=== PATIENT | male | born 1940 | race Caucasian/White ===

== ENCOUNTER → 2017-09-28 17:46 | Outpatient (CLI) | payer MEDICARE, OTHER, SELFPAY | PROVIDERS: Visit Provider Podiatrist | DX: L03.115 Cellulitis of right lower limb (principal) | CPT/HCPCS: 87070; 87075; 87205 ==

== ENCOUNTER 2018-04-19 10:00 | Outpatient (RCR) | payer MEDICARE, OTHER, SELFPAY ==
[2018-03-29 09:36] VITALS: BP 135/80; PULSE 60; RESP 16; TEMP 35.5; BMI 27.2
--- NOTE | 2018-03-29 12:57 | PCM.WC.HP ---
(1) Ulcer of right lower extremity with fat layer exposed Status: Acute Current Visit: Yes Code(s): L97.912 - Non-pressure chronic ulcer of unspecified part of right lower leg with fat layer exposed (2) Type 2 diabetes mellitus with diabetic polyneuropathy Status: Acute Current Visit: Yes Code(s): E11.42 - Type 2 diabetes mellitus with diabetic polyneuropathy (3) Lower extremity edema Status: Acute Current Visit: Yes Code(s): R60.0 - Localized edema (4) Venous insufficiency Status: Acute Current Visit: Yes Code(s): I87.2 - Venous insufficiency (chronic) (peripheral) History of Present Illness Date of Service: 03/29/18 Chief Complaint: right lower leg ulcers History of Wound: This 78-year-old diabetic male was referred to the wound healing center by Dr. Torres for right lower leg ulcers. The patient relates that approximately 3 years ago he had an undiagnosed ankle fracture that he was treated for in [place]. He relates that the ankle finally healed, but he has had increased chonic swelling to his right lower extremity when compared to his left lower extremity. As a result, the patient relates that he will develop ulcers from time to time. These had previously been treated by Dr. Torres. He had last seen Dr. Torres in office a few weeks ago and the patient has been using haley dressing changes. These two areas were healed once the old haley was removed in clinic today. However, the patient had two new superficial ulcers to the right lateral lower leg. He says he just noticed these a few days ago. He denies any purulence to the areas or any significant warmth or redness to the areas. He has not done much to treat these on his own other than keeping them dressed. Past Medical History Past Medical History: Chronic Problems Overweight (BMI 25.0-29.9) (Chronic) Hypertension (Chronic) Hyperlipidemia (Chronic) History of tobacco use (Chronic) Diabetes mellitus, type II (Chronic) Surgical History: - - Cholecystectomy, left 1st metatarsal surgery, cataract surgery, tonsillectomy. Allergies/Adverse Reactions: Allergies cefdinir [From Omnicef] Adverse Reaction (Verified 12/09/16 05:37) Other constipation Home Medications: Ambulatory Orders Medication Instructions Recorded Glimepiride [Amaryl] 2 mg PO BIDCM 07/24/14 Hydrochlorothiazide 25 mg PO DAILY 07/24/14 Metformin [Metformin HCl] 1,000 mg PO BID 07/24/14 Tamsulosin HCl 0.4 mg PO DAILY 07/24/14 Allopurinol 100 mg PO DAILY 12/09/16 Atorvastatin Calcium 20 mg PO DAILY 12/09/16 Gabapentin [Neurontin] 300 mg PO DAILY 12/09/16 Meclizine HCl [Antivert] 25 mg PO TID PRN PRN #15 tablet 12/09/16 - Family History Maternal No pertinent history Paternal No pertinent history Smoking Status: Never smoker Review of Systems Constitutional: Denies: Chills, Fever, Weight Change Respiratory: Denies: Cough, Shortness of Breath Gastrointestinal: Denies: Diarrhea, Nausea, Vomiting Skin: Reports: - - right LE ulcers Neurological: Reports: - - DM neuropathy - Physical Exam Vital Signs Temp Pulse Resp BP 95.9 F L 60 16 135/80 H 03/29/18 09:36 03/29/18 09:36 03/29/18 09:36 03/29/18 09:36 General: Alert, Oriented x3, Cooperative, No apparent distress Extremities: No cyanosis, Capillary Refill Less than 3 Seconds - To distal digits, No Calf Tenderness - Negative Yenny and Voss sign, Edema - Bilateral lower extremity edema with right being worse than left, Peripheral Pulses Normal - DP and PT pulses palpable Skin: Ulcer/ Wound - Right lateral lower extremity ulcers with fat layer exposed one superior one inferior. The bases of each are noted to be a mixture of adherent slough, fibrin, granular tissue. There is no surrounding or extending cellulitis, no increase in warmth, no purulence, no malodor, no probing, no tracking, no undermining. Wound Measurements and Assessment WC - Nurse 1 - General Ulcer Measurement Start: 03/29/18 09:27 Freq: Status: Active Protocol: Activity Type Activity Date Activity User E-Sign Co-Sign Detail Recorded Client Recorded Date Recorded By Document 03/29/18 09:36 [id number] 03/29/18 10:03 03/29/18 09:36 Wound Center Nurse 1 [Ulcer Assessment] #2 Lateral RLE- Inferior -Combined with other wound No -Current Size (cm) - Length 1.7 -Current Size (cm) - Width 1.5 -Current Size (cm) - Depth 0 -Total Square Cm 2.55 -Date of Last Picture (Recall this 03/29/18 field) -Photo Taken Yes -Epithelialization None Present -Tunneling No -Undermining/Tunneling No -Circular Undermining No -Necrosis Amt Large (67-100%) -Necrotic Tissue Type Eschar -Temperature (Christiane-wound Skin No Abnormality Appearance) (Pt Warm) -Tenderness on Palpation (Christiane-wound No Skin Appearance) -Ulcer Cleansing Rinsed/ Irrigated with Saline -Foul Odor after Cleansing No -Anesthetic Used 4% Lidocaine Solution #1 Lateral RLE- Superior -Combined with other wound No -Current Size (cm) - Length 7.5 -Current Size (cm) - Width 3.4 -Current Size (cm) - Depth 0 -Total Square Cm 25.50 -Date of Last Picture (Recall this 03/29/18 field) -Photo Taken Yes -Epithelialization None Present -Tunneling No -Undermining/Tunneling No -Circular Undermining No -Granulation Amt Large (67-100%) -Granulation Quality Pale [place] -Slough/Fibrin No -Temperature (Christiane-wound Skin No Abnormality Appearance) (Pt Warm) -Tenderness on Palpation (Christiane-wound No Skin Appearance) -Ulcer Cleansing Rinsed/ Irrigated with Saline -Foul Odor after Cleansing No -Anesthetic Used 4% Lidocaine Solution [Edema Assessment] -Lower Limb Edema Present No -Right Calf (cm) 38 -Right Ankle (cm) 25.8 -Left Calf (cm) 37.5 -Left Ankle (cm) 24.8 WC - Nurse 2 - General Ulcer CM Notes Start: 03/29/18 09:27 Freq: Status: Active Protocol: Activity Type Activity Date Activity User E-Sign Co-Sign Detail Recorded Client Recorded Date Recorded By Document 03/29/18 10:34 DV [id number] 03/29/18 10:38 DV 03/29/18 10:34 Wound Center Nurse 2 [Procedure/Treatment] #2 Lateral RLE- Inferior -Time 10:37 -Correct Patient Yes -Correct Side, Site, Position Yes -Procedure Performed No -Post Debridement Size (cm) - Length 2.2 -Post Debridement Size (cm) - Width 3.0 -Post Debridement Size (cm) - Depth 0.1 -Total Square Cm 6.60 -Wound/Ulcer Outcome Not Healed #1 Lateral RLE- Superior -Time 10:37 -Correct Patient Yes -Correct Side, Site, Position Yes -Procedure Performed No -Post Debridement Size (cm) - Length 1.5 -Post Debridement Size (cm) - Width 3.7 -Post Debridement Size (cm) - Depth 0.1 -Total Square Cm 5.55 -Wound/Ulcer Outcome Not Healed [See Physician Procedure note for Specifics] Musculoskeletal: No Tenderness to Palpation of Joints or Extremities, - - No tenderness with manipulation of ulcer sites Neurological: - - Epicritic sensation grossly absent lower extremity Psych/Mental Status: Normal Affect, Appropriate Debridement Note Post-Debridement Measurements/Treatment WC - Nurse 2 - General Ulcer CM Notes Start: 03/29/18 09:27 Freq: Status: Active Protocol: Activity Type Activity Date Activity User E-Sign Co-Sign Detail Recorded Client Recorded Date Recorded By Document 03/29/18 10:34 DV [id number] 03/29/18 10:38 DV 03/29/18 10:34 Wound Center Nurse 2 #2 Lateral RLE- Inferior -Time 10:37 -Correct Patient Yes -Correct Side, Site, Position Yes -Procedure Performed No -Post Debridement Size (cm) - Length 2.2 -Post Debridement Size (cm) - Width 3.0 -Post Debridement Size (cm) - Depth 0.1 -Total Square Cm 6.60 -Wound/Ulcer Outcome Not Healed #1 Lateral RLE- Superior -Time 10:37 -Correct Patient Yes -Correct Side, Site, Position Yes -Procedure Performed No -Post Debridement Size (cm) - Length 1.5 -Post Debridement Size (cm) - Width 3.7 -Post Debridement Size (cm) - Depth 0.1 -Total Square Cm 5.55 -Wound/Ulcer Outcome Not Healed No debridement was completed today Assessment/Plan Active Problems Ulcer of right lower extremity with fat layer exposed (Acute) Type 2 diabetes mellitus with diabetic polyneuropathy (Acute) Lower extremity edema (Acute) Venous insufficiency (Acute) Assessment: Ulcer right lateral lower extremity, DM with neuropathy, venous insufficiency, lower extremity edema Plan: Initial patient examination evaluation was formed. No debridement was performed today. The 2 ulcer sites were carefully cleansed and then an Unna boot was applied followed by rolled gauze and Coban. Patient is to keep this dressing clean dry and intact until Monday, at which time he will follow-up at the wound healing center for nurse visit to evaluate the Unna boot. If everything looks okay, and another Unna boot will be applied at this time. Keeping pressure off of the ulcer sites was discussed in detail with the patient and his today. He is to continue to do this at all times while seated or lying down. Patient is to keep his legs elevated all times. No antibiotics were prescribed at this time due to there being no signs of local infection appreciated. Venous Doppler exam was ordered for this patient. We will continue to monitor for these results. I recommend nutritional supplementation with a high protein diet in order to optimize ulcer healing potential. The patient and his were educated on all signs and symptoms of local and systemic infection and they were instructed to go to the emergency room immediately should they notice any of these. All other questions were answered to the patient and his 's satisfaction. He will follow-up with me in clinic in 1 week, but was instructed to follow-up sooner if needed.
--- NOTE | 2018-04-03 10:38 | VDLE_ITS ---
Reason For Study: Ulcers RIGHT LEFT CFV is compressible, spontaneous, phasic, CFV is compressible, spontaneous, phasic, competent and demonstrates normal competent, and demonstrates normal augmentation. augmentation. FV is compressible, spontaneous, phasic, FV is compressible, spontaneous, phasic, competent and demonstrates normal competent and demonstrates normal augmentation. augmentation. POP V is compressible, spontaneous, phasic, POP V is compressible, spontaneous, phasic, competent and demonstrates normal competent and demonstrates normal augmentation. augmentation. T/P Trunk is compressible. T/P Trunk is compressible. PTV is compressible. PTV is compressible. RT PerV is compressible. LT PerV is compressible. SFJ is INCOMPETENTwith reflux greater than .5 SFJ is competent sec GSV is INCOMPETENT with reflux greater GSV is competent than .5 sec and diameter of .55 x .63 cm SSV is INCOMPETENT with reflux greater SSV is INCOMPETENT with reflux greater than .5 sec and diameter of .73 x .85 cm than .5 sec and diameter of.52 x .56 cm SSV is partially compressible with bright SSV is partially compressible with bright intraluminal echoes consistant with chronic intraluminal echoes consistant with chronic clot. clot. Procedure Exam performed in department. A preliminary report was called and/or faxed to [facility]. Interpretation Summary Deep veins of the lower extremities are bilaterally patent and compressible segmentally. There is no evidence of deep vein thrombosis on either side. Valvular competence appears intact within the proximal deep venous systems bilaterally. The greater saphenous veins appear bilaterally patent and compressible segmentally. The right sapheno-femoral junction is incompetent . The left sapheno- femoral junction is competent . The right greater saphenous vein appears segmentally competent. The left greater saphenous vein appears segmentally incompetent. Small saphenous veins are incompetent bilaterally, and demonstrate chronic venous changes such as partial compressibility and bright intraluminal echogenicity. Ordering Physician: Fady Dickson Referring Physician: Fady Dickson Performed By: Margot Cristina RVT
[2018-04-03 11:38] VITALS: BP 130/71; PULSE 85; RESP 16; TEMP 35.4; BMI 27.2
[2018-04-05 09:43] VITALS: BP 162/78; PULSE 56; RESP 16; TEMP 35.5; BMI 27.2
--- NOTE | 2018-04-05 10:22 | PN.PCM_ITS ---
(1) Ulcer of right lower extremity with fat layer exposed Status: Acute Current Visit: Yes Code(s): L97.912 - Non-pressure chronic ulcer of unspecified part of right lower leg with fat layer exposed (2) Type 2 diabetes mellitus with diabetic polyneuropathy Status: Acute Current Visit: Yes Code(s): E11.42 - Type 2 diabetes mellitus with diabetic polyneuropathy (3) Lower extremity edema Status: Acute Current Visit: Yes Code(s): R60.0 - Localized edema (4) Venous insufficiency Status: Acute Current Visit: Yes Code(s): I87.2 - Venous insufficiency (chronic) (peripheral) Type of Wound Chief Complaint: right lower leg ulcers History of Wound: This 78-year-old diabetic male was referred to the wound healing center by Dr. Torres for right lower leg ulcers. The patient relates that approximately 3 years ago he had an undiagnosed ankle fracture that he was treated for in [place]. He relates that the ankle finally healed, but he has had increased chonic swelling to his right lower extremity when compared to his left lower extremity. As a result, the patient relates that he will develop ulcers from time to time. These had previously been treated by Dr. Torres. He had last seen Dr. Torres in office a few weeks ago and the patient has been using haley dressing changes. These two areas were healed once the old haley was rem carroll in clinic today. However, the patient had two new superficial ulcers to the right lateral lower leg. He says he just noticed these a few days ago. He denies any purulence to the areas or any significant warmth or redness to the areas. He has not done much to treat these on his own other than keeping them dressed. Progress of Wound: Ulcer sites show improvement since last week. Patient had unna boot applied and relates no issues with this over the past week. He is with his again today. Patient denies any feelings of nausea, vomiting, fever, or chills. - Physical Exam Vital Signs Temp Pulse Resp BP 96 F L 56 L 16 162/78 H 04/05/18 09:43 04/05/18 09:43 04/05/18 09:43 04/05/18 09:43 General: Alert, Oriented x3, Cooperative, No apparent distress Extremities: Capillary Refill Less than 3 Seconds - To distal digits, No Calf Tenderness - Negative Yenny and Voss sign, Edema - Bilateral lower extremity edema with right being worse than left, Peripheral Pulses Normal - DP and PT pulses palpable Skin: Ulcer/ Wound - Right lateral lower extremity ulcers with fat layer exposed one superior one inferior. Improvement noted this week. The bases of each are noted to be a mixture of adherent slough, fibrin, granular tissue. There is no surrounding or extending cellulitis, no increase in warmth, no purulence, no malodor, no probing, no tracking, no undermining. Wound Measurements and Assessment WC - Nurse 1 - General Ulcer Measurement Start: 03/29/18 09:27 Freq: Status: Active Protocol: Activity Type Activity Date Activity User E-Sign Co-Sign Detail Recorded Client Recorded Date Recorded By Document 04/05/18 09:43 [facility] [id number] 04/05/18 09:54 [facility] 04/05/18 09:43 Wound Center Nurse 1 [Ulcer Assessment] #2 Lateral RLE- Inferior -Combined with other wound No -Current Size (cm) - Length 0.2 -Current Size (cm) - Width 0.7 -Current Size (cm) - Depth 0.1 -Total Square Cm 0.14 -Photo Taken No -Epithelialization Small 1-33% -Tunneling No -Undermining/Tunneling No -Circular Undermining No -Exudate Amt Small -Exudate Type Sanguineous -Wound Margin Flat & Intact -Granulation Amt Large (67-100%) -Granulation Quality Red -Slough/Fibrin No -Necrosis Amt None Present (0 %) -Structure Exposed None/Limited to Skin Breakdown -Texture (Christiane-wound Skin Appearance) Scarring -Moisture (Christiane-wound Skin Appearance Assessed ) -Color (Christiane-wound Skin Appearance) Hemosiderin Staining -Temperature (Christiane-wound Skin No Abnormality Appearance) (Pt Warm) -Tenderness on Palpation (Christiane-wound No Skin Appearance) -Ulcer Cleansing Wound Cleanser -Foul Odor after Cleansing No -Anesthetic Used 5% Lidocaine Gel #1 Lateral RLE- Superior -Combined with other wound No -Current Size (cm) - Length 1 -Current Size (cm) - Width 3 -Current Size (cm) - Depth 0.1 -Total Square Cm 3 -Photo Taken No -Epithelialization Small 1-33% -Tunneling No -Undermining/Tunneling No -Circular Undermining No -Exudate Amt Small -Exudate Type Sanguineous -Wound Margin Flat & Intact -Granulation Amt Large (67-100%) -Granulation Quality Red -Slough/Fibrin No -Necrosis Amt None Present (0 %) -Structure Exposed None/Limited to Skin Breakdown -Texture (Christiane-wound Skin Appearance) Scarring -Moisture (Christiane-wound Skin Appearance Assessed ) -Color (Christiane-wound Skin Appearance) Hemosiderin Staining -Temperature (Christiane-wound Skin No Abnormality Appearance) (Pt Warm) -Tenderness on Palpation (Christiane-wound No Skin Appearance) -Ulcer Cleansing Wound Cleanser -Foul Odor after Cleansing No -Anesthetic Used 5% Lidocaine Gel [Edema Assessment] -Lower Limb Edema Present Yes -Right Calf (cm) 36.8 -Right Ankle (cm) 24.5 WC - Nurse 2 - General Ulcer CM Notes Start: 03/29/18 09:27 Freq: Status: Active Protocol: Activity Type Activity Date Activity User E-Sign Co-Sign Detail Recorded Client Recorded Date Recorded By Document 04/05/18 10:10 DV [id number] 04/05/18 10:15 DV 04/05/18 10:10 Wound Center Nurse 2 [Procedure/Treatment] #2 Lateral RLE- Inferior -Time 10:10 -Correct Patient Yes -Correct Side, Site, Position Yes -Correct Procedure Yes -Procedure Performed Yes -Type of Procedure Debridement -Clinical Debridement Subcutaneous -Post Debridement Size (cm) - Length 0.5 -Post Debridement Size (cm) - Width 0.8 -Post Debridement Size (cm) - Depth 0.1 -Total Square Cm 0.40 -Wound/Ulcer Outcome Not Healed -Ulcer Cleansing Rinsed/ Irrigated with Saline -Foul Odor after Cleansing No -Bioengineered Tissue No -Bleeding Controlled with Pressure -Offloading No -Treatment Response Procedure Tolerated Well #1 Lateral RLE- Superior -Time 10:12 -Correct Patient Yes -Correct Side, Site, Position Yes -Correct Procedure Yes -Procedure Performed Yes -Type of Procedure Debridement -Clinical Debridement Subcutaneous -Post Debridement Size (cm) - Length 1.1 -Post Debridement Size (cm) - Width 2.2 -Post Debridement Size (cm) - Depth 0.1 -Total Square Cm 2.42 -Wound/Ulcer Outcome Not Healed -Ulcer Cleansing Rinsed/ Irrigated with Saline -Foul Odor after Cleansing No -Bioengineered Tissue No -Bleeding Controlled with Pressure -Offloading No -Treatment Response Procedure Tolerated Well [See Physician Procedure note for Specifics] Pain Scale: 0-10 Numeric [Pain] -Is Patient Pain Free? Yes Musculoskeletal: No Tenderness to Palpation of Joints or Extremities, - - No tenderness with manipulation of ulcer sites Neurological: - - Epicritic sensation grossly absent lower extremity Psych/Mental Status: Normal Affect, Appropriate Debridement Note Post-Debridement Measurements/Treatment WC - Nurse 2 - General Ulcer CM Notes Start: 03/29/18 09:27 Freq: Status: Active Protocol: Activity Type Activity Date Activity User E-Sign Co-Sign Detail Recorded Client Recorded Date Recorded By Document 03/29/18 10:34 DV [id number] 03/29/18 10:38 DV Document 04/05/18 10:10 DV [id number] 04/05/18 10:15 DV 03/29/18 04/05/18 10:34 10:10 Wound Center Nurse 2 #2 Lateral RLE- Inferior -Time 10:37 10:10 -Correct Patient Yes Yes -Correct Side, Site, Position Yes Yes -Correct Procedure Yes -Procedure Performed No Yes -Type of Procedure Debridement -Clinical Debridement Subcutaneous -Post Debridement Size (cm) - Length 2.2 0.5 -Post Debridement Size (cm) - Width 3.0 0.8 -Post Debridement Size (cm) - Depth 0.1 0.1 -Total Square Cm 6.60 0.40 -Wound/Ulcer Outcome Not Healed Not Healed -Ulcer Cleansing Rinsed/ Irrigated with Saline -Foul Odor after Cleansing No -Bioengineered Tissue No -Bleeding Controlled with Pressure -Offloading No -Treatment Response Procedure Tolerated Well #1 Lateral RLE- Superior -Time 10:37 10:12 -Correct Patient Yes Yes -Correct Side, Site, Position Yes Yes -Correct Procedure Yes -Procedure Performed No Yes -Type of Procedure Debridement -Clinical Debridement Subcutaneous -Post Debridement Size (cm) - Length 1.5 1.1 -Post Debridement Size (cm) - Width 3.7 2.2 -Post Debridement Size (cm) - Depth 0.1 0.1 -Total Square Cm 5.55 2.42 -Wound/Ulcer Outcome Not Healed Not Healed -Ulcer Cleansing Rinsed/ Irrigated with Saline -Foul Odor after Cleansing No -Bioengineered Tissue No -Bleeding Controlled with Pressure -Offloading No -Treatment Response Procedure Tolerated Well Pain Scale: 0-10 Numeric Is Patient Pain Free? Yes Wound debrided: Right anterior lower leg superior Laterality: Right Type of Debridement: Excisional debridement Anesthesia Used: 4% Lidocaine Solution Depth: in the subcutaneous layer Percentage of wound debrided: 100 Instrument Used: 7mm curette Tissue Removed: Adherent slough, fibrin, hyperkeratotic tissue Severity: Fat Layer Exposed Amount of bleeding with debridement: Mild Bleeding Controlled with: Pressure Patient tolerated procedure well - Additional Wound Wound debrided: Right anterior lower leg inferior Laterality: Right Type of Debridement: Excisional debridement Anesthesia Used: 4% Lidocaine Solution Depth: in the subcutaneous layer Percentage of wound debrided: 100 Instrument Used: 7mm curette Tissue Removed: Adherent slough, fibrin, hyperkeratotic tissue Severity: Fat Layer Exposed Amount of bleeding with debridement: Mild Bleeding Controlled with: Pressure Patient tolerated procedure: Patient tolerated procedure well Assessment/Plan Active Problems Ulcer of right lower extremity with fat layer exposed (Acute) Type 2 diabetes mellitus with diabetic polyneuropathy (Acute) Lower extremity edema (Acute) Venous insufficiency (Acute) Assessment: Ulcer right lateral lower extremity, DM with neuropathy, venous insufficiency, lower extremity edema Plan: Patient was carefully examined and evaluated again today with in the room. Subcutaneous debridement was performed as noted in the clinical panel. The two ulcer sites were then carefully cleansed and then an Unna boot was applied followed by rolled gauze and Coban. Patient is to keep this dressing clean dry and intact for the next week. Keeping pressure off of the ulcer sites was discussed in detail with the patient and his today. He is to continue to do this at all times while seated or lying down. Patient is to keep his legs elevated all times. No antibiotics were prescribed at this time due to there being no signs of local infection appreciated. Venous Doppler exam was ordered for this patient and shows some venous incompetence to the left lower extremity. Full detailed report is in patient's chart. We discussed possible vascular referral in the future. I recommend nutritional supplementation with a high protein diet in order to optimize ulcer healing potential. The patient and his were educated on all signs and symptoms of local and systemic infection and they were instructed to go to the emergency room immediately should they notice any of these. All other questions were answered to the patient and his 's satisfaction. He will follow-up with me in clinic in 1 week, but was instructed to follow-up sooner if needed.
[2018-04-12 09:36] VITALS: BP 130/75; PULSE 76; RESP 16; TEMP 35.3; BMI 27.2
--- NOTE | 2018-04-12 10:05 | PCM.WC.PN ---
(1) Ulcer of right lower extremity with fat layer exposed Status: Acute Current Visit: Yes Code(s): L97.912 - Non-pressure chronic ulcer of unspecified part of right lower leg with fat layer exposed (2) Type 2 diabetes mellitus with diabetic polyneuropathy Status: Acute Current Visit: Yes Code(s): E11.42 - Type 2 diabetes mellitus with diabetic polyneuropathy (3) Lower extremity edema Status: Acute Current Visit: Yes Code(s): R60.0 - Localized edema (4) Venous insufficiency Status: Acute Current Visit: Yes Code(s): I87.2 - Venous insufficiency (chronic) (peripheral) Type of Wound Chief Complaint: right lower leg ulcers History of Wound: This 78-year-old diabetic male was referred to the wound healing center by Dr. Torres for right lower leg ulcers. The patient relates that approximately 3 years ago he had an undiagnosed ankle fracture that he was treated for in [place]. He relates that the ankle finally healed, but he has had increased chonic swelling to his right lower extremity when compared to his left lower extremity. As a result, the patient relates that he will develop ulcers from time to time. These had previously been treated by Dr. Torres. He had last seen Dr. Torres in office a few weeks ago and the patient has been using haley dressing changes. These two areas were healed once the old haley was removed in clinic today. However, the patient had two new superficial ulcers to the right lateral lower leg. He says he just noticed these a few days ago. He denies any purulence to the areas or any significant warmth or redness to the areas. He has not done much to treat these on his own other than keeping them dressed. Progress of Wound: Superior ulcer shows great improvement, inferior ulcer is healed. Patient had unna boot applied for the past week. He is with his again today. Patient denies any feelings of nausea, vomiting, fever, or chills. - Physical Exam Vital Signs Temp Pulse Resp BP 95.5 F L 76 16 130/75 H 04/12/18 09:36 04/12/18 09:36 04/12/18 09:36 04/12/18 09:36 General: Alert, Oriented x3, Cooperative, No apparent distress Extremities: Capillary Refill Less than 3 Seconds, No Calf Tenderness - Negative Yenny and Voss sign, Edema - Bilateral lower extremity edema with right being worse than left, Peripheral Pulses Normal - DP and PT pulses palpable Skin: Ulcer/ Wound - Right lateral lower extremity ulcer superior with fat layer exposed. Improvement noted this week. The base is noted to be a mixture of adherent slough, fibrin, granular tissue. There is no surrounding or extending cellulitis, no increase in warmth, no purulence, no malodor, no probing, no tracking, no undermining. Previous inferior ulcer is healed today. Wound Measurements and Assessment WC - Nurse 1 - General Ulcer Measurement Start: 03/29/18 09:27 Freq: Status: Active Protocol: Activity Type Activity Date Activity User E-Sign Co-Sign Detail Recorded Client Recorded Date Recorded By Document 04/12/18 09:36 [facility] [id number] 04/12/18 09:48 [facility] 04/12/18 09:36 Wound Center Nurse 1 [Ulcer Assessment] #2 Lateral RLE- Inferior -Combined with other wound No -Current Size (cm) - Length 0.1 -Current Size (cm) - Width 0.1 -Current Size (cm) - Depth 0.1 -Total Square Cm 0.01 -Date of Last Picture (Recall this 04/12/18 field) -Photo Taken Yes -Epithelialization Large 67-100% -Tunneling No -Undermining/Tunneling No -Circular Undermining No -Exudate Amt None Present -Wound Margin Flat & Intact -Texture (Christiane-wound Skin Appearance) Scarring -Moisture (Christiane-wound Skin Appearance Dry/Scaly ) -Color (Christiane-wound Skin Appearance) Hemosiderin Staining -Temperature (Christiane-wound Skin No Abnormality Appearance) (Pt Warm) -Tenderness on Palpation (Christiane-wound No Skin Appearance) -Ulcer Cleansing Wound Cleanser -Foul Odor after Cleansing No -Anesthetic Used 4% Lidocaine Solution #1 Lateral RLE- Superior -Combined with other wound No -Current Size (cm) - Length 0.1 -Current Size (cm) - Width 0.1 -Current Size (cm) - Depth 0.1 -Total Square Cm 0.01 -Date of Last Picture (Recall this 04/12/18 field) -Photo Taken Yes -Epithelialization Large 67-100% -Tunneling No -Undermining/Tunneling No -Circular Undermining No -Exudate Amt None Present -Texture (Christiane-wound Skin Appearance) Scarring -Moisture (Christiane-wound Skin Appearance Dry/Scaly ) -Color (Christiane-wound Skin Appearance) Hemosiderin Staining -Temperature (Christiane-wound Skin No Abnormality Appearance) (Pt Warm) -Tenderness on Palpation (Christiane-wound No Skin Appearance) -Ulcer Cleansing Wound Cleanser -Foul Odor after Cleansing No -Anesthetic Used 4% Lidocaine Solution [Edema Assessment] -Lower Limb Edema Present Yes -Right Calf (cm) 37 -Right Ankle (cm) 23.6 [facility] - Nurse 2 - General Ulcer CM Notes Start: 03/29/18 09:27 Freq: Status: Active Protocol: Activity Type Activity Date Activity User E-Sign Co-Sign Detail Recorded Client Recorded Date Recorded By Document 04/12/18 09:58 DV [id number] 04/12/18 10:03 DV 04/12/18 09:58 Wound Center Nurse 2 [Procedure/Treatment] #2 Lateral RLE- Inferior -Time 09:59 -Correct Patient Yes -Correct Side, Site, Position Yes -Procedure Performed No -Post Debridement Size (cm) - Length 0 -Post Debridement Size (cm) - Width 0 -Post Debridement Size (cm) - Depth 0 -Total Square Cm 0 -Wound/Ulcer Outcome Healed- Epithelialized #1 Lateral RLE- Superior -Time 10:00 -Correct Patient Yes -Correct Side, Site, Position Yes -Correct Procedure Yes -Procedure Performed Yes -Type of Procedure Debridement -Clinical Debridement Subcutaneous -Post Debridement Size (cm) - Length 0.1 -Post Debridement Size (cm) - Width 0.5 -Post Debridement Size (cm) - Depth 0.1 -Total Square Cm 0.05 -Wound/Ulcer Outcome Not Healed -Ulcer Cleansing Rinsed/ Irrigated with Saline -Foul Odor after Cleansing No -Bioengineered Tissue No -Bleeding Controlled with Pressure -Offloading No -Treatment Response Procedure Tolerated Well [See Physician Procedure note for Specifics] Pain Scale: 0-10 Numeric [Pain] -Is Patient Pain Free? Yes Musculoskeletal: No Tenderness to Palpation of Joints or Extremities, - - No tenderness with manipulation of ulcer sites Neurological: - - Epicritic sensation grossly absent to lower extremity Psych/Mental Status: Normal Affect, Appropriate Debridement Note Post-Debridement Measurements/Treatment [facility] - Nurse 2 - General Ulcer CM Notes Start: 03/29/18 09:27 Freq: Status: Active Protocol: Activity Type Activity Date Activity User E-Sign Co-Sign Detail Recorded Client Recorded Date Recorded By Document 03/29/18 10:34 DV [id number] 03/29/18 10:38 DV Document 04/05/18 10:10 DV [id number] 04/05/18 10:15 DV Document 04/12/18 09:58 DV [id number] 04/12/18 10:03 DV 03/29/18 04/05/18 04/12/18 10:34 10:10 09:58 Wound Center Nurse 2 #2 Lateral RLE- Inferior -Time 10:37 10:10 09:59 -Correct Patient Yes Yes Yes -Correct Side, Site, Position Yes Yes Yes -Correct Procedure Yes -Procedure Performed No Yes No -Type of Procedure Debridement -Clinical Debridement Subcutaneous -Post Debridement Size (cm) - Length 2.2 0.5 0 -Post Debridement Size (cm) - Width 3.0 0.8 0 -Post Debridement Size (cm) - Depth 0.1 0.1 0 -Total Square Cm 6.60 0.40 0 -Wound/Ulcer Outcome Not Healed Not Healed Healed- Epithelialized -Ulcer Cleansing Rinsed/ Irrigated with Saline -Foul Odor after Cleansing No -Bioengineered Tissue No -Bleeding Controlled with Pressure -Offloading No -Treatment Response Procedure Tolerated Well #1 Lateral RLE- Superior -Time 10:37 10:12 10:00 -Correct Patient Yes Yes Yes -Correct Side, Site, Position Yes Yes Yes -Correct Procedure Yes Yes -Procedure Performed No Yes Yes -Type of Procedure Debridement Debridement -Clinical Debridement Subcutaneous Subcutaneous -Post Debridement Size (cm) - Length 1.5 1.1 0.1 -Post Debridement Size (cm) - Width 3.7 2.2 0.5 -Post Debridement Size (cm) - Depth 0.1 0.1 0.1 -Total Square Cm 5.55 2.42 0.05 -Wound/Ulcer Outcome Not Healed Not Healed Not Healed -Ulcer Cleansing Rinsed/ Rinsed/ Irrigated with Irrigated with Saline Saline -Foul Odor after Cleansing No No -Bioengineered Tissue No No -Bleeding Controlled with Pressure Pressure -Offloading No No -Treatment Response Procedure Procedure Tolerated Well Tolerated Well Pain Scale: 0-10 Numeric Is Patient Pain Free? Yes Yes Wound debrided: Right anterior lower leg superior Laterality: Right Type of Debridement: Selective debridement Anesthesia Used: 4% Lidocaine Solution Depth: in the subcutaneous layer Percentage of wound debrided: 100 Instrument Used: 5mm curette Tissue Removed: Adherent slough, fibrin, hyperkeratotic tissue Severity: Fat Layer Exposed Amount of bleeding with debridement: Mild Bleeding Controlled with: Pressure Patient tolerated procedure well Assessment/Plan Active Problems Ulcer of right lower extremity with fat layer exposed (Acute) Type 2 diabetes mellitus with diabetic polyneuropathy (Acute) Lower extremity edema (Acute) Venous insufficiency (Acute) Assessment: Ulcer right lateral lower extremity, DM with neuropathy, venous insufficiency, lower extremity edema Plan: Patient was carefully examined and evaluated again today with in the room. Selective debridement was performed as noted in the clinical panel. Inferior ulcer is healed this week. Improvement noted to superior ulcer. The ulcer site was then carefully cleansed and then an Unna boot was applied followed by rolled gauze and Coban. Patient is to keep this dressing clean dry and intact for the next week. Keeping pressure off of the ulcer sites was discussed in detail with the patient and his today. He is to continue to do this at all times while seated or lying down. Patient is to keep his legs elevated all times. No antibiotics were prescribed at this time due to there being no signs of local infection appreciated. Venous Doppler exam was ordered for this patient and shows some venous incompetence to the left lower extremity. Full detailed report is in patient's chart. We discussed possible vascular referral in the future. Prescribed 20-30 mmHg compression stockings for patient to start wearing once completely healed to reduce chance of recurrence. I recommend nutritional supplementation with a high protein diet in order to optimize ulcer healing potential. The patient and his were educated on all signs and symptoms of local and systemic infection and they were instructed to go to the emergency room immediately should they notice any of these. All other questions were answered to the patient and his 's satisfaction. He will follow-up with me in clinic in 1 week, but was instructed to follow-up sooner if needed.
--- NOTE | 2018-04-12 10:09 | PN.PCM_ITS ---
(1) Ulcer of right lower extremity with fat layer exposed Status: Acute Current Visit: Yes Code(s): L97.912 - Non-pressure chronic ulcer of unspecified part of right lower leg with fat layer exposed (2) Type 2 diabetes mellitus with diabetic polyneuropathy Status: Acute Current Visit: Yes Code(s): E11.42 - Type 2 diabetes mellitus with diabetic polyneuropathy (3) Lower extremity edema Status: Acute Current Visit: Yes Code(s): R60.0 - Localized edema (4) Venous insufficiency Status: Acute Current Visit: Yes Code(s): I87.2 - Venous insufficiency (chronic) (peripheral) Type of Wound Chief Complaint: right lower leg ulcers History of Wound: This 78-year-old diabetic male was referred to the wound healing center by Dr. Torres for right lower leg ulcers. The patient relates that approximately 3 years ago he had an undiagnosed ankle fracture that he was treated for in [place]. He relates that the ankle finally healed, but he has had increased chonic swelling to his right lower extremity when compared to his left lower extremity. As a result, the patient relates that he will develop ulcers from time to time. These had previously been treated by Dr. Torres. He had last seen Dr. Torres in office a few weeks ago and the patient has been using haley dressing changes. These two areas were healed once the old haley was rem carroll in clinic today. However, the patient had two new superficial ulcers to the right lateral lower leg. He says he just noticed these a few days ago. He denies any purulence to the areas or any significant warmth or redness to the areas. He has not done much to treat these on his own other than keeping them dressed. Progress of Wound: Superior ulcer shows great improvement, inferior ulcer is healed. Patient had unna boot applied for the past week. He is with his again today. Patient denies any feelings of nausea, vomiting, fever, or chills. - Physical Exam Vital Signs Temp Pulse Resp BP 95.5 F L 76 16 130/75 H 04/12/18 09:36 04/12/18 09:36 04/12/18 09:36 04/12/18 09:36 General: Alert, Oriented x3, Cooperative, No apparent distress Extremities: Capillary Refill Less than 3 Seconds, No Calf Tenderness - Negative Yenny and Voss sign, Edema - Bilateral lower extremity edema with right being worse than left, Peripheral Pulses Normal - DP and PT pulses palpable Skin: Ulcer/ Wound - Right lateral lower extremity ulcer superior with fat layer exposed. Improvement noted this week. The base is noted to be a mixture of adherent slough, fibrin, granular tissue. There is no surrounding or extending cellulitis, no increase in warmth, no purulence, no malodor, no probing, no tracking, no undermining. Previous inferior ulcer is healed today. Wound Measurements and Assessment WC - Nurse 1 - General Ulcer Measurement Start: 03/29/18 09:27 Freq: Status: Active Protocol: Activity Type Activity Date Activity User E-Sign Co-Sign Detail Recorded Client Recorded Date Recorded By Document 04/12/18 09:36 [facility] [id number] 04/12/18 09:48 [facility] 04/12/18 09:36 Wound Center Nurse 1 [Ulcer Assessment] #2 Lateral RLE- Inferior -Combined with other wound No -Current Size (cm) - Length 0.1 -Current Size (cm) - Width 0.1 -Current Size (cm) - Depth 0.1 -Total Square Cm 0.01 -Date of Last Picture (Recall this 04/12/18 field) -Photo Taken Yes -Epithelialization Large 67-100% -Tunneling No -Undermining/Tunneling No -Circular Undermining No -Exudate Amt None Present -Wound Margin Flat & Intact -Texture (Christiane-wound Skin Appearance) Scarring -Moisture (Christiane-wound Skin Appearance Dry/Scaly ) -Color (Christiane-wound Skin Appearance) Hemosiderin Staining -Temperature (Christiane-wound Skin No Abnormality Appearance) (Pt Warm) -Tenderness on Palpation (Christiane-wound No Skin Appearance) -Ulcer Cleansing Wound Cleanser -Foul Odor after Cleansing No -Anesthetic Used 4% Lidocaine Solution #1 Lateral RLE- Superior -Combined with other wound No -Current Size (cm) - Length 0.1 -Current Size (cm) - Width 0.1 -Current Size (cm) - Depth 0.1 -Total Square Cm 0.01 -Date of Last Picture (Recall this 04/12/18 field) -Photo Taken Yes -Epithelialization Large 67-100% -Tunneling No -Undermining/Tunneling No -Circular Undermining No -Exudate Amt None Present -Texture (Christiane-wound Skin Appearance) Scarring -Moisture (Christiane-wound Skin Appearance Dry/Scaly ) -Color (Christiane-wound Skin Appearance) Hemosiderin Staining -Temperature (Christiane-wound Skin No Abnormality Appearance) (Pt Warm) -Tenderness on Palpation (Christiane-wound No Skin Appearance) -Ulcer Cleansing Wound Cleanser -Foul Odor after Cleansing No -Anesthetic Used 4% Lidocaine Solution [Edema Assessment] -Lower Limb Edema Present Yes -Right Calf (cm) 37 -Right Ankle (cm) 23.6 WC - Nurse 2 - General Ulcer CM Notes Start: 03/29/18 09:27 Freq: Status: Active Protocol: Activity Type Activity Date Activity User E-Sign Co-Sign Detail Recorded Client Recorded Date Recorded By Document 04/12/18 09:58 DV [id number] 04/12/18 10:03 DV 04/12/18 09:58 Wound Center Nurse 2 [Procedure/Treatment] #2 Lateral RLE- Inferior -Time 09:59 -Correct Patient Yes -Correct Side, Site, Position Yes -Procedure Performed No -Post Debridement Size (cm) - Length 0 -Post Debridement Size (cm) - Width 0 -Post Debridement Size (cm) - Depth 0 -Total Square Cm 0 -Wound/Ulcer Outcome Healed- Epithelialized #1 Lateral RLE- Superior -Time 10:00 -Correct Patient Yes -Correct Side, Site, Position Yes -Correct Procedure Yes -Procedure Performed Yes -Type of Procedure Debridement -Clinical Debridement Subcutaneous -Post Debridement Size (cm) - Length 0.1 -Post Debridement Size (cm) - Width 0.5 -Post Debridement Size (cm) - Depth 0.1 -Total Square Cm 0.05 -Wound/Ulcer Outcome Not Healed -Ulcer Cleansing Rinsed/ Irrigated with Saline -Foul Odor after Cleansing No -Bioengineered Tissue No -Bleeding Controlled with Pressure -Offloading No -Treatment Response Procedure Tolerated Well [See Physician Procedure note for Specifics] Pain Scale: 0-10 Numeric [Pain] -Is Patient Pain Free? Yes Musculoskeletal: No Tenderness to Palpation of Joints or Extremities, - - No tenderness with manipulation of ulcer sites Neurological: - - Epicritic sensation grossly absent to lower extremity Psych/Mental Status: Normal Affect, Appropriate Debridement Note Post-Debridement Measurements/Treatment [facility] - Nurse 2 - General Ulcer CM Notes Start: 03/29/18 09:27 Freq: Status: Active Protocol: Activity Type Activity Date Activity User E-Sign Co-Sign Detail Recorded Client Recorded Date Recorded By Document 03/29/18 10:34 DV [id number] 03/29/18 10:38 DV Document 04/05/18 10:10 DV [id number] 04/05/18 10:15 DV Document 04/12/18 09:58 DV [id number] 04/12/18 10:03 DV 03/29/18 04/05/18 04/12/18 10:34 10:10 09:58 Wound Center Nurse 2 #2 Lateral RLE- Inferior -Time 10:37 10:10 09:59 -Correct Patient Yes Yes Yes -Correct Side, Site, Position Yes Yes Yes -Correct Procedure Yes -Procedure Performed No Yes No -Type of Procedure Debridement -Clinical Debridement Subcutaneous -Post Debridement Size (cm) - Length 2.2 0.5 0 -Post Debridement Size (cm) - Width 3.0 0.8 0 -Post Debridement Size (cm) - Depth 0.1 0.1 0 -Total Square Cm 6.60 0.40 0 -Wound/Ulcer Outcome Not Healed Not Healed Healed- Epithelialized -Ulcer Cleansing Rinsed/ Irrigated with Saline -Foul Odor after Cleansing No -Bioengineered Tissue No -Bleeding Controlled with Pressure -Offloading No -Treatment Response Procedure Tolerated Well #1 Lateral RLE- Superior -Time 10:37 10:12 10:00 -Correct Patient Yes Yes Yes -Correct Side, Site, Position Yes Yes Yes -Correct Procedure Yes Yes -Procedure Performed No Yes Yes -Type of Procedure Debridement Debridement -Clinical Debridement Subcutaneous Subcutaneous -Post Debridement Size (cm) - Length 1.5 1.1 0.1 -Post Debridement Size (cm) - Width 3.7 2.2 0.5 -Post Debridement Size (cm) - Depth 0.1 0.1 0.1 -Total Square Cm 5.55 2.42 0.05 -Wound/Ulcer Outcome Not Healed Not Healed Not Healed -Ulcer Cleansing Rinsed/ Rinsed/ Irrigated with Irrigated with Saline Saline -Foul Odor after Cleansing No No -Bioengineered Tissue No No -Bleeding Controlled with Pressure Pressure -Offloading No No -Treatment Response Procedure Procedure Tolerated Well Tolerated Well Pain Scale: 0-10 Numeric Is Patient Pain Free? Yes Yes Wound debrided: Right anterior lower leg superior Laterality: Right Type of Debridement: Selective debridement Anesthesia Used: 4% Lidocaine Solution Depth: in the subcutaneous layer Percentage of wound debrided: 100 Instrument Used: 5mm curette Tissue Removed: Adherent slough, fibrin, hyperkeratotic tissue Severity: Fat Layer Exposed Amount of bleeding with debridement: Mild Bleeding Controlled with: Pressure Patient tolerated procedure well Assessment/Plan Active Problems Ulcer of right lower extremity with fat layer exposed (Acute) Type 2 diabetes mellitus with diabetic polyneuropathy (Acute) Lower extremity edema (Acute) Venous insufficiency (Acute) Assessment: Ulcer right lateral lower extremity, DM with neuropathy, venous insufficiency, lower extremity edema Plan: Patient was carefully examined and evaluated again today with in the room. Selective debridement was performed as noted in the clinical panel. Inferior ulcer is healed this week. Improvement noted to superior ulcer. The ulcer site was then carefully cleansed and then an Unna boot was applied followed by rolled gauze and Coban. Patient is to keep this dressing clean dry and intact for the next week. Keeping pressure off of the ulcer sites was discussed in detail with the patient and his today. He is to continue to do this at all times while seated or lying down. Patient is to keep his legs elevated all times. No antibiotics were prescribed at this time due to there being no signs of local infection appreciated. Venous Doppler exam was ordered for this patient and shows some venous incompetence to the left lower extremity. Full detailed report is in patient's chart. We discussed possible vascular referral in the future. Prescribed 20-30 mmHg compression stockings for patient to start wearing once completely healed to reduce chance of recurrence. I recom mend nutritional supplementation with a high protein diet in order to optimize ulcer healing potential. The patient and his were educated on all signs and symptoms of local and systemic infection and they were instructed to go to the emergency room immediately should they notice any of these. All other questions were answered to the patient and his 's satisfaction. He will follow-up with me in clinic in 1 week, but was instructed to follow-up sooner if needed.
[2018-04-19 09:56] VITALS: BP 152/72; PULSE 83; RESP 18; TEMP 36.1; BMI 27.2
--- NOTE | 2018-04-19 10:24 | PCM.WC.PN ---
(1) Ulcer of right lower extremity with fat layer exposed Status: Acute Current Visit: Yes Code(s): L97.912 - Non-pressure chronic ulcer of unspecified part of right lower leg with fat layer exposed (2) Type 2 diabetes mellitus with diabetic polyneuropathy Status: Acute Current Visit: Yes Code(s): E11.42 - Type 2 diabetes mellitus with diabetic polyneuropathy (3) Lower extremity edema Status: Acute Current Visit: Yes Code(s): R60.0 - Localized edema (4) Venous insufficiency Status: Acute Current Visit: Yes Code(s): I87.2 - Venous insufficiency (chronic) (peripheral) Type of Wound Chief Complaint: right lower leg ulcers History of Wound: This 78-year-old diabetic male was referred to the wound healing center by Dr. Torres for right lower leg ulcers. The patient relates that approximately 3 years ago he had an undiagnosed ankle fracture that he was treated for in [place]. He relates that the ankle finally healed, but he has had increased chonic swelling to his right lower extremity when compared to his left lower extremity. As a result, the patient relates that he will develop ulcers from time to time. These had previously been treated by Dr. Torres. He had last seen Dr. Torres in office a few weeks ago and the patient has been using haley dressing changes. These two areas were healed once the old haley was removed in clinic today. However, the patient had two new superficial ulcers to the right lateral lower leg. He says he just noticed these a few days ago. He denies any purulence to the areas or any significant warmth or redness to the areas. He has not done much to treat these on his own other than keeping them dressed. Progress of Wound: Patient appears healed today. Patient had unna boot applied for the past week. He is with his again today. Patient denies any feelings of nausea, vomiting, fever, or chills. - Physical Exam Vital Signs Temp Pulse Resp BP 97 F L 83 18 152/72 H 04/19/18 09:56 04/19/18 09:56 04/19/18 09:56 04/19/18 09:56 General: Alert, Oriented x3, Cooperative, No apparent distress Extremities: Capillary Refill Less than 3 Seconds, No Calf Tenderness - Negative Yenny and Voss sign, Edema - Bilateral lower extremity edema with right being slightly worse than left, Peripheral Pulses Normal - DP and PT pulses palpable Skin: Ulcer/ Wound - Previous ulcer sites are healed today without any signs or symptoms of local infection. Wound Measurements and Assessment - Nurse 1 - General Ulcer Measurement Start: 03/29/18 09:27 Freq: Status: Active Protocol: Activity Type Activity Date Activity User E-Sign Co-Sign Detail Recorded Client Recorded Date Recorded By Document 04/19/18 09:56 RB [id number] 04/19/18 10:02 RB 04/19/18 09:56 Wound Center Nurse 1 [Ulcer Assessment] #1 Lateral RLE- Superior -Combined with other wound No -Current Size (cm) - Length 0 -Current Size (cm) - Width 0 -Current Size (cm) - Depth 0 -Total Square Cm 0 -Photo Taken Yes -Epithelialization Large 67-100% -Tunneling No -Undermining/Tunneling No -Circular Undermining No -Exudate Amt None Present -Wound Margin Distinct, Outline Attached -Granulation Amt Large (67-100%) -Granulation Quality [place] -Slough/Fibrin No -Necrosis Amt None Present (0 %) -Structure Exposed N/A -Texture (Christiane-wound Skin Appearance) Assessed -Moisture (Christiane-wound Skin Appearance Assessed ) -Color (Christiane-wound Skin Appearance) Assessed -Temperature (Christiane-wound Skin No Abnormality Appearance) (Pt Warm) -Tenderness on Palpation (Christiane-wound No Skin Appearance) -Ulcer Cleansing Wound Cleanser -Foul Odor after Cleansing No [Edema Assessment] -Lower Limb Edema Present Yes -Left Calf (cm) 37 -Left Ankle (cm) 24 - Nurse 2 - General Ulcer CM Notes Start: 03/29/18 09:27 Freq: Status: Active Protocol: Activity Type Activity Date Activity User E-Sign Co-Sign Detail Recorded Client Recorded Date Recorded By Document 04/19/18 10:07 DV [id number] 04/19/18 10:08 DV 04/19/18 10:07 Wound Center Nurse 2 [Procedure/Treatment] #1 Lateral RLE- Superior -Time 10:07 -Correct Patient Yes -Correct Side, Site, Position Yes -Procedure Performed No -Post Debridement Size (cm) - Length 0 -Post Debridement Size (cm) - Width 0 -Post Debridement Size (cm) - Depth 0 -Total Square Cm 0 -Wound/Ulcer Outcome Healed- Epithelialized [See Physician Procedure note for Specifics] Pain Scale: 0-10 Numeric [Pain] -Is Patient Pain Free? Yes Musculoskeletal: No Tenderness to Palpation of Joints or Extremities, - - No tenderness with manipulation of lower legs Neurological: - - Epicritic sensation grossly absent lower extremity Psych/Mental Status: Normal Affect, Appropriate Debridement Note Post-Debridement Measurements/Treatment WC - Nurse 2 - General Ulcer CM Notes Start: 03/29/18 09:27 Freq: Status: Active Protocol: Activity Type Activity Date Activity User E-Sign Co-Sign Detail Recorded Client Recorded Date Recorded By Document 03/29/18 10:34 DV [id number] 03/29/18 10:38 DV Document 04/05/18 10:10 DV [id number] 04/05/18 10:15 DV Document 04/12/18 09:58 DV [id number] 04/12/18 10:03 DV Document 04/19/18 10:07 DV [id number] 04/19/18 10:08 DV 03/29/18 04/05/18 04/12/18 10:34 10:10 09:58 Wound Center Nurse 2 #2 Lateral RLE- Inferior -Time 10:37 10:10 09:59 -Correct Patient Yes Yes Yes -Correct Side, Site, Position Yes Yes Yes -Correct Procedure Yes -Procedure Performed No Yes No -Type of Procedure Debridement -Clinical Debridement Subcutaneous -Post Debridement Size (cm) - Length 2.2 0.5 0 -Post Debridement Size (cm) - Width 3.0 0.8 0 -Post Debridement Size (cm) - Depth 0.1 0.1 0 -Total Square Cm 6.60 0.40 0 -Wound/Ulcer Outcome Not Healed Not Healed Healed- Epithelialized -Ulcer Cleansing Rinsed/ Irrigated with Saline -Foul Odor after Cleansing No -Bioengineered Tissue No -Bleeding Controlled with Pressure -Offloading No -Treatment Response Procedure Tolerated Well #1 Lateral RLE- Superior -Time 10:37 10:12 10:00 -Correct Patient Yes Yes Yes -Correct Side, Site, Position Yes Yes Yes -Correct Procedure Yes Yes -Procedure Performed No Yes Yes -Type of Procedure Debridement Debridement -Clinical Debridement Subcutaneous Subcutaneous -Post Debridement Size (cm) - Length 1.5 1.1 0.1 -Post Debridement Size (cm) - Width 3.7 2.2 0.5 -Post Debridement Size (cm) - Depth 0.1 0.1 0.1 -Total Square Cm 5.55 2.42 0.05 -Wound/Ulcer Outcome Not Healed Not Healed Not Healed -Ulcer Cleansing Rinsed/ Rinsed/ Irrigated with Irrigated with Saline Saline -Foul Odor after Cleansing No No -Bioengineered Tissue No No -Bleeding Controlled with Pressure Pressure -Offloading No No -Treatment Response Procedure Procedure Tolerated Well Tolerated Well Pain Scale: 0-10 Numeric Is Patient Pain Free? Yes Yes 04/19/18 10:07 Wound Center Nurse 2 #2 Lateral RLE- Inferior -Time -Correct Patient -Correct Side, Site, Position -Correct Procedure -Procedure Performed -Type of Procedure -Clinical Debridement -Post Debridement Size (cm) - Length -Post Debridement Size (cm) - Width -Post Debridement Size (cm) - Depth -Total Square Cm -Wound/Ulcer Outcome -Ulcer Cleansing -Foul Odor after Cleansing -Bioengineered Tissue -Bleeding Controlled with -Offloading -Treatment Response #1 Lateral RLE- Superior -Time 10:07 -Correct Patient Yes -Correct Side, Site, Position Yes -Correct Procedure -Procedure Performed No -Type of Procedure -Clinical Debridement -Post Debridement Size (cm) - Length 0 -Post Debridement Size (cm) - Width 0 -Post Debridement Size (cm) - Depth 0 -Total Square Cm 0 -Wound/Ulcer Outcome Healed- Epithelialized -Ulcer Cleansing -Foul Odor after Cleansing -Bioengineered Tissue -Bleeding Controlled with -Offloading -Treatment Response Pain Scale: 0-10 Numeric Is Patient Pain Free? Yes No debridement was completed today Assessment/Plan Active Problems Ulcer of right lower extremity with fat layer exposed (Acute) Type 2 diabetes mellitus with diabetic polyneuropathy (Acute) Lower extremity edema (Acute) Venous insufficiency (Acute) Assessment: Ulcer right lateral lower extremity, DM with neuropathy, venous insufficiency, lower extremity edema Plan: Patient was carefully examined and evaluated again today with in the room. Patient's ulcers are healed today without any signs or symptoms of local infection. He was instructed on importance of keeping pressure off of the legs where he has continued to get ulcers in the past. Patient is to keep his legs elevated all times. Venous Doppler exam was ordered for this patient and shows some venous incompetence to the left lower extremity. Full detailed report is in patient's chart. We discussed possible vascular referral in the future should he continue to break back down. Prescribed 20-30 mmHg compression stockings for patient to start wearing in order to keep the ulcers healed and the swelling out of his legs. The patient and his were educated on all signs and symptoms of local and systemic infection and they were instructed to go to the emergency room immediately should they notice any of these. All other questions were answered to the patient and his 's satisfaction. He will follow-up with me in clinic on an as needed basis at this time, but was instructed to follow up sooner with any issues, questions, or concerns.
--- NOTE | 2018-04-19 10:30 | PN.PCM_ITS ---
(1) Ulcer of right lower extremity with fat layer exposed Status: Acute Current Visit: Yes Code(s): L97.912 - Non-pressure chronic ulcer of unspecified part of right lower leg with fat layer exposed (2) Type 2 diabetes mellitus with diabetic polyneuropathy Status: Acute Current Visit: Yes Code(s): E11.42 - Type 2 diabetes mellitus with diabetic polyneuropathy (3) Lower extremity edema Status: Acute Current Visit: Yes Code(s): R60.0 - Localized edema (4) Venous insufficiency Status: Acute Current Visit: Yes Code(s): I87.2 - Venous insufficiency (chronic) (peripheral) Type of Wound Chief Complaint: right lower leg ulcers History of Wound: This 78-year-old diabetic male was referred to the wound healing center by Dr. Torres for right lower leg ulcers. The patient relates that approximately 3 years ago he had an undiagnosed ankle fracture that he was treated for in [place]. He relates that the ankle finally healed, but he has had increased chonic swelling to his right lower extremity when compared to his left lower extremity. As a result, the patient relates that he will develop ulcers from time to time. These had previously been treated by Dr. Torres. He had last seen Dr. Torres in office a few weeks ago and the patient has been using haley dressing changes. These two areas were healed once the old haley was rem carroll in clinic today. However, the patient had two new superficial ulcers to the right lateral lower leg. He says he just noticed these a few days ago. He denies any purulence to the areas or any significant warmth or redness to the areas. He has not done much to treat these on his own other than keeping them dressed. Progress of Wound: Patient appears healed today. Patient had unna boot applied for the past week. He is with his again today. Patient denies any feelings of nausea, vomiting, fever, or chills. - Physical Exam Vital Signs Temp Pulse Resp BP 97 F L 83 18 152/72 H 04/19/18 09:56 04/19/18 09:56 04/19/18 09:56 04/19/18 09:56 General: Alert, Oriented x3, Cooperative, No apparent distress Extremities: Capillary Refill Less than 3 Seconds, No Calf Tenderness - Negative Yenny and Voss sign, Edema - Bilateral lower extremity edema with right being slightly worse than left, Peripheral Pulses Normal - DP and PT pulses palpable Skin: Ulcer/ Wound - Previous ulcer sites are healed today without any signs or symptoms of local infection. Wound Measurements and Assessment - Nurse 1 - General Ulcer Measurement Start: 03/29/18 09:27 Freq: Status: Active Protocol: Activity Type Activity Date Activity User E-Sign Co-Sign Detail Recorded Client Recorded Date Recorded By Document 04/19/18 09:56 RB [id number] 04/19/18 10:02 RB 04/19/18 09:56 Wound Center Nurse 1 [Ulcer Assessment] #1 Lateral RLE- Superior -Combined with other wound No -Current Size (cm) - Length 0 -Current Size (cm) - Width 0 -Current Size (cm) - Depth 0 -Total Square Cm 0 -Photo Taken Yes -Epithelialization Large 67-100% -Tunneling No -Undermining/Tunneling No -Circular Undermining No -Exudate Amt None Present -Wound Margin Distinct, Outline Attached -Granulation Amt Large (67-100%) -Granulation Quality [place] -Slough/Fibrin No -Necrosis Amt None Present (0 %) -Structure Exposed N/A -Texture (Christiane-wound Skin Appearance) Assessed -Moisture (Christiane-wound Skin Appearance Assessed ) -Color (Christiane-wound Skin Appearance) Assessed -Temperature (Christiane-wound Skin No Abnormality Appearance) (Pt Warm) -Tenderness on Palpation (Christiane-wound No Skin Appearance) -Ulcer Cleansing Wound Cleanser -Foul Odor after Cleansing No [Edema Assessment] -Lower Limb Edema Present Yes -Left Calf (cm) 37 -Left Ankle (cm) 24 - Nurse 2 - General Ulcer CM Notes Start: 03/29/18 09:27 Freq: Status: Active Protocol: Activity Type Activity Date Activity User E-Sign Co-Sign Detail Recorded Client Recorded Date Recorded By Document 04/19/18 10:07 DV [id number] 04/19/18 10:08 DV 04/19/18 10:07 Wound Center Nurse 2 [Procedure/Treatment] #1 Lateral RLE- Superior -Time 10:07 -Correct Patient Yes -Correct Side, Site, Position Yes -Procedure Performed No -Post Debridement Size (cm) - Length 0 -Post Debridement Size (cm) - Width 0 -Post Debridement Size (cm) - Depth 0 -Total Square Cm 0 -Wound/Ulcer Outcome Healed- Epithelialized [See Physician Procedure note for Specifics] Pain Scale: 0-10 Numeric [Pain] -Is Patient Pain Free? Yes Musculoskeletal: No Tenderness to Palpation of Joints or Extremities, - - No tenderness with manipulation of lower legs Neurological: - - Epicritic sensation grossly absent lower extremity Psych/Mental Status: Normal Affect, Appropriate Debridement Note Post-Debridement Measurements/Treatment WC - Nurse 2 - General Ulcer CM Notes Start: 03/29/18 09:27 Freq: Status: Active Protocol: Activity Type Activity Date Activity User E-Sign Co-Sign Detail Recorded Client Recorded Date Recorded By Document 03/29/18 10:34 DV [id number] 03/29/18 10:38 DV Document 04/05/18 10:10 DV [id number] 04/05/18 10:15 DV Document 04/12/18 09:58 DV [id number] 04/12/18 10:03 DV Document 04/19/18 10:07 DV [id number] 04/19/18 10:08 DV 03/29/18 04/05/18 04/12/18 10:34 10:10 09:58 Wound Center Nurse 2 #2 Lateral RLE- Inferior -Time 10:37 10:10 09:59 -Correct Patient Yes Yes Yes -Correct Side, Site, Position Yes Yes Yes -Correct Procedure Yes -Procedure Performed No Yes No -Type of Procedure Debridement -Clinical Debridement Subcutaneous -Post Debridement Size (cm) - Length 2.2 0.5 0 -Post Debridement Size (cm) - Width 3.0 0.8 0 -Post Debridement Size (cm) - Depth 0.1 0.1 0 -Total Square Cm 6.60 0.40 0 -Wound/Ulcer Outcome Not Healed Not Healed Healed- Epithelialized -Ulcer Cleansing Rinsed/ Irrigated with Saline -Foul Odor after Cleansing No -Bioengineered Tissue No -Bleeding Controlled with Pressure -Offloading No -Treatment Response Procedure Tolerated Well #1 Lateral RLE- Superior -Time 10:37 10:12 10:00 -Correct Patient Yes Yes Yes -Correct Side, Site, Position Yes Yes Yes -Correct Procedure Yes Yes -Procedure Performed No Yes Yes -Type of Procedure Debridement Debridement -Clinical Debridement Subcutaneous Subcutaneous -Post Debridement Size (cm) - Length 1.5 1.1 0.1 -Post Debridement Size (cm) - Width 3.7 2.2 0.5 -Post Debridement Size (cm) - Depth 0.1 0.1 0.1 -Total Square Cm 5.55 2.42 0.05 -Wound/Ulcer Outcome Not Healed Not Healed Not Healed -Ulcer Cleansing Rinsed/ Rinsed/ Irrigated with Irrigated with Saline Saline -Foul Odor after Cleansing No No -Bioengineered Tissue No No -Bleeding Controlled with Pressure Pressure -Offloading No No -Treatment Response Procedure Procedure Tolerated Well Tolerated Well Pain Scale: 0-10 Numeric Is Patient Pain Free? Yes Yes 04/19/18 10:07 Wound Center Nurse 2 #2 Lateral RLE- Inferior -Time -Correct Patient -Correct Side, Site, Position -Correct Procedure -Procedure Performed -Type of Procedure -Clinical Debridement -Post Debridement Size (cm) - Length -Post Debridement Size (cm) - Width -Post Debridement Size (cm) - Depth -Total Square Cm -Wound/Ulcer Outcome -Ulcer Cleansing -Foul Odor after Cleansing -Bioengineered Tissue -Bleeding Controlled with -Offloading -Treatment Response #1 Lateral RLE- Superior -Time 10:07 -Correct Patient Yes -Correct Side, Site, Position Yes -Correct Procedure -Procedure Performed No -Type of Procedure -Clinical Debridement -Post Debridement Size (cm) - Length 0 -Post Debridement Size (cm) - Width 0 -Post Debridement Size (cm) - Depth 0 -Total Square Cm 0 -Wound/Ulcer Outcome Healed- Epithelialized -Ulcer Cleansing -Foul Odor after Cleansing -Bioengineered Tissue -Bleeding Controlled with -Offloading -Treatment Response Pain Scale: 0-10 Numeric Is Patient Pain Free? Yes No debridement was completed today Assessment/Plan Active Problems Ulcer of right lower extremity with fat layer exposed (Acute) Type 2 diabetes mellitus with diabetic polyneuropathy (Acute) Lower extremity edema (Acute) Venous insufficiency (Acute) Assessment: Ulcer right lateral lower extremity, DM with neuropathy, venous insufficiency, lower extremity edema Plan: Patient was carefully examined and evaluated again today with in the room. Patient's ulcers are healed today without any signs or symptoms of local infection. He was instructed on importance of keeping pressure off of the legs where he has continued to get ulcers in the past. Patient is to keep his legs elevated all times. Venous Doppler exam was ordered for this patient and shows some venous incompetence to the left lower extremity. Full detailed report is in patient's chart. We discussed possible vascular referral in the future should he continue to break back down. Prescribed 20-30 mmHg compression stockings for patient to start wearing in order to keep the ulcers healed and the swelling out of his legs. The patient and his were educated on all signs and symptoms of local and systemic infection and they were instructed to go to the emergency room immediately should they notice any of these. All other questions were answered to the patient and his 's satisfaction. He will follow-up with me in clinic on an as needed basis at this time, but was instructed to follow up sooner with any issues, questions, or concerns.
== END 2018-04-26 23:59 ==
LOC: WC 10:00
PROVIDERS: Family Provider Internal Medicine; PCP Internal Medicine; Referring Provider Podiatrist; Visit Provider Podiatrist
DX: E11.622 Type 2 diabetes mellitus with other skin ulcer (principal); E11.42 Type 2 diabetes mellitus with diabetic polyneuropathy; L97.812 Non-pressure chronic ulcer of other part of right lower leg with fat layer exposed; R60.0 Localized edema; I87.2 Venous insufficiency (chronic) (peripheral); I10 Essential (primary) hypertension; E78.5 Hyperlipidemia, unspecified; Z87.891 Personal history of nicotine dependence; Z79.84 Long term (current) use of oral hypoglycemic drugs; Z79.899 Other long term (current) drug therapy
CPT/HCPCS: 11042; 29580; 29581; 93970; 97597; 99212; 99213; G0463

== ENCOUNTER → 2018-07-06 11:44 | Outpatient (CLI) | payer MEDICARE, OTHER, SELFPAY ==
[2018-07-06 12:52] LABS: Potassium 4.1 mmol/L (3.5-5.1)
== END ==
PROVIDERS: Family Provider Internal Medicine; PCP Internal Medicine; Referring Provider Otolaryngology Otolaryngology/Facial Plastic Surgery; Visit Provider Otolaryngology Otolaryngology/Facial Plastic Surgery
DX: Z79.899 Other long term (current) drug therapy (principal)
CPT/HCPCS: 36415; 84132

== ENCOUNTER 2018-12-20 11:00 | Outpatient (RCR) | payer MEDICARE, OTHER, SELFPAY ==
[2018-12-13 09:54] VITALS: BP 155/76; PULSE 61; RESP 18; TEMP 37; BMI 27.1
--- NOTE | 2018-12-13 10:27 | HP.PCM_ITS ---
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 (2) Lower extremity edema Status: Acute Current Visit: No Code(s): R60.0 - Localized edema (3) Type 2 diabetes mellitus with diabetic polyneuropathy Status: Acute Current Visit: No Code(s): E11.42 - Type 2 diabetes mellitus with diabetic polyneuropathy (4) Venous insufficiency Status: Acute Current Visit: No Code(s): I87.2 - Venous insufficiency (chronic) (peripheral) History of Present Illness Date of Service: 12/13/18 Chief Complaint: right lower leg ulcer History of Wound: This 78-year-old diabetic male returns to the wound healing center today after ulcer to right lower leg reopened about 2 weeks ago. Patient states she thinks it happened when he bumped the area on a ladder. The patient relates that approximately 3 years ago he had an undiagnosed ankle fracture that he was treated for in [place]. He relates that the ankle finally healed, but he has had increased chonic swelling to his right lower extremity when compared to his left lower extremity. As a result, the patient relates that he will develop ulcers from time to time. Patient states that he was trying to use Car[place] to the area but finally decided to come be seen at the wound healing center. He denies any purulence to the areas or any significant warmth or redness to the areas. Patient currently denies any feelings of nausea, vomiting, fever, chills. Past Medical History Past Medical History: Chronic Problems Overweight (BMI 25.0-29.9) (Chronic) Hypertension (Chronic) Hyperlipidemia (Chronic) History of tobacco use (Chronic) Diabetes mellitus, type II (Chronic) Surgical History: - - Cholecystectomy, left 1st metatarsal surgery, cataract surgery, tonsillectomy. Allergies/Adverse Reactions: Allergies cefdinir [From Omnicef] Adverse Reaction (Verified 12/09/16 05:37) Other constipation Home Medications: Ambulatory Orders Medication Instructions Recorded Glimepiride [Amaryl] 2 mg PO BIDCM 07/24/14 Hydrochlorothiazide 25 mg PO DAILY 07/24/14 Metformin [Metformin HCl] 1,000 mg PO BID 07/24/14 Tamsulosin HCl 0.4 mg PO DAILY 07/24/14 Allopurinol 100 mg PO DAILY 12/09/16 Atorvastatin Calcium 20 mg PO DAILY 12/09/16 Gabapentin [Neurontin] 300 mg PO DAILY 12/09/16 Meclizine HCl [Antivert] 25 mg PO TID PRN PRN #15 tablet 12/09/16 - Family History Maternal No pertinent history Paternal No pertinent history Smoking Status: Never smoker Review of Systems Constitutional: Denies: Chills, Fever, Weight Change Cardiovascular: Denies: Chest Pain, Palpitations Respiratory: Denies: Cough, Shortness of Breath Gastrointestinal: Denies: Diarrhea, Nausea, Vomiting Skin: Reports: - - Ulcer right atkisnon Neurological: Reports: - - Diabetic neuropathy - Physical Exam Vital Signs Temp Pulse Resp BP 98.6 F 61 18 155/76 H 12/13/18 09:54 12/13/18 09:54 12/13/18 09:54 12/13/18 09:54 General: Alert, Oriented x3, Cooperative, No apparent distress Extremities: Capillary Refill Less than 3 Seconds, No Calf Tenderness - Negative Yenny and Voss signs bilateral, Edema - Bilateral lower extremity edema with right being slightly worse than left., Peripheral Pulses Normal - DP and PT pulses palpable Skin: Ulcer/ Wound - Right atkinson ulcer cluster with fat layer exposed. The base is noted to be a mixture of adherent slough, fibrin, granular tissue. There is no surrounding or extending cellulitis, no increase in warmth, no purulence, no malodor, no probing, no tracking, no undermining. Wound Measurements and Assessment WC - Nurse 1 - General Ulcer Measurement Start: 12/13/18 09:54 Freq: Status: Active Protocol: Activity Type Activity Date Activity User E-Sign Co-Sign Detail Recorded Client Recorded Date Recorded By Document 12/13/18 09:54 BS [id number] 12/13/18 10:06 BS 12/13/18 09:54 Wound Center Nurse 1 [Ulcer Assessment] #3 R Atkinson Cluster -Combined with other wound No -Current Size (cm) - Length 1.0 -Current Size (cm) - Width 2.5 -Current Size (cm) - Depth 0.1 -Total Square Cm 2.50 -Date of Last Picture (Recall this 12/13/18 field) -Photo Taken Yes -Epithelialization Small 1-33% -Tunneling No -Exudate Amt None Present -Texture (Christiane-wound Skin Appearance) Assessed, Scarring -Moisture (Christiane-wound Skin Appearance Assessed,Dry/ ) Scaly -Color (Christiane-wound Skin Appearance) Assessed, Hemosiderin Staining -Temperature (Christiane-wound Skin Hot Appearance) -Tenderness on Palpation (Christiane-wound No Skin Appearance) -Ulcer Cleansing Rinsed/ Irrigated with Saline -Foul Odor after Cleansing No [Edema Assessment] -Lower Limb Edema Present Yes -Point of measurement (cm from the 35.0 medial instep) -Point of Measurement (cm from the 26.0 medial instep) -Point of measurement (cm from the 35.0 medial instep) -Point of Measurement (cm from the 25.0 medial instep) WC - Nurse 2 - General Ulcer CM Notes Start: 12/13/18 09:54 Freq: Status: Active Protocol: Activity Type Activity Date Activity User E-Sign Co-Sign Detail Recorded Client Recorded Date Recorded By Document 12/13/18 10:20 EDWINA [id number] 12/13/18 10:25 AN 12/13/18 10:20 Wound Center Nurse 2 [Procedure/Treatment] #3 R Atkinson Cluster -Time 10:22 -Correct Patient Yes -Correct Side, Site, Position Yes -Correct Procedure Yes -Procedure Performed Yes -Type of Procedure Debridement -Clinical Debridement Subcutaneous -Post Debridement Size (cm) - Length 6 -Post Debridement Size (cm) - Width 5.5 -Post Debridement Size (cm) - Depth 0.1 -Total Square Cm 33.0 -Wound/Ulcer Outcome Not Healed -Ulcer Cleansing Rinsed/ Irrigated with Saline -Foul Odor after Cleansing No -Bioengineered Tissue No -Bleeding Controlled with Pressure -Offloading Yes -Treatment Response Procedure Tolerated Well [See Physician Procedure note for Specifics] Pain Scale: 0-10 Numeric [Pain] -Is Patient Pain Free? Yes Musculoskeletal: No Tenderness to Palpation of Joints or Extremities, - - No tenderness with manipulation of ulcer site Neurological: - - Epicritic sensation grossly absent to lower extremity Psych/Mental Status: Normal Affect, Appropriate Debridement Note Post-Debridement Measurements/Treatment WC - Nurse 2 - General Ulcer CM Notes Start: 12/13/18 09:54 Freq: Status: Active Protocol: Activity Type Activity Date Activity User E-Sign Co-Sign Detail Recorded Client Recorded Date Recorded By Document 12/13/18 10:20 AN [id number] 12/13/18 10:25 AN 12/13/18 10:20 Wound Center Nurse 2 #3 R Atkinson Cluster -Time 10:22 -Correct Patient Yes -Correct Side, Site, Position Yes -Correct Procedure Yes -Procedure Performed Yes -Type of Procedure Debridement -Clinical Debridement Subcutaneous -Post Debridement Size (cm) - Length 6 -Post Debridement Size (cm) - Width 5.5 -Post Debridement Size (cm) - Depth 0.1 -Total Square Cm 33.0 -Wound/Ulcer Outcome Not Healed -Ulcer Cleansing Rinsed/ Irrigated with Saline -Foul Odor after Cleansing No -Bioengineered Tissue No -Bleeding Controlled with Pressure -Offloading Yes -Treatment Response Procedure Tolerated Well Pain Scale: 0-10 Numeric Is Patient Pain Free? Yes Wound debrided: Right anterior atkinson Laterality: Right Type of Debridement: Excisional debridement Anesthesia Used: 4% Lidocaine Solution Depth: in the subcutaneous layer Percentage of wound debrided: 100 Instrument Used: 3mm curette Tissue Removed: Adherent slough, fibrin, hyperkeratotic tissue Severity: Fat Layer Exposed Amount of bleeding with debridement: Mild Bleeding Controlled with: Pressure Patient tolerated procedure well Assessment/Plan Assessment: Ulcer right lateral lower extremity, DM with neuropathy, venous insufficiency, lower extremity edema Plan: Patient was carefully examined and evaluated again today with in the room after ulcer to right anterior atkinson reopened. Subcutaneous debridement was performed as noted in the clinical panel. The ulcer site was then carefully cleansed and then an Unna boot was applied followed by rolled gauze and Coban. Patient is to keep this dressing clean dry and intact for the next week. Keeping pressure off of the ulcer sites was discussed in detail with the patient and his today. He is to continue to do this at all times while seated or lying down. Patient is to keep his legs elevated all times. No antibiotics were prescribed at this time due to there being no signs of local infection appreciated. We discussed possible vascular referral in the future. I recommend nutritional supplementation with a high protein diet in order to optimize ulcer healing potential. The patient and his were educated on all signs and symptoms of local and systemic infection and they were instructed to go to the emergency room immediately should they notice any of these. All other questions were answered to the patient and his 's satisfaction. He will follow-up with me in clinic in 1 week, but was instructed to follow-up sooner if needed.
[2018-12-20 10:53] VITALS: BP 144/81; PULSE 70; RESP 16; TEMP 35.7; BMI 27.1
--- NOTE | 2018-12-20 12:04 | PN.PCM_ITS ---
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 (2) Lower extremity edema Status: Acute Current Visit: No Code(s): R60.0 - Localized edema (3) Type 2 diabetes mellitus with diabetic polyneuropathy Status: Acute Current Visit: No Code(s): E11.42 - Type 2 diabetes mellitus with diabetic polyneuropathy (4) Venous insufficiency Status: Acute Current Visit: No Code(s): I87.2 - Venous insufficiency (chronic) (peripheral) (5) Puncture wound of left foot Status: Acute Current Visit: Yes Code(s): S91.332A - Puncture wound without foreign body, left foot, initial encounter Type of Wound Date of Service: 12/20/18 Chief Complaint: right lower leg ulcer History of Wound: This 78-year-old diabetic male returns to the wound healing center today after ulcer to right lower leg reopened about 2 weeks ago. Patient states she thinks it happened when he bumped the area on a ladder. The patient relates that approximately 3 years ago he had an undiagnosed ankle fracture that he was treated for in [place]. He relates that the ankle finally healed, but he has had increased chonic swelling to his right lower extremity when compared to his left lower extremity. As a result, the patient relates that he will develop ulcers from time to time. Patient states that he was trying to use [place] to the area but finally decided to come be seen at the wound healing center. He denies any purulence to the areas or any significant warmth or redness to the areas. Patient currently denies any feelings of nausea, vomiting, fever, chills. Progress of Wound: Patient's right lower extremity ulcer site shows significant improvement this week with the area being almost completely healed with use of Unna boot. However patient also relates that 2 or 3 days ago he stepped on a nail that he did not realize was stuck in his foot until he went to take his shoe off. He says he is unsure of how long the nail was in his foot. He denies any rust to the nail, but does state that it had what appeared to be some specks of tar. He says he has been keeping this area dressed with Neosporin and a bandage. He is unsure of his last tetanus shot. He currently denies feelings of nausea, vomiting, fever, chills. - Physical Exam Vital Signs Temp Pulse Resp BP 96.2 F L 70 16 144/81 H 12/20/18 10:53 12/20/18 10:53 12/20/18 10:53 12/20/18 10:53 General: Alert, Oriented x3, Cooperative, No apparent distress Extremities: No cyanosis, Capillary Refill Less than 3 Seconds, No Calf Tenderness - Negative Yenny and Voss signs bilateral, Edema - Bilateral lower extremity edema. Edema also noted to the left distal forefoot., Peripheral Pulses Normal - DP and PT pulses palpable bilateral Skin: Ulcer/ Wound - Right atkinson ulcer cluster with fat layer exposed. The base is noted to be a mixture of adherent slough, fibrin, granular tissue. There is no surrounding or extending cellulitis, no increase in warmth, no purulence, no malodor, no probing, no tracking, no undermining. Patient also has new puncture ulcer to left distal plantar forefoot between first and second toe area. There is surrounding edema and erythema with very faint streaking proximally on the medial aspect of the plantar foot. There is also some erythema appreciated to the dorsal aspect of the distal foot. Some serous to scant seropurulent drainage able to be expressed. Ulcer probes deep into the interspace at least 1 cm, but no probing to bone felt today. Very minor increase in warmth to this area. Wound Measurements and Assessment WC - Nurse 1 - General Ulcer Measurement Start: 12/13/18 09:54 Freq: Status: Active Protocol: Activity Type Activity Date Activity User E-Sign Co-Sign Detail Recorded Client Recorded Date Recorded By Document 12/20/18 10:53 [facility] [id number] 12/20/18 11:06 [facility] 12/20/18 10:53 Wound Center Nurse 1 [Ulcer Assessment] #4 L plantar -Combined with other wound No -Current Size (cm) - Length 1.2 -Current Size (cm) - Width 0.7 -Current Size (cm) - Depth 0.1 -Total Square Cm 0.84 -Photo Taken Yes -Tunneling No -Undermining/Tunneling No -Circular Undermining No -Exudate Amt Small -Exudate Type Serosanguineous -Wound Margin Flat & Intact -Granulation Amt Medium (34-66%) -Granulation Quality [place] -Slough/Fibrin Yes -Necrosis Amt Medium (34-66%) -Necrotic Tissue Type Adherent Slough -Structure Exposed N/A -Texture (Christiane-wound Skin Appearance) Assessed,Callus -Moisture (Christiane-wound Skin Appearance Assessed ) -Color (Christiane-wound Skin Appearance) Assessed -Temperature (Christiane-wound Skin No Abnormality Appearance) (Pt Warm) -Tenderness on Palpation (Christiane-wound No Skin Appearance) -Ulcer Cleansing Wound Cleanser -Foul Odor after Cleansing No -Anesthetic Used 5% Lidocaine Gel #3 R Atkinson Cluster -Combined with other wound No -Current Size (cm) - Length 8.3 -Current Size (cm) - Width 5.5 -Current Size (cm) - Depth 0.1 -Total Square Cm 45.65 -Tunneling No -Undermining/Tunneling No -Circular Undermining No -Exudate Amt Small -Exudate Type Serosanguineous -Wound Margin Flat & Intact -Granulation Amt Medium (34-66%) -Granulation Quality [place] -Slough/Fibrin Yes -Necrosis Amt Medium (34-66%) -Necrotic Tissue Type Adherent Slough -Structure Exposed N/A -Texture (Christiane-wound Skin Appearance) Assessed -Moisture (Christiane-wound Skin Appearance Assessed ) -Color (Christiane-wound Skin Appearance) Hemosiderin Staining -Temperature (Christiane-wound Skin No Abnormality Appearance) (Pt Warm) -Tenderness on Palpation (Chritsiane-wound No Skin Appearance) -Ulcer Cleansing Wound Cleanser -Foul Odor after Cleansing No -Anesthetic Used 4% Lidocaine Solution [Edema Assessment] -Lower Limb Edema Present Yes -Right Calf (cm) 36 -Right Ankle (cm) 23.1 WC - Nurse 2 - General Ulcer CM Notes Start: 12/13/18 09:54 Freq: Status: Active Protocol: Activity Type Activity Date Activity User E-Sign Co-Sign Detail Recorded Client Recorded Date Recorded By Document 12/20/18 11:14 AN [id number] 12/20/18 11:29 AN 12/20/18 11:14 Wound Center Nurse 2 [Procedure/Treatment] #4 L plantar -Time 11:24 -Correct Patient Yes -Correct Side, Site, Position Yes -Correct Procedure Yes -Procedure Performed Yes -Type of Procedure Debridement -Clinical Debridement Subcutaneous -Post Debridement Size (cm) - Length 0.9 -Post Debridement Size (cm) - Width 0.7 -Post Debridement Size (cm) - Depth 1.0 -Total Square Cm 0.63 -Wound/Ulcer Outcome Not Healed -Ulcer Cleansing Rinsed/ Irrigated with Saline -Foul Odor after Cleansing No -Bioengineered Tissue No -Bleeding Controlled with Pressure -Offloading Yes -Type of Offloading Surgical Shoe -Treatment Response Procedure Tolerated Well #3 R Atkinson Cluster -Time 11:19 -Correct Patient Yes -Correct Side, Site, Position Yes -Correct Procedure Yes -Procedure Performed Yes -Type of Procedure Debridement -Clinical Debridement Selective -Post Debridement Size (cm) - Length 5.5 -Post Debridement Size (cm) - Width 5.0 -Post Debridement Size (cm) - Depth 0.1 -Total Square Cm 27.50 -Wound/Ulcer Outcome Not Healed -Ulcer Cleansing Rinsed/ Irrigated with Saline -Foul Odor after Cleansing No -Bioengineered Tissue No -Bleeding Controlled with NA -Offloading No -Treatment Response Procedure Tolerated Well [See Physician Procedure note for Specifics] Pain Scale: 0-10 Numeric [Pain] -Is Patient Pain Free? Yes Musculoskeletal: No Tenderness to Palpation of Joints or Extremities, - - No tenderness with manipulation of either of the aforementioned sites Neurological: - - Epicritic sensation grossly absent to bilateral lower extremities consistent with patient's diabetic status Psych/Mental Status: Normal Affect, Appropriate Debridement Note Post-Debridement Measurements/Treatment WC - Nurse 2 - General Ulcer CM Notes Start: 12/13/18 09:54 Freq: Status: Active Protocol: Activity Type Activity Date Activity User E-Sign Co-Sign Detail Recorded Client Recorded Date Recorded By Document 12/13/18 10:20 AN [id number] 12/13/18 10:25 AN Document 12/20/18 11:14 AN [id number] 12/20/18 11:29 AN 12/13/18 12/20/18 10:20 11:14 Wound Center Nurse 2 #4 L plantar -Time 11:24 -Correct Patient Yes -Correct Side, Site, Position Yes -Correct Procedure Yes -Procedure Performed Yes -Type of Procedure Debridement -Clinical Debridement Subcutaneous -Post Debridement Size (cm) - Length 0.9 -Post Debridement Size (cm) - Width 0.7 -Post Debridement Size (cm) - Depth 1.0 -Total Square Cm 0.63 -Wound/Ulcer Outcome Not Healed -Ulcer Cleansing Rinsed/ Irrigated with Saline -Foul Odor after Cleansing No -Bioengineered Tissue No -Bleeding Controlled with Pressure -Offloading Yes -Type of Offloading Surgical Shoe -Treatment Response Procedure Tolerated Well #3 R Atkinson Cluster -Time 10:22 11:19 -Correct Patient Yes Yes -Correct Side, Site, Position Yes Yes -Correct Procedure Yes Yes -Procedure Performed Yes Yes -Type of Procedure Debridement Debridement -Clinical Debridement Subcutaneous Selective -Post Debridement Size (cm) - Length 6 5.5 -Post Debridement Size (cm) - Width 5.5 5.0 -Post Debridement Size (cm) - Depth 0.1 0.1 -Total Square Cm 33.0 27.50 -Wound/Ulcer Outcome Not Healed Not Healed -Ulcer Cleansing Rinsed/ Rinsed/ Irrigated with Irrigated with Saline Saline -Foul Odor after Cleansing No No -Bioengineered Tissue No No -Bleeding Controlled with Pressure NA -Offloading Yes No -Treatment Response Procedure Procedure Tolerated Well Tolerated Well Pain Scale: 0-10 Numeric Is Patient Pain Free? Yes Yes Wound debrided: Right anterior atkinson Laterality: Right Type of Debridement: Selective debridement Anesthesia Used: 4% Lidocaine Solution Depth: in the subcutaneous layer Percentage of wound debrided: 100 Instrument Used: 3mm curette Tissue Removed: Adherent slough, fibrin, hyperkeratotic tissue Severity: Fat Layer Exposed Amount of bleeding with debridement: Mild Bleeding Controlled with: Pressure Patient tolerated procedure well - Additional Wound Wound debrided: Left distal forefoot Laterality: Left Type of Debridement: Excisional debridement Anesthesia Used: 5% Lidocaine Gel Depth: in the subcutaneous layer Percentage of wound debrided: 100 Instrument Used: #15 blade Tissue Removed: Adherent slough, fibrin, biofilm Severity: Fat Layer Exposed Amount of bleeding with debridement: Mild Bleeding Controlled with: Pressure Patient tolerated procedure: Patient tolerated procedure well Assessment/Plan Active Problems Puncture wound of left foot (Acute) Assessment: Ulcer right lateral lower extremity, DM with neuropathy, venous insufficiency, lower extremity edema Plan: Patient was carefully examined and evaluated again today with in the room for follow-up of ulcer to right anterior atkinson. Patient also has a new puncture wound to the distal plantar aspect of the left foot with description of the site as noted above. Debridement was performed as noted in the clinical panel. The right ulcer site was then carefully cleansed and then an Unna boot was applied followed by rolled gauze and Coban. Patient is to keep this dressing clean dry and intact for the next week. The left puncture wound was dressed with Aquacel Ag to the base followed by dry sterile dressing. Due to the appearance of this site, the patient will be sent over to the emergency room for further work-up, imaging, tetanus shot, possible advanced imaging, etc. discussed the case with Dr. Pisano in the ER. Keeping pressure off of each of the ulcer sites was discussed in detail with the patient and his today. He is to continue to do this at all times while seated or lying down. Patient is to keep his legs elevated all times. We discussed possible vascular referral in the future. I recommend nutritional supplementation with a high protein diet in order to optimize ulcer healing potential. All other questions were answered to the patient and his 's satisfaction. He will follow-up with me in clinic in 1 week, but was instructed to follow-up sooner if needed. Patient will also be picking up a surgical shoe that offloads the left distal forefoot area.
[2018-12-20 19:59] LABS: M R Staph aureus DNA By PCR Negative (Negative); Probe Check PASS; Specimen Processing Control PASS; Staph aureus DNA By PCR NEGATIVE (Negative)
== END 2018-12-24 23:59 ==
LOC: WC 11:00
PROVIDERS: Family Provider Internal Medicine; PCP Internal Medicine; Referring Provider Podiatrist; Visit Provider Podiatrist
DX: E11.622 Type 2 diabetes mellitus with other skin ulcer (principal); L97.812 Non-pressure chronic ulcer of other part of right lower leg with fat layer exposed; R60.0 Localized edema; E11.42 Type 2 diabetes mellitus with diabetic polyneuropathy; I87.2 Venous insufficiency (chronic) (peripheral); I10 Essential (primary) hypertension; E78.5 Hyperlipidemia, unspecified; Z87.891 Personal history of nicotine dependence; Z79.899 Other long term (current) drug therapy; Z79.84 Long term (current) use of oral hypoglycemic drugs; S91.332A Puncture wound without foreign body, left foot, initial encounter; W45.8XXA Other foreign body or object entering through skin, initial encounter
CPT/HCPCS: 11042; 29580; 87070; 87075; 87205; 87640; 97597; 99212; G0463

== ENCOUNTER 2018-12-20 12:13 | Emergency (ER) | payer MEDICARE, OTHER, SELFPAY ==
[2018-12-20 10:53] VITALS: BMI 27.1
[2018-12-20 12:14] VITALS: BP 113/76; PULSE 76; RESP 16; TEMP 36.1; O2SAT 97; BMI 27.1
--- NOTE | 2018-12-20 13:17 | RAD_ITS ---
STUDY: X-RAY - LEFT FOOT CLINICAL: Male, 78 years old. Swelling and redness. Rule out along the plantar aspect of the foot. TECHNIQUE: view(s) of the foot. COMPARISON: None. FINDINGS: Normal talus, calcaneus, and tarsal bones. Normal visualized subtalar, talonavicular, calcaneocuboid, tarsal and tarsometatarsal articulations. Normal metatarsi. There is degenerative arthrosis of the metatarsophalangeal joint of the hallux . Normal tibial and fibular sesamoid bones. Normal interphalangeal joint of the great toe. Deformity and foreshortening of the middle phalanx of the great toe. This may be related either to prior trauma or prior infection. Normal second through fifth metatarsophalangeal joints. Normal interphalangeal joints and phalanges of the lesser toes. Diffuse soft tissue swelling. RAD/Foot min 3 Views IMPRESSION: Diffuse soft tissue swelling. Deformity of the proximal phalanx of the great toe. Electronically Signed: Rolando Lainez, at 14:21 EDT , Service support ,
[2018-12-20 13:37] LABS: Erythrocyte Sedimentation Rate 3 mm/hr (0-20)
[2018-12-20 13:39] LABS: Absolute Lymphocyte Count 0.98 X10^3/uL (0.83-4.51); Absolute Neutrophil Count 4.4 X10^3/uL (2.0-7.7); Basophil# 0.05 X10^3/uL; Basophil% 0.8 % (0-1); Eosinophil# 0.13 X10^3/uL; Eosinophils% 2.1 % (0-5); Hematocrit 40.6 % (40-54); Lymphocyte # 0.98 X10^3/ul (4.0); Lymphocyte % 15.9 % (19-41); Mean Corp Hgb Conc 34.5 g/dL (32-36); Mean Corpuscular Hgb 32.8 pg (27.0-32.0); Mean Corpuscular Volume 95.1 fL (80-94); Mean Platelet Vol. 10.3 fl (6.2-12.0); Monocyte% 8.1 % (0-10); NRBC Flagged by Analyzer 0 % (0-5); Neutrophil # 4.41 X10^3/uL (2.7-7.7); Neutrophil % 71.8 % (47-70); Platelet Count 172 K/mm3 (150-450); RBC Distribution Width CV 12.6 % (11.6-14.6); Red Blood Count 4.27 M/mm3 (4.6-6.2); White Blood Count 6.2 K/mm3 (4.4-11.0)
[2018-12-20] MEDS: Diphth,Pertuss(Acell),Tet Vac 0.5 ML Vial IM (13:42)
[2018-12-20] MEDS: Ciprofloxacin 400 MG/200 ML BAG 200 MG IV (13:42)
[2018-12-20] MEDS: 0.9% Normal Saline 1,000 ML 150 ML IV (13:43)
[2018-12-20 13:49] LABS: Anion Gap 9 (5-15); BUN 28 mg/dL (7-18); BUN/Creat Ratio 26.9 RATIO (10-20); Calcium,Total 9.2 mg/dL (8.5-10.1); Chloride 103 mmol/L (98-107); Creatinine, Serum 1.04 mg/dL (0.70-1.30); EST Glomerular Filtration Rate 73 mL/min (>60); Est Glom Filt Rate - Afr Amer 89 mL/min (>60); Estimated Creatinine Clearance 64.25 ml/min; Glucose 154 mg/dL (74-106); Potassium 4.3 mmol/L (3.5-5.1); Sodium Level 139 mmol/L (136-145)
--- NOTE | 2018-12-20 15:27 | ED.DCSUM_ITS ---
History of Present Illness Chief Complaint: Wound Detail of Chief Complaint: Left foot wound Informant: Patient Onset: Days Current Severity: Moderate Maximum Severity: Moderate Narrative: Patient presents from the wound center with a left foot wound. He does have diabetic neuropathy. 2 days ago he was out for a walk. That evening he noted a nail punctured into the bottom of his left foot. At the wound center today the wound was cleansed and probed. I was advised that the wound is approximately 1 cm deep. Wound cultures were already sent. Past Medical History - Allergies and Home Meds Allergies/Adverse Reactions: Allergies cefdinir [From Omnicef] Adverse Reaction (Verified 12/20/18 12:14) Other constipation Primary Care Physician: David Germain MD [Primary Care Provider] - Prior records reviewed: Yes Past Medical History: - - Reviewed Surgical History: - - Cholecystectomy, left 1st metatarsal surgery, cataract surgery, tonsillectomy. Lives: Spouse/ Significant Other Smoking Status: Never smoker - Family History Maternal Family History: Reports: No pertinent history Paternal Family History: Reports: No pertinent history Review of Systems General: Denies: Chills, Fever Eyes: Denies: Visual changes - bilaterally ENT: Denies: Bilateral ear pain Cardiovascular: Denies: Chest pain Respiratory: Denies: Dyspnea Gastrointestinal: Denies: Abdominal pain Musculoskeletal: Reports: Swelling Skin: Reports: Wounds Hematologic: Denies: Easy bleeding Allergy: Denies: Uticaria Physical Exam Vital Signs/Narrative: Vital Signs Temp Pulse Resp BP Pulse Ox 12/20/18 12:14 97 F L 76 16 113/76 97 Inital Vital Signs reviewed: Yes General: Well nourished, Well developed ENT: Moist mucous membranes Neck: Supple Cardiovascular: Regular rate, Regular rhythm Respiratory: No distress, CTA bilaterally Abdomen: Soft, Nontender Extremities: - - There is a puncture wound to the plantar surface of the foot between the distal heads of the first and second metatarsal. Midfoot is edematous with mild erythema. No lymphangitic streak is noted onto the leg at this time. Skin: - Neurological: Alert, Oriented x3 Psychological: Normal affect Diagnostic/Tx/Re-eval Impressions Foot X-Ray 12/20/18 13:17 IMPRESSION: Diffuse soft tissue swelling. Deformity of the proximal phalanx of the great toe. Electronically Signed: Rolando Lainez, at 14:21 EDT , Service support , 12/20/18 13:17 Foot min 3 Views [RAD] Stat Laboratory Results 12/20/18 12/20/18 13:28 13:28 WBC 6.2 RBC 4.27 L Hgb 14.0 Hct 40.6 MCV 95.1 H MCH 32.8 H MCHC 34.5 RDW Std Deviation 44.0 H RDW Coeff of [place] 12.6 Plt Count 172 MPV 10.3 Immature Gran % (Auto) 1.300 H Neut % (Auto) 71.8 H Lymph % (Auto) 15.9 L [place] % (Auto) 8.1 Eos % (Auto) 2.1 Baso % (Auto) 0.8 Absolute Neuts (auto) 4.4 Absolute Lymphs (auto) 0.98 Nucleated RBC % 0 ESR 3 Sodium 139 Potassium 4.3 Chloride 103 Carbon Dioxide 27.0 Anion Gap 9 BUN 28 H Creatinine 1.04 Estim Creat Clear Calc 64.25 Est GFR (MDRD) Af Amer 89 Est GFR (MDRD) Non-Af 73 BUN/Creatinine Ratio 26.9 H Glucose 154 H Calcium 9.2 C-React Prot Ext Range 10.20 H - Medical Decision Making Wound culture was already obtained at the wound center. I spoke with Dr. schmitt on the phone after his lab work was obtained as well. Patient is very adamant that he does not want to stay in the hospital. He is given a dose of Cipro and vancomycin here. He will be discharged with Cipro and Bactrim at home for Pseudomonas as well as MRSA coverage. ED Disposition - Plan for ED Patient: Disposition: Home or Assisted Living Diagnosis: Puncture wound of left foot Instructions: PUNCTURE WOUND, General Prescriptions: Smz/Tmp Ds [Bactrim Ds] 1 tablet PO BID #14 tablet Ciprofloxacin [Cipro] 500 mg PO BID #14 tablet Additional Instructions: Follow-up with Wound Center next week.
[2018-12-20 16:34] VITALS: RESP 18; O2SAT 98
[2018-12-20 17:17] VITALS: BP 149/94; PULSE 60; RESP 18; O2SAT 98
== END 2018-12-20 17:19 | disposition home or self-care (01) ==
PROVIDERS: Emergency Provider Emergency Medicine; Family Provider Internal Medicine; PCP Internal Medicine
DX: S91.332A Puncture wound without foreign body, left foot, initial encounter (principal); W22.8XXA Striking against or struck by other objects, initial encounter; Y93.01 Activity, walking, marching and hiking; Y92.9 Unspecified place or not applicable; Y99.9 Unspecified external cause status; E11.40 Type 2 diabetes mellitus with diabetic neuropathy, unspecified; Z88.1 Allergy status to other antibiotic agents; Z90.49 Acquired absence of other specified parts of digestive tract; E11.622 Type 2 diabetes mellitus with other skin ulcer; L97.812 Non-pressure chronic ulcer of other part of right lower leg with fat layer exposed; R60.0 Localized edema; E11.42 Type 2 diabetes mellitus with diabetic polyneuropathy; I87.2 Venous insufficiency (chronic) (peripheral); I10 Essential (primary) hypertension; E78.5 Hyperlipidemia, unspecified; Z87.891 Personal history of nicotine dependence; Z79.899 Other long term (current) drug therapy; Z79.84 Long term (current) use of oral hypoglycemic drugs; W45.8XXA Other foreign body or object entering through skin, initial encounter
CPT/HCPCS: 29580; 73630; 80048; 85025; 85652; 86140; 87070; 87075; 87205; 87640; 90471; 90715; 96361; 96365; 96366; 96367; 97597; 99283; J7030; J7050; A4216; J0744

== ENCOUNTER 2019-01-24 09:00 | Outpatient (RCR) | payer MEDICARE, OTHER, SELFPAY ==
[2018-12-25 01:17] VITALS: BP 144/81; PULSE 70; RESP 16; TEMP 35.7
[2018-12-27 11:41] VITALS: BP 155/78; PULSE 65; RESP 18; TEMP 36.2; BMI 27.1
--- NOTE | 2018-12-27 13:25 | PN.PCM_ITS ---
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 (2) Type 2 diabetes mellitus with diabetic polyneuropathy Status: Acute Current Visit: No Code(s): E11.42 - Type 2 diabetes mellitus with diabetic polyneuropathy (3) Lower extremity edema Status: Acute Current Visit: No Code(s): R60.0 - Localized edema (4) Venous insufficiency Status: Acute Current Visit: No Code(s): I87.2 - Venous insufficiency (chronic) (peripheral) (5) Puncture wound of left foot Status: Acute Current Visit: No Code(s): S91.332A - Puncture wound without foreign body, left foot, initial encounter Type of Wound Date of Service: 12/27/18 Chief Complaint: right lower leg ulcer History of Wound: This 78-year-old diabetic male returns to the wound healing center today after ulcer to right lower leg reopened about 2 weeks ago. Patient states she thinks it happened when he bumped the area on a ladder. The patient relates that approximately 3 years ago he had an undiagnosed ankle fracture that he was treated for in [place]. He relates that the ankle finally healed, but he has had increased chonic swelling to his right lower extremity when compared to his left lower extremity. As a result, the patient relates that he will develop ulcers from time to time. Patient states that he was trying to use [place] to the area but finally decided to come be seen at the wound healing center. He denies any purulence to the areas or any significant warmth or redness to the areas. Patient currently denies any feelings of nausea, vomiting, fever, chills. Progress of Wound: Patient's right lower extremity ulcer site shows significant improvement this week and appears healed. Patient's ulcer to the distal left foot in the area where he stepped on a nail is still present, however this is appearing much better than it did last week. Patient continues with his antibiotics and dressing changes. He denies any pus or streaking redness to the areas. He currently denies feelings of nausea, vomiting, fever, chills. - Physical Exam Vital Signs Temp Pulse Resp BP 97.2 F L 65 18 155/78 H 12/27/18 11:41 12/27/18 11:41 12/27/18 11:41 12/27/18 11:41 General: Alert, Oriented x3, Cooperative, No apparent distress Extremities: No cyanosis, Capillary Refill Less than 3 Seconds, No Calf Tenderness - Negative Yenny and Voss signs bilateral, Edema - Bilateral lower extremity edema, Peripheral Pulses Normal - DP and PT pulses palpable bilateral Skin: Ulcer/ Wound - Ulcer to right atkinson appears healed today with no signs of surrounding infection. Patient also has ulcer to distal plantar aspect of left foot in the area of his previous puncture wound from last week. There is only very faint erythema directly surrounding the area today which is much improved from last week. The edema has subsided around the area as well. There is no streaking or surrounding cellulitis or increase in warmth at this time. No purulence noted. Wound Measurements and Assessment WC - Nurse 1 - General Ulcer Measurement Start: 12/27/18 11:41 Freq: Status: Active Protocol: Activity Type Activity Date Activity User E-Sign Co-Sign Detail Recorded Client Recorded Date Recorded By Document 12/27/18 11:41 [id number] 12/27/18 11:46 RB 12/27/18 11:41 Wound Center Nurse 1 [Ulcer Assessment] #4 L plantar -Current Size (cm) - Length 0.7 -Current Size (cm) - Width 0.4 -Current Size (cm) - Depth 0.4 -Total Square Cm 0.28 -Circular Undermining Yes -Exudate Amt Small -Exudate Type Serosanguineous -Wound Margin Thickened & Rolled Under -Granulation Amt Medium (34-66%) -Granulation Quality Pale,Jessie -Necrosis Amt Small (1-33%) -Necrotic Tissue Type Adherent Slough -Texture (Christiane-wound Skin Appearance) Assessed -Moisture (Christiane-wound Skin Appearance Assessed ) -Color (Christiane-wound Skin Appearance) Assessed, Erythema -Temperature (Christiane-wound Skin No Abnormality Appearance) (Pt Warm) -Tenderness on Palpation (Christiane-wound Yes Skin Appearance) -Ulcer Cleansing Wound Cleanser -Foul Odor after Cleansing Yes -Anesthetic Used 4% Lidocaine Solution #3 R Atkinson Cluster -Current Size (cm) - Length 0.1 -Current Size (cm) - Width 0.1 -Current Size (cm) - Depth 0.1 -Total Square Cm 0.01 [Edema Assessment] -Right Calf (cm) 35 -Right Ankle (cm) 22.5 WC - Nurse 2 - General Ulcer CM Notes Start: 12/27/18 11:41 Freq: Status: Active Protocol: Activity Type Activity Date Activity User E-Sign Co-Sign Detail Recorded Client Recorded Date Recorded By Document 12/27/18 11:57 AN [id number] 12/27/18 12:04 AN 12/27/18 11:57 Wound Center Nurse 2 [Procedure/Treatment] #4 L plantar -Time 11:59 -Correct Patient Yes -Correct Side, Site, Position Yes -Correct Procedure Yes -Procedure Performed Yes -Type of Procedure Debridement -Clinical Debridement Subcutaneous -Post Debridement Size (cm) - Length 0.8 -Post Debridement Size (cm) - Width 0.5 -Post Debridement Size (cm) - Depth 0.4 -Total Square Cm 0.40 -Wound/Ulcer Outcome Not Healed -Ulcer Cleansing Rinsed/ Irrigated with Saline -Foul Odor after Cleansing No -Bioengineered Tissue No -Bleeding Controlled with Pressure -Offloading Yes -Treatment Response Procedure Tolerated Well #3 R At[place] Cluster -Time 12:00 -Correct Patient Yes -Correct Side, Site, Position Yes -Correct Procedure Yes -Procedure Performed Yes -Type of Procedure Debridement -Clinical Debridement Subcutaneous -Wound/Ulcer Outcome Not Healed -Ulcer Cleansing Rinsed/ Irrigated with Saline -Foul Odor after Cleansing No -Bioengineered Tissue No -Bleeding Controlled with Pressure -Offloading Yes -Treatment Response Procedure Tolerated Well [See Physician Procedure note for Specifics] Pain Scale: 0-10 Numeric [Pain] -Is Patient Pain Free? Yes Musculoskeletal: No Tenderness to Palpation of Joints or Extremities, - - No tenderness with ulcer site manipulation Neurological: - - Epicritic sensation grossly absent to bilateral lower extremities consistent with patient's diabetic status Psych/Mental Status: Normal Affect, Appropriate Debridement Note Post-Debridement Measurements/Treatment WC - Nurse 2 - General Ulcer CM Notes Start: 12/27/18 11:41 Freq: Status: Active Protocol: Activity Type Activity Date Activity User E-Sign Co-Sign Detail Recorded Client Recorded Date Recorded By Document 12/27/18 11:57 AN [id number] 12/27/18 12:04 AN 12/27/18 11:57 Wound Center Nurse 2 #4 L plantar -Time 11:59 -Correct Patient Yes -Correct Side, Site, Position Yes -Correct Procedure Yes -Procedure Performed Yes -Type of Procedure Debridement -Clinical Debridement Subcutaneous -Post Debridement Size (cm) - Length 0.8 -Post Debridement Size (cm) - Width 0.5 -Post Debridement Size (cm) - Depth 0.4 -Total Square Cm 0.40 -Wound/Ulcer Outcome Not Healed -Ulcer Cleansing Rinsed/ Irrigated with Saline -Foul Odor after Cleansing No -Bioengineered Tissue No -Bleeding Controlled with Pressure -Offloading Yes -Treatment Response Procedure Tolerated Well #3 R [place] Cluster -Time 12:00 -Correct Patient Yes -Correct Side, Site, Position Yes -Correct Procedure Yes -Procedure Performed Yes -Type of Procedure Debridement -Clinical Debridement Subcutaneous -Wound/Ulcer Outcome Not Healed -Ulcer Cleansing Rinsed/ Irrigated with Saline -Foul Odor after Cleansing No -Bioengineered Tissue No -Bleeding Controlled with Pressure -Offloading Yes -Treatment Response Procedure Tolerated Well Pain Scale: 0-10 Numeric Is Patient Pain Free? Yes Wound debrided: Left distal foot Laterality: Left Type of Debridement: Excisional debridement Anesthesia Used: 5% Lidocaine Gel Depth: in the subcutaneous layer Percentage of wound debrided: 100 Instrument Used: #15 blade, - - Tissue nipper Tissue Removed: Devitalized subcutaneous tissue, adherent slough, fibrin, biofilm Severity: Fat Layer Exposed Amount of bleeding with debridement: Mild Bleeding Controlled with: Pressure Patient tolerated procedure well Assessment/Plan Assessment: Ulcer left foot, DM with neuropathy, venous insufficiency, lower extremity edema Plan: Patient was carefully examined and evaluated again today with in the room for follow-up of ulcer to right anterior atkinson. Patient's anterior atkinson ulcer site appears healed today with no signs of infection noted. Debridement was performed as noted in the clinical panel. The ulcer site was dressed with Aquacel Ag to the base followed by dry sterile dressing. He is to change the dressing in this manner on a daily basis. Keeping pressure off of each of the ulcer sites was discussed in detail with the patient and his today. Patient is to continue wearing offloading surgical shoe to the left foot if he needs to be up moving. Patient was instructed to be nonweightbearing as much as possible. If he absolutely has to be up he is to be heel weightbearing with the assistance of his offloading surgical shoe to the left foot. Patient is to keep his legs elevated all times. We discussed possible vascular referral in the future. Patient is currently taking oral antibiotics and he is to continue to take these until complete. Patient also had a tetanus shot last week. I recommend nutritional supplementation with a high protein diet in order to optimize ulcer healing potential. All other questions were answered to the patient and his 's satisfaction. He will follow-up with me in clinic in 1 week, but was instructed to follow-up sooner if needed.
[2019-01-03 10:49] VITALS: BP 135/72; PULSE 74; RESP 16; TEMP 36.1; BMI 27.1
--- NOTE | 2019-01-03 11:35 | PCM.WC.PN ---
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 (2) Type 2 diabetes mellitus with diabetic polyneuropathy Status: Acute Current Visit: No Code(s): E11.42 - Type 2 diabetes mellitus with diabetic polyneuropathy (3) Lower extremity edema Status: Acute Current Visit: No Code(s): R60.0 - Localized edema (4) Venous insufficiency Status: Acute Current Visit: No Code(s): I87.2 - Venous insufficiency (chronic) (peripheral) (5) Puncture wound of left foot Status: Acute Current Visit: No Code(s): S91.332A - Puncture wound without foreign body, left foot, initial encounter Type of Wound Date of Service: 01/03/19 Chief Complaint: right lower leg ulcer History of Wound: This 78-year-old diabetic male returns to the wound healing center today after ulcer to right lower leg reopened about 2 weeks ago. Patient states she thinks it happened when he bumped the area on a ladder. The patient relates that approximately 3 years ago he had an undiagnosed ankle fracture that he was treated for in [place]. He relates that the ankle finally healed, but he has had increased chonic swelling to his right lower extremity when compared to his left lower extremity. As a result, the patient relates that he will develop ulcers from time to time. Patient states that he was trying to use [place] to the area but finally decided to come be seen at the wound healing center. He denies any purulence to the areas or any significant warmth or redness to the areas. Patient currently denies any feelings of nausea, vomiting, fever, chills. Progress of Wound: Patient's ulcer to the distal left foot in the area where he stepped on a nail is still present and continues to improve. He denies any pus or streaking redness to the areas. He currently denies feelings of nausea, vomiting, fever, chills. - Physical Exam Vital Signs Temp Pulse Resp BP 96.9 F L 74 16 135/72 H 01/03/19 10:49 01/03/19 10:49 01/03/19 10:49 01/03/19 10:49 General: Alert, Oriented x3, Cooperative, No apparent distress Extremities: No cyanosis, Capillary Refill Less than 3 Seconds, No Calf Tenderness - Negative Yenny and Voss signs bilateral, Edema - Bilateral lower extremity edema, Peripheral Pulses Normal - DP and PT pulses palpable bilateral Skin: Ulcer/ Wound - Ulcer to distal plantar aspect of left foot. No surrounding erythema appreciated today. The edema has subsided. There is no streaking or surrounding cellulitis or increase in warmth at this time. No purulence noted. The base is a mixture of adherent slough, devitalized subcutaneous tissue, fibrin, biofilm, and granular tissue. Wound Measurements and Assessment WC - Nurse 1 - General Ulcer Measurement Start: 12/27/18 11:41 Freq: Status: Active Protocol: Activity Type Activity Date Activity User E-Sign Co-Sign Detail Recorded Client Recorded Date Recorded By Document 01/03/19 10:49 [facility] [id number] 01/03/19 10:53 BMF 01/03/19 10:49 Wound Center Nurse 1 [Ulcer Assessment] #4 L plantar -Combined with other wound No -Current Size (cm) - Length 0.7 -Current Size (cm) - Width 0.3 -Current Size (cm) - Depth 0.2 -Total Square Cm 0.21 -Photo Taken No -Epithelialization None Present -Tunneling No -Undermining/Tunneling No -Circular Undermining No -Exudate Amt None Present -Wound Margin Distinct, Outline Attached -Granulation Amt Large (67-100%) -Granulation Quality Pale,[place] -Slough/Fibrin No -Necrosis Amt None Present (0 %) -Texture (Christiane-wound Skin Appearance) Assessed, Scarring -Moisture (Christiane-wound Skin Appearance Assessed,Dry/ ) Scaly -Color (Christiane-wound Skin Appearance) Assessed -Temperature (Christiane-wound Skin No Abnormality Appearance) (Pt Warm) -Tenderness on Palpation (Christiane-wound No Skin Appearance) -Ulcer Cleansing Rinsed/ Irrigated with Saline -Foul Odor after Cleansing No -Anesthetic Used 4% Lidocaine Solution WC - Nurse 2 - General Ulcer CM Notes Start: 12/27/18 11:41 Freq: Status: Active Protocol: Activity Type Activity Date Activity User E-Sign Co-Sign Detail Recorded Client Recorded Date Recorded By Document 01/03/19 11:11 AN [id number] 01/03/19 11:16 AN 01/03/19 11:11 Wound Center Nurse 2 [Procedure/Treatment] -Time 11:11 -Correct Patient Yes -Correct Side, Site, Position Yes -Correct Procedure Yes -Procedure Performed Yes -Type of Procedure Debridement -Clinical Debridement Subcutaneous -Post Debridement Size (cm) - Length 0.4 -Post Debridement Size (cm) - Width 0.3 -Post Debridement Size (cm) - Depth 0.2 -Total Square Cm 0.12 -Wound/Ulcer Outcome Not Healed -Ulcer Cleansing Rinsed/ Irrigated with Saline -Foul Odor after Cleansing No -Bioengineered Tissue No -Bleeding Controlled with Pressure -Offloading Yes -Type of Offloading Surgical Shoe -Treatment Response Procedure Tolerated Well [See Physician Procedure note for Specifics] Pain Scale: 0-10 Numeric [Pain] -Is Patient Pain Free? Yes Musculoskeletal: No Tenderness to Palpation of Joints or Extremities, - - No tenderness with ulcer site manipulation Neurological: - - Epicritic sensation grossly absent to bilateral lower extremities consistent with patient's diabetic status Psych/Mental Status: Normal Affect, Appropriate Debridement Note Post-Debridement Measurements/Treatment WC - Nurse 2 - General Ulcer CM Notes Start: 12/27/18 11:41 Freq: Status: Active Protocol: Activity Type Activity Date Activity User E-Sign Co-Sign Detail Recorded Client Recorded Date Recorded By Document 12/27/18 11:57 AN [id number] 12/27/18 12:04 AN Document 01/03/19 11:11 AN [id number] 01/03/19 11:16 AN 12/27/18 01/03/19 11:57 11:11 Wound Center Nurse 2 #4 L plantar -Time 11:59 11:11 -Correct Patient Yes Yes -Correct Side, Site, Position Yes Yes -Correct Procedure Yes Yes -Procedure Performed Yes Yes -Type of Procedure Debridement Debridement -Clinical Debridement Subcutaneous Subcutaneous -Post Debridement Size (cm) - Length 0.8 0.4 -Post Debridement Size (cm) - Width 0.5 0.3 -Post Debridement Size (cm) - Depth 0.4 0.2 -Total Square Cm 0.40 0.12 -Wound/Ulcer Outcome Not Healed Not Healed -Ulcer Cleansing Rinsed/ Rinsed/ Irrigated with Irrigated with Saline Saline -Foul Odor after Cleansing No No -Bioengineered Tissue No No -Bleeding Controlled with Pressure Pressure -Offloading Yes Yes -Type of Offloading Surgical Shoe -Treatment Response Procedure Procedure Tolerated Well Tolerated Well #3 R Marc Cluster -Time 12:00 -Correct Patient Yes -Correct Side, Site, Position Yes -Correct Procedure Yes -Procedure Performed Yes -Type of Procedure Debridement -Clinical Debridement Subcutaneous -Wound/Ulcer Outcome Not Healed -Ulcer Cleansing Rinsed/ Irrigated with Saline -Foul Odor after Cleansing No -Bioengineered Tissue No -Bleeding Controlled with Pressure -Offloading Yes -Treatment Response Procedure Tolerated Well Pain Scale: 0-10 Numeric Is Patient Pain Free? Yes Yes Wound debrided: Left distal foot Laterality: Left Type of Debridement: Excisional debridement Anesthesia Used: 5% Lidocaine Gel Depth: in the subcutaneous layer Percentage of wound debrided: 100 Instrument Used: #15 blade, - - Tissue nipper Tissue Removed: Devitalized subcutaneous tissue, adherent slough, fibrin, biofilm Severity: Fat Layer Exposed Amount of bleeding with debridement: Mild Bleeding Controlled with: Pressure Patient tolerated procedure well Assessment/Plan Assessment: Ulcer left foot, DM with neuropathy, venous insufficiency, lower extremity edema Plan: Patient was carefully examined and evaluated again today with in the room for follow-up of ulcer distal forefoot. Debridement was performed as noted in the clinical panel. The ulcer site was dressed with Aquacel Ag to the base followed by dry sterile dressing. He is to change the dressing in this manner on a daily basis. Keeping pressure off of each of the ulcer sites was discussed in detail with the patient and his today. Patient has been seen walking around the last 2 days in a row without his offloading surgical shoe on. He has been noncompliant in wearing this. Patient was instructed to continue wearing offloading surgical shoe to the left foot if he needs to be up moving. Patient was instructed to be nonweightbearing as much as possible. If he absolutely has to be up he is to be heel weightbearing with the assistance of his offloading surgical shoe to the left foot. Patient is to keep his legs elevated all times. We discussed possible vascular referral in the future. Patient also had a tetanus shot last week. I recommend nutritional supplementation with a high protein diet in order to optimize ulcer healing potential. All other questions were answered to the patient and his 's satisfaction. He will follow-up with me in clinic in 1 week, but was instructed to follow-up sooner if needed.
[2019-01-10 09:00] VITALS: BP 137/72; PULSE 61; RESP 18; TEMP 36.1; BMI 27.1
--- NOTE | 2019-01-10 11:18 | PCM.WC.PN ---
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 (2) Type 2 diabetes mellitus with diabetic polyneuropathy Status: Acute Current Visit: No Code(s): E11.42 - Type 2 diabetes mellitus with diabetic polyneuropathy (3) Lower extremity edema Status: Acute Current Visit: No Code(s): R60.0 - Localized edema (4) Venous insufficiency Status: Acute Current Visit: No Code(s): I87.2 - Venous insufficiency (chronic) (peripheral) (5) Puncture wound of left foot Status: Acute Current Visit: No Code(s): S91.332A - Puncture wound without foreign body, left foot, initial encounter Type of Wound Date of Service: 01/10/19 Chief Complaint: right lower leg ulcer History of Wound: This 78-year-old diabetic male returns to the wound healing center today after ulcer to right lower leg reopened about 2 weeks ago. Patient states she thinks it happened when he bumped the area on a ladder. The patient relates that approximately 3 years ago he had an undiagnosed ankle fracture that he was treated for in [place]. He relates that the ankle finally healed, but he has had increased chonic swelling to his right lower extremity when compared to his left lower extremity. As a result, the patient relates that he will develop ulcers from time to time. Patient states that he was trying to use [place] to the area but finally decided to come be seen at the wound healing center. He denies any purulence to the areas or any significant warmth or redness to the areas. Patient currently denies any feelings of nausea, vomiting, fever, chills. Progress of Wound: Patient's ulcer to the distal left foot shows continued improvement. He denies any pus or streaking redness to the areas. He currently denies feelings of nausea, vomiting, fever, chills. - Physical Exam Vital Signs Temp Pulse Resp BP 97 F L 61 18 137/72 H 01/10/19 09:00 01/10/19 09:00 01/10/19 09:00 01/10/19 09:00 General: Alert, Oriented x3, Cooperative, No apparent distress Extremities: No cyanosis, Capillary Refill Less than 3 Seconds, No Calf Tenderness - Negative Yenny and Voss signs bilateral, Edema - Bilateral lower extremity edema, Peripheral Pulses Normal - DP and PT pulses palpable bilateral Skin: Ulcer/ Wound - Ulcer to distal plantar aspect of left foot. No surrounding erythema or edema appreciated today. There is no streaking or surrounding cellulitis or increase in warmth at this time. No purulence noted. The base is a mixture of adherent slough, devitalized subcutaneous tissue, fibrin, biofilm, and granular tissue. Wound Measurements and Assessment WC - Nurse 1 - General Ulcer Measurement Start: 12/27/18 11:41 Freq: Status: Active Protocol: Activity Type Activity Date Activity User E-Sign Co-Sign Detail Recorded Client Recorded Date Recorded By Document 01/10/19 09:00 DL [id number] 01/10/19 09:02 DL 01/10/19 09:00 Wound Center Nurse 1 [Ulcer Assessment] #5 L plantar -Current Size (cm) - Length 0.2 -Current Size (cm) - Width 0.2 -Current Size (cm) - Depth 0.3 -Total Square Cm 0.04 -Photo Taken No -Maximum Distance #2 (cm) 0.2 -Circular Undermining Yes -Exudate Amt None Present -Wound Margin Distinct, Outline Attached -Granulation Amt Small (1-33%) -Granulation Quality [place] -Necrosis Amt Small (1-33%) -Necrotic Tissue Type Adherent Slough -Structure Exposed N/A -Texture (Christiane-wound Skin Appearance) No Abnormality, Scarring -Moisture (Christiane-wound Skin Appearance No Abnormality ) -Color (Christiane-wound Skin Appearance) No Abnormality -Temperature (Christiane-wound Skin No Abnormality Appearance) (Pt Warm) -Tenderness on Palpation (Christiane-wound No Skin Appearance) -Ulcer Cleansing Wound Cleanser -Foul Odor after Cleansing No -Anesthetic Used 5% Lidocaine Gel [Edema Assessment] -Left Calf (cm) 34.5 -Left Ankle (cm) 21.8 WC - Nurse 2 - General Ulcer CM Notes Start: 12/27/18 11:41 Freq: Status: Active Protocol: Activity Type Activity Date Activity User E-Sign Co-Sign Detail Recorded Client Recorded Date Recorded By Document 01/10/19 09:15 AN [id number] 01/10/19 09:19 AN 01/10/19 09:15 Wound Center Nurse 2 [Procedure/Treatment] #5 L plantar -Time 09:16 -Correct Patient Yes -Correct Side, Site, Position Yes -Correct Procedure Yes -Procedure Performed Yes -Type of Procedure Debridement -Clinical Debridement Subcutaneous -Post Debridement Size (cm) - Length 0.2 -Post Debridement Size (cm) - Width 0.2 -Post Debridement Size (cm) - Depth 0.2 -Total Square Cm 0.04 -Wound/Ulcer Outcome Not Healed -Ulcer Cleansing Rinsed/ Irrigated with Saline -Foul Odor after Cleansing No -Bioengineered Tissue No -Bleeding Controlled with Pressure -Offloading Yes -Treatment Response Procedure Tolerated Well [See Physician Procedure note for Specifics] Pain Scale: 0-10 Numeric [Pain] -Is Patient Pain Free? Yes Musculoskeletal: No Tenderness to Palpation of Joints or Extremities, - - No tenderness with ulcer site manipulation Neurological: - - Epicritic sensation grossly absent to bilateral lower extremities consistent with patient's diabetic status Psych/Mental Status: Normal Affect, Appropriate Debridement Note Post-Debridement Measurements/Treatment WC - Nurse 2 - General Ulcer CM Notes Start: 12/27/18 11:41 Freq: Status: Active Protocol: Activity Type Activity Date Activity User E-Sign Co-Sign Detail Recorded Client Recorded Date Recorded By Document 12/27/18 11:57 AN [id number] 12/27/18 12:04 AN Document 01/03/19 11:11 AN [id number] 01/03/19 11:16 AN Document 01/10/19 09:15 AN [id number] 01/10/19 09:19 AN 12/27/18 01/03/19 01/10/19 11:57 11:11 09:15 Wound Center Nurse 2 #5 L plantar -Time 11:59 11:11 09:16 -Correct Patient Yes Yes Yes -Correct Side, Site, Position Yes Yes Yes -Correct Procedure Yes Yes Yes -Procedure Performed Yes Yes Yes -Type of Procedure Debridement Debridement Debridement -Clinical Debridement Subcutaneous Subcutaneous Subcutaneous -Post Debridement Size (cm) - Length 0.8 0.4 0.2 -Post Debridement Size (cm) - Width 0.5 0.3 0.2 -Post Debridement Size (cm) - Depth 0.4 0.2 0.2 -Total Square Cm 0.40 0.12 0.04 -Wound/Ulcer Outcome Not Healed Not Healed Not Healed -Ulcer Cleansing Rinsed/ Rinsed/ Rinsed/ Irrigated with Irrigated with Irrigated with Saline Saline Saline -Foul Odor after Cleansing No No No -Bioengineered Tissue No No No -Bleeding Controlled with Pressure Pressure Pressure -Offloading Yes Yes Yes -Type of Offloading Surgical Shoe -Treatment Response Procedure Procedure Procedure Tolerated Well Tolerated Well Tolerated Well #3 R Marc Cluster -Time 12:00 -Correct Patient Yes -Correct Side, Site, Position Yes -Correct Procedure Yes -Procedure Performed Yes -Type of Procedure Debridement -Clinical Debridement Subcutaneous -Wound/Ulcer Outcome Not Healed -Ulcer Cleansing Rinsed/ Irrigated with Saline -Foul Odor after Cleansing No -Bioengineered Tissue No -Bleeding Controlled with Pressure -Offloading Yes -Treatment Response Procedure Tolerated Well Pain Scale: 0-10 Numeric Is Patient Pain Free? Yes Yes Yes Wound debrided: Left distal foot Laterality: Left Type of Debridement: Excisional debridement Anesthesia Used: 5% Lidocaine Gel Depth: in the subcutaneous layer Percentage of wound debrided: 100 Instrument Used: #15 blade Tissue Removed: Devitalized subcutaneous tissue, adherent slough, fibrin, biofilm Severity: Fat Layer Exposed Amount of bleeding with debridement: Mild Bleeding Controlled with: Pressure Patient tolerated procedure well Assessment/Plan Assessment: Ulcer left foot, DM with neuropathy, venous insufficiency, lower extremity edema Plan: Patient was carefully examined and evaluated again today with in the room for follow-up of ulcer distal forefoot. Debridement was performed as noted in the clinical panel. The ulcer site was dressed with Aquacel Ag to the base followed by dry sterile dressing. He is to change the dressing in this manner on a daily basis. Keeping pressure off of each of the ulcer site was discussed in detail with the patient and his again today. Patient continues to ambulate without his offloading surgical shoe on and continues to state he feels he offloaded his diabetic shoe enough. He has been noncompliant in wearing this. Patient was instructed to continue wearing offloading surgical shoe to the left foot if he needs to be up moving. He says that he understands this and that he will make a better effort to do this over the course of the next week. Patient was instructed to be nonweightbearing as much as possible. If he absolutely has to be up he is to be heel weightbearing with the assistance of his offloading surgical shoe to the left foot. Patient is to keep his legs elevated all times. We discussed possible vascular referral in the future. Patient also had a tetanus shot last week. I recommend nutritional supplementation with a high protein diet in order to optimize ulcer healing potential. All other questions were answered to the patient and his 's satisfaction. He will follow-up with me in clinic in 1 week, but was instructed to follow-up sooner if needed.
[2019-01-24 09:03] VITALS: BP 137/76; PULSE 59; RESP 18; TEMP 36.1; BMI 27.1
--- NOTE | 2019-01-24 10:35 | PN.PCM_ITS ---
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 (2) Type 2 diabetes mellitus with diabetic polyneuropathy Status: Acute Current Visit: No Code(s): E11.42 - Type 2 diabetes mellitus with diabetic polyneuropathy (3) Lower extremity edema Status: Acute Current Visit: No Code(s): R60.0 - Localized edema (4) Venous insufficiency Status: Acute Current Visit: No Code(s): I87.2 - Venous insufficiency (chronic) (peripheral) (5) Puncture wound of left foot Status: Acute Current Visit: No Code(s): S91.332A - Puncture wound without foreign body, left foot, initial encounter Type of Wound Date of Service: 01/24/19 Chief Complaint: right lower leg ulcer History of Wound: This 78-year-old diabetic male returns to the wound healing center today after ulcer to right lower leg reopened about 2 weeks ago. Patient states she thinks it happened when he bumped the area on a ladder. The patient relates that approximately 3 years ago he had an undiagnosed ankle fracture that he was treated for in [place]. He relates that the ankle finally healed, but he has had increased chonic swelling to his right lower extremity when compared to his left lower extremity. As a result, the patient relates that he will develop ulcers from time to time. Patient states that he was trying to use [place] to the area but finally decided to come be seen at the wound healing center. He denies any purulence to the areas or any significant warmth or redness to the areas. Patient currently denies any feelings of nausea, vomiting, fever, chills. Progress of Wound: Patient's ulcer to the distal left foot continues to show great improvement. He currently denies feelings of nausea, vomiting, fever, chills. - Physical Exam Vital Signs Temp Pulse Resp BP 97 F L 59 L 18 137/76 H 01/24/19 09:03 01/24/19 09:03 01/24/19 09:03 01/24/19 09:03 General: Alert, Oriented x3, Cooperative, No apparent distress Extremities: No cyanosis, Capillary Refill Less than 3 Seconds, No Calf Tenderness - Negative Yenny and Voss signs bilateral, Edema - Bilateral lower extremity edema, Peripheral Pulses Normal - DP and PT pulses palpable bilateral Skin: Ulcer/ Wound - Ulcer to distal plantar aspect of left foot. No surrounding erythema or edema appreciated today. There is no streaking or surrounding cellulitis or increase in warmth at this time. No purulence noted. The base is a mixture of adherent slough and a majority granular tissue. Site is almost completely healed. Wound Measurements and Assessment WC - Nurse 1 - General Ulcer Measurement Start: 12/27/18 11:41 Freq: Status: Active Protocol: Activity Type Activity Date Activity User E-Sign Co-Sign Detail Recorded Client Recorded Date Recorded By Document 01/24/19 09:03 RB [id number] 01/24/19 09:06 RB 01/24/19 09:03 Wound Center Nurse 1 [Ulcer Assessment] #5 L plantar -Combined with other wound No -Current Size (cm) - Length 0.1 -Current Size (cm) - Width 0.1 -Current Size (cm) - Depth 0.1 -Total Square Cm 0.01 -Tunneling No -Undermining/Tunneling No -Circular Undermining No -Exudate Amt Small -Exudate Type Serosanguineous -Wound Margin Flat & Intact -Granulation Quality [place] -Necrosis Amt Small (1-33%) -Necrotic Tissue Type Adherent Slough -Structure Exposed N/A -Texture (Christiane-wound Skin Appearance) Assessed,Callus -Moisture (Christiane-wound Skin Appearance Assessed ) -Color (Christiane-wound Skin Appearance) Assessed -Temperature (Christiane-wound Skin No Abnormality Appearance) (Pt Warm) -Tenderness on Palpation (Christiane-wound No Skin Appearance) -Ulcer Cleansing Wound Cleanser -Foul Odor after Cleansing No -Anesthetic Used 4% Lidocaine Solution WC - Nurse 2 - General Ulcer CM Notes Start: 12/27/18 11:41 Freq: Status: Active Protocol: Activity Type Activity Date Activity User E-Sign Co-Sign Detail Recorded Client Recorded Date Recorded By Document 01/24/19 09:14 AN [id number] 01/24/19 09:15 AN Document 01/24/19 09:15 AN [email or web address] 01/24/19 09:15 AN 01/24/19 01/24/19 09:14 09:15 Wound Center Nurse 2 [Procedure/Treatment] #5 L plantar -Time 09:15 -Correct Patient Yes -Correct Side, Site, Position Yes -Correct Procedure Yes -Procedure Performed Yes -Type of Procedure Debridement -Clinical Debridement Subcutaneous -Post Debridement Size (cm) - Length 0.1 -Post Debridement Size (cm) - Width 0.1 -Post Debridement Size (cm) - Depth 0.1 -Total Square Cm 0.01 -Wound/Ulcer Outcome Not Healed -Ulcer Cleansing Rinsed/ Irrigated with Saline -Foul Odor after Cleansing No -Bioengineered Tissue No -Bleeding Controlled with Pressure -Offloading No -Treatment Response Procedure Tolerated Well [See Physician Procedure note for Specifics] Pain Scale: 0-10 Numeric [Pain] -Is Patient Pain Free? Yes Yes Musculoskeletal: No Tenderness to Palpation of Joints or Extremities, - - No tenderness with ulcer site manipulation Neurological: - - Epicritic sensation grossly absent to bilateral lower extremities consistent with patient's diabetic status Psych/Mental Status: Normal Affect, Appropriate Debridement Note Post-Debridement Measurements/Treatment WC - Nurse 2 - General Ulcer CM Notes Start: 12/27/18 11:41 Freq: Status: Active Protocol: Activity Type Activity Date Activity User E-Sign Co-Sign Detail Recorded Client Recorded Date Recorded By Document 12/27/18 11:57 AN [id number] 12/27/18 12:04 AN Document 01/03/19 11:11 AN [id number] 01/03/19 11:16 AN Document 01/10/19 09:15 AN [id number] 01/10/19 09:19 AN Document 01/24/19 09:14 AN [id number] 01/24/19 09:15 AN Document 01/24/19 09:15 AN [id number] 01/24/19 09:15 AN 12/27/18 01/03/19 01/10/19 11:57 11:11 09:15 Wound Center Nurse 2 #5 L plantar -Time 11:59 11:11 09:16 -Correct Patient Yes Yes Yes -Correct Side, Site, Position Yes Yes Yes -Correct Procedure Yes Yes Yes -Procedure Performed Yes Yes Yes -Type of Procedure Debridement Debridement Debridement -Clinical Debridement Subcutaneous Subcutaneous Subcutaneous -Post Debridement Size (cm) - Length 0.8 0.4 0.2 -Post Debridement Size (cm) - Width 0.5 0.3 0.2 -Post Debridement Size (cm) - Depth 0.4 0.2 0.2 -Total Square Cm 0.40 0.12 0.04 -Wound/Ulcer Outcome Not Healed Not Healed Not Healed -Ulcer Cleansing Rinsed/ Rinsed/ Rinsed/ Irrigated with Irrigated with Irrigated with Saline Saline Saline -Foul Odor after Cleansing No No No -Bioengineered Tissue No No No -Bleeding Controlled with Pressure Pressure Pressure -Offloading Yes Yes Yes -Type of Offloading Surgical Shoe -Treatment Response Procedure Procedure Procedure Tolerated Well Tolerated Well Tolerated Well #3 R Marc Cluster -Time 12:00 -Correct Patient Yes -Correct Side, Site, Position Yes -Correct Procedure Yes -Procedure Performed Yes -Type of Procedure Debridement -Clinical Debridement Subcutaneous -Wound/Ulcer Outcome Not Healed -Ulcer Cleansing Rinsed/ Irrigated with Saline -Foul Odor after Cleansing No -Bioengineered Tissue No -Bleeding Controlled with Pressure -Offloading Yes -Treatment Response Procedure Tolerated Well Pain Scale: 0-10 Numeric Is Patient Pain Free? Yes Yes Yes 01/24/19 01/24/19 09:14 09:15 Wound Center Nurse 2 #5 L plantar -Time 09:15 -Correct Patient Yes -Correct Side, Site, Position Yes -Correct Procedure Yes -Procedure Performed Yes -Type of Procedure Debridement -Clinical Debridement Subcutaneous -Post Debridement Size (cm) - Length 0.1 -Post Debridement Size (cm) - Width 0.1 -Post Debridement Size (cm) - Depth 0.1 -Total Square Cm 0.01 -Wound/Ulcer Outcome Not Healed -Ulcer Cleansing Rinsed/ Irrigated with Saline -Foul Odor after Cleansing No -Bioengineered Tissue No -Bleeding Controlled with Pressure -Offloading No -Type of Offloading -Treatment Response Procedure Tolerated Well #3 R Marc Cluster -Time -Correct Patient -Correct Side, Site, Position -Correct Procedure -Procedure Performed -Type of Procedure -Clinical Debridement -Wound/Ulcer Outcome -Ulcer Cleansing -Foul Odor after Cleansing -Bioengineered Tissue -Bleeding Controlled with -Offloading -Treatment Response Pain Scale: 0-10 Numeric Is Patient Pain Free? Yes Yes Wound debrided: Left distal foot Laterality: Left Type of Debridement: Selective debridement Anesthesia Used: 4% Lidocaine Solution Depth: in the subcutaneous layer Percentage of wound debrided: 100 Instrument Used: #15 blade Tissue Removed: Adherent slough Severity: Fat Layer Exposed Amount of bleeding with debridement: Mild Bleeding Controlled with: Pressure Patient tolerated procedure well Assessment/Plan Assessment: Ulcer left foot, DM with neuropathy, venous insufficiency, lower extremity edema Plan: Patient was carefully examined and evaluated again today with in the room for follow-up of ulcer distal forefoot. Debridement was performed as noted in the clinical panel. Ulcer site is almost completely healed today. The ulcer site was dressed with Aquacel Ag to the base followed by dry sterile dressing. He is to change the dressing in this manner on a daily basis. Keeping pressure off of each of the ulcer site was discussed in detail with the patient and his again today. Patient continues to ambulate without his offloading surgical shoe on and continues to state he feels he offloaded his diabetic shoe enough. He has been noncompliant in wearing this still. Patient was instructed to continue wearing offloading surgical shoe to the left foot if he needs to be up moving. Patient was instructed to be nonweightbearing as much as possible. If he absolutely has to be up he is to be heel weightbearing with the assistance of his offloading surgical shoe to the left foot. Patient is to keep his legs elevated all times. We discussed possible vascular referral in the future. I recommend nutritional supplementation with a high protein diet in order to optimize ulcer healing potential. All other questions were answered to the patient and his 's satisfaction. He will follow-up with me in clinic in 1 week, but was instructed to follow-up sooner if needed.
== END 2019-01-24 23:59 ==
LOC: WC 09:00
PROVIDERS: Family Provider Internal Medicine; PCP Internal Medicine; Referring Provider Podiatrist; Visit Provider Podiatrist
DX: S91.332A Puncture wound without foreign body, left foot, initial encounter (principal); E11.42 Type 2 diabetes mellitus with diabetic polyneuropathy; R60.0 Localized edema; I87.2 Venous insufficiency (chronic) (peripheral); W45.8XXA Other foreign body or object entering through skin, initial encounter; Z91.19 Patient's noncompliance with other medical treatment and regimen
CPT/HCPCS: 11042; 97597

== ENCOUNTER 2019-02-14 09:00 | Outpatient (RCR) | payer MEDICARE, OTHER, SELFPAY ==
[2019-01-25 01:13] VITALS: BP 137/76; PULSE 59; RESP 18; TEMP 36.1
[2019-01-31 09:28] VITALS: RESP 16; TEMP 35.5; BMI 27.1
--- NOTE | 2019-01-31 09:48 | PCM.WC.PN ---
(1) Chronic ulcer of left foot with fat layer exposed Status: Chronic Current Visit: Yes Code(s): L97.522 - Non-pressure chronic ulcer of other part of left foot with fat layer exposed (2) Puncture wound of left foot Status: Acute Current Visit: No Code(s): S91.332A - Puncture wound without foreign body, left foot, initial encounter (3) Type 2 diabetes mellitus with diabetic polyneuropathy Status: Acute Current Visit: No Code(s): E11.42 - Type 2 diabetes mellitus with diabetic polyneuropathy (4) Lower extremity edema Status: Acute Current Visit: No Code(s): R60.0 - Localized edema (5) Venous insufficiency Status: Acute Current Visit: No Code(s): I87.2 - Venous insufficiency (chronic) (peripheral) Type of Wound Date of Service: 01/31/19 Chief Complaint: right lower leg ulcer History of Wound: This 78-year-old diabetic male returns to the wound healing center today after ulcer to right lower leg reopened about 2 weeks ago. Patient states she thinks it happened when he bumped the area on a ladder. The patient relates that approximately 3 years ago he had an undiagnosed ankle fracture that he was treated for in [place]. He relates that the ankle finally healed, but he has had increased chonic swelling to his right lower extremity when compared to his left lower extremity. As a result, the patient relates that he will develop ulcers from time to time. Patient states that he was trying to use Carito to the area but finally decided to come be seen at the wound healing center. He denies any purulence to the areas or any significant warmth or redness to the areas. Patient currently denies any feelings of nausea, vomiting, fever, chills. Progress of Wound: Patient's ulcer to the distal left foot close to being healed today. He currently denies feelings of nausea, vomiting, fever, chills. - Physical Exam Vital Signs Temp Pulse Resp BP 96 F L 59 L 16 137/76 H 01/31/19 09:28 01/25/19 01:13 01/31/19 09:28 01/25/19 01:13 General: Alert, Oriented x3, Cooperative, No apparent distress Extremities: No cyanosis, Capillary Refill Less than 3 Seconds, No Calf Tenderness - Negative Yenny and Voss signs bilateral, Edema - Bilateral lower extremity edema, Peripheral Pulses Normal - DP and PT pulses palpable bilateral Skin: Ulcer/ Wound - Ulcer to distal plantar aspect of left foot. Area almost healed completely today. No surrounding erythema or edema appreciated today. There is no streaking or surrounding cellulitis or increase in warmth at this time. No purulence noted. The base is a mixture of adherent slough and a majority granular tissue. Wound Measurements and Assessment WC - Nurse 1 - General Ulcer Measurement Start: 01/31/19 09:28 Freq: Status: Active Protocol: Activity Type Activity Date Activity User E-Sign Co-Sign Detail Recorded Client Recorded Date Recorded By Document 01/31/19 09:28 [facility] [id number] 01/31/19 09:34 [facility] 01/31/19 09:28 Wound Center Nurse 1 [Ulcer Assessment] #5 L plantar -Combined with other wound No -Current Size (cm) - Length 0.1 -Current Size (cm) - Width 0.1 -Current Size (cm) - Depth 0.1 -Total Square Cm 0.01 -Epithelialization Large 67-100% -Tunneling No -Undermining/Tunneling No -Circular Undermining No -Exudate Amt None Present -Texture (Christiane-wound Skin Appearance) Assessed,Callus -Moisture (Christiane-wound Skin Appearance Assessed,Dry/ ) Scaly -Color (Christiane-wound Skin Appearance) Assessed -Temperature (Christiane-wound Skin No Abnormality Appearance) (Pt Warm) -Tenderness on Palpation (Christiane-wound No Skin Appearance) -Ulcer Cleansing Rinsed/ Irrigated with Saline -Foul Odor after Cleansing No -Anesthetic Used 5% Lidocaine Gel [Edema Assessment] -Lower Limb Edema Present Yes -Point of measurement (cm from the 36.5 medial instep) -Point of Measurement (cm from the 22.5 medial instep) Musculoskeletal: No Tenderness to Palpation of Joints or Extremities, - - No tenderness with ulcer site manipulation Neurological: - - Epicritic sensation grossly absent bilateral lower extremities consistent with patient's diabetic neuropathy status Psych/Mental Status: Normal Affect, Appropriate Debridement Note Wound debrided: Left distal foot Laterality: Left Type of Debridement: Selective debridement Anesthesia Used: 5% Lidocaine Gel Depth: in the subcutaneous layer Percentage of wound debrided: 100 Instrument Used: #15 blade Tissue Removed: Adherent slough and hyperkeratotic skin Severity: Fat Layer Exposed Amount of bleeding with debridement: Mild Bleeding Controlled with: Pressure Patient tolerated procedure well Assessment/Plan Active Problems Chronic ulcer of left foot with fat layer exposed (Chronic) Assessment: Ulcer left foot, DM with neuropathy, venous insufficiency, lower extremity edema Plan: Patient was carefully examined and evaluated again today with in the room for follow-up of ulcer distal forefoot. Another debridement was performed as noted in the clinical panel. Ulcer site remains very close to being healed. The ulcer site was dressed with Aquacel Ag to the base followed by dry sterile dressing. He is to change the dressing in this manner on a daily basis. Keeping pressure off of each of the ulcer site was discussed in detail with the patient and his again today. Patient continues to ambulate without his offloading surgical shoe on and continues to state he feels he offloaded his diabetic shoe enough. He continues to be noncompliant in wearing this. Patient was instructed to continue wearing offloading surgical shoe to the left foot if he needs to be up moving. Patient was instructed to be nonweightbearing as much as possible. If he absolutely has to be up he is to be heel weightbearing with the assistance of his offloading surgical shoe to the left foot. Patient is to keep his legs elevated all times. We discussed possible vascular referral in the future. I recommend nutritional supplementation with a high protein diet in order to optimize ulcer healing potential. All other questions were answered to the patient and his 's satisfaction. He will follow-up with me in clinic in 2 weeks, but was instructed to follow-up sooner if needed.
[2019-02-14 09:06] VITALS: BP 139/80; PULSE 62; RESP 16; TEMP 35.6; BMI 27.1
--- NOTE | 2019-02-14 09:53 | PCM.WC.PN ---
(1) Chronic ulcer of left foot with fat layer exposed Status: Chronic Current Visit: Yes Code(s): L97.522 - Non-pressure chronic ulcer of other part of left foot with fat layer exposed (2) Puncture wound of left foot Status: Acute Current Visit: No Code(s): S91.332A - Puncture wound without foreign body, left foot, initial encounter (3) Type 2 diabetes mellitus with diabetic polyneuropathy Status: Acute Current Visit: No Code(s): E11.42 - Type 2 diabetes mellitus with diabetic polyneuropathy (4) Lower extremity edema Status: Acute Current Visit: No Code(s): R60.0 - Localized edema (5) Venous insufficiency Status: Acute Current Visit: No Code(s): I87.2 - Venous insufficiency (chronic) (peripheral) Type of Wound Date of Service: 02/14/19 Chief Complaint: right lower leg ulcer History of Wound: This 78-year-old diabetic male returns to the wound healing center today after ulcer to right lower leg reopened about 2 weeks ago. Patient states she thinks it happened when he bumped the area on a ladder. The patient relates that approximately 3 years ago he had an undiagnosed ankle fracture that he was treated for in [place]. He relates that the ankle finally healed, but he has had increased chonic swelling to his right lower extremity when compared to his left lower extremity. As a result, the patient relates that he will develop ulcers from time to time. Patient states that he was trying to use Car[place] to the area but finally decided to come be seen at the wound healing center. He denies any purulence to the areas or any significant warmth or redness to the areas. Patient currently denies any feelings of nausea, vomiting, fever, chills. Progress of Wound: Patient's ulcer to the distal left foot appears healed today. He currently denies feelings of nausea, vomiting, fever, chills. - Physical Exam Vital Signs Temp Pulse Resp BP 96.0 F L 62 16 139/80 H 02/14/19 09:06 02/14/19 09:06 02/14/19 09:06 02/14/19 09:06 General: Alert, Oriented x3, Cooperative, No apparent distress Extremities: No cyanosis, Capillary Refill Less than 3 Seconds, No Calf Tenderness - Negative Yenny and Voss signs bilateral, Edema - Bilateral lower extremity edema, Peripheral Pulses Normal - DP and PT pulses palpable bilateral Skin: Ulcer/ Wound - Ulcer site to distal plantar aspect of the left foot appears healed today with no surrounding signs of local infection. Wound Measurements and Assessment WC - Nurse 1 - General Ulcer Measurement Start: 01/31/19 09:28 Freq: Status: Active Protocol: Activity Type Activity Date Activity User E-Sign Co-Sign Detail Recorded Client Recorded Date Recorded By Document 02/14/19 09:06 [facility] [id number] 02/14/19 09:07 [facility] 02/14/19 09:06 Wound Center Nurse 1 [Ulcer Assessment] #5 L plantar -Combined with other wound No -Current Size (cm) - Length 0.1 -Current Size (cm) - Width 0.1 -Current Size (cm) - Depth 0.1 -Total Square Cm 0.01 -Photo Taken No -Epithelialization Large 67-100% -Tunneling No -Undermining/Tunneling No -Circular Undermining No -Exudate Amt None Present -Wound Margin Flat & Intact -Granulation Amt None Present (0 %) -Slough/Fibrin No -Structure Exposed N/A -Texture (Christiane-wound Skin Appearance) Assessed -Moisture (Christiane-wound Skin Appearance Assessed,Dry/ ) Scaly -Color (Christiane-wound Skin Appearance) Assessed -Temperature (Christiane-wound Skin No Abnormality Appearance) (Pt Warm) -Tenderness on Palpation (Christiane-wound No Skin Appearance) -Ulcer Cleansing Rinsed/ Irrigated with Saline -Foul Odor after Cleansing No -Anesthetic Used 4% Lidocaine Solution [Edema Assessment] -Lower Limb Edema Present No Musculoskeletal: No Tenderness to Palpation of Joints or Extremities Neurological: - - Epicritic sensation grossly absent to bilateral lower extremities consistent with patient's diabetic neuropathy status Psych/Mental Status: Normal Affect, Appropriate Debridement Note Post-Debridement Measurements/Treatment WC - Nurse 2 - General Ulcer CM Notes Start: 01/31/19 09:28 Freq: Status: Active Protocol: Activity Type Activity Date Activity User E-Sign Co-Sign Detail Recorded Client Recorded Date Recorded By Document 01/31/19 09:42 [id number] 01/31/19 09:52 01/31/19 09:42 Wound Center Nurse 2 #5 L plantar -Time 09:46 -Correct Patient Yes -Correct Side, Site, Position Yes -Correct Procedure Yes -Procedure Performed Yes -Type of Procedure Debridement -Clinical Debridement Selective -Post Debridement Size (cm) - Length 0.1 -Post Debridement Size (cm) - Width 0.1 -Post Debridement Size (cm) - Depth 0.1 -Total Square Cm 0.01 -Wound/Ulcer Outcome Not Healed -Ulcer Cleansing Rinsed/ Irrigated with Saline -Foul Odor after Cleansing No -Bioengineered Tissue No -Bleeding Controlled with Pressure -Offloading No Pain Scale: 0-10 Numeric Is Patient Pain Free? Yes No debridement was completed today Assessment/Plan Active Problems Chronic ulcer of left foot with fat layer exposed (Chronic) Assessment: Ulcer left foot, DM with neuropathy, venous insufficiency, lower extremity edema Plan: Patient was carefully examined and evaluated again today with in the room for follow-up of ulcer distal forefoot. Ulcer site appears healed today with no signs of local infection noted. He is to continue to monitor the area closely as well as keep pressure off of the site with use of his diabetic shoes. He is instructed to make sure he even wears these in the house and to not go barefoot. Importance of monitoring his feet on a daily basis was again discussed. Patient is to keep his legs elevated all times. He is to continue with high-protein diet. Importance of tight glycemic control was discussed. All other questions were answered to the patient and his 's satisfaction. At this time he will be discharged from the wound healing center, but he was instructed to follow back up if needed for any reason.
== END 2019-02-23 23:59 ==
LOC: WC 09:00
PROVIDERS: Family Provider Internal Medicine; PCP Internal Medicine; Referring Provider Podiatrist; Visit Provider Podiatrist
DX: S91.332A Puncture wound without foreign body, left foot, initial encounter (principal); W22.09XA Striking against other stationary object, initial encounter; E11.42 Type 2 diabetes mellitus with diabetic polyneuropathy; R60.0 Localized edema; I87.2 Venous insufficiency (chronic) (peripheral); Z91.19 Patient's noncompliance with other medical treatment and regimen
CPT/HCPCS: 97597; 99212; G0463

== ENCOUNTER 2019-12-10 12:45 | Emergency (ER) | payer MEDICARE, OTHER, SELFPAY ==
[2019-12-10 12:45] VITALS: BP 141/71; PULSE 69; RESP 18; TEMP 36.6; O2SAT 98; BMI 28.7
[2019-12-10 12:55] VITALS: BP 157/93; PULSE 67; RESP 15; O2SAT 98
--- NOTE | 2019-12-10 13:16 | EKG12_ITS ---
Test Reason : Blood Pressure : / mmHG Vent. Rate : 066 BPM Atrial Rate : 066 BPM P-R Int : 212 ms QRS Dur : 086 ms QT Int : 422 ms P-R-T Axes : 011 009 080 degrees QTc Int : 442 ms Sinus rhythm with 1st degree A-V block Nonspecific T wave abnormality Abnormal ECG Confirmed by OXANA SOTO, DIANE ([id number]), material expeditor MIGEL LUX ([id number]) on 12/16/2019 1:14:11 PM Referred By: LUCIA Confirmed By:NANO DAIGLE MD
[2019-12-10] MEDS: 0.9% Normal Saline 1,000 ML 1000 ML IV (13:29)
[2019-12-10 13:30] VITALS: BP 110/60; BP 137/74; BP 140/78; PULSE 61; PULSE 67; PULSE 71
--- NOTE | 2019-12-10 13:30 | RAD_ITS ---
STUDY: X-RAY CHEST REASON FOR EXAM: Male, 79 years old. Intermittent dizziness for past 2 months. TECHNIQUE: Single AP portable view of the chest. COMPARISON: None. FINDINGS: EKG electrodes are seen. Elevation of the right hemidiaphragm. Question of a 5.3 cm x 6 cm inhomogeneous nodule in the right lower lobe versus localized bowel loop with gas. There is no demonstrated pleural abnormality. Normal size heart. Normal mediastinum and jaylyn. Normal visualized pulmonary arteries. There is atherosclerotic calcification of the aortic arch with tortuosity. There are diffuse degenerative changes of the visualized thoracic spine. Normal visualized ribs, clavicles, and shoulders. There is no demonstrated abnormality of the visualized soft tissue structures of the upper abdomen. RAD/Chest 1 View (Portable) IMPRESSION: Questionable inhomogeneous nodule in the right lower lobe versus a bowel loop beneath the right hemidiaphragm. Correlation with a CT scan is recommended. Electronically Signed: Rolando Lainez, at 13:52 EDT , Service support ,
[2019-12-10 13:50] LABS: Absolute Lymphocyte Count 1.13 X10^3/uL (0.83-4.51); Absolute Neutrophil Count 5.9 X10^3/uL (2.0-7.7); Basophil# 0.05 X10^3/uL; Basophil% 0.7 % (0-1); Eosinophil# 0.09 X10^3/uL; Eosinophils% 1.2 % (0-5); Hematocrit 41.9 % (40-54); Hemoglobin 14.2 g/dL (13.0-16.5); Lymphocyte # 1.13 X10^3/ul (4.0); Lymphocyte % 14.7 % (19-41); Mean Corp Hgb Conc 33.9 g/dL (32-36); Mean Corpuscular Hgb 32.5 pg (27.0-32.0); Mean Corpuscular Volume 95.9 fL (80-94); Mean Platelet Vol. 10.2 fl (6.2-12.0); Monocyte# 0.51 X10^3/uL; Monocyte% 6.6 % (0-10); NRBC Flagged by Analyzer 0 % (0-5); Neutrophil # 5.87 X10^3/uL (2.7-7.7); Neutrophil % 76.3 % (47-70); Platelet Count 195 K/mm3 (150-450); RBC Distribution Width CV 12.8 % (11.6-14.6); RBC Distribution Width SD 44.6 fl (35.1-43.9); Red Blood Count 4.37 M/mm3 (4.6-6.2); White Blood Count 7.7 K/mm3 (4.4-11.0)
[2019-12-10 14:02] LABS: ALB/GLOB Ratio 1.1 RATIO (0.9-2.4); AST(SGOT) 13 U/L (15-37); Alanine Aminotransfer ALT/SGPT 25 U/L (16-61); Albumin, Serum 3.7 g/dL (3.2-5.0); Alkaline Phosphatase 104 U/L (45-117); Anion Gap 5 (5-15); BUN 25 mg/dL (7-18); Calcium,Total 9.8 mg/dL (8.5-10.1); Chloride 102 mmol/L (98-107); Creatinine, Serum 1.25 mg/dL (0.70-1.30); EST Glomerular Filtration Rate 59 mL/min (>60); Est Glom Filt Rate - Afr Amer 72 mL/min (>60); Globulin 3.5 g/dL (2.2-4.2); Glucose 151 mg/dL (74-106); Lipase 77 U/L (73-393); Potassium 4.2 mmol/L (3.5-5.1); Protein, Total 7.2 g/dL (6.4-8.2); Sodium Level 136 mmol/L (136-145)
--- NOTE | 2019-12-10 14:03 | ED.RN ---
spoke with pt's stepdaughter over phone for update.
[2019-12-10 14:17] LABS: Bacteria 0 SEEN /hpf (None Seen); Mucous, Urine 0 SEEN /hpf (<or=2+); Red Blood Cells-Urine 0 SEEN /hpf (0-5); Squamous Epithelial Cells - UA 0 SEEN /hpf (0-5); White Blood Cells 0 SEEN /hpf (0-5)
--- NOTE | 2019-12-10 14:18 | CT_ITS ---
STUDY: CT BRAIN WITHOUT CONTRAST REASON FOR EXAM: Male, 79 years old. DIZZINESS WITH MEMORY LOSS RADIATION DOSAGE (If Supplied By Facility): CTDIvol = ( 44.99 ) mGy, DLP = ( 863.60 ) mGycm TECHNIQUE: Transaxial CT imaging of the brain was performed without administration of intravenous contrast material. Individualized dose optimization techniques were used for this CT. COMPARISON: Comparison is made with prior study dated 12/09/2016. FINDINGS: Normal soft tissue structures. Normal calvarium. There is mild cerebral atrophy with widening of the extra-axial spaces and ventricular dilatation. There are areas of decreased attenuation within the white matter tracts of the supratentorial brain, consistent with microvascular disease changes. Normal basal ganglia and thalami. Normal brainstem. There is mild cerebellar atrophy. There is no intracranial hemorrhage. There are no findings of an acute ischemic infarction. Atherosclerotic calcification of the cavernous portions of the internal carotid arteries bilaterally. Normal visualized paranasal sinuses. CT/Brain/Head without Contrast IMPRESSION: Chronic involutional changes of the brain. Electronically Signed: Rolando Lainez, at 14:55 EDT , Service support ,
[2019-12-10 14:26] LABS: Color, Urine Yellow (Yellow); Glucose, Dipstick Normal (Normal); Ketone-Dipstick Negative (Negative); Leukocyte Esterase-Dipstick Negative /ul (Negative); Nitrite-Dipstick Negative (Negative); Occult Blood-Urine Negative /ul (Negative); Protein-Dipstick 15 mg/dl (Negative); Urine Bilirubin Dipstick Negative (Negative); Urine Clarity Clear (Clear); Urine Urobilinogen Normal (Normal); Urine pH 6.5 (5.0 - 8.0)
--- NOTE | 2019-12-10 14:26 | CT_ITS ---
STUDY: CT ABDOMEN AND PELVIS WITH CONTRAST REASON FOR EXAM: Male, 79 years old. ABDOMINAL PAIN WITH DIARRHEA. HX OF HTN AND DM RADIATION DOSAGE (If Supplied By Facility): CTDIvol = ( 19.40 ) mGy, DLP = ( 1286.33 ) mGycm TECHNIQUE: Transaxial images were obtained from the dome of the diaphragm to the symphysis pubis without oral contrast. IV 100mL Isovue-300 was administered. Sagittal and coronal images were reconstructed. Individualized dose optimization techniques were used for this CT. COMPARISON: None. FINDINGS: The visualized lung bases are unremarkable. Coronary artery calcification. Minimal degree of the central intrahepatic biliary ductal dilatation. The patient is status post cholecystectomy. Normal spleen. Normal pancreas. Normal bilateral adrenal glands. Small bilateral renal cysts. Normal visualized stomach. Normal small intestine. There are multiple colonic diverticula consistent with diverticulosis. The appendix is visualized and appears normal. There is diffuse atherosclerotic calcification of the abdominal aorta and its major visceral branches., without a demonstrated aneurysm. Normal inferior vena cava. Normal retroperitoneum. Normal urinary bladder. There is enlargement of the prostate gland. It measures 6.5 cm x 5.8 cm. This causes indentation at the bladder base. Normal abdominal wall. There are diffuse degenerative changes of the visualized lumbar spine. CT/Abdomen/Pelvis W IV Cont ONLY IMPRESSION: Prostatic enlargement with indentation at the bladder base. Status post cholecystectomy. Sigmoid diverticulosis. Electronically Signed: Rolando Lainez, at 14:53 EDT , Service support ,
--- NOTE | 2019-12-10 14:46 | ED.DCSUM_ITS ---
History of Present Illness Chief Complaint: Abd Pain Informant: Patient, Significant Other Narrative: Patient presented to the emergency department for the evaluation of dizziness. 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 He reports that he has been seen by ENT. He forgot that he has prescribed meclizine. He tells me over the past couple days his dizziness is been much more pronounced. He wonders if this is due to dehydration because he chronically takes MiraLAX and a couple days ago was having to push diarrhea out so he took milk of magnesia and has had more diarrhea. This morning he ate some oatmeal and then an hour later went outside and was doing chores and got sweaty. States he believes he got dehydrated and got dizziness. However he also states that whenever he gets up and moves he needs to be touching something to come to get a sense of where he is at. He wonders if everything has to do with his abdomen. He also notes he lost hearing in his right ear couple days ago. This happened to him once before when he stopped taking hydrochlorothiazide but he started taking it again and his hearing came back. He is not sure why he cannot hear. It should be noted that the patient has a very difficult time trying to explain his symptoms and what he thinks could be going on and apologizes for not being very clear. It should be noted that is taken several interviews to try to figure out what is going on. I noted that his right leg was wrapped and he states he has a wound there but does not wish me to unwrap it to look at it because it may bleed. Patient's primary care physician was with the [facility]. The patient states that he wants to come to [facility] for his care and does not understand why his doctor wants him to go to [place] or [facility]. - Past Medical History (1) Dizziness Status: Acute (2) Hypertension Status: Chronic (3) Lower extremity edema Status: Chronic (4) Type 2 diabetes mellitus with diabetic polyneuropathy Status: Chronic (5) Ulcer of right lower extremity with fat layer exposed Status: Acute (6) Venous insufficiency Status: Chronic (7) Diabetes mellitus, type II Status: Chronic (8) Hyperlipidemia Status: Chronic Past Medical History - Allergies and Home Meds Allergies/Adverse Reactions: Allergies cefdinir [From Omnicef] Adverse Reaction (Verified 12/10/19 12:47) Other constipation Primary Care Physician: David Germain MD [Primary Care Provider] - As soon as possible Surgical History: - - Cholecystectomy, left 1st metatarsal surgery, cataract surgery, tonsillectomy. Lives: Spouse/ Significant Other Smoking Status: Former smoker - Family History Maternal Family History: Reports: No pertinent history Paternal Family History: Reports: No pertinent history Review of Systems General: Denies: Chills, Fever, Sweats Eyes: Denies: Visual changes - bilaterally, Diplopia ENT: Reports: - - Right ear hearing loss. Denies: Rhinorrhea, Sore throat Cardiovascular: Denies: Chest pain, Palpitations Respiratory: Denies: Dyspnea, Cough, Dyspnea on exertion Gastrointestinal: Reports: Diarrhea. Denies: Abdominal pain, Nausea, Vomiting, Melena, Hematochezia Genitourinary: Denies: Dysuria, Hematuria, Frequency Musculoskeletal: Denies: Back pain, Extremity Pain Skin: Denies: Rash, Wounds Neurological: Reports: - - Dizziness. Denies: Headache, Weakness, Numbness Physical Exam Vital Signs/Narrative: Vital Signs Temp Pulse Pulse Pulse Pulse Resp BP 12/10/19 13:30 61 67 71 12/10/19 12:55 67 15 157/93 H 12/10/19 12:45 97.9 F 69 18 141/71 H BP BP BP Pulse Ox 12/10/19 13:30 140/78 H 137/74 H 110/60 12/10/19 12:55 98 12/10/19 12:45 98 Inital Vital Signs reviewed: Yes General: Well nourished, Well developed, No Acute Distress Head: Normocephalic, Atraumatic Eyes: Perrl, EOMI ENT: Moist mucous membranes, No rhinorrhea Neck: Supple, Nontender Cardiovascular: Regular rate, Regular rhythm, No murmurs Respiratory: No distress, CTA bilaterally, Chest nontender Abdomen: Soft, Nontender, Nondistended, Normal bowel sounds Back: Nontender, Normal Inspection Extremities: No edema, - - His right leg is wrapped and he states he has a chronic wound there but does not wish us to see that because it will start bleeding. Skin: Normal color, No rash Neurological: Alert, Oriented x3, Cranial nerves II-XII grossly intact, Normal Strength, Normal Sensation Psychological: Normal affect, Normal Mood Diagnostic/Tx/Re-eval Clinical Impression(s) from Imaging Studies Chest X-Ray 12/10/19 13:30 IMPRESSION: Questionable inhomogeneous nodule in the right lower lobe versus a bowel loop beneath the right hemidiaphragm. Correlation with a CT scan is recommended. Electronically Signed: Rolando Lainez, at 13:52 EDT , Service support , Brain CT 12/10/19 14:18 IMPRESSION: Chronic involutional changes of the brain. Electronically Signed: Rolando Migel, at 14:55 EDT , Service support , Abdomen/Pelvis CT 12/10/19 14:26 IMPRESSION: Prostatic enlargement with indentation at the bladder base. Status post cholecystectomy. Sigmoid diverticulosis. Electronically Signed: Rolando Migel, at 14:53 EDT , Service support , Laboratory Last Values WBC 7.7 K/mm3 (4.4-11.0) 12/10/19 13:10 RBC 4.37 M/mm3 (4.6-6.2) L 12/10/19 13:10 Hgb 14.2 g/dL (13.0-16.5) 12/10/19 13:10 Hct 41.9 % (40-54) 12/10/19 13:10 MCV 95.9 fL (80-94) H 12/10/19 13:10 MCH 32.5 pg (27.0-32.0) H 12/10/19 13:10 MCHC 33.9 g/dL (32-36) 12/10/19 13:10 RDW Std Deviation 44.6 fl (35.1-43.9) H 12/10/19 13:10 RDW Coeff of [place] 12.8 % (11.6-14.6) 12/10/19 13:10 Plt Count 195 K/mm3 (150-450) 12/10/19 13:10 MPV 10.2 fl (6.2-12.0) 12/10/19 13:10 Immature Gran % (Auto) 0.500 % (0.0-0.9) 12/10/19 13:10 Neut % (Auto) 76.3 % (47-70) H 12/10/19 13:10 Lymph % (Auto) 14.7 % (19-41) L 12/10/19 13:10 [place] % (Auto) 6.6 % (0-10) 12/10/19 13:10 Eos % (Auto) 1.2 % (0-5) 12/10/19 13:10 Baso % (Auto) 0.7 % (0-1) 12/10/19 13:10 Absolute Neuts (auto) 5.9 X10^3/uL (2.0-7.7) 12/10/19 13:10 Absolute Lymphs (auto) 1.13 X10^3/uL (0.83-4.51) 12/10/19 13:10 Nucleated RBC % 0 % (0-5) 12/10/19 13:10 Sodium 136 mmol/L (136-145) 12/10/19 13:10 Potassium 4.2 mmol/L (3.5-5.1) 12/10/19 13:10 Chloride 102 mmol/L (98-107) 12/10/19 13:10 Carbon Dioxide 29.0 mmol/L (21.0-32.0) 12/10/19 13:10 Anion Gap 5 (5-15) 12/10/19 13:10 BUN 25 mg/dL (7-18) H 12/10/19 13:10 Creatinine 1.25 mg/dL (0.70-1.30) 12/10/19 13:10 Estim Creat Clear Calc 52.60 ml/min 12/10/19 13:10 Est GFR (MDRD) Af Amer 72 mL/min (>60) 12/10/19 13:10 Est GFR (MDRD) Non-Af 59 mL/min (>60) L 12/10/19 13:10 BUN/Creatinine Ratio 20.0 RATIO (10-20) 12/10/19 13:10 Glucose 151 mg/dL (74-106) H 12/10/19 13:10 Calcium 9.8 mg/dL (8.5-10.1) 12/10/19 13:10 Total Bilirubin 0.70 mg/dL (0.20-1.00) 12/10/19 13:10 AST 13 U/L (15-37) L 12/10/19 13:10 ALT 25 U/L (16-61) 12/10/19 13:10 Alkaline Phosphatase 104 U/L (45-117) 12/10/19 13:10 Troponin I < 0.015 ng/mL (<0.045) 12/10/19 13:10 Total Protein 7.2 g/dL (6.4-8.2) 12/10/19 13:10 Albumin 3.7 g/dL (3.2-5.0) 12/10/19 13:10 Globulin 3.5 g/dL (2.2-4.2) 12/10/19 13:10 Albumin/Globulin Ratio 1.1 RATIO (0.9-2.4) 12/10/19 13:10 Lipase 77 U/L (73-393) 12/10/19 13:10 Urine Color Yellow (Yellow) 12/10/19 14:03 Urine Clarity Clear (Clear) 12/10/19 14:03 Urine pH 6.5 (5.0 - 8.0) 12/10/19 14:03 Ur Specific [place] 1.010 (1.002-1.030) 12/10/19 14:03 Urine Protein 15 mg/dl (Negative) H 12/10/19 14:03 Urine Glucose (UA) Normal mg/dl (Normal) 12/10/19 14:03 Urine Ketones Negative mg/dl (Negative) 12/10/19 14:03 Urine Occult Blood Negative /ul (Negative) 12/10/19 14:03 Urine Nitrite Negative (Negative) 12/10/19 14:03 Urine Bilirubin Negative mg/dL (Negative) 12/10/19 14:03 Urine Urobilinogen Normal mg/dl (Normal) 12/10/19 14:03 Ur Leukocyte Esterase Negative /ul (Negative) 12/10/19 14:03 Urine RBC 0 SEEN /hpf (0-5) 12/10/19 14:03 Urine WBC 0 SEEN /hpf (0-5) 12/10/19 14:03 Ur Squamous Epith Cells 0 SEEN /hpf (0-5) 12/10/19 14:03 Urine Bacteria 0 SEEN /hpf (None Seen) 12/10/19 14:03 Urine Mucus 0 SEEN /hpf (<or=2+) 12/10/19 14:03 - Medical Decision Making Received a liter of IV fluids. Patient's labs are negative. CT the brain and abdomen pelvis are negative for acute. Chest x-ray is negative. His orthostatics he does drop 30 points but does not become tachycardic and does not become hypotensive and felt fine doing it. Essentially he tells me that his dizziness which has been assessed by ENT and was felt that nothing more could be done is worse. He is frustrated with having diarrhea but I informed her that if he continues to take MiraLAX every day and then occasionally take milk of magnesia he is going to have diarrhea. He tells me that it is because it is hard for him to push his diarrhea out. I would recommend that he not take his MiraLAX for couple days and see if that helps to formed stool. He needs to make sure that he is drinking plenty of fluids which he tells me he is. He does not appear dehydrated despite going outside and doing chores today and feeling like he was dehydrated. I would recommend some early follow-up with primary care. I think at the heart of the patient's dizziness is most likely his M?ni?re's disease is progressing. This would explain his dizziness especially as he goes out and does chores. ED Disposition - Plan for ED Patient: Disposition: Home or Assisted Living Diagnosis: Dizziness, Hypertension Instructions: ED Dizziness [facility] Referrals: David Germain MD [Primary Care Provider] - As soon as possible
[2019-12-10 14:47] VITALS: BP 161/74; PULSE 59; RESP 12; O2SAT 94
[2019-12-10 15:10] VITALS: BP 147/77; PULSE 55; RESP 16; O2SAT 97
[2019-12-10 16:06] VITALS: BP 144/81; PULSE 61; RESP 17; O2SAT 97
--- NOTE | 2019-12-10 16:08 | ED.RN ---
update given to Julianna at discharge, she is here to take pt and home
== END 2019-12-10 16:10 | disposition home or self-care (01) ==
PROVIDERS: Emergency Provider Emergency Medicine; PCP Internal Medicine
DX: R42 Dizziness and giddiness (principal); I10 Essential (primary) hypertension; N40.0 Benign prostatic hyperplasia without lower urinary tract symptoms; R19.7 Diarrhea, unspecified; Z90.49 Acquired absence of other specified parts of digestive tract; E11.42 Type 2 diabetes mellitus with diabetic polyneuropathy; E78.5 Hyperlipidemia, unspecified
CPT/HCPCS: 70450; 71045; 74177; 80053; 81001; 83690; 84484; 85025; 93005; 99285; J7030; Q9967; A4216

== ENCOUNTER 2020-02-19 09:03 | Outpatient (RCR) | payer MEDICARE, OTHER, SELFPAY ==
[2020-02-19 09:13] VITALS: BP 149/77; PULSE 69; RESP 18; TEMP 36; BMI 28.7
--- NOTE | 2020-02-19 11:42 | PCM.WC.PN ---
(1) Peripheral vascular disease of lower extremity with ulceration Status: Acute Code(s): I73.9 - Peripheral vascular disease, unspecified; L97.909 - Non-pressure chronic ulcer of unspecified part of unspecified lower leg with unspecified severity (2) Diabetes mellitus, type II Status: Chronic Qualifiers: Diabetes mellitus superintendent container terminal insulin use: without superintendent container terminal use Diabetes mellitus complication status: with skin complications Code(s): E11.9 - Type 2 diabetes mellitus without complications (3) History of tobacco use Status: Chronic Code(s): Z87.891 - Personal history of nicotine dependence (4) Hyperlipidemia Status: Chronic Code(s): E78.5 - Hyperlipidemia, unspecified (5) Hypertension Status: Chronic Code(s): I10 - Essential (primary) hypertension (6) Venous insufficiency Status: Chronic Code(s): I87.2 - Venous insufficiency (chronic) (peripheral) Type of Wound Date of Service: 02/19/20 Chief Complaint: right lower leg ulcer History of Wound: This 78-year-old diabetic male returns to the wound healing center today after ulcer to right lower leg reopened about 2 weeks ago. Patient states she thinks it happened when he bumped the area on a ladder. The patient relates that approximately 3 years ago he had an undiagnosed ankle fracture that he was treated for in [place]. He relates that the ankle finally healed, but he has had increased chonic swelling to his right lower extremity when compared to his left lower extremity. As a result, the patient relates that he will develop ulcers from time to time. Patient states that he was trying to use [place] to the area but finally decided to come be seen at the wound healing center. He denies any purulence to the areas or any significant warmth or redness to the areas. Patient currently denies any feelings of nausea, vomiting, fever, chills. - Physical Exam Vital Signs Temp Pulse Resp BP 96.8 F L 69 18 149/77 H 02/19/20 09:13 02/19/20 09:13 02/19/20 09:13 02/19/20 09:13 Wound Measurements and Assessment WC - Nurse 1 - General Ulcer Measurement Start: 02/19/20 09:09 Freq: Status: Active Protocol: Activity Type Activity Date Activity User E-Sign Co-Sign Detail Recorded Client Recorded Date Recorded By Document 02/19/20 09:13 AR [id number] 02/19/20 09:25 AR 02/19/20 09:13 Wound Center Nurse 1 [Ulcer Assessment] #6 Right Mrac Cluster -Current Size (cm) - Length 16 -Current Size (cm) - Width 6.4 -Current Size (cm) - Depth 0.1 -Total Square Cm 102.4 -Date of Last Picture (Recall this 02/19/20 field) -Photo Taken Yes -Exudate Amt None Present -Wound Margin Thickened -Granulation Amt Small (1-33%) -Granulation Quality Red -Slough/Fibrin Yes -Necrosis Amt Large (67-100%) -Texture (Christiane-wound Skin Appearance) Assessed,Callus -Moisture (Christiane-wound Skin Appearance Assessed,Dry/ ) Scaly -Color (Christiane-wound Skin Appearance) Assessed, Erythema -Temperature (Christiane-wound Skin No Abnormality Appearance) (Pt Warm) -Tenderness on Palpation (Christiane-wound No Skin Appearance) -Ulcer Cleansing Rinsed/ Irrigated with Saline -Foul Odor after Cleansing No -Anesthetic Used 4% Lidocaine Solution [Edema Assessment] -Right Calf (cm) 36.6 -Right Ankle (cm) 22.5 -Left Calf (cm) 36 -Left Ankle (cm) 21.9 WC - Nurse 2 - General Ulcer CM Notes Start: 02/19/20 09:09 Freq: Status: Active Protocol: Activity Type Activity Date Activity User E-Sign Co-Sign Detail Recorded Client Recorded Date Recorded By Document 02/19/20 09:48 MW [id number] 02/19/20 09:57 MW 02/19/20 09:48 Wound Center Nurse 2 [Procedure/Treatment] #6 Right Marc Cluster -Time 09:49 -Correct Patient Yes -Correct Side, Site, Position Yes -Correct Procedure Yes -Procedure Performed Yes -Type of Procedure Debridement -Clinical Debridement Subcutaneous -Tissue Removed Subcutaneous -Post Debridement (cm) - Length 12.5 -Post Debridement (cm) - Width 9.0 -Post Debridement (cm) - Depth 0.1 -Total Square (Post) (cm) 112.50 -Area of Debridement (cm) - Length 12.5 -Area of Debridement (cm) - Width 9.0 -Total Square (Area) (cm) 112.50 -Tunneling No -Undermining/Tunneling No -Circular Undermining No -Wound/Ulcer Outcome Not Healed -Ulcer Cleansing Rinsed/ Irrigated with Saline -Foul Odor after Cleansing No -Bioengineered Tissue No -Bleeding Controlled with Pressure -Offloading No -Debridement - Subq, 1st 20sq cm Yes -Debridement, SubQ, ea addt'l 20sq cm 5 or part thereof [See Physician Procedure note for Specifics] Pain Scale: 0-10 Numeric [Pain] -Is Patient Pain Free? Yes - Nurse 3 - General Ulcer D/C NN Start: 02/19/20 09:09 Freq: Status: Active Protocol: Activity Type Activity Date Activity User E-Sign Co-Sign Detail Recorded Client Recorded Date Recorded By Document 02/19/20 10:06 [facility] [id number] 02/19/20 10:08 [facility] 02/19/20 10:06 Wound Care Nurse 3 [Wound Dressing] #6 Right Marc Cluster -Ulcer Cleansing Rinsed/ Irrigated with Saline -Foul Odor after Cleansing No -Primary Dressing Applied NonAdherent Contact Layer -Primary Dressing Covered/Secured Dry Gauze & with Roll Gauze, Secured with Tape,Other -Other Covering abd [Compression Applied] Right -Tubular Bandage Double Layer -Size of Tubigrip Used Size E -Size E ($) 1 -Stockings Yes [Post Procedure Tolerated] -Treatment Response Procedure Tolerated Well Pain Scale: 0-10 Numeric [Pain] -Is Patient Pain Free? Yes - Visit Discharge [Visit Discharge Information] -Discharge Condition Stable -Ambulatory Status Ambulatory -Transportation Private Auto -Accompanied by Debridement Note Post-Debridement Measurements/Treatment - Nurse 2 - General Ulcer CM Notes Start: 02/19/20 09:09 Freq: Status: Active Protocol: Activity Type Activity Date Activity User E-Sign Co-Sign Detail Recorded Client Recorded Date Recorded By Document 02/19/20 09:48 MW [id number] 02/19/20 09:57 MW 02/19/20 09:48 Wound Center Nurse 2 #6 Right Marc Cluster -Time 09:49 -Correct Patient Yes -Correct Side, Site, Position Yes -Correct Procedure Yes -Procedure Performed Yes -Type of Procedure Debridement -Clinical Debridement Subcutaneous -Tissue Removed Subcutaneous -Post Debridement (cm) - Length 12.5 -Post Debridement (cm) - Width 9.0 -Post Debridement (cm) - Depth 0.1 -Total Square (Post) (cm) 112.50 -Area of Debridement (cm) - Length 12.5 -Area of Debridement (cm) - Width 9.0 -Total Square (Area) (cm) 112.50 -Tunneling No -Undermining/Tunneling No -Circular Undermining No -Wound/Ulcer Outcome Not Healed -Ulcer Cleansing Rinsed/ Irrigated with Saline -Foul Odor after Cleansing No -Bioengineered Tissue No -Bleeding Controlled with Pressure -Offloading No -Debridement - Subq, 1st 20sq cm Yes -Debridement, SubQ, ea addt'l 20sq cm 5 or part thereof Pain Scale: 0-10 Numeric Is Patient Pain Free? Yes - Nurse 3 - General Ulcer D/C NN Start: 02/19/20 09:09 Freq: Status: Active Protocol: Activity Type Activity Date Activity User E-Sign Co-Sign Detail Recorded Client Recorded Date Recorded By Document 02/19/20 10:06 [facility] [id number] 02/19/20 10:08 [facility] 02/19/20 10:06 Wound Care Nurse 3 #6 Right Marc Cluster -Ulcer Cleansing Rinsed/ Irrigated with Saline -Foul Odor after Cleansing No -Primary Dressing Applied NonAdherent Contact Layer -Primary Dressing Covered/Secured with Dry Gauze & Roll Gauze, Secured with Tape,Other -Other Covering abd Right -Tubular Bandage Double Layer -Size of Tubigrip Used Size E -Size E ($) 1 -Stockings Yes Treatment Response Procedure Tolerated Well Pain Scale: 0-10 Numeric Is Patient Pain Free? Yes - Visit Discharge Discharge Condition Stable Ambulatory Status Ambulatory Transportation Private Auto Accompanied by Assessment/Plan Assessment: Ulcer left foot, DM with neuropathy, venous insufficiency, lower extremity edema Plan: Patient was carefully examined and evaluated again today with in the room for follow-up of ulcer distal forefoot. Ulcer site appears healed today with no signs of local infection noted. He is to continue to monitor the area closely as well as keep pressure off of the site with use of his diabetic shoes. He is instructed to make sure he even wears these in the house and to not go barefoot. Importance of monitoring his feet on a daily basis was again discussed. Patient is to keep his legs elevated all times. He is to continue with high-protein diet. Importance of tight glycemic control was discussed. All other questions were answered to the patient and his 's satisfaction. At this time he will be discharged from the wound healing center, but he was instructed to follow back up if needed for any reason.
--- NOTE | 2020-02-19 11:48 | PCM.WC.HP ---
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 insulin use: without middle or intermediate school principal use Diabetes mellitus complication status: with skin complications Code(s): E11.9 - Type 2 diabetes mellitus without complications (3) History of tobacco use Status: Chronic Code(s): Z87.891 - Personal history of nicotine dependence (4) Hyperlipidemia Status: Chronic Code(s): E78.5 - Hyperlipidemia, unspecified (5) Hypertension Status: Chronic Code(s): I10 - Essential (primary) hypertension (6) Venous insufficiency Status: Chronic Code(s): I87.2 - Venous insufficiency (chronic) (peripheral) History of Present Illness Date of Service: 02/19/20 Chief Complaint: right lower leg ulcer History of Wound: This 79-year-old diabetic male returns to the wound healing center today after ulcer to right lower leg reopened for over 1 year. Patient states he thinks it happened when he bumped the area on a ladder originally. The patient relates that approximately 3 years ago he had an undiagnosed ankle fracture that he was treated for in [place]. He relates that the ankle finally healed, but he has had increased chonic swelling to his right lower extremity when compared to his left lower extremity. As a result, the patient relates that he will develop ulcers from time to time. Patient states that he was trying to use [place] to the area but finally decided to come be seen at the wound healing center. He denies any purulence to the areas or any significant warmth or redness to the areas. Patient currently denies any feelings of nausea, vomiting, fever, chills. Arterial brachial and venous studies have been done and shows a lot of incompetency is in his GS-and saphenous veins. 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 Allergies/Adverse Reactions: Allergies cefdinir [From Omnicef] Adverse Reaction (Verified 12/10/19 12:47) Other constipation Home Medications: Ambulatory Orders Medication Instructions Recorded Glimepiride [Amaryl] 2 mg PO BREAKFAST 07/24/14 Hydrochlorothiazide 12.5 mg PO DAILY 07/24/14 Metformin [Metformin HCl] 1,000 mg PO BID 07/24/14 Tamsulosin HCl 0.4 mg PO DAILY 07/24/14 Allopurinol 100 mg PO DAILY 12/09/16 Atorvastatin Calcium 20 mg PO DAILY 12/09/16 - Family History Maternal No pertinent history Paternal No pertinent history Smoking Status: Former smoker Review of Systems Constitutional: Denies: Chills, Fever Eyes: Denies: Blurred vision, Drainage, Pain HEENT: Denies: Difficulty Hearing, Difficulty Swallowing, Sore Throat, Visual Changes Cardiovascular: Denies: Chest Pain, Palpitations, Syncope Respiratory: Denies: Cough, Shortness of Breath Gastrointestinal: Denies: Abdominal Pain, Nausea, Vomiting Genitourinary: Denies: Dysuria, Frequency Musculoskeletal: Denies: Joint Pain, Muscle pain Skin: Denies: Jaundice, Rash Neurological: Denies: Balance problems, Change in Speech, Difficulty swallowing, Focal weakness Psychiatric: Denies: Anxiety, Depression Endocrine: Denies: Change in Body Habitus Hematologic/ Lymphatic: Denies: Adenopathy - Physical Exam Vital Signs Temp Pulse Resp BP 96.8 F L 69 18 149/77 H 02/19/20 09:13 02/19/20 09:13 02/19/20 09:13 02/19/20 09:13 General: Oriented x3, Cooperative, Well developed HEENT: Atraumatic, PERRLA Oral: Moist Mucosa Neck: Supple, No JVD Lungs: Clear to auscultation, Normal air movement Cardiovascular: Regular rate, Regular Rhythm Abdomen: Bowel Sounds Present, Soft, Non Tender, No Hepato-splenomegaly Extremities: No clubbing, No edema, Edema Skin: Ulcer/ Wound - Peripheral vascular disease with ulcers on the right atkinson area large cluster Wound Measurements and Assessment WC - Nurse 1 - General Ulcer Measurement Start: 02/19/20 09:09 Freq: Status: Active Protocol: Activity Type Activity Date Activity User E-Sign Co-Sign Detail Recorded Client Recorded Date Recorded By Document 02/19/20 09:13 MT [id number] 02/19/20 09:25 MT 02/19/20 09:13 Wound Center Nurse 1 [Ulcer Assessment] #6 Right Atkinson Cluster -Current Size (cm) - Length 16 -Current Size (cm) - Width 6.4 -Current Size (cm) - Depth 0.1 -Total Square Cm 102.4 -Date of Last Picture (Recall this 02/19/20 field) -Photo Taken Yes -Exudate Amt None Present -Wound Margin Thickened -Granulation Amt Small (1-33%) -Granulation Quality Red -Slough/Fibrin Yes -Necrosis Amt Large (67-100%) -Texture (Christiane-wound Skin Appearance) Assessed,Callus -Moisture (Christiane-wound Skin Appearance Assessed,Dry/ ) Scaly -Color (Christiane-wound Skin Appearance) Assessed, Erythema -Temperature (Christiane-wound Skin No Abnormality Appearance) (Pt Warm) -Tenderness on Palpation (Christiane-wound No Skin Appearance) -Ulcer Cleansing Rinsed/ Irrigated with Saline -Foul Odor after Cleansing No -Anesthetic Used 4% Lidocaine Solution [Edema Assessment] -Right Calf (cm) 36.6 -Right Ankle (cm) 22.5 -Left Calf (cm) 36 -Left Ankle (cm) 21.9 WC - Nurse 2 - General Ulcer CM Notes Start: 02/19/20 09:09 Freq: Status: Active Protocol: Activity Type Activity Date Activity User E-Sign Co-Sign Detail Recorded Client Recorded Date Recorded By Document 02/19/20 09:48 MW [id number] 02/19/20 09:57 MW 02/19/20 09:48 Wound Center Nurse 2 [Procedure/Treatment] #6 Right At[place] Cluster -Time 09:49 -Correct Patient Yes -Correct Side, Site, Position Yes -Correct Procedure Yes -Procedure Performed Yes -Type of Procedure Debridement -Clinical Debridement Subcutaneous -Tissue Removed Subcutaneous -Post Debridement (cm) - Length 12.5 -Post Debridement (cm) - Width 9.0 -Post Debridement (cm) - Depth 0.1 -Total Square (Post) (cm) 112.50 -Area of Debridement (cm) - Length 12.5 -Area of Debridement (cm) - Width 9.0 -Total Square (Area) (cm) 112.50 -Tunneling No -Undermining/Tunneling No -Circular Undermining No -Wound/Ulcer Outcome Not Healed -Ulcer Cleansing Rinsed/ Irrigated with Saline -Foul Odor after Cleansing No -Bioengineered Tissue No -Bleeding Controlled with Pressure -Offloading No -Debridement - Subq, 1st 20sq cm Yes -Debridement, SubQ, ea addt'l 20sq cm 5 or part thereof [See Physician Procedure note for Specifics] Pain Scale: 0-10 Numeric [Pain] -Is Patient Pain Free? Yes - Nurse 3 - General Ulcer D/C NN Start: 02/19/20 09:09 Freq: Status: Active Protocol: Activity Type Activity Date Activity User E-Sign Co-Sign Detail Recorded Client Recorded Date Recorded By Document 02/19/20 10:06 [facility] [id number] 02/19/20 10:08 [facility] 02/19/20 10:06 Wound Care Nurse 3 [Wound Dressing] #6 Right At[place] Cluster -Ulcer Cleansing Rinsed/ Irrigated with Saline -Foul Odor after Cleansing No -Primary Dressing Applied NonAdherent Contact Layer -Primary Dressing Covered/Secured Dry Gauze & with Roll Gauze, Secured with Tape,Other -Other Covering abd [Compression Applied] Right -Tubular Bandage Double Layer -Size of Tubigrip Used Size E -Size E ($) 1 -Stockings Yes [Post Procedure Tolerated] -Treatment Response Procedure Tolerated Well Pain Scale: 0-10 Numeric [Pain] -Is Patient Pain Free? Yes - Visit Discharge [Visit Discharge Information] -Discharge Condition Stable -Ambulatory Status Ambulatory -Transportation Private Auto -Accompanied by Musculoskeletal: No Tenderness to Palpation of Joints or Extremities Lymphatic: No Cervical, Supraclavicular, or Inguinal Adenopathy Neurological: Cranial nerves II-XII grossly intact, Neuro grossly intact Psych/Mental Status: Normal Affect, Appropriate, Alert and oriented to time, place, person, mood and affect Debridement Note Post-Debridement Measurements/Treatment - Nurse 2 - General Ulcer CM Notes Start: 02/19/20 09:09 Freq: Status: Active Protocol: Activity Type Activity Date Activity User E-Sign Co-Sign Detail Recorded Client Recorded Date Recorded By Document 02/19/20 09:48 [id number] 02/19/20 09:57 MW 02/19/20 09:48 Wound Center Nurse 2 #6 Right At[place] Cluster -Time 09:49 -Correct Patient Yes -Correct Side, Site, Position Yes -Correct Procedure Yes -Procedure Performed Yes -Type of Procedure Debridement -Clinical Debridement Subcutaneous -Tissue Removed Subcutaneous -Post Debridement (cm) - Length 12.5 -Post Debridement (cm) - Width 9.0 -Post Debridement (cm) - Depth 0.1 -Total Square (Post) (cm) 112.50 -Area of Debridement (cm) - Length 12.5 -Area of Debridement (cm) - Width 9.0 -Total Square (Area) (cm) 112.50 -Tunneling No -Undermining/Tunneling No -Circular Undermining No -Wound/Ulcer Outcome Not Healed -Ulcer Cleansing Rinsed/ Irrigated with Saline -Foul Odor after Cleansing No -Bioengineered Tissue No -Bleeding Controlled with Pressure -Offloading No -Debridement - Subq, 1st 20sq cm Yes -Debridement, SubQ, ea addt'l 20sq cm 5 or part thereof Pain Scale: 0-10 Numeric Is Patient Pain Free? Yes - Nurse 3 - General Ulcer D/C NN Start: 02/19/20 09:09 Freq: Status: Active Protocol: Activity Type Activity Date Activity User E-Sign Co-Sign Detail Recorded Client Recorded Date Recorded By Document 02/19/20 10:06 [facility] [id number] 02/19/20 10:08 [facility] 02/19/20 10:06 Wound Care Nurse 3 #6 Right [place] Cluster -Ulcer Cleansing Rinsed/ Irrigated with Saline -Foul Odor after Cleansing No -Primary Dressing Applied NonAdherent Contact Layer -Primary Dressing Covered/Secured with Dry Gauze & Roll Gauze, Secured with Tape,Other -Other Covering abd Right -Tubular Bandage Double Layer -Size of Tubigrip Used Size E -Size E ($) 1 -Stockings Yes Treatment Response Procedure Tolerated Well Pain Scale: 0-10 Numeric Is Patient Pain Free? Yes - Visit Discharge Discharge Condition Stable Ambulatory Status Ambulatory Transportation Private Auto Accompanied by Wound debrided: Cluster right atkinson ulcer Type of Debridement: Excisional debridement Anesthesia Used: 5% Lidocaine Gel Depth: Down to and including healthy tissue, in the subcutaneous layer Percentage of wound debrided: 100 Instrument Used: 7mm curette Tissue Removed: Devitalized tissue slough fibrin Severity: Limited To Skin Breakdown Bleeding Controlled with: Compression and gauze Patient tolerated procedure well Assessment/Plan Aerobic and anaerobic cultures obtained Assessment: Referral vascular disease with ulcers right atkinson area DM with neuropathy, venous insufficiency, lower extremity edema Plan: Patient was carefully examined and evaluated again today with in the room for follow-up of ulcer cluster right atkinson. All other questions were answered to the patient and his 's satisfaction. Xeroform to wound base cover with Adaptic gauze Jimmy. Double layer Tubigrip to area. Results of cultures will be called to patient. Follow-up in 1 week
--- NOTE | 2020-02-24 12:19 | WC ---
perscription called to [facility] Levofloxacin 500mg 1 tab PO QD X 14 days No refills. Patient notified of perscrition.
== END 2020-02-24 23:59 ==
LOC: WC 09:03
PROVIDERS: PCP Internal Medicine; Referring Provider Podiatrist; Visit Provider Nurse Practitioner
DX: E11.621 Type 2 diabetes mellitus with foot ulcer (principal); L97.522 Non-pressure chronic ulcer of other part of left foot with fat layer exposed; E78.5 Hyperlipidemia, unspecified; E11.59 Type 2 diabetes mellitus with other circulatory complications; E11.42 Type 2 diabetes mellitus with diabetic polyneuropathy; I87.2 Venous insufficiency (chronic) (peripheral); I10 Essential (primary) hypertension; I73.9 Peripheral vascular disease, unspecified; R60.0 Localized edema; Z87.891 Personal history of nicotine dependence; Z79.84 Long term (current) use of oral hypoglycemic drugs; Z88.1 Allergy status to other antibiotic agents; E66.3 Overweight; Z68.25 Body mass index [BMI] 25.0-25.9, adult
CPT/HCPCS: 11042; 11045; 87070; 87075; 87077; 87186; 87205; 99213; G0463

== ENCOUNTER 2020-03-04 09:30 | Outpatient (RCR) | payer MEDICARE, OTHER, SELFPAY ==
[2020-02-25 00:43] VITALS: BP 149/77; PULSE 69; RESP 18; TEMP 36
[2020-02-26 09:05] VITALS: BP 159/85; PULSE 63; RESP 18; TEMP 36; BMI 28.7
--- NOTE | 2020-02-26 10:05 | PN.PCM_ITS ---
(1) Nonhealing nonsurgical wound with fat layer exposed Status: Acute Code(s): T14.8XXA - Other injury of unspecified body region, initial encounter (2) Peripheral vascular disease of lower extremity with ulceration Status: Acute Code(s): I73.9 - Peripheral vascular disease, unspecified; L97.909 - Non-pressure chronic ulcer of unspecified part of unspecified lower leg with unspecified severity (3) Diabetes mellitus, type II Status: Chronic Code(s): E11.9 - Type 2 diabetes mellitus without complications (4) Venous insufficiency Status: Chronic Code(s): I87.2 - Venous insufficiency (chronic) (peripheral) Type of Wound Date of Service: 02/26/20 Chief Complaint: right lower leg ulcer History of Wound: This 79-year-old diabetic male returns to the wound healing center today after ulcer to right lower leg reopened for over 1 year. Patient states he thinks it happened when he bumped the area on a ladder originally. The patient relates that approximately 3 years ago he had an undiagnosed ankle fracture that he was treated for in [place]. He relates that the ankle finally healed, but he has had increased chonic swelling to his right lower extremity when compared to his left lower extremity. As a result, the patient relates that he will develop ulcers from time to time. Patient states that he was trying to use [place] to the area but finally decided to come be seen at the wound healing center. He denies any purulence to the areas or any significant warmth or redness to the areas. Patient currently denies any feelings of nausea, vomiting, fever, chills. Arterial brachial and venous studies have been done and shows a lot of incompetency is in his GS-and saphenous veins. Progress of Wound: Today the area is almost completely healed only at the inferior section of the erythematous area is slightly open. Patient will be scheduling for a arterial brachial study and venous study to determine which connectors are not working properly and be referred to Dr. Hanley. Patient sh ould be healed by next week. - Physical Exam Vital Signs Temp Pulse Resp BP 96.8 F L 63 18 159/85 H 02/26/20 09:05 02/26/20 09:05 02/26/20 09:05 02/26/20 09:05 General: Oriented x3, Cooperative, Well developed HEENT: Atraumatic, PERRLA Oral: Moist Mucosa Neck: Supple, No JVD Lungs: Clear to auscultation, Normal air movement Cardiovascular: Regular rate, Regular Rhythm Abdomen: Bowel Sounds Present, Soft, Non Tender, No Hepato-splenomegaly Extremities: No clubbing, No edema Skin: Ulcer/ Wound - Erythematous area on right atkinson area with open blisters that are very superficial and healing quickly, Rash Present Wound Measurements and Assessment WC - Nurse 1 - General Ulcer Measurement Start: 02/26/20 09:05 Freq: Status: Active Protocol: Activity Type Activity Date Activity User E-Sign Co-Sign Detail Recorded Client Recorded Date Recorded By Document 02/26/20 09:05 MT [id number] 02/26/20 09:13 MT 02/26/20 09:05 Wound Center Nurse 1 [Ulcer Assessment] #6 Right [place] Cluster -Current Size (cm) - Length 0.1 -Current Size (cm) - Width 0.1 -Current Size (cm) - Depth 0.1 -Total Square Cm 0.01 -Epithelialization Medium 34-66% -Exudate Amt None Present -Wound Margin Flat & Intact -Granulation Amt Medium (34-66%) -Granulation Quality Pale,[place] -Necrosis Amt Medium (34-66%) -Necrotic Tissue Type Adherent Slough -Texture (Christiane-wound Skin Appearance) Assessed -Moisture (Christiane-wound Skin Appearance Assessed ) -Color (Christiane-wound Skin Appearance) Assessed, Erythema, Hemosiderin Staining -Temperature (Christiane-wound Skin No Abnormality Appearance) (Pt Warm) -Tenderness on Palpation (Christiane-wound No Skin Appearance) -Ulcer Cleansing Rinsed/ Irrigated with Saline -Foul Odor after Cleansing No -Anesthetic Used 4% Lidocaine Solution [Edema Assessment] -Right Calf (cm) 36 -Right Ankle (cm) 24 - Nurse 2 - General Ulcer CM Notes Start: 02/26/20 09:05 Freq: Status: Active Protocol: Activity Type Activity Date Activity User E-Sign Co-Sign Detail Recorded Client Recorded Date Recorded By Document 02/26/20 09:26 MW [id number] 02/26/20 09:28 MW 02/26/20 09:26 Wound Center Nurse 2 [Procedure/Treatment] #6 Right [place] Cluster -Time 09:26 -Correct Patient Yes -Correct Side, Site, Position Yes -Correct Procedure Yes -Procedure Performed Yes -Type of Procedure Debridement -Clinical Debridement Epidermis / Dermis -Tissue Removed Epidermis -Post Debridement (cm) - Length 2.5 -Post Debridement (cm) - Width 4.0 -Post Debridement (cm) - Depth 0.1 -Total Square (Post) (cm) 10.00 -Area of Debridement (cm) - Length 2.5 -Area of Debridement (cm) - Width 4.0 -Total Square (Area) (cm) 10.00 -Tunneling No -Undermining/Tunneling No -Circular Undermining No -Wound/Ulcer Outcome Not Healed -Ulcer Cleansing Rinsed/ Irrigated with Saline -Foul Odor after Cleansing No -Bioengineered Tissue No -Bleeding Controlled with Pressure -Offloading No -Treatment Response Procedure Tolerated Well -Debridement - Open, 1st 20sq cm Yes [See Physician Procedure note for Specifics] Pain Scale: 0-10 Numeric [Pain] -Is Patient Pain Free? Yes WC - Nurse 3 - General Ulcer D/C NN Start: 02/26/20 09:05 Freq: Status: Active Protocol: Activity Type Activity Date Activity User E-Sign Co-Sign Detail Recorded Client Recorded Date Recorded By Document 02/26/20 09:29 MW [id number] 02/26/20 09:34 MW 02/26/20 09:29 Wound Care Nurse 3 [Wound Dressing] #6 Right [place] Cluster -Ulcer Cleansing Rinsed/ Irrigated with Saline -Foul Odor after Cleansing No -Negative Pressure Wound Therapy N/A -Primary Dressing Applied NonAdherent Contact Layer -Other Dressing XEROFORM -Primary Dressing Covered/Secured Dry Gauze & with Roll Gauze, Secured with Tape [Compression Applied] Right -Lotion applied to leg before No compression wrap -Size of Tubigrip Used Size E -Size E ($) 1 -Stockings No [Post Procedure Tolerated] -Treatment Response Procedure Tolerated Well Pain Scale: 0-10 Numeric [Pain] -Is Patient Pain Free? Yes Teaching: Wound Center [Wound Center Education] (Items with an * have Printed Materials Available- Please identify what is given to patient under the Teaching materials given to patient and caregiver Section. Dressing Your Wound -Person Taught Patient,Family -Teaching Method Discussion, Demonstration -Response to teaching Verbalize understanding WC - Visit Discharge [Visit Discharge Information] -Discharge Condition Stable -Ambulatory Status Ambulatory -Accompanied by -Medication Reconcilliation completed No & provided to patient/care provider -Clinical Summary of Care Provided Yes Musculoskeletal: No Tenderness to Palpation of Joints or Extremities Lymphatic: No Cervical, Supraclavicular, or Inguinal Adenopathy Neurological: Cranial nerves II-XII grossly intact, Neuro grossly intact Psych/Mental Status: Normal Affect, Appropriate Debridement Note Post-Debridement Measurements/Treatment [place] - Nurse 2 - General Ulcer CM Notes Start: 02/26/20 09:05 Freq: Status: Active Protocol: Activity Type Activity Date Activity User E-Sign Co-Sign Detail Recorded Client Recorded Date Recorded By Document 02/26/20 09:26 MW [id number] 02/26/20 09:28 MW 02/26/20 09:26 Wound Center Nurse 2 #6 Right [place] Cluster -Time 09:26 -Correct Patient Yes -Correct Side, Site, Position Yes -Correct Procedure Yes -Procedure Performed Yes -Type of Procedure Debridement -Clinical Debridement Epidermis / Dermis -Tissue Removed Epidermis -Post Debridement (cm) - Length 2.5 -Post Debridement (cm) - Width 4.0 -Post Debridement (cm) - Depth 0.1 -Total Square (Post) (cm) 10.00 -Area of Debridement (cm) - Length 2.5 -Area of Debridement (cm) - Width 4.0 -Total Square (Area) (cm) 10.00 -Tunneling No -Undermining/Tunneling No -Circular Undermining No -Wound/Ulcer Outcome Not Healed -Ulcer Cleansing Rinsed/ Irrigated with Saline -Foul Odor after Cleansing No -Bioengineered Tissue No -Bleeding Controlled with Pressure -Offloading No -Treatment Response Procedure Tolerated Well -Debridement - Open, 1st 20sq cm Yes Pain Scale: 0-10 Numeric Is Patient Pain Free? Yes - Nurse 3 - General Ulcer D/C NN Start: 02/26/20 09:05 Freq: Status: Active Protocol: Activity Type Activity Date Activity User E-Sign Co-Sign Detail Recorded Client Recorded Date Recorded By Document 02/26/20 09:29 MW [id number] 02/26/20 09:34 MW 02/26/20 09:29 Wound Care Nurse 3 #6 Right [place] Cluster -Ulcer Cleansing Rinsed/ Irrigated with Saline -Foul Odor after Cleansing No -Negative Pressure Wound Therapy N/A -Primary Dressing Applied NonAdherent Contact Layer -Other Dressing XEROFORM -Primary Dressing Covered/Secured with Dry Gauze & Roll Gauze, Secured with Tape Right -Lotion applied to leg before No compression wrap -Size of Tubigrip Used Size E -Size E ($) 1 -Stockings No Treatment Response Procedure Tolerated Well Pain Scale: 0-10 Numeric Is Patient Pain Free? Yes Teaching: Wound Center Dressing Your Wound -Person Taught Patient,Family -Teaching Method Discussion, Demonstration -Response to teaching Verbalize understanding WC - Visit Discharge Discharge Condition Stable Ambulatory Status Ambulatory Accompanied by Medication Reconcilliation completed & No provided to patient/care provider Clinical Summary of Care Provided Yes Wound debrided: Atkinson cluster Laterality: Right Type of Debridement: Selective debridement Anesthesia Used: 5% Lidocaine Gel Depth: Down to and including healthy tissue Percentage of wound debrided: 100 Instrument Used: - - Gauze Tissue Removed: Fibrin Severity: Limited To Skin Breakdown Amount of bleeding with debridement: None Bleeding Controlled with: Pressure Patient tolerated procedure well Assessment/Plan Assessment: Referral vascular disease with ulcers right atkinson area DM with neuropathy, venous insufficiency, lower extremity edema Plan: Patient was carefully examined and evaluated again today with in the room for follow-up of ulcer cluster right atkinson. All other questions were answered to the patient and his 's satisfaction. Xeroform to wound base cover with Adaptic gauze Jimmy. Double layer Tubigrip to area. Schedule patient with Dr. Hanley and schedule for arterial brachial studies and venous studies. Results of cultures will be called to patient. Follow-up in 1 week
[2020-03-04 08:36] VITALS: BMI 28.7
[2020-03-04 09:35] VITALS: BP 159/83; PULSE 65; RESP 18; TEMP 35.8; BMI 28.7
--- NOTE | 2020-03-04 09:48 | PN.PCM_ITS ---
(1) Nonhealing nonsurgical wound with fat layer exposed Status: Acute Code(s): T14.8XXA - Other injury of unspecified body region, initial encounter (2) Peripheral vascular disease of lower extremity with ulceration Status: Acute Code(s): I73.9 - Peripheral vascular disease, unspecified; L97.909 - Non-pressure chronic ulcer of unspecified part of unspecified lower leg with unspecified severity (3) Diabetes mellitus, type II Status: Chronic Code(s): E11.9 - Type 2 diabetes mellitus without complications (4) Venous insufficiency Status: Chronic Code(s): I87.2 - Venous insufficiency (chronic) (peripheral) Type of Wound Date of Service: 03/04/20 Chief Complaint: right lower leg ulcer History of Wound: This 79-year-old diabetic male returns to the wound healing center today after ulcer to right lower leg reopened for over 1 year. Patient states he thinks it happened when he bumped the area on a ladder originally. The patient relates that approximately 3 years ago he had an undiagnosed ankle fracture that he was treated for in [place]. He relates that the ankle finally healed, but he has had increased chonic swelling to his right lower extremity when compared to his left lower extremity. As a result, the patient relates that he will develop ulcers from time to time. Patient states that he was trying to use [place] to the area but finally decided to come be seen at the wound healing center. He denies any purulence to the areas or any significant warmth or redness to the areas. Patient currently denies any feelings of nausea, vomiting, fever, chills. Arterial brachial and venous studies have been done and shows a lot of incompetency is in his GS-and saphenous veins. Progress of Wound: Today the wound is healed patient has an appoint with Dr. Hanley for procedure on the obstructed veins in his right lower leg he also has met his left to be reopened on March 15 - Physical Exam Vital Signs Temp Pulse Resp BP 96.5 F L 65 18 159/83 H 03/04/20 09:35 12 09:35 03/04/20 09:35 03/04/20 09:35 General: Oriented x3, Cooperative, Well developed HEENT: Atraumatic, PERRLA Oral: Moist Mucosa Neck: Supple, No JVD Lungs: Clear to auscultation, Normal air movement Cardiovascular: Regular rate, Regular Rhythm Abdomen: Bowel Sounds Present, Soft, Non Tender, No Hepato-splenomegaly Extremities: No clubbing, Edema Skin: Rash Present - Erythematous rash from blood seeping into skin area Wound Measurements and Assessment WC - Nurse 1 - General Ulcer Measurement Start: 02/26/20 09:05 Freq: Status: Active Protocol: Activity Type Activity Date Activity User E-Sign Co-Sign Detail Recorded Client Recorded Date Recorded By Document 03/04/20 09:34 RB [id number] 03/04/20 09:35 RB 03/04/20 09:34 Wound Center Nurse 1 [Ulcer Assessment] #6 Right Atkinson Cluster -Combined with other wound No -Current Size (cm) - Length 0 -Current Size (cm) - Width 0 -Current Size (cm) - Depth 0 -Total Square Cm 0 -Photo Taken Yes -Epithelialization Large 67-100% [Edema Assessment] -Lower Limb Edema Present Yes -Right Calf (cm) 37 -Right Ankle (cm) 23.2 WC - Nurse 2 - General Ulcer CM Notes Start: 02/26/20 09:05 Freq: Status: Active Protocol: Activity Type Activity Date Activity User E-Sign Co-Sign Detail Recorded Client Recorded Date Recorded By Document 03/04/20 09:43 MW [id number] 03/04/20 09:44 MW 03/04/20 09:43 Wound Center Nurse 2 [Procedure/Treatment] #6 Right Atkinson Cluster -Time 09:43 -Correct Patient Yes -Correct Side, Site, Position Yes -Correct Procedure Yes -Procedure Performed No -Post Debridement (cm) - Length 0 -Post Debridement (cm) - Width 0 -Post Debridement (cm) - Depth 0 -Total Square (Post) (cm) 0 [See Physician Procedure note for Specifics] Pain Scale: 0-10 Numeric [Pain] -Is Patient Pain Free? Yes WC - Nurse 3 - General Ulcer D/C NN Start: 02/26/20 09:05 Freq: Status: Active Protocol: Activity Type Activity Date Activity User E-Sign Co-Sign Detail Recorded Client Recorded Date Recorded By Document 03/04/20 09:45 MW [id number] 03/04/20 09:45 MW 03/04/20 09:45 Teaching: Wound Center [Wound Center Education] (Items with an * have Printed Materials Available- Please identify what is given to patient under the Teaching materials given to patient and caregiver Section. Dressing Your Wound -Person Taught Patient,Family -Teaching Method Discussion, Demonstration -Response to teaching Verbalize understanding Discharge Instructions -Person Taught Patient,Family -Teaching Method Discussion -Response to teaching Verbalize understanding WC - Visit Discharge [Visit Discharge Information] -Discharge Condition Stable -Ambulatory Status Ambulatory -Transportation Private Auto -Accompanied by -Medication Reconcilliation completed No & provided to patient/care provider -Clinical Summary of Care Provided Yes Musculoskeletal: No Tenderness to Palpation of Joints or Extremities Lymphatic: No Cervical, Supraclavicular, or Inguinal Adenopathy Neurological: Cranial nerves II-XII grossly intact, Neuro grossly intact Psych/Mental Status: Normal Affect, Appropriate Debridement Note Post-Debridement Measurements/Treatment WC - Nurse 2 - General Ulcer CM Notes Start: 02/26/20 09:05 Freq: Status: Active Protocol: Activity Type Activity Date Activity User E-Sign Co-Sign Detail Recorded Client Recorded Date Recorded By Document 02/26/20 09:26 MW [id number] 02/26/20 09:28 MW Document 03/04/20 09:43 MW [id number] 03/04/20 09:44 MW 02/26/20 03/04/20 09:26 09:43 Wound Center Nurse 2 #6 Right Atkinson Cluster -Time 09:26 09:43 -Correct Patient Yes Yes -Correct Side, Site, Position Yes Yes -Correct Procedure Yes Yes -Procedure Performed Yes No -Type of Procedure Debridement -Clinical Debridement Epidermis / Dermis -Tissue Removed Epidermis -Post Debridement (cm) - Length 2.5 0 -Post Debridement (cm) - Width 4.0 0 -Post Debridement (cm) - Depth 0.1 0 -Total Square (Post) (cm) 10.00 0 -Area of Debridement (cm) - Length 2.5 -Area of Debridement (cm) - Width 4.0 -Total Square (Area) (cm) 10.00 -Tunneling No -Undermining/Tunneling No -Circular Undermining No -Wound/Ulcer Outcome Not Healed -Ulcer Cleansing Rinsed/ Irrigated with Saline -Foul Odor after Cleansing No -Bioengineered Tissue No -Bleeding Controlled with Pressure -Offloading No -Treatment Response Procedure Tolerated Well -Debridement - Open, 1st 20sq cm Yes Pain Scale: 0-10 Numeric Is Patient Pain Free? Yes Yes - Nurse 3 - General Ulcer D/C NN Start: 02/26/20 09:05 Freq: Status: Active Protocol: Activity Type Activity Date Activity User E-Sign Co-Sign Detail Recorded Client Recorded Date Recorded By Document 02/26/20 09:29 MW [id number] 02/26/20 09:34 MW Document 03/04/20 09:45 MW [id number] 03/04/20 09:45 MW 02/26/20 03/04/20 09:29 09:45 Wound Care Nurse 3 #6 Right Atkinson Cluster -Ulcer Cleansing Rinsed/ Irrigated with Saline -Foul Odor after Cleansing No -Negative Pressure Wound Therapy N/A -Primary Dressing Applied NonAdherent Contact Layer -Other Dressing XEROFORM -Primary Dressing Covered/Secured with Dry Gauze & Roll Gauze, Secured with Tape Right -Lotion applied to leg before No compression wrap -Size of Tubigrip Used Size E -Size E ($) 1 -Stockings No Treatment Response Procedure Tolerated Well Pain Scale: 0-10 Numeric Is Patient Pain Free? Yes Teaching: Wound Center Dressing Your Wound -Person Taught Patient,Family Patient,Family -Teaching Method Discussion, Discussion, Demonstration Demonstration -Response to teaching Verbalize Verbalize understanding understanding Discharge Instructions -Person Taught Patient,Family -Teaching Method Discussion -Response to teaching Verbalize understanding WC - Visit Discharge Discharge Condition Stable Stable Ambulatory Status Ambulatory Ambulatory Transportation Private Auto Accompanied by Medication Reconcilliation completed & No No provided to patient/care provider Clinical Summary of Care Provided Yes Yes Wound debrided: Right atkinson No debridement was completed today Assessment/Plan Active Problems Venous insufficiency (Chronic) Peripheral vascular disease of lower extremity with ulceration (Acute) Nonhealing nonsurgical wound with fat layer exposed (Acute) Diabetes mellitus, type II (Chronic) Assessment: Referral vascular disease with ulcers right atkinson area DM with neuropathy, venous insufficiency, lower extremity edema Plan: Discharge from the wound center follow-up as needed keep appointment with Dr. Hanley
== END 2020-03-04 10:00 | disposition home or self-care (01) ==
LOC: WC 09:30
PROVIDERS: PCP Internal Medicine; Referring Provider Podiatrist; Visit Provider Nurse Practitioner
DX: E11.621 Type 2 diabetes mellitus with foot ulcer (principal); I73.9 Peripheral vascular disease, unspecified; L97.522 Non-pressure chronic ulcer of other part of left foot with fat layer exposed; I87.2 Venous insufficiency (chronic) (peripheral); E11.40 Type 2 diabetes mellitus with diabetic neuropathy, unspecified; E11.51 Type 2 diabetes mellitus with diabetic peripheral angiopathy without gangrene; R60.0 Localized edema; E11.59 Type 2 diabetes mellitus with other circulatory complications
CPT/HCPCS: 97597; 99212; G0463

== ENCOUNTER → 2020-04-02 09:47 | Outpatient (CLI) | payer MEDICARE, OTHER, SELFPAY ==
[2020-03-04 09:35] VITALS: BMI 28.7
--- NOTE | 2020-04-02 09:50 | VDLE_ITS ---
Reason For Study: leg pain and swelling RIGHT LEFT GSV is normal. GSV is normal. CFV is compressible, spontaneous, phasic, CFV is compressible, spontaneous, phasic, competent and demonstrates normal competent, and demonstrates normal augmentation. augmentation. FV is compressible, spontaneous, phasic, FV is compressible, spontaneous, phasic, competent and demonstrates normal competent and demonstrates normal augmentation. augmentation. POP V is compressible, spontaneous, phasic, POP V is compressible, spontaneous, phasic, competent and demonstrates normal competent and demonstrates normal augmentation. augmentation. T/P Trunk is compressible. T/P Trunk is compressible. PTV is compressible. PTV is compressible. RT PerV is compressible. LT PerV is compressible. SSV is partially compressible with bright SSV is partially compressible with bright intraluminal echoes consistant with chronic intraluminal echoes consistant with chronic clot. clot. Procedure This is a venous duplex using B-mode, color flow and spectral Doppler. Exam performed in department. The exam was diagnostic. A preliminary report was called and/or faxed to Dr. Hanley's office. Interpretation Summary No DVT bilateral legs. Bilateral LSV with chronic SVT. Ordering Physician: Thom Hanley Performed By: Ayden Franco RVT
== END ==
PROVIDERS: PCP Internal Medicine; Referring Provider Surgery Vascular Surgery; Visit Provider Surgery Vascular Surgery
DX: M79.606 Pain in leg, unspecified (principal); M79.89 Other specified soft tissue disorders
CPT/HCPCS: 93970

== ENCOUNTER → 2020-09-03 15:06 | Outpatient (CLI) | payer MEDICARE, OTHER, SELFPAY ==
--- NOTE | 2020-09-03 15:15 | RAD_ITS ---
STUDY: X-RAY - LUMBAR SPINE REASON FOR EXAM: Male, 80 years old. BACK PAIN TECHNIQUE: 5 view(s) of the lumbar spine were obtained. COMPARISON: None FINDINGS: There is reversal of the normal lumbar lordosis. Minimal anterolisthesis of L4 secondary to facet arthrosis. There is no substantial scoliosis. Normal vertebral body height without fracture, osteolytic or blastic bone lesion. Varying degrees of spondylytic endplate change. Moderate disc narrowing at L5-S1. Milder narrowing at other lumbar levels. Facet arthrosis at L3-4, L4-5 and L5-S1 left greater than right. The soft tissue structures are unremarkable. RAD/L/S Spine Min 4 Views IMPRESSION: Straightening of the lumbar spine with a minimal anterolisthesis of L4 secondary to facet arthrosis. Negative for fracture, osteolytic or blastic bone lesion. Mild to moderate degenerative disc changes and asymmetric facet arthrosis from L3 through S1 bilaterally in the pattern as described above. Electronically Signed: Laura Jessica MD at 15:56 EDT , Service support ,
== END ==
PROVIDERS: PCP Internal Medicine
DX: M99.03 Segmental and somatic dysfunction of lumbar region (principal); M99.04 Segmental and somatic dysfunction of sacral region; M51.36 Other intervertebral disc degeneration, lumbar region
CPT/HCPCS: 72110

== ENCOUNTER 2020-10-13 09:00 | Outpatient (RCR) | payer MEDICARE, OTHER, SELFPAY ==
[2020-09-24 10:36] VITALS: BMI 29.0
[2020-10-06 08:53] VITALS: BP 147/86; PULSE 83; RESP 18; TEMP 36.8; BMI 27.2
--- NOTE | 2020-10-06 09:41 | HP.PCM_ITS ---
History of Present Illness Date of Service: 10/06/20 Chief Complaint: Venous ulcer of the distal right lower extremity History of Wound: This is an 80-year-old male who presents with an open ulceration on the right pretibial area. This appears to be venous in origin. It has been present, off and on, for approximately 10 years. He has been up previous patient at our wound care facility in the past. He suffers from multiple pre-existing medical problems, including diabetes mellitus, hyperlipide oral, and diverticulosis. He has a history of chronic venous disease, and has recently been under the care of Dr. Thom Hanley, vascular surgeon. According to the patient, Dr. Hanley performed a foam injection sclerotherapy procedure relative to the patient's venous disease, several months ago. Patient indicates that he has derived some benefit subsequent to this procedure. The patient relates that the ulceration began approximately 10 years ago subsequent to a broken leg. His right lower extremity was placed in a cast at that time, and an ulceration subsequently developed. This ulceration has healed in the past, but has recurred several times. The patient has been prescribed graduated compression stockings of 20 to 30 mmHg compression, but the patient has not been wearing these on a regular basis. He claims to sleep on a flat surface at night. He is relatively active for his age, but does spend significant amounts of time during the day sitting idly. He notes that he develops swelling in his legs late each day. A venous duplex examination performed on April 02, 2020 revealed chronic venous changes in the small saphenous veins bilaterally. Recently, the patient has been using Xeroform and Adaptic topically on his right pretibial ulceration. [facility] Medical History (Updated 10/06/20 @ 09:[address] Pierce Hammer MD) Diverticulosis Leg swelling Skin tear of left lower leg without complication Venous stasis dermatitis Venous ulcer of right leg Home Medications Metformin [Metformin Hcl] 1,000 mg PO BID 07/24/14 [History Last Taken 07/23/14] glimepiride 2 mg PO BREAKFAST 07/24/14 [History Last Taken 07/23/14] hydrochlorothiazide 12.5 mg PO DAILY 07/24/14 [History Last Taken 07/23/14] tamsulosin 0.4 mg PO DAILY 07/24/14 [History Last Taken 07/23/14] allopurinol 100 mg PO DAILY 12/09/16 [History Last Taken Unknown] atorvastatin 20 mg PO DAILY 12/09/16 [History Last Taken Unknown] doxycycline monohydrate 100 mg capsule 100 mg PO BID #20 cap 09/24/20 [Rx Last Taken Unknown] Allergy/AdvReac Type Severity Reaction Status Date / Time cefdinir [From Omnicef] AdvReac Other Verified 09/24/20 10:49 Surgical History Hx of cholecystectomy Social History Smoking Status: Former smoker Vital Signs Vital Signs Vital Signs: 10/06/20 08:53 Temperature 98.2 F Temperature Source Temporal Pulse Rate 83 Respiratory Rate 18 Blood Pressure 147/86 H Blood Pressure Mean 106 Weight Weight: 212 lb Body Mass Index (BMI) 27.2 Physical Exam Const alert, oriented x3, no apparent distress, average body habitus and well nourished General Appearance: cooperative, comfortable, well kempt and well developed Orientation / Consciousness: awake, oriented to person, oriented to place and oriented to time HEENT normocephalic and head/scalp atraumatic HEENT Narrative: The patient appears to be slightly hearing impaired. Head and Scalp: normal to inspection, normocephalic and atraumatic External Ear: external ears normal Eyes PERRL and EOMs intact bilaterally General Eye: normal appearance of both eyes Resp normal respiratory effort, normal air movement, no retractions and no use of accessory muscles Effort and Inspection: able to speak in complete sentences Extremity no calf tenderness Extremity Narrative: Slight swelling and edema are noted in the patient's distal right lower extremity. General Extremity: Negative for clubbing or cyanosis Skin Wound Narrative: Dermatitic changes are noted on the right pretibial area. There is a superficial ulceration on the right anterior tibial surface as well, within the dermatitic region. Dimensions are documented elsewhere. There is no sign of infection or cellulitis. Nails: other Onychomycosis is noted on the right first and second toenail. Neuro oriented x3, CN's II-XII intact bilaterally, moves all extremities and no focal motor deficits Speech: speech normal Psych Appearance: grossly normal and appropriate Attitude: calm Activity / Motor Behavior: appropriate eye contact Speech: normal speech Mood & Affect: euthymic mood Thought Process: normal thought process Thought Content: normal thought content Attention / Concentration: attention grossly intact Debridement Note Debridement Note Post-Debridement Measurements and Additional Note: Post-Debridement Measurements/Treatment - Nurse 1 - General Ulcer Assessment Start: 10/06/20 08:52 Freq: Status: Active Protocol: [email or web address] Activity Type Activity Date Activity User E-Sign Co-Sign Detail Recorded Client Recorded Date Recorded By Document 10/06/20 08:53 [id number] 10/06/20 09:00 10/06/20 08:53 WC - Today's Visit Information Type of service Initial Visit Arrival Mode Ambulatory Transfer Assistance None Patient Identification Verified (Name & Yes ) Patient Requires Transmission-Based No Precautions Safety Precautions NA Finger Stick Blood Sugar(mg/dl) (if 130 indicated): Blood Sugar Stated by Patient Height and Weight Height 6 ft 2 in Weight 212 lb Weight in Pounds 212.0 lbs Body Mass Index (BMI) 27.2 BMI Classification Overweight BSA - Diana 2.23 Vital Signs Temperature (97.8 F-99.1 F) 98.2 F Temperature Source Temporal Pulse Rate (60-100) 83 Respiratory Rate (12-18) 18 Blood Pressure (90/60-120/80) 147/86 H Blood Pressure Mean 106 History Since Last Visit- (Skip if this is Patient's initial visit) Have you changed medications since your No last visit? Any new allergies or adverse reactions No Had a fall/change in ADL's that may No increase risk of falls Signs or symptoms of abuse and/or No neglect since last visit Have you been in the hospital since your No last visit? Has dressing in place as prescribed Yes Has compression in place as prescribed N/A Has offloadiing in place as prescribed N/A Experienced any changes in pain level or No management Pain Scale: 0-10 Numeric Is Patient Pain Free? Yes - Nurse 1 - General Ulcer Measurement Start: 10/06/20 08:52 Freq: Status: Active Protocol: Activity Type Activity Date Activity User E-Sign Co-Sign Detail Recorded Client Recorded Date Recorded By Document 10/06/20 08:53 PL [id number] 10/06/20 09:00 PL 10/06/20 08:53 Wound Center Nurse 1 #7 Left Ant Leg -Combined with other wound No -Current Size (cm) - Length 1.5 -Current Size (cm) - Width 1.0 -Current Size (cm) - Depth 0.1 -Total Square Cm 1.50 -Date of Last Picture (Recall this 10/06/20 field) -Photo Taken Yes -Epithelialization None Present -Tunneling No -Undermining/Tunneling No -Circular Undermining No -Classification - Thickness Partial Thickness -Exudate Amt Medium -Exudate Type Serosanguineous -Granulation Amt Large (67-100%) -Granulation Quality [place] -Slough/Fibrin Yes -Necrosis Amt Small (1-33%) -Necrotic Tissue Type Adherent Slough -Texture (Christiane-wound Skin Appearance) No Abnormality -Moisture (Christiane-wound Skin Appearance) Dry/Scaly -Color (Christiane-wound Skin Appearance) No Abnormality -Temperature (Christiane-wound Skin No Abnormality Appearance) (Pt Warm) -Tenderness on Palpation (Christiane-wound No Skin Appearance) -Ulcer Cleansing Rinsed/ Irrigated with Saline -Foul Odor after Cleansing No -Anesthetic Used 5% Lidocaine Gel No debridement was completed: No debridement was completed today Assessment/Plan Assessment/Plan (1) Venous ulcer of right leg: CODE(S): I83.019 - Varicose veins of right lower extremity with ulcer of unspecified site; L97.919 - Non-pressure chronic ulcer of unspecified part of right lower leg with unspecified severity (2) Venous insufficiency: CODE(S): I87.2 - Venous insufficiency (chronic) (peripheral) (3) Nonhealing nonsurgical wound with fat layer exposed: CODE(S): T14.8XXA - Other injury of unspecified body region, initial encounter (4) Lower extremity edema: CODE(S): R60.0 - Localized edema (5) Leg swelling: CODE(S): M79.89 - Other specified soft tissue disorders (6) Hyperlipidemia: CODE(S): E78.5 - Hyperlipidemia, unspecified (7) History of tobacco use: CODE(S): Z87.891 - Personal history of nicotine dependence (8) Diabetes mellitus, type II: CODE(S): E11.9 - Type 2 diabetes mellitus without complications (9) Ulcer of right lower extremity with fat layer exposed: CODE(S): L97.912 - Non-pressure chronic ulcer of unspecified part of right lower leg with fat layer exposed (10) Diverticulosis: CODE(S): K57.90 - Diverticulosis of intestine, part unspecified, without perforation or abscess without bleeding (11) Hypertension: CODE(S): I10 - Essential (primary) hypertension (12) Venous stasis dermatitis: CODE(S): I87.2 - Venous insufficiency (chronic) (peripheral) PLAN: This is an 80-year-old male with a longstanding history of chronic venous insufficiency and recurrent ulcerations in the right lower extremity. He has recently been under care of Dr. Thom Hanley, vascular surgeon, who has recently performed an apparent foam injection sclerotherapy procedure of the venous system in the right lower extremity. There has been some improvement, according to the patient, though the venous stasis dermatitis and venous ulceration persist on the right pretibial area. We are to implement conservative treatment measures, which are to include leg elevation, avoidance of idle standing and sitting, active lifestyle, compression, etc. These measures have been discussed with the patient in detail. The patient currently sleeps on a flat surface at night, which is to continue. Is to elevate his lower extremities as much as possible during daytime hours, to heart level, or higher. Activity and ambulation have been encouraged. The patient's weight, with a BMI of 27.2, appears to be satisfactory. We are to implement the use of collagen hydrogel topically, to be applied by the patient on a daily basis. We are to use Tubigrip for compression, though ultimately may transition to the use of graduated compression stockings, based upon the findings of the patient's arterial study. We are to obtain routine laboratory studies, including a CBC, CMP, serum prealbumin, and hemoglobin A1c. We will also obtain a noninvasive lower extremity arterial study, to help gauge with the degree of compression which might be best tolerated. Patient is to return in 1 week for reassessment. Total time: 65 minutes.
[2020-10-06 13:57] LABS: Absolute Lymphocyte Count 1.48 X10^3/uL (0.83-4.51); Absolute Neutrophil Count 7.3 X10^3/uL (2.0-7.7); Basophil# 0.09 X10^3/uL; Basophil% 0.9 % (0-1); Eosinophil# 0.14 X10^3/uL; Eosinophils% 1.5 % (0-5); Hematocrit 42.4 % (40-54); Hemoglobin 14.4 g/dL (13.0-16.5); Lymphocyte # 1.48 X10^3/ul (0.83-4.51); Lymphocyte % 15.3 % (19-41); Mean Corpuscular Hgb 32.2 pg (27.0-32.0); Mean Corpuscular Volume 94.9 fL (80-94); Mean Platelet Vol. 10.2 fl (6.2-12.0); Monocyte# 0.54 X10^3/uL; Monocyte% 5.6 % (0-10); NRBC Flagged by Analyzer 0 % (0-5); Neutrophil # 7.34 X10^3/uL (2.7-7.7); Neutrophil % 76.1 % (47-70); Platelet Count 206 K/mm3 (150-450); RBC Distribution Width CV 12.8 % (11.6-14.6); RBC Distribution Width SD 44.3 fl (35.1-43.9); Red Blood Count 4.47 M/mm3 (4.6-6.2); White Blood Count 9.7 K/mm3 (4.4-11.0)
[2020-10-06 14:27] LABS: ALB/GLOB Ratio 1.2 RATIO (0.9-2.4); AST(SGOT) 17 U/L (15-37); Alanine Aminotransfer ALT/SGPT 19 U/L (16-61); Albumin, Serum 3.7 g/dL (3.2-5.0); Alkaline Phosphatase 92 U/L (45-117); Anion Gap 5 (5-15); BUN 17 mg/dL (7-18); BUN/Creat Ratio 14.5 RATIO (10-20); Calcium,Total 9.4 mg/dL (8.5-10.1); Chloride 102 mmol/L (98-107); Creatinine, Serum 1.17 mg/dL (0.70-1.30); EST Glomerular Filtration Rate 64 mL/min (>60); Est Glom Filt Rate - Afr Amer 77 mL/min (>60); Estimated Creatinine Clearance 58.55 ml/min; Globulin 3.2 g/dL (2.2-4.2); Glucose 169 mg/dL (74-106); Potassium 3.7 mmol/L (3.5-5.1); Protein, Total 6.9 g/dL (6.4-8.2); Sodium Level 138 mmol/L (136-145)
[2020-10-13 09:04] VITALS: BP 162/76; PULSE 74; RESP 20; TEMP 36.1; BMI 27.2
--- NOTE | 2020-10-13 09:27 | HP.PCM_ITS ---
History of Present Illness Date of Service: 10/13/20 Chief Complaint: Venous ulcer of the distal right lower extremity History of Wound: This is an 80-year-old male who presented with an open ulceration on the right pretibial area. This appeared to be venous in origin. It had been present, off and on, for approximately 10 years. He has been a previous patient at our wound care facility in the past. He suffers from multiple pre-existing medical problems, including diabetes mellitus, hyperlipid emia, and diverticulosis. He has a history of chronic venous disease, and has recently been under the care of Dr. Thom Hanley, vascular surgeon. According to the patient, Dr. Hanley performed a foam injection sclerotherapy procedure relative to the patient's venous disease, several months ago. Patient indicates that he has derived some benefit subsequent to this procedure. The patient relates that the ulceration began approximately 10 years ago subsequent to a broken leg. His right lower extremity was placed in a cast at that time, and an ulceration subsequently developed. This ulceration has healed in the past, but has recurred several times. The patient has been prescribed graduated compression stockings of 20 to 30 mmHg compression, but the patient has not been wearing these on a regular basis. He claims to sleep on a flat surface at night. He is relatively active for his age, but does spend significant amounts of time during the day sitting idly. He notes that he develops swelling in his legs late each day. A venous duplex examination performed on April 02, 2020 re vealed chronic venous changes in the small saphenous veins bilaterally. Recently, the patient had been using Xeroform and Adaptic topically on his right pretibial ulceration. REPLACED BY [facility] Medical History (Updated 10/13/20 @ 09:[address] Pierce Hammer MD) Diverticulosis Leg swelling Skin tear of left lower leg without complication Venous stasis dermatitis Venous ulcer of right leg Home Medications Metformin [Metformin Hcl] 1,000 mg PO BID 07/24/14 [History Last Taken 07/23/14] glimepiride 2 mg PO BREAKFAST 07/24/14 [History Last Taken 07/23/14] hydrochlorothiazide 12.5 mg PO DAILY 07/24/14 [History Last Taken 07/23/14] tamsulosin 0.4 mg PO DAILY 07/24/14 [History Last Taken 07/23/14] allopurinol 100 mg PO DAILY 12/09/16 [History Last Taken Unknown] atorvastatin 20 mg PO DAILY 12/09/16 [History Last Taken Unknown] doxycycline monohydrate 100 mg capsule 100 mg PO BID #20 cap 09/24/20 [Rx Last Taken Unknown] Allergy/AdvReac Type Severity Reaction Status Date / Time cefdinir [From Omnicef] AdvReac Other Verified 09/24/20 10:49 Surgical History Hx of cholecystectomy Social History Smoking Status: Former smoker Vital Signs Vital Signs Vital Signs: 10/13/20 09:04 Temperature 96.9 F L Temperature Source Temporal Pulse Rate 74 Respiratory Rate 20 H Blood Pressure 162/76 H Blood Pressure Mean 104 Blood Pressure Source Monitor Weight Weight: 212 lb Body Mass Index (BMI) 27.2 Physical Exam Const alert, oriented x3, no apparent distress, average body habitus and well nourished General Appearance: cooperative, comfortable, well kempt and well developed Orientation / Consciousness: awake, oriented to person, oriented to place and oriented to time HEENT normocephalic and head/scalp atraumatic Head and Scalp: normal to inspection, normocephalic and atraumatic External Ear: external ears normal Eyes PERRL and EOMs intact bilaterally General Eye: normal appearance of both eyes Resp normal respiratory effort, normal air movement, no retractions and no use of accessory muscles Effort and Inspection: able to speak in complete sentences Extremity no clubbing, cyanosis or edema and no calf tenderness Extremity Narrative: No significant swelling or edema are noted in the patient's right lower extremity. Chronic venous stasis dermatitis is noted on the right pretibial area. General Extremity: Negative for clubbing or cyanosis Skin Wound Narrative: The ulceration on the right pretibial area is now completely healed and epithelialized. There is no sign of infection or cellulitis. There are chronic skin changes, however, consistent with chronic venous stasis dermatitis. Neuro oriented x3, CN's II-XII intact bilaterally and moves all extremities Psych mental status grossly normal Appearance: grossly normal and appropriate Attitude: calm Activity / Motor Behavior: appropriate eye contact Speech: normal speech Mood & Affect: euthymic mood Thought Process: normal thought process Thought Content: normal thought content Attention / Concentration: attention grossly intact Debridement Note Debridement Note Post-Debridement Measurements and Additional Note: Post-Debridement Measurements/Treatment MIL[facility] - Nurse 1 - General Ulcer Assessment Start: 10/06/20 08:52 Freq: Status: Active Protocol: BETTE Activity Type Activity Date Activity User E-Sign Co-Sign Detail Recorded Client Recorded Date Recorded By Document 10/06/20 08:53 PL [id number] 10/06/20 09:00 PL Document 10/13/20 09:04 DL [id number] 10/13/20 09:12 DL 10/06/20 10/13/20 08:53 09:04 WC - Today's Visit Information Type of service Initial Visit Follow-up Visit (Physician/MEDICAL ASSISTANT OB GYN ) Arrival Mode Ambulatory Ambulatory Transfer Assistance None None Patient Identification Verified (Name & Yes Yes ) Patient Requires Transmission-Based No No Precautions Safety Precautions NA Finger Stick Blood Sugar(mg/dl) (if 130 indicated): Blood Sugar Stated by Patient Height and Weight Height 6 ft 2 in Weight 212 lb Weight in Pounds 212.0 lbs Body Mass Index (BMI) 27.2 27.2 BMI Classification Overweight Overweight BSA - Diana 2.23 Vital Signs Temperature (97.8 F-99.1 F) 98.2 F 96.9 F L Temperature Source Temporal Temporal Pulse Rate (60-100) 83 74 Pulse Location Monitor Respiratory Rate (12-18) 18 20 H Respiratory rate source Observation Blood Pressure (90/60-120/80) 147/86 H 162/76 H Blood Pressure Mean 106 104 Source Monitor History Since Last Visit- (Skip if this is Patient's initial visit) Have you changed medications since your No No last visit? Any new allergies or adverse reactions No No Had a fall/change in ADL's that may No No increase risk of falls Signs or symptoms of abuse and/or No No neglect since last visit Have you been in the hospital since your No No last visit? Has dressing in place as prescribed Yes Yes Has compression in place as prescribed N/A Has offloadiing in place as prescribed N/A N/A Experienced any changes in pain level or No No management Pain Scale: 0-10 Numeric Is Patient Pain Free? Yes Yes MILTON Dean Nurse 1 - General Ulcer Measurement Start: 10/06/20 08:52 Freq: Status: Active Protocol: Activity Type Activity Date Activity User E-Sign Co-Sign Detail Recorded Client Recorded Date Recorded By Document 10/06/20 08:53 PL [id number] 10/06/20 09:00 PL Document 10/13/20 09:04 DL [id number] 10/13/20 09:12 DL 10/06/20 10/13/20 08:53 09:04 Wound Center Nurse 1 #7 R ant lower leg -Combined with other wound No -Current Size (cm) - Length 1.5 0 -Current Size (cm) - Width 1.0 0 -Current Size (cm) - Depth 0.1 0 -Total Square Cm 1.50 0 -Date of Last Picture (Recall this 10/06/20 field) -Photo Taken Yes Yes -Epithelialization None Present -Tunneling No -Undermining/Tunneling No -Circular Undermining No -Classification - Thickness Partial Thickness -Exudate Amt Medium None Present -Exudate Type Serosanguineous -Wound Margin Flat & Intact -Granulation Amt Large (67-100%) Large (67-100%) -Granulation Quality [place] -Slough/Fibrin Yes -Necrosis Amt Small (1-33%) None Present (0 %) -Necrotic Tissue Type Adherent Slough -Structure Exposed N/A -Texture (Christiane-wound Skin Appearance) No Abnormality Scarring -Moisture (Christiane-wound Skin Appearance) Dry/Scaly Dry/Scaly -Color (Christiane-wound Skin Appearance) No Abnormality Hemosiderin Staining -Temperature (Christiane-wound Skin No Abnormality No Abnormality Appearance) (Pt Warm) (Pt Warm) -Tenderness on Palpation (Christiane-wound No No Skin Appearance) -Ulcer Cleansing Rinsed/ Rinsed/ Irrigated with Irrigated with Saline Saline -Foul Odor after Cleansing No No -Anesthetic Used 5% Lidocaine Gel Right Calf (cm) 36.4 Right Ankle (cm) 26.3 WC - Nurse 2 - General Ulcer CM Notes Start: 10/06/20 08:52 Freq: Status: Active Protocol: Activity Type Activity Date Activity User E-Sign Co-Sign Detail Recorded Client Recorded Date Recorded By Document 10/06/20 13:40 PL [id number] 10/06/20 14:15 PL Edit Result 10/06/20 13:40 PL (1) [id number] 10/06/20 17:29 PL (1) #7 R ant lower leg - Procedure Performed Yes => No - Type of Procedure Debridement => - Clinical Debridement Subcutaneous => - Tissue Removed Subcutaneous => - Debridement - Subq, 1st 20sq cm Yes => 10/06/20 13:40 Wound Center Nurse 2 #7 R ant lower leg -Time 09:05 -Correct Patient Yes -Correct Side, Site, Position Yes -Correct Procedure Yes -Procedure Performed No -Post Debridement (cm) - Length 1.5 -Post Debridement (cm) - Width 1.0 -Post Debridement (cm) - Depth 0.1 -Total Square (Post) (cm) 1.50 -Area of Debridement (cm) - Length 1.5 -Area of Debridement (cm) - Width 1.0 -Total Square (Area) (cm) 1.50 -Tunneling No -Undermining/Tunneling No -Circular Undermining No -Wound/Ulcer Outcome Not Healed -Ulcer Cleansing Rinsed/ Irrigated with Saline -Foul Odor after Cleansing No -Bioengineered Tissue No Pain Scale: 0-10 Numeric Is Patient Pain Free? Yes - Nurse 3 - General Ulcer D/C NN Start: 10/06/20 08:52 Freq: Status: Active Protocol: Activity Type Activity Date Activity User E-Sign Co-Sign Detail Recorded Client Recorded Date Recorded By Document 10/06/20 13:40 PL [id number] 10/06/20 14:15 PL 10/06/20 13:40 Is Patient Pain Free? Yes Wound Care Nurse 3 #7 R ant lower leg -Ulcer Cleansing Rinsed/ Irrigated with Saline -Foul Odor after Cleansing No -Primary Dressing Applied C Hydrogel ($) -Primary Dressing Covered/Secured with Dry Gauze & Roll Gauze, Secured with Tape WC - Visit Discharge Discharge Condition Stable Ambulatory Status Ambulatory Transportation Private Auto Clinical Summary of Care Provided Yes No debridement was completed: No debridement was completed today Lab / Micro Data Result Diagrams: 10/06/20 13:16 10/06/20 13:16 Assessment/Plan Assessment/Plan (1) Venous stasis dermatitis: CODE(S): I87.2 - Venous insufficiency (chronic) (peripheral) QUALIFIERS: Laterality: right Qualified Code(s): I87.2 - Venous insufficiency (chronic) (peripheral) (2) Diverticulosis: CODE(S): K57.90 - Diverticulosis of intestine, part unspecified, without perforation or abscess without bleeding (3) Venous ulcer of right leg: CODE(S): I83.019 - Varicose veins of right lower extremity with ulcer of unspecified site; L97.919 - Non-pressure chronic ulcer of unspecified part of right lower leg with unspecified severity (4) Leg swelling: CODE(S): M79.89 - Other specified soft tissue disorders (5) Skin tear of left lower leg without complication: CODE(S): S81.812A - Laceration without foreign body, left lower leg, initial encounter (6) Ulcer of right lower extremity with fat layer exposed: CODE(S): L97.912 - Non-pressure chronic ulcer of unspecified part of right lower leg with fat layer exposed (7) Type 2 diabetes mellitus with diabetic polyneuropathy: CODE(S): E11.42 - Type 2 diabetes mellitus with diabetic polyneuropathy (8) Lower extremity edema: CODE(S): R60.0 - Localized edema (9) Venous insufficiency: CODE(S): I87.2 - Venous insufficiency (chronic) (peripheral) (10) Hypertension: CODE(S): I10 - Essential (primary) hypertension (11) Hyperlipidemia: CODE(S): E78.5 - Hyperlipidemia, unspecified (12) History of tobacco use: CODE(S): Z87.891 - Personal history of nicotine dependence (13) Diabetes mellitus, type II: CODE(S): E11.9 - Type 2 diabetes mellitus without complications PLAN: This is an 80-year-old male with a longstanding history of chronic venous insufficiency and recurrent ulcerations in the right lower extremity. He has recently been under care of Dr. Thom Hanley, vascular surgeon, who has recently performed an apparent foam injection sclerotherapy procedure of the venous system in the right lower extremity. There has been some improvement, according to the patient, though the venous stasis dermatitis and venous ulceration persist on the right pretibial area. The ulceration on the right pretibial area, for which the patient initially presented, is now completely healed and epithelialized. The patient has been advised to continue to implement conservative treatment measures, which are to include leg elevation, avoidance of idle standing and sitting, active lifestyle, compression, etc. These measures have been discussed with the patient in detail. The patient currently sleeps on a flat surface at night, which is to continue. Is to elevate his lower extremities as much as possible during daytime hours, to heart level, or higher. Activity and ambulation have been encouraged. The patient's weight, with a BMI of 27.2, appears to be satisfactory. The patient is to be discharged, and will follow-up henceforth on an as-needed basis. He indicates his intent to follow-up with Dr. Thom Hanley, vascular surgeon, in the near future. Total time: 26 minutes.
== END 2020-10-13 09:36 | disposition home or self-care (01) ==
LOC: WC 09:00
PROVIDERS: PCP Internal Medicine; Referring Provider Surgery; Visit Provider Surgery
DX: I87.2 Venous insufficiency (chronic) (peripheral) (principal); I83.019 Varicose veins of right lower extremity with ulcer of unspecified site; M79.89 Other specified soft tissue disorders; K57.90 Diverticulosis of intestine, part unspecified, without perforation or abscess without bleeding; S81.812A Laceration without foreign body, left lower leg, initial encounter; L97.912 Non-pressure chronic ulcer of unspecified part of right lower leg with fat layer exposed; E11.42 Type 2 diabetes mellitus with diabetic polyneuropathy; I10 Essential (primary) hypertension; E78.5 Hyperlipidemia, unspecified; Z87.891 Personal history of nicotine dependence; Z79.84 Long term (current) use of oral hypoglycemic drugs
CPT/HCPCS: 11042; 36415; 80053; 85025; 99213; G0463

== ENCOUNTER → 2021-10-26 | Outpatient (CLI) | payer MEDICARE, OTHER, SELFPAY | END | disposition home or self-care (01) | PROVIDERS: PCP Internal Medicine; Visit Provider Podiatrist | DX: L97.519 Non-pressure chronic ulcer of other part of right foot with unspecified severity (principal); L03.031 Cellulitis of right toe | CPT/HCPCS: 87070; 87075; 87077; 87186; 87205 ==

== ENCOUNTER 2021-12-12 22:00 | Observation (INO) | payer MEDICARE, OTHER, SELFPAY ==
[2021-12-12 21:55] VITALS: BP 146/90; PULSE 65; RESP 16; TEMP 36.1; O2SAT 96
[2021-12-12 22:06] VITALS: PULSE 67; BMI 25.5
--- NOTE | 2021-12-12 22:20 | ECHOD_ITS ---
Reason For Study: TIA/CVA Procedure This was a 2D Doppler, Color Flow transthoracic echocardiogram. Exam performed portable in patient room. Left Ventricle Normal LV size. Mild concentric left ventricular hypertrophy. Left ventricular systolic function is normal. The estimated ejection fraction is 60 %. Stage 1 diastolic dysfunction. No regional wall motion abnormalities noted. Right Ventricle Normal RV size. Normal systolic function. Atria Normal left atrium. Normal right atrium. Bubble contrast study negative for right to left interatrial shunt. Mitral Valve Bileaflet diffuse mitral valve thickening. Mild focal mitral valve calcification. Mild (1+) eccentric mitral valve insufficiency. Tricuspid Valve Normal tricuspid valve. Aortic Valve Trisinus/trileaflet aortic valve. Mild (1+) aortic valve insufficiency. Pulmonic Valve Normal pulmonic valve. Great Vessels Normal aortic root. The pulmonary artery is normal size. Normal inferior vena cava. Pericardium/Pleural No pericardial effusion. Medication Performed a rapid injection of agitated mix of 9 cc saline and 1cc air to assess for atrial septal defect. MMode/2D Measurements & Calculations LVIDd: 4.6 cm IVSd: 1.4 cm Ao root diam: 4.0 cm LVIDs: 3.0 cm LVPWd: 1.2 cm LA dimension: 4.4 cm FS: 34.4 % LAV(MOD-bp): 50.9 ml LA A4 area: 16.0 cm2 LAV(MOD-bp) Indexed: 23.5 ml/m2 LAV(MOD-sp2): 58.4 ml LAV(MOD-sp4): 41.0 ml Time Measurements MV dec time: 0.38 sec Doppler Measurements & Calculations MV E max lonnie: 63.5 cm/sec Lat Peak E' Lonnie: 6.8 cm/sec Med Peak E' Lonnie: 6.2 cm/sec MV A max lonnie: 87.0 cm/sec E/E' lat: 9.3 E/E' med: 10.3 MV E/A: 0.73 MV V2 max: 112.2 cm/sec MV P1/2t max lonnie: 71.4 cm/sec Ao V2 max: 94.9 cm/sec MV max P.0 mmHg MV P1/2t: 149.9 msec Ao max P.6 mmHg MV V2 mean: 55.9 cm/sec MV dec slope: 139.5 cm/sec2 MV mean P.5 mmHg MV V2 VTI: 34.4 cm MVA(P1/2t): 1.5 cm2 LV V1 max: 79.9 cm/sec PA V2 max: 75.5 cm/sec LV V1 max P.6 mmHg ECHO/Echo Complete Interpretation Summary Normal LV size. Mild concentric left ventricular hypertrophy. Left ventricular systolic function is normal. The estimated ejection fraction is 60 %. Stage 1 diastolic dysfunction. Bileaflet diffuse mitral valve thickening. Mild (1+) eccentric mitral valve insufficiency. Mild (1+) aortic valve insufficiency. Bubble contrast study negative for right to left interatrial shunt. Ordering Physician: Josiah Girard Referring Physician: David Germain M.D. Performed By: Alonso Guy RCS
--- NOTE | 2021-12-12 22:22 | HP.PCM.HOS_ITS ---
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 He presented to [facility] ED about 1 hour after his symptoms started. He denies any weakness, vision changes or other. [facility] Medical History Diverticulosis Leg swelling Skin tear of left lower leg without complication Venous stasis dermatitis Venous ulcer of right leg Home Medications Metformin [Metformin Hcl] 1,000 mg PO BID 07/24/14 [History Last Taken 12/12/21] hydrochlorothiazide 25 mg tablet 12.5 mg PO DAILY 07/24/14 [History Last Taken 12/11/21] tamsulosin 0.4 mg capsule 0.4 mg PO DAILY 07/24/14 [History Last Taken 12/12/21] allopurinol 100 mg tablet 100 mg PO DAILY 12/09/16 [History Last Taken 1 Month Ago ~11/11/21] atorvastatin 20 mg tablet 20 mg PO DAILY 12/09/16 [History Last Taken 12/11/21] Allergy/AdvReac Type Severity Reaction Status Date / Time cefdinir [From Omnicef] AdvReac Other Verified 09/24/20 10:49 Family History Other Diabetes Surgical History Hx of cholecystectomy Social History Smoking Status: Former smoker ROS ROS Narrative Pertinent positives and pertinent negatives as noted in HPI. All other systems were reviewed and are negative Vital Signs Vital Signs Vital Signs: 12/12/21 21:55 Temperature 97.0 F L Temperature Source Temporal Pulse Rate 65 Respiratory Rate 16 Blood Pressure 146/90 H Blood Pressure Mean 108 Blood Pressure Source Monitor Blood Pressure Position Semi-Fowlers Blood Pressure Location Right Arm Pulse Ox 96 Oxygen Delivery Method Room Air Weight Weight: 90.4 kg Body Mass Index (BMI) 25.5 Physical Exam Narrative Physical exam: General: Well-nourished, well-developed. Head: Normocephalic, atraumatic, no tenderness Eyes: Vision is grossly intact. EOMI ENT, no trauma, moist mucous membranes, no rhinorrhea Neck: Nontender, full range of motion. CVS: Regular rate and rhythm. S1-S2 present. No murmur, gallop or rub. Respiratory : clear to auscultation bilaterally, chest wall nontender, no wheezing Abdomen: Soft, nontender, nondistended, normal bowel sounds, no masses : Deferred Back: Nontender, no CVA tenderness, no midline spinal tenderness, deformities, step-offs Extremities: Nontender full range of motion, no trauma Skin: Excoriation on right atkinson. Normal color. Neuro: Alert, oriented, left eye does not constrict with light (reports eye surgery). Right eye constrict with light. Strength in all extremities 5 out of 5. Deep tendon reflexes not hyperreflexia throughout. Psychiatry: Normal mood. Normal affect. Not depressed. Not anxious. Assessment & Plan Assessment/Plan (1) TIA (transient ischemic attack): (2) Diabetes mellitus, type II: (3) Hypertension: (4) Hyperlipidemia: PLAN: Plan TIA Serial NINDS NIH Scale ordered Negative CTA head and neck; and negative brain CT at outside hospital ED ordered. Lipid profile and A1c ordered. Physical therapy, occupational therapy and speech therapy to work with patient. N.p.o. until bedside swallow eval. Daily aspirin ordered. Home statin escalated to high intensity statin. Permissive hypertension. Control blood pressure with labetalol for systolic blood pressure of more than 220 or diastolic blood pressure of more than 120. MRI brain ordered Echocardiogram ordered. Diabetes mellitus Patient with hyperglycemia on presentation Home metformin held Monitor Accu-Cheks Correction scale insulin ordered. Hypertension Blood pressure is not within goal. Home blood pressure medication held secondary to permissive hypertension. Blood pressure control as above. Bradycardia Symptomatic Placed on telemetry. DVT prophylaxis: SCDs ordered. Charges/Coding Visit Charges OBSV E&M: 31492 Initial observation care L3
[2021-12-12 23:45] VITALS: O2SAT 96
[2021-12-13] VITALS (7 sets, daily range): BP systolic 116–157; BP diastolic 70–73; PULSE 47–57; RESP 15–16; TEMP 36.2–36.4; O2SAT 94–98; BMI 25.5
[2021-12-13 00:50] LABS: Bedside Glucose 222 mg/dL (74-106)
[2021-12-13 06:44] LABS: Absolute Neutrophil Count 4.8 X10^3/uL (2.0-7.7); Basophil# 0.07 X10^3/uL; Eosinophil# 0.16 X10^3/uL; Eosinophils% 2.3 % (0-5); Hematocrit 40.5 % (40-54); Lymphocyte % 20.1 % (19-41); Mean Corp Hgb Conc 34.6 g/dL (32-36); Mean Corpuscular Hgb 32.3 pg (27.0-32.0); Mean Corpuscular Volume 93.5 fL (80-94); Mean Platelet Vol. 9.8 fl (6.2-12.0); Monocyte% 7.2 % (0-10); NRBC Flagged by Analyzer 0 % (0-5); Neutrophil # 4.81 X10^3/uL (2.7-7.7); Neutrophil % 69.1 % (47-70); Platelet Count 160 K/mm3 (150-450); RBC Distribution Width CV 12.9 % (11.6-14.6); RBC Distribution Width SD 44.1 fl (35.1-43.9); Red Blood Count 4.33 M/mm3 (4.6-6.2)
[2021-12-13 07:06] LABS: Bedside Glucose 135 mg/dL (74-106)
[2021-12-13 07:13] LABS: Anion Gap 4 (5-15); BUN 15 mg/dL (7-18); Calcium,Total 9.4 mg/dL (8.5-10.1); Chloride 104 mmol/L (98-107); Cholesterol 108 mg/dL (200); EST Glomerular Filtration Rate 76 mL/min (>60); Est Glom Filt Rate - Afr Amer 92 mL/min (>60); Estimated Creatinine Clearance 67.36 ml/min; Glucose 148 mg/dL (74-106); High Density Lipoprotein 47 mg/dL; Potassium 4.9 mmol/L (3.5-5.1); Sodium Level 139 mmol/L (136-145); Triglycerides 91 mg/dL; Very Low Density Lipoprotein 18 mg/dL (5-40)
[2021-12-13 07:46] LABS: Hemoglobin A1c 7.5 % (3.8-5.6)
[2021-12-13] MEDS: Tamsulosin HCl 0.4 MG Capsule PO (07:55)
[2021-12-13] MEDS: Allopurinol 100 MG Tablet PO (07:55)
[2021-12-13] MEDS: Aspirin 81 MG TAB.CHEW PO (07:55)
--- NOTE | 2021-12-13 09:00 | MRI_ITS ---
HISTORY: CVA. TECHNIQUE: Multiplanar and multisequence MR images of the brain were obtained without contrast. 288 images. COMPARISON: CT 12/10/2019. FINDINGS: BRAIN PARENCHYMA: Mild chronic small vessel ischemic gliosis with increased T2 FLAIR signal in the periventricular regions. Small old cerebellar infarcts. No abnormal focus of restricted diffusion. No acute intracranial hemorrhage identified. CSF SPACES: Mild generalized volume loss. No significant midline shift or other mass effect.No extra-axial fluid collection. VASCULAR SYSTEM: Major intracranial flow voids are maintained. PARANASAL SINUSES AND MASTOID AIR CELLS: No significant air fluid levels. ORBITS: Bilateral lens resections. MRI/Brain without Contrast IMPRESSION: No evidence for acute infarct. Mild chronic involutional and white matter changes. Small chronic cerebellar infarcts. Electronically Signed: Xiomara Ramires MD at 9:59 EDT ,
--- NOTE | 2021-12-13 11:27 | DS.PCM_ITS ---
Providers Date of Admission: 12/12/21 Date of Discharge: 12/13/21 Primary Care Physician: Dr. 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 Routine Comment: Reason for Consult:: right lower leg diabetic ulcer Reason For Visit: TIA Diagnosis Discharge Diagnosis (1) TIA (transient ischemic attack): Status: Acute Code(s): G45.9 - Transient cerebral ischemic attack, unspecified (2) Diabetes mellitus, type II: Status: Chronic Code(s): E11.9 - Type 2 diabetes mellitus without complications (3) Hypertension: Status: Chronic Code(s): I10 - Essential (primary) hypertension (4) Hyperlipidemia: Status: Chronic Code(s): E78.5 - Hyperlipidemia, unspecified Medications at Discharge Home Medications Metformin [Metformin Hcl] 1,000 mg PO BID 07/24/14 hydrochlorothiazide 25 mg tablet 12.5 mg PO DAILY 07/24/14 tamsulosin 0.4 mg capsule 0.4 mg PO DAILY 07/24/14 allopurinol 100 mg tablet 100 mg PO DAILY 12/09/16 atorvastatin 20 mg tablet 20 mg PO DAILY 12/09/16 aspirin 81 mg chewable tablet 81 mg PO DAILY@0800 #90 tabs 12/13/21 Hospital Course Operations None Procedures 2-D Echocardiogram Summary of Care Provided Minutes Spent on Discharge: 35 Hospital Course: Patient is an 81-year-old gentleman with past medical history signal for diabetes mellitus type 2, essential hypertension dyslipidemia who presented with remittent dizziness. An assessment of transient ischemic attack made admitted to monitored bed 1. Transient ischemic attack ? Patient was placed on a monitored bed underwent subsequent evaluation with an MRI and a 2D echo MRI was negative for acute CVA however patient was found to have a small chronic cerebellar infarct. Antiplatelet therapy with aspirin added to patient medication regimen. Physical Exam Narrative GENERAL: cooperative HEENT: Atraumatic; normocephalic EYES; Anicteric, Normal Conjunctiva NECK; supple, normal thyroid, RESPIRATORY: Diminished to auscultation CARDIOVASCULAR: Regular S1 S2, GI: soft, normoactive bowel sounds, : No Renal angle tenderness; EXTREMITIES: No edema, no clubbing, MUSCULOSKELETAL: no muscle wasting NEURO: Awake; no lateralizing signs. SKIN: No Rash PSYCH; Flat affect Weight / BMI Weight Weight: 90.4 kg Body Mass Index (BMI) 25.5 ABG / Lab / Microbiology Data Result Diagrams: 12/13/21 06:15 12/13/21 06:15 Laboratory: Laboratory Results - last 24 hr 12/12/21 22:49: POC Glucose 222 H 12/13/21 06:15: WBC 7.0, RBC 4.33 L, Hgb 14.0, Hct 40.5, MCV 93.5, MCH 32.3 H, MCHC 34.6, RDW Std Deviation 44.1 H, RDW Coeff of [place] 12.9, Plt Count 160, MPV 9.8, Immature Gran % (Auto) 0.300, Neut % (Auto) 69.1, Lymph % (Auto) 20.1, [place] % (Auto) 7.2, Eos % (Auto) 2.3, Baso % (Auto) 1.0, Absolute Neuts (auto) 4.8, Absolute Lymphs (auto) 1.40, Nucleated RBC % 0 12/13/21 06:15: Sodium 139, Potassium 4.9, Chloride 104, Carbon Dioxide 31.0, Anion Gap 4 L, BUN 15, Creatinine 1.00, Estim Creat Clear Calc 67.36, Est GFR (MDRD) Af Amer 92, Est GFR (MDRD) Non-Af 76, BUN/Creatinine Ratio 15.0, Glucose 148 H, Calcium 9.4, Triglycerides 91, Cholesterol 108, LDL Cholesterol 43, VLDL Cholesterol 18, HDL Cholesterol 47 12/13/21 06:15: Hemoglobin A1c 7.5 H 12/13/21 06:42: POC Glucose 135 H Radiography Diagnostic Testing: Radiology Impression Echocardiogram 12/12/21 22:20 Interpretation Summary Normal LV size. Mild concentric left ventricular hypertrophy. Left ventricular systolic function is normal. The estimated ejection fraction is 60 %. Stage 1 diastolic dysfunction. Bileaflet diffuse mitral valve thickening. Mild (1+) eccentric mitral valve insufficiency. Mild (1+) aortic valve insufficiency. Bubble contrast study negative for right to left interatrial shunt. Ordering Physician: Josiah Girard Referring Physician: David Germain M.D. Performed By: Alonso Guy RCS Brain MRI 12/13/21 09:00 IMPRESSION: No evidence for acute infarct. Mild chronic involutional and white matter changes. Small chronic cerebellar infarcts. Electronically Signed: Xiomara Ramires MD at 9:59 EDT , D/C Instructions Discharge Diet: 1800 Calorie Control Diet Discharge Activity: Return to Normal Activity Call your doctor if you observe: Fever of 101 or Higher, Shortness of breath, Fainting spells and Chest pain Meaningful Use Info Meaningful Use Diagnoses (Choose all that apply): None applicable Discharge Plan Admission Admit Date/Time: 12/12/21 22:00 Attending Provider: Prabhu Fishman Primary Care Provider: David Germain Consulting Providers: Triston Silva Discharge Orders/Prescriptions Prescriptions: New aspirin 81 mg Tablet,Chewable 81 mg PO DAILY@0800 Qty: 90 0RF Continued tamsulosin 0.4 MG capsule 0.4 mg PO DAILY Label Comments: prostate/improves urine flow hydrochlorothiazide 25 MG tablet 12.5 mg PO DAILY Label Comments: diuretic Metformin [Metformin Hcl] 1,000 MG tablet 1,000 mg PO BID Label Comments: diabetes atorvastatin 20 MG tablet 20 mg PO DAILY allopurinol 100 MG tablet 100 mg PO DAILY Referrals / Follow Up: David Germain MD [Primary Care Provider] - Within 1 Week Disposition Disposition (needs filled in before D/C Order can be placed): Home, Self Care Charges/Coding Visit Charges OBSV E&M: 98752 Observation care discharge
--- NOTE | 2021-12-13 11:47 | CASEMGMT ---
This RN CM to room to discuss d/c plan with pt/family and pt states no concerns with going home at time of discharge. Pt declines need for further therapy/resources. Pt voices no further questions/concerns/needs. SStaten RN CM
--- NOTE | 2021-12-13 12:14 | PHA.DC.MC ---
Pharmacy Service has performed discharge medication reconciliation and counseling for this patient. The patient was counseled on the following discharge medications and changes in medications for homegoing were reviewed. 1. ASPIRIN The Reason for Use, instructions for use, and potential side effects were reviewed for all new medications. The patient's questions regarding all of their medications were answered. The patient was able to verbally demonstrate an understanding of their discharge medications. Home Medications Metformin [Metformin Hcl] 1,000 mg PO BID diabetes 07/24/14 hydrochlorothiazide 25 mg tablet 12.5 mg PO DAILY diuretic 07/24/14 tamsulosin 0.4 mg capsule 0.4 mg PO DAILY prostate 07/24/14 allopurinol 100 mg tablet 100 mg PO DAILY gout 12/09/16 atorvastatin 20 mg tablet 20 mg PO DAILY cholesterol 12/09/16 aspirin 81 mg chewable tablet 81 mg PO DAILY@0800 #90 tabs 12/13/21
== END 2021-12-13 11:29 | disposition home or self-care (01) ==
PROVIDERS: Hospitalist; Admitting Provider Internal Medicine; PCP Internal Medicine; Visit Provider Internal Medicine
DX: G45.9 Transient cerebral ischemic attack, unspecified (principal); E11.622 Type 2 diabetes mellitus with other skin ulcer; L97.919 Non-pressure chronic ulcer of unspecified part of right lower leg with unspecified severity; E11.65 Type 2 diabetes mellitus with hyperglycemia; E78.5 Hyperlipidemia, unspecified; Z87.891 Personal history of nicotine dependence; R47.81 Slurred speech; I10 Essential (primary) hypertension; Z79.899 Other long term (current) drug therapy; Z79.84 Long term (current) use of oral hypoglycemic drugs
CPT/HCPCS: 70551; 80048; 80061; 82962; 83036; 85025; 93306; 94762; Q9957; A4216

== ENCOUNTER → 2022-01-07 | Outpatient (CLI) | payer MEDICARE, OTHER, SELFPAY ==
[2022-01-07 18:20] LABS: Anion Gap 9 (5-15); BUN 19 mg/dL (7-18); BUN/Creat Ratio 15.1 RATIO (10-20); Calcium,Total 9.6 mg/dL (8.5-10.1); Chloride 100 mmol/L (98-107); Cholesterol 121 mg/dL (200); Creatinine, Serum 1.26 mg/dL (0.70-1.30); EST Glomerular Filtration Rate 58 mL/min (>60); Est Glom Filt Rate - Afr Amer 71 mL/min (>60); Glucose 188 mg/dL (74-106); High Density Lipoprotein 52 mg/dL; Potassium 4.1 mmol/L (3.5-5.1); Sodium Level 136 mmol/L (136-145); Triglycerides 159 mg/dL; Very Low Density Lipoprotein 32 mg/dL (5-40)
[2022-01-07 18:27] LABS: Hemoglobin A1c 7.4 % (3.8-5.6)
== END | disposition home or self-care (01) ==
LOC: MFPLAB 14:42
PROVIDERS: PCP Family Medicine; Referring Provider Family Medicine; Visit Provider Family Medicine
DX: I10 Essential (primary) hypertension (principal); E11.9 Type 2 diabetes mellitus without complications
CPT/HCPCS: 36415; 80048; 80061; 83036

== ENCOUNTER → 2022-01-20 | Outpatient (CLI) | payer MEDICARE, OTHER, SELFPAY | END | disposition home or self-care (01) | LOC: LABSPEC 01-21 06:30 | PROVIDERS: PCP Family Medicine; Visit Provider Podiatrist | DX: L03.032 Cellulitis of left toe (principal) | CPT/HCPCS: 87070; 87075; 87077; 87186; 87205 ==

== ENCOUNTER → 2022-02-15 | Outpatient (CLI) | payer MEDICARE, OTHER, SELFPAY ==
[2022-02-15 12:08] LABS: Absolute Lymphocyte Count 1.34 X10^3/uL (0.83-4.51); Absolute Neutrophil Count 5.7 X10^3/uL (2.0-7.7); Basophil# 0.09 X10^3/uL; Basophil% 1.1 % (0-1); Eosinophil# 0.27 X10^3/uL; Eosinophils% 3.4 % (0-5); Hematocrit 42.6 % (40-54); Hemoglobin 14.8 g/dL (13.0-16.5); Lymphocyte # 1.34 X10^3/ul (0.83-4.51); Lymphocyte % 16.8 % (19-41); Mean Corp Hgb Conc 34.7 g/dL (32-36); Mean Corpuscular Volume 92.2 fL (80-94); Mean Platelet Vol. 9.9 fl (6.2-12.0); Monocyte# 0.53 X10^3/uL; Monocyte% 6.6 % (0-10); NRBC Flagged by Analyzer 0 % (0-5); Neutrophil # 5.71 X10^3/uL (2.7-7.7); Neutrophil % 71.6 % (47-70); Platelet Count 191 K/mm3 (150-450); RBC Distribution Width CV 13.2 % (11.6-14.6); RBC Distribution Width SD 44.2 fl (35.1-43.9); Red Blood Count 4.62 M/mm3 (4.6-6.2)
[2022-02-15 12:24] LABS: ALB/GLOB Ratio 1.1 RATIO (0.9-2.4); AST(SGOT) 17 U/L (15-37); Alanine Aminotransfer ALT/SGPT 20 U/L (16-61); Albumin, Serum 3.7 g/dL (3.2-5.0); Alkaline Phosphatase 80 U/L (45-117); Anion Gap 6 (5-15); BUN 23 mg/dL (7-18); Calcium,Total 9.9 mg/dL (8.5-10.1); Chloride 98 mmol/L (98-107); Creatinine, Serum 1.21 mg/dL (0.70-1.30); EST Glomerular Filtration Rate 61 mL/min (>60); Est Glom Filt Rate - Afr Amer 74 mL/min (>60); Globulin 3.4 g/dL (2.2-4.2); Glucose 191 mg/dL (74-106); Potassium 4.2 mmol/L (3.5-5.1); Protein, Total 7.1 g/dL (6.4-8.2); Sodium Level 134 mmol/L (136-145); Uric Acid 7.4 mg/dL (3.5-7.2)
[2022-02-15 19:09] LABS: M R Staph aureus DNA By PCR Negative (Negative); Probe Check PASS; Specimen Processing Control PASS; Staph aureus DNA By PCR NEGATIVE (Negative)
== END | disposition home or self-care (01) ==
LOC: MTLAB 10:49
PROVIDERS: PCP Family Medicine; Referring Provider Podiatrist; Visit Provider Podiatrist
DX: L03.031 Cellulitis of right toe (principal)
CPT/HCPCS: 36415; 80053; 84550; 85025; 87070; 87205; 87640

== ENCOUNTER 2022-03-24 08:49 | Emergency (ER) | payer MEDICARE, OTHER, SELFPAY ==
[2022-03-24 08:51] VITALS: BP 85/67; PULSE 79; RESP 17; TEMP 36.1; O2SAT 97; BMI 26.6
--- NOTE | 2022-03-24 09:08 | CT_ITS ---
EXAM: CT ABDOMEN AND PELVIS WITHOUT INTRAVENOUS CONTRAST CLINICAL INDICATION: Abdominal distention. TECHNIQUE: Helically acquired images were obtained of the abdomen and pelvis without intravenous contrast. This CT exam was performed using one or more of the following dose reduction techniques: automated exposure control, adjustment of the mA and/or kV according to patient size, and/or use of iterative reconstruction technique. This report was created using [employer] report generation technology. RADIATION DOSE: CTDIvol = 11.15 mGy, DLP = 604.73 mGy-cm COMPARISON: CT abdomen and pelvis with contrast 12/10/2019. FINDINGS: LOWER THORAX: Mild pulmonary hyperinflation with flattening of the hemidiaphragms. Calcified granuloma in the right central lung base. No cardiomegaly. No significant pericardial effusion. ABDOMEN: LIVER: Unremarkable. Homogeneous. GALLBLADDER AND BILE DUCTS: No visible gallbladder presumably from laparoscopic cholecystectomy. No intra- or extrahepatic biliary ductal dilation. PANCREAS: Unremarkable. No focal cystic mass. SPLEEN: Unremarkable. Normal size without focal cystic or solid mass. ADRENALS: Unremarkable. No nodules. KIDNEYS AND URETERS: Small left renal cortical cyst is isodense corresponding to the nonenhancing cyst on comparison CT. No stones or hydronephrosis in both kidneys. Normal renal size and position. STOMACH AND BOWEL: Mild gaseous distention of the colon containing some fecal contents. Normal small bowel. No focal inflammatory change. PELVIS: APPENDIX: Normal. BLADDER: Unremarkable. REPRODUCTIVE: Enlarged central lobe of the prostate gland is unchanged. ABDOMEN and PELVIS: INTRAPERITONEAL SPACE: Unremarkable. No ascites or other fluid collection. No free air. BONES/JOINTS: Mild degenerative anterolisthesis of L4 on L5 is unchanged. Degenerative disc space height narrowing with degenerative vacuum phenomenon at L2-L3 disc space level is unchanged. Calcified posterior bulging annulus at L2-L3 disc space level is unchanged. No suspicious lytic or blastic abnormality. SOFT TISSUES: Unremarkable. No discrete abdominal or pelvic wall hernia. VASCULATURE: Prominent calcified plaques along the abdominal aorta, celiac artery, SMA, splenic artery, the origins of the renal arteries, both common iliac arteries down to the common femoral arteries. Abdominal aorta is non-dilated. LYMPH NODES: Unremarkable. No enlarged lymph nodes. CT/Abdomen/Pelvis without Cont IMPRESSION: 1. No bowel obstruction or acute abnormality in the abdomen and pelvis. 2. Mild gaseous distention of the colon containing some fecal contents but no constipation. 3. Small left renal cortical cyst is unchanged. 4. No significant interval change when compared to 12/10/2019. Electronically Signed: Darryl Singleton MD at 10:02 EST ,
--- NOTE | 2022-03-24 09:10 | EDS_ITS ---
HPI HPI - GI History of Present Illness Chief Complaint: Constipation Informant: patient and spouse/S.O. Narrative Narrative: Patient is an 81-year-old male with history of hypertension, hyperlipidemia, type 2 diabetes mellitus with polyneuropathy and a chronic history of constipation presenting with constipation. Patient dates he has not had a bowel movement since Monday (4 days ago). At that time patient had diarrhea. He states since then he has not had a good bowel movement and does pass some gas with what sounds like mucus. Denies any blood in these stools. Denies associate nausea or vomiting. Denies any chest abdominal pain. Has been taking MiraLAX twice a day with no help and then started taking milk of magnesia which usually will help. Did not have any relief with this and then was worried he may be was taking too much and that was making it worse. He believes this was triggered by being put on an antibiotic by his receiving barn custodian for foot issue. States today he has not passed any gas today which is new for him. Denies any rectal pressure or discomfort. Denies any abdominal pain. Notes he does get dizzy but attributes it to his prior pressure being low. He states if he does not drink a large amount of water his blood pressure will be low with he will be dizzy. This is an ongoing thing and he has not informed his primary care doctor about this. Has a history of open cholecystectomy. [facility] Medical History (Updated 03/24/22 @ 11:[address] Edda Villa, ) Diabetes Diverticulosis Hypertension Leg swelling Skin tear of left lower leg without complication Venous stasis dermatitis Venous ulcer of right leg Home Medications Metformin [Metformin Hcl] 1,000 mg PO BID diabetes 07/24/14 [History Last Taken 12/12/21] hydrochlorothiazide 25 mg tablet 12.5 mg PO DAILY diuretic 07/24/14 [History Last Taken 12/11/21] tamsulosin 0.4 mg capsule 0.4 mg PO DAILY prostate 07/24/14 [History Last Taken 12/12/21] allopurinol 100 mg tablet 100 mg PO DAILY gout 12/09/16 [History Last Taken 1 Month Ago ~11/11/21] atorvastatin 20 mg tablet 20 mg PO DAILY cholesterol 12/09/16 [History Last Taken 12/11/21] aspirin 81 mg chewable tablet 81 mg PO DAILY@0800 #90 tabs 12/13/21 [Rx Last Taken Unknown] lactulose 10 gram/15 mL (15 mL) oral solution 15 ml PO BID PRN constipation # 1,440 mL 03/24/22 [Rx Last Taken Unknown] Allergy/AdvReac Type Severity Reaction Status Date / Time cefdinir [From Omnicef] AdvReac Other Verified 03/24/22 08:50 Family History Other Diabetes Surgical History Hx of cholecystectomy Social History Smoking Status: Former smoker ROS ROS ED Constitutional Constitutional ED: Reports other Details: Intermittent dizziness ; Denies chills or fever(s) ENT ENT ED: Denies rhinorrhea Cardiovascular Cardiovascular: Denies chest pain Respiratory/Chest Respiratory/Chest: Denies cough Gastrointestinal Gastrointestinal: Reports constipation; Denies abdominal pain, melena, nausea or vomiting Genitourinary Genitourinary ED: Denies dysuria or hematuria Musculoskeletal Musculoskeletal: Denies arthralgias or myalgias Integumentary Denies rash Neurologic Neurologic: Denies headache(s), paresthesias or weakness Psychiatric Psychiatric: Denies anxiety EXAM Physical Exam Const Vital Signs: 03/24/22 08:51 03/24/22 09:18 Temperature 97.0 F L Temperature Source Temporal Pulse Rate 79 Respiratory Rate 17 Blood Pressure 85/67 L 117/71 Blood Pressure Mean 73 86 Pulse Ox 97 Oxygen Delivery Method Room Air Positive well nourished and well developed General Appearance ED: well developed and NAD; Negative for pallor HEENT Reports moist mucous membranes normocephalic and atraumatic Neck supple Resp normal respiratory effort and clear to auscultation bilaterally Cardio regular rate, regular rhythm and no murmurs GI non-tender and non-distended Auscultation: hyperactive bowel sounds Palpation: soft; Negative for tender, guarding or rigid Back/Spine no CVA tenderness Extremity full ROM General Extremety ED: Negative for edema General Extremity: Negative for edema Neuro moves all extremities Motor Exam: Negative for general weakness Psych mental status grossly normal and thought process normal Skin General Skin Exam: Negative for jaundice or pallor Rashes: no rashes MDM MDM MDM Narrative Medical decision making narrative: Patient is evaluated for sensation of constipation. He does have a history of abdominal surgeries and is now passing gas today. This was preceded however with diarrhea. Patient has chronic GI issues. He appears nontoxic and his abdomen is soft and nontender. He is Of any abdominal pain. Work-up including a CBC, CMP and lactate is normal. Urinalysis shows 15 protein but is otherwise normal. Patient initially was hy potensive in the ER but this improved without any intervention and blood pressure became mildly hypertensive with IV fluids. Patient was asymptomatic during this and states that this happens to him if he does not drink enough water at night. CT of the abdomen pelvis is obtained to rule out small bowel obstruction which does not show any acute process. Does show mild gaseous distention of the colon containing some fecal contents but no significant interval change. He admits at one point his primary care doctor wanted to start him on Linzess because of his chronic constipation. He states he could not afford it. He will be started on lactulose to see if this helps with his symptoms. Counseled on titrating medicines to 1 soft well-formed bowel movement a day. Is given referral for GI. Is counseled return precautions. Patient and family verbalized agreement understand this plan. He is also encouraged to follow-up with his primary care doctor about his blood pressure medications g iven that he does get hypotensive in the morning intermittently and seems to be very volume dependent. Lab Data Attestation: I reviewed the patient's lab results. Labs: Laboratory Results - last 24 hr 03/24/22 03/24/22 03/24/22 09:12 09:12 09:12 WBC 7.2 RBC 4.36 L Hgb 14.1 Hct 40.3 MCV 92.4 MCH 32.3 H MCHC 35.0 RDW Std Deviation 44.5 H RDW Coeff of [place] 13.2 Plt Count 179 MPV 9.8 Immature Gran % (Auto) 0.400 Neut % (Auto) 69.5 Lymph % (Auto) 19.8 [place] % (Auto) 7.9 Eos % (Auto) 1.7 Baso % (Auto) 0.7 Absolute Neuts (auto) 5.0 Absolute Lymphs (auto) 1.43 Nucleated RBC % 0 Sodium 138 Potassium 4.1 Chloride 103 Carbon Dioxide 31.0 Anion Gap 4 L BUN 12 Creatinine 1.23 Estim Creat Clear Calc 51.70 Est GFR (MDRD) Af Amer 73 Est GFR (MDRD) Non-Af 60 BUN/Creatinine Ratio 9.8 L Glucose 163 H Lactic Acid 1.9 Calcium 9.5 Total Bilirubin 0.90 AST 16 ALT 22 Alkaline Phosphatase 86 Total Protein 6.8 Albumin 3.7 Globulin 3.1 Albumin/Globulin Ratio 1.2 Urine Color Urine Clarity Urine pH Ur Specific [place] Urine Protein Urine Glucose (UA) Urine Ketones Urine Occult Blood Urine Nitrite Urine Bilirubin Urine Urobilinogen Ur Leukocyte Esterase Urine RBC Urine WBC Ur Squamous Epith Cells Urine Bacteria Urine Mucus 03/24/22 10:32 WBC RBC Hgb Hct MCV MCH MCHC RDW Std Deviation RDW Coeff of [place] Plt Count MPV Immature Gran % (Auto) Neut % (Auto) Lymph % (Auto) [place] % (Auto) Eos % (Auto) Baso % (Auto) Absolute Neuts (auto) Absolute Lymphs (auto) Nucleated RBC % Sodium Potassium Chloride Carbon Dioxide Anion Gap BUN Creatinine Estim Creat Clear Calc Est GFR (MDRD) Af Amer Est GFR (MDRD) Non-Af BUN/Creatinine Ratio Glucose Lactic Acid Calcium Total Bilirubin AST ALT Alkaline Phosphatase Total Protein Albumin Globulin Albumin/Globulin Ratio Urine Color Yellow Urine Clarity Clear Urine pH 8.0 Ur Specific [place] 1.015 Urine Protein 15 H Urine Glucose (UA) Normal Urine Ketones Negative Urine Occult Blood Negative Urine Nitrite Negative Urine Bilirubin Negative Urine Urobilinogen Normal Ur Leukocyte Esterase Negative Urine RBC 0 SEEN Urine WBC 0 SEEN Ur Squamous Epith Cells 0 SEEN Urine Bacteria 0 SEEN Urine Mucus 0 SEEN Radiography Diagnostic Testing: Clinical Impression(s) from Imaging Studies Abdomen/Pelvis CT 03/24/22 09:08 IMPRESSION: 1. No bowel obstruction or acute abnormality in the abdomen and pelvis. 2. Mild gaseous distention of the colon containing some fecal contents but no constipation. 3. Small left renal cortical cyst is unchanged. 4. No significant interval change when compared to 12/10/2019. Electronically Signed: Darryl Singleton MD at 10:02 EST , Discharge Plan Triage Chief Complaint: Constipation ED Provider: Edda Villa Dx/Rx/DC Orders Clinical Impression: Transient hypotension, Constipation Instructions: ED Constipation (Adult), ED Low Blood Pressure, All Causes Prescriptions: New lactulose 10 gram/15 mL (15 mL) solution 15 ml PO BID PRN (Reason: constipation) Qty: 1440 0RF No Action tamsulosin 0.4 MG capsule 0.4 mg PO DAILY Label Comments: prostate/improves urine flow hydrochlorothiazide 25 MG tablet 12.5 mg PO DAILY Label Comments: diuretic Metformin [Metformin Hcl] 1,000 MG tablet 1,000 mg PO BID Label Comments: diabetes atorvastatin 20 MG tablet 20 mg PO DAILY allopurinol 100 MG tablet 100 mg PO DAILY aspirin 81 mg Tablet,Chewable 81 mg PO DAILY@0800 Qty: 90 0RF Primary Care Provider: Shantanu Jackson Referrals: Shantanu Jackson MD [Primary Care Provider] - Friend,DO Bucky [Med Staff - Active Staff] - As Needed Activity Restrictions/Additional Instructions: You have some chronic appearing dilation of your colon but no overt constipation today. I recommend he follow-up with your GI doctor. Continue taking the MiraLAX and you may start taking the lactulose up to twice a day to help regulate your bowel movements. If you develop abdominal pain or worsening symptoms please return to the emergency room. Your blood pressure was low when you arrived. Please discuss this with your primary care doctor. Disposition Disposition: Home, Self Care Discharge Date/Time: 03/24/22 11:20
[2022-03-24] MEDS: 0.9% Normal Saline 1,000 ML 1000 ML IV (09:13)
[2022-03-24 09:18] VITALS: BP 117/71
[2022-03-24 09:27] LABS: Absolute Lymphocyte Count 1.43 X10^3/uL (0.83-4.51); Basophil# 0.05 X10^3/uL; Basophil% 0.7 % (0-1); Eosinophil# 0.12 X10^3/uL; Eosinophils% 1.7 % (0-5); Hematocrit 40.3 % (40-54); Hemoglobin 14.1 g/dL (13.0-16.5); Lymphocyte # 1.43 X10^3/ul (0.83-4.51); Lymphocyte % 19.8 % (19-41); Mean Corpuscular Hgb 32.3 pg (27.0-32.0); Mean Corpuscular Volume 92.4 fL (80-94); Mean Platelet Vol. 9.8 fl (6.2-12.0); Monocyte# 0.57 X10^3/uL; Monocyte% 7.9 % (0-10); NRBC Flagged by Analyzer 0 % (0-5); Neutrophil # 5.02 X10^3/uL (2.7-7.7); Neutrophil % 69.5 % (47-70); Platelet Count 179 K/mm3 (150-450); RBC Distribution Width CV 13.2 % (11.6-14.6); RBC Distribution Width SD 44.5 fl (35.1-43.9); Red Blood Count 4.36 M/mm3 (4.6-6.2); White Blood Count 7.2 K/mm3 (4.4-11.0)
[2022-03-24 09:41] LABS: ALB/GLOB Ratio 1.2 RATIO (0.9-2.4); AST(SGOT) 16 U/L (15-37); Alanine Aminotransfer ALT/SGPT 22 U/L (16-61); Albumin, Serum 3.7 g/dL (3.2-5.0); Alkaline Phosphatase 86 U/L (45-117); Anion Gap 4 (5-15); BUN 12 mg/dL (7-18); BUN/Creat Ratio 9.8 RATIO (10-20); Calcium,Total 9.5 mg/dL (8.5-10.1); Chloride 103 mmol/L (98-107); Creatinine, Serum 1.23 mg/dL (0.70-1.30); EST Glomerular Filtration Rate 60 mL/min (>60); Est Glom Filt Rate - Afr Amer 73 mL/min (>60); Globulin 3.1 g/dL (2.2-4.2); Glucose 163 mg/dL (74-106); Potassium 4.1 mmol/L (3.5-5.1); Protein, Total 6.8 g/dL (6.4-8.2); Sodium Level 138 mmol/L (136-145)
[2022-03-24 09:47] LABS: Lactic Acid 1.9 mmol/L (0.4-1.9)
[2022-03-24 10:41] LABS: Bacteria 0 SEEN /hpf (None Seen); Mucous, Urine 0 SEEN /hpf (<or=2+); Red Blood Cells-Urine 0 SEEN /hpf (0-5); Squamous Epithelial Cells - UA 0 SEEN /hpf (0-5); White Blood Cells 0 SEEN /hpf (0-5)
[2022-03-24 10:44] LABS: Color, Urine Yellow (Yellow); Glucose, Dipstick Normal (Normal); Ketone-Dipstick Negative (Negative); Leukocyte Esterase-Dipstick Negative /ul (Negative); Nitrite-Dipstick Negative (Negative); Occult Blood-Urine Negative /ul (Negative); Protein-Dipstick 15 mg/dl (Negative); Specific Gravity, Urine 1.015 (1.002-1.030); Urine Bilirubin Dipstick Negative (Negative); Urine Clarity Clear (Clear); Urine Urobilinogen Normal (Normal)
== END 2022-03-24 11:20 | disposition home or self-care (01) ==
PROVIDERS: Emergency Provider Emergency Medicine; PCP Family Medicine; Visit Provider Emergency Medicine
DX: I95.9 Hypotension, unspecified (principal); E11.42 Type 2 diabetes mellitus with diabetic polyneuropathy; K59.00 Constipation, unspecified; Z87.891 Personal history of nicotine dependence; E78.5 Hyperlipidemia, unspecified; R19.7 Diarrhea, unspecified; I10 Essential (primary) hypertension
CPT/HCPCS: 74176; 80053; 81001; 83605; 85025; 99283; J7030

== ENCOUNTER 2022-03-29 11:31 | Emergency (ER) | payer MEDICARE, OTHER, SELFPAY ==
[2022-03-29 11:32] VITALS: BP 122/75; PULSE 83; RESP 18; TEMP 36.6; O2SAT 100; BMI 26.6
[2022-03-29 12:48] VITALS: RESP 18
--- NOTE | 2022-03-29 16:48 | ED.VIS.GI ---
HPI HPI - GI History of Present Illness Chief Complaint: Constipation Narrative Narrative: 82-year-old male with history of constipation presenting with constipation. He was seen a few days ago and had blood work and a CAT scan of the abdomen which showed constipation. He was put on lactulose and took this twice a day for the last few days. He had 1 bowel movement finished first day and had a bowel movement yesterday. He has not had a bowel movement today. He does not believe he had a significant bowel movement. He states that when he was trying to defecate he noticed he felt a little bit lightheaded. No nausea or vomiting. No fever or chills. Patient did not take any lactulose today. He states his abdomen does not hurt. [facility] Medical History Diabetes Diverticulosis Hypertension Leg swelling Skin tear of left lower leg without complication Venous stasis dermatitis Venous ulcer of right leg Home Medications Metformin [Metformin Hcl] 1,000 mg PO BID diabetes 07/24/14 [History Last Taken 12/12/21] hydrochlorothiazide 25 mg tablet 12.5 mg PO DAILY diuretic 07/24/14 [History Last Taken 12/11/21] tamsulosin 0.4 mg capsule 0.4 mg PO DAILY prostate 07/24/14 [History Last Taken 12/12/21] allopurinol 100 mg tablet 100 mg PO DAILY gout 12/09/16 [History Last Taken 1 Month Ago ~11/11/21] atorvastatin 20 mg tablet 20 mg PO DAILY cholesterol 12/09/16 [History Last Taken 12/11/21] aspirin 81 mg chewable tablet 81 mg PO DAILY@0800 #90 tabs 12/13/21 [Rx Last Taken Unknown] lactulose 10 gram/15 mL (15 mL) oral solution 15 ml PO BID PRN constipation #1,440 mL 03/24/22 [Rx Last Taken Unknown] peg 3350-electrolytes 236 gram-22.74 gram-6.74 gram-5.86 gram solution (Golytely) 240 ml PO Q10M PRN constipation #4,000 mL 03/29/22 [Rx Last Taken Unknown] Allergy/AdvReac Type Severity Reaction Status Date / Time cefdinir [From Omnicef] AdvReac Other Verified 03/29/22 11:44 Family History Other Diabetes Surgical History Hx of cholecystectomy Social History Smoking Status: Former smoker ROS ROS ED Constitutional Constitutional ED: Denies chills, fever(s) or sweats Eyes Eyes: Denies blurry vision or change in vision ENT ENT ED: Denies ear pain or sore throat Cardiovascular Cardiovascular: Denies chest pain, palpitations or racing heartbeat Respiratory/Chest Respiratory/Chest: Denies cough, dyspnea or sputum Gastrointestinal Gastrointestinal: Reports constipation; Denies abdominal pain, diarrhea, nausea or vomiting Genitourinary Genitourinary ED: Denies dysuria, hematuria or urinary frequency Musculoskeletal Musculoskeletal: Denies arthralgias, myalgias or neck pain Integumentary Denies abscess, Abrasions or rash Neurologic Neurologic: Denies headache(s), paresthesias or weakness Psychiatric Psychiatric: Denies anxiety, depression, suicidal ideation or suicidal thoughts Endocrine Endocrinology: Denies polydipsia or polyuria EXAM Physical Exam Const Vital Signs: 03/29/22 11:32 03/29/22 12:48 Temperature 97.8 F Temperature Source Temporal Pulse Rate 83 Respiratory Rate 18 18 Blood Pressure 122/75 H Blood Pressure Mean 90 Pulse Ox 100 Oxygen Delivery Method Room Air Positive well nourished General Appearance ED: NAD HEENT Reports moist mucous membranes Eyes PERRL and EOMs intact bilaterally Resp normal respiratory effort and clear to auscultation bilaterally Auscultation: Negative for rales, rhonchi or wheezes Cardio regular rate and regular rhythm GI non-tender, non-distended and no masses Back/Spine no CVA tenderness Neuro CN's II-XII intact bilaterally and moves all extremities Sensorium / Orientation: alert, oriented to person and oriented to place Psych mental status grossly normal Skin no wounds MDM MDM MDM Narrative Medical decision making narrative: Patient presenting with ongoing constipation. He did not take any lactulose today. He had 2 bowel movements in the last several days. His abdominal exam is benign. He recently had blood work and a CT scan of his abdomen which did not show anything acute. I suspect he was giggling while trying to defecate today and this is why he was lightheaded because his vital signs are normal here. he is not complaining of any pain. Abdominal exam is benign he is very well-appearing and actually joking and laughing while I am talking to him. He does not have any abdominal pain today. He states he has not had a significant bowel movement. I offered enemas for home but he states he will use these. Patient was amenable to switching to GoLytely. Given a negative work-up and CT scan recently I think this is reasonable. Patient counseled to follow-up with his PCP to ensure resolution or return for new or worsening symptoms. Impression: 1. Constipation 2. Lightheaded Discharge Plan Triage Chief Complaint: Constipation ED Provider: Jose Pastrana Dx/Rx/DC Orders Instructions: ED Constipation (Adult) Prescriptions: New peg 3350-electrolytes [Golytely] 236-22.74-6.74 -5.86 gram recon soln 240 ml PO Q10M PRN Qty: 4000 0RF Rx Instructions: until fecal effluent is clear No Action tamsulosin 0.4 MG capsule 0.4 mg PO DAILY Label Comments: prostate/improves urine flow hydrochlorothiazide 25 MG tablet 12.5 mg PO DAILY Label Comments: diuretic Metformin [Metformin Hcl] 1,000 MG tablet 1,000 mg PO BID Label Comments: diabetes atorvastatin 20 MG tablet 20 mg PO DAILY allopurinol 100 MG tablet 100 mg PO DAILY aspirin 81 mg Tablet,Chewable 81 mg PO DAILY@0800 Qty: 90 0RF lactulose 10 gram/15 mL (15 mL) solution 15 ml PO BID PRN (Reason: constipation) Qty: 1440 0RF Primary Care Provider: Shantanu Jackson Referrals: Shantanu Jackson MD [Primary Care Provider] - Disposition Disposition: Home, Self Care Discharge Date/Time: 03/29/22 12:49
== END 2022-03-29 12:49 | disposition home or self-care (01) ==
LOC: ED 12:38
PROVIDERS: Emergency Provider Student in an Organized Health Care Education/Training Program; PCP Family Medicine; Visit Provider Student in an Organized Health Care Education/Training Program
DX: R42 Dizziness and giddiness (principal); E11.9 Type 2 diabetes mellitus without complications; K59.00 Constipation, unspecified; I10 Essential (primary) hypertension; Z87.891 Personal history of nicotine dependence
CPT/HCPCS: 99283

== ENCOUNTER → 2022-07-04 | Outpatient (CLI) | payer MEDICARE, OTHER, SELFPAY ==
[2022-07-04 12:50] LABS: ALB/GLOB Ratio 1.1 RATIO (0.9-2.4); AST(SGOT) 14 U/L (15-37); Alanine Aminotransfer ALT/SGPT 18 U/L (16-61); Albumin, Serum 3.8 g/dL (3.2-5.0); Alkaline Phosphatase 97 U/L (45-117); Anion Gap 4 (5-15); BUN 22 mg/dL (7-18); Calcium,Total 9.9 mg/dL (8.5-10.1); Chloride 100 mmol/L (98-107); Cholesterol 126 mg/dL (200); Creatinine, Serum 1.22 mg/dL (0.70-1.30); EST Glomerular Filtration Rate 60 mL/min (>60); Est Glom Filt Rate - Afr Amer 73 mL/min (>60); Globulin 3.6 g/dL (2.2-4.2); Glucose 217 mg/dL (74-106); High Density Lipoprotein 51 mg/dL; Potassium 4.3 mmol/L (3.5-5.1); Protein, Total 7.4 g/dL (6.4-8.2); Sodium Level 133 mmol/L (136-145); Triglycerides 98 mg/dL; Very Low Density Lipoprotein 20 mg/dL (5-40)
== END | disposition home or self-care (01) ==
LOC: MFPLAB 10:36
PROVIDERS: PCP Family Medicine; Visit Provider Family Medicine
DX: E78.5 Hyperlipidemia, unspecified (principal)
CPT/HCPCS: 36415; 80053; 80061

== ENCOUNTER → 2022-09-21 | Outpatient (CLI) | payer MEDICARE, OTHER, SELFPAY ==
[2022-09-21 13:20] LABS: Anion Gap 6 (5-15); BUN 19 mg/dL (7-18); BUN/Creat Ratio 15.7 RATIO (10-20); Calcium,Total 10.1 mg/dL (8.5-10.1); Chloride 101 mmol/L (98-107); Cholesterol 137 mg/dL (200); Creatinine, Serum 1.21 mg/dL (0.70-1.30); EST Glomerular Filtration Rate 61 mL/min (>60); Est Glom Filt Rate - Afr Amer 74 mL/min (>60); Glucose 204 mg/dL (74-106); High Density Lipoprotein 49 mg/dL; PSA,Total - Annual Screen 3.09 ng/mL (0.00-4.00); Potassium 4.7 mmol/L (3.5-5.1); Sodium Level 132 mmol/L (136-145); Triglycerides 129 mg/dL; Very Low Density Lipoprotein 26 mg/dL (5-40)
[2022-09-21 13:51] LABS: Hemoglobin A1c 7.6 % (3.8-5.6)
== END | disposition home or self-care (01) ==
LOC: MFPLAB 09:56
PROVIDERS: PCP Family Medicine; Visit Provider Family Medicine
DX: Z00.00 Encounter for general adult medical examination without abnormal findings (principal); E11.9 Type 2 diabetes mellitus without complications; Z13.6 Encounter for screening for cardiovascular disorders; Z12.5 Encounter for screening for malignant neoplasm of prostate
CPT/HCPCS: 36415; 80048; 80061; 83036; 84153; G0103

== ENCOUNTER → 2023-01-04 | Outpatient (CLI) | payer MEDICARE, OTHER, SELFPAY ==
[2023-01-04 12:55] LABS: ALB/GLOB Ratio 1.1 RATIO (0.9-2.4); AST(SGOT) 10 U/L (15-37); Alanine Aminotransfer ALT/SGPT 21 U/L (16-61); Albumin, Serum 3.6 g/dL (3.2-5.0); Alkaline Phosphatase 95 U/L (45-117); Anion Gap 5 (5-15); BUN 20 mg/dL (7-18); BUN/Creat Ratio 16.7 RATIO (10-20); Calcium,Total 9.8 mg/dL (8.5-10.1); Chloride 99 mmol/L (98-107); Cholesterol 117 mg/dL (200); EST Glomerular Filtration Rate 62 mL/min (>60); Est Glom Filt Rate - Afr Amer 74 mL/min (>60); Globulin 3.2 g/dL (2.2-4.2); Glucose 203 mg/dL (74-106); High Density Lipoprotein 53 mg/dL; Potassium 4.2 mmol/L (3.5-5.1); Protein, Total 6.8 g/dL (6.4-8.2); Sodium Level 134 mmol/L (136-145); Triglycerides 105 mg/dL; Very Low Density Lipoprotein 21 mg/dL (5-40)
[2023-01-04 12:56] LABS: Microalbumin,Random Urine 47.8 mg/L (NO RANGE EST.); Microalbumin:Creatinine Ratio 123.5 mg/g CRE (<30 mg/g CRE)
== END | disposition home or self-care (01) ==
LOC: MFPLAB 10:37
PROVIDERS: PCP Family Medicine; Visit Provider Family Medicine
DX: E11.9 Type 2 diabetes mellitus without complications (principal)
CPT/HCPCS: 36415; 80053; 80061; 82043; 82570

== ENCOUNTER → 2023-03-16 | Outpatient (CLI) | payer MEDICARE, OTHER, SELFPAY ==
[2023-03-16 13:04] LABS: Microalbumin,Random Urine 70.9 mg/L (NO RANGE EST.); Microalbumin:Creatinine Ratio 174.2 mg/g CRE (<30 mg/g CRE)
[2023-03-16 13:18] LABS: AST(SGOT) 17 U/L (15-37); Alanine Aminotransfer ALT/SGPT 21 U/L (16-61); Albumin, Serum 3.5 g/dL (3.2-5.0); Alkaline Phosphatase 100 U/L (45-117); Anion Gap 8 (5-15); BUN 18 mg/dL (7-18); BUN/Creat Ratio 17.1 RATIO (10-20); Calcium,Total 9.8 mg/dL (8.5-10.1); Chloride 95 mmol/L (98-107); Cholesterol 115 mg/dL (200); Creatinine, Serum 1.05 mg/dL (0.70-1.30); EST Glomerular Filtration Rate 72 mL/min (>60); Est Glom Filt Rate - Afr Amer 87 mL/min (>60); Globulin 3.6 g/dL (2.2-4.2); Glucose 196 mg/dL (74-106); High Density Lipoprotein 46 mg/dL; Potassium 4.2 mmol/L (3.5-5.1); Protein, Total 7.1 g/dL (6.4-8.2); Sodium Level 132 mmol/L (136-145); Triglycerides 132 mg/dL; Very Low Density Lipoprotein 26 mg/dL (5-40)
== END | disposition home or self-care (01) ==
LOC: MFPLAB 11:12
PROVIDERS: PCP Family Medicine; Visit Provider Family Medicine
DX: I10 Essential (primary) hypertension (principal); E11.9 Type 2 diabetes mellitus without complications; E78.5 Hyperlipidemia, unspecified
CPT/HCPCS: 36415; 80053; 80061; 82043; 82570

== ENCOUNTER 2023-05-06 10:22 | Emergency (ER) | payer MEDICARE, OTHER, SELFPAY ==
[2023-05-06 10:23] VITALS: BP 142/75; PULSE 73; RESP 16; TEMP 36.2; O2SAT 98; BMI 26.0
--- NOTE | 2023-05-06 10:58 | RAD_ITS ---
INDICATION: Constipation EXAMINATION/TECHNIQUE: X-RAY - XR Abdomen Series W/ Chest 1 View COMPARISON: Prior study dated: 12/10/2019. FINDINGS: --Chest: LINES/DEVICES: None. LUNGS: Minimal left basilar atelectasis. MEDIASTINUM AND CARDIOVASCULAR STRUCTURES: Cardiac silhouette not enlarged. Central airways and mediastinal contour are unremarkable. BONES AND SOFT TISSUES: No acute findings. --Abdomen: BOWEL GAS PATTERN: Nonspecific gaseous small bowel loops and colon with air-fluid levels suggestive of ileus. FREE AIR: No definite free air. ORGANOMEGALY: Not seen. CALCIFICATIONS: Vascular calcifications. BONES AND SOFT TISSUES: No acute findings. RAD/Acute Abdomen Inc Chest IMPRESSION: Nonspecific gaseous bowel loops and colon could be due to ileus. Electronically Signed: Roberto Dinero MD at 11:43 EST ,
--- NOTE | 2023-05-06 10:59 | EDS_ITS ---
HPI History of Present Illness Chief Complaint: Constipation Informant: patient and family Narrative Narrative: Patient comes in with complaints of constipation. He states his last real bowel movement was 2 weeks ago. He states that this is a chronic problem for him. He also states is a chronic for problem for everyone in his family. He states couple weeks ago he had his last solid bowel movement. He then did not move his bowels for almost a week. Now he is just getting watery stool. He states even though he has the watery stools/diarrhea, he still knows he is constipated because he has been through this a lot. He denies any pain now or at any time. No back pain flank pain abdominal pain. No problems urinating. He has no nausea vomiting. He is eating and drinking fine. On review of systems I also find out that he has had decreased hearing for a week or 2. But he states he has had this before when he is dehydrated or due to other reasons. He is seeing ENT in the past for this. He has no headache though. He also states that he is mildly dizzy. But he is turning left right in the room and gets up and walks around without any difficulty. He states this is also a chronic recurrent problem related to hydration. He states he has to d rink a lot of water every day or he will get a little dizzy. He thinks he is just losing too much water in the stool. Of note, he is on hydrochlorothiazide currently. He has no history of AAA. Only abdominal surgery is cholecystectomy. [facility] Medical History Diabetes Diverticulosis Hypertension Leg swelling Skin tear of left lower leg without complication Venous stasis dermatitis Venous ulcer of right leg Home Medications Metformin [Metformin Hcl] 1,000 mg PO BID diabetes 07/24/14 [History Last Taken 12/12/21] hydrochlorothiazide 25 mg tablet 12.5 mg PO DAILY diuretic 07/24/14 [History Last Taken 12/11/21] tamsulosin 0.4 mg capsule 0.4 mg PO DAILY prostate 07/24/14 [History Last Taken 12/12/21] allopurinol 100 mg tablet 100 mg PO DAILY gout 12/09/16 [History Last Taken 1 Month Ago ~11/11/21] atorvastatin 20 mg tablet 20 mg PO DAILY cholesterol 12/09/16 [History Last Taken 12/11/21] aspirin 81 mg chewable tablet 81 mg PO DAILY@0800 #90 tabs 12/13/21 [Rx Last Taken Unknown] lactulose 10 gram/15 mL (15 mL) oral solution 15 ml PO BID PRN constipation #1,440 mL 03/24/22 [Rx Last Taken Unknown] peg 3350-electrolytes 236 gram-22.74 gram-6.74 gram-5.86 gram solution (Golytely) 240 ml PO Q10M PRN constipation #4,000 mL 03/29/22 [Rx Last Taken Unknown] Allergy/AdvReac Type Severity Reaction Status Date / Time cefdinir [From Omnicef] AdvReac Other Verified 03/29/22 11:44 Family History Other Diabetes Surgical History Hx of cholecystectomy Social History Smoking Status: Former smoker ROS ROS ED ROS Narrative A complete review of systems was performed and is negative except as documented in the history of present illness. Some specific details below. Constitutional: No recent fevers or chills. EYE: No visual complaints or pain. ENT: Some decreased hearing on the right. But this has been occurring in the past. CV: No chest pain or palpitations. Not lightheaded or presyncopal. Respiratory: No dyspnea. No hemoptysis. No difficulty taking breaths. GI: Please see history of present illness. : No frequency dysuria or hematuria. Musculoskeletal: No recent trauma. No pains. Skin: No rash. Nondiaphoretic. Neuro: No weakness or numbness. Mild nonspecific dizziness symptoms. But no vertigo. No falling. No difficulty with ambulation or activities. No discoordination. Endocrine: No polyuria or polydipsia. EXAM Physical Exam Narrative Exam Narrative: CONSTITUTIONAL: Patient is nontoxic in appearance. The patient looks comfortable. HEENT: No notable trauma. Mucous membranes moist. No sinus tenderness. No indication of pain with swallowing. Tympanic membranes on both sides look relatively clear. Minimal scarring around the edges. But they are not red or inflamed. No obstruction with wax. EYES: No conjunctival injection. No proptosis. CARDIOVASCULAR: Regular rate. Regular rhythm. No notable murmur. No JVD. RESPIRATORY: No respiratory distress. Breathing is unlabored. No wheezes. No rhonchi. No rales. No pain with a deep breath. GASTROINTESTINAL: Not distended. Bowel sounds are normal. No tenderness. No guarding. No rebound. No palpable mass. No bruit. Overall abdomen is actually quite benign. GENITOURINARY: No tenderness over the bladder. No CVA tenderness. MUSCULOSKELETAL: Atraumatic. No peripheral edema. No cord. No tenderness along the deep venous system. No asymmetry. NEUROLOGICAL: Patient is alert and appropriate. No focal deficit noted. Patient walked back into the room. He is coordinated. SKIN: No noted rashes. No diaphoresis. PSYCHIATRIC: Patient is calm. Mood is appropriate. Const Vital Signs: 05/06/23 10:23 Temperature 97.2 F L Temperature Source Temporal Pulse Rate 73 Respiratory Rate 16 Blood Pressure 142/75 H Blood Pressure Mean 97 Pulse Ox 98 Oxygen Delivery Method Room Air MDM MDM MDM Narrative Medical decision making narrative: My independent interpretation of his x-ray of the abdomen did show some mild increased loops. This was read as possible ileus. Although this does not match with his symptoms. We did do CT scan because of this. Patient's CBC is overall normal. Patient's electrolytes are normal other than mild elevation of glucose at 184 that can be followed. Patient's liver function test are normal. My independent interpretation of the patient's CT of the abdomen shows some increased fluid in the bowels. But no sign of obstruction. Final reading shows: 1. Nonspecific fluid-filled and mildly thickened small bowel loops and fluid-filled ascending colon could reflect enterocolitis. 2. Otherwise no focal acute inflammatory process. 3. Enlarged prostate. Correlation with PSA level is recommended. I explained to the patient that he does appear to have fluid in the bowels. This looks more fluid than solid. But patient swears that this is constipation. He is now understating the amount of fluid he has had in his stool. He states he has not had much in the last couple days. He would like something to move his bowels. We will try magnesium citrate. He is on MiraLAX normally. I also explained to the patient. This could be a viral syndrome with the appearance of his CT and his symptoms. That should resolve on its own. Since he is eating and drinking, has a benign exam, no acute process on CT, overall normal labs I think he is still safe and appropriate for home. Lab Data Labs: Laboratory Results - last 24 hr 05/06/23 11:07 WBC 5.9 RBC 4.82 Hgb 15.5 Hct 44.8 MCV 92.9 MCH 32.2 H MCHC 34.6 RDW Std Deviation 44.7 H RDW Coeff of [place] 13.2 Plt Count 170 MPV 9.9 Immature Gran % (Auto) 0.300 Neut % (Auto) 72.6 H Lymph % (Auto) 19.0 [place] % (Auto) 5.9 Eos % (Auto) 1.2 Baso % (Auto) 1.0 Absolute Neuts (auto) 4.3 Absolute Lymphs (auto) 1.12 Nucleated RBC % 0 Sodium 138 Potassium 4.1 Chloride 100 Carbon Dioxide 33.0 H Anion Gap 5 BUN 14 Creatinine 1.09 Estim Creat Clear Calc 56.36 Est GFR (MDRD) Af Amer 83 Est GFR (MDRD) Non-Af 69 BUN/Creatinine Ratio 12.8 Glucose 184 H Calcium 9.9 Total Bilirubin 0.90 AST 13 L ALT 24 Alkaline Phosphatase 108 Total Protein 7.3 Albumin 3.9 Globulin 3.4 Albumin/Globulin Ratio 1.1 Radiography Diagnostic Testing: Clinical Impression(s) from Imaging Studies Acute Abdomen Series 05/06/23 10:58 IMPRESSION: Nonspecific gaseous bowel loops and colon could be due to ileus. Electronically Signed: Roberto Dinero MD at 11:43 EST Reading Location ID and State: [facility] / [place] Tel , Service support , Abdomen/Pelvis CT 05/06/23 12:26 IMPRESSION: 1. Nonspecific fluid-filled and mildly thickened small bowel loops and fluid-filled ascending colon could reflect enterocolitis. 2. Otherwise no focal acute inflammatory process. 3. Enlarged prostate. Correlation with PSA level is recommended. Electronically Signed: Roberto Dinero MD at 14:50 EST Reading Location ID and State: [facility] / [place] Tel , Service support , Discharge Plan Triage Chief Complaint: Constipation ED Provider: Clint Pike Dx/Rx/DC Orders Clinical Impression: History of constipation, Enterocolitis Instructions: ED Constipation (Adult) Prescriptions: No Action tamsulosin 0.4 MG capsule 0.4 mg PO DAILY Patient Comments: prostate/improves urine flow hydrochlorothiazide 25 MG tablet 12.5 mg PO DAILY Patient Comments: diuretic Metformin [Metformin Hcl] 1,000 MG tablet 1,000 mg PO BID Patient Comments: diabetes atorvastatin 20 MG tablet 20 mg PO DAILY allopurinol 100 MG tablet 100 mg PO DAILY aspirin 81 mg Tablet,Chewable 81 mg PO DAILY@0800 Qty: 90 0RF lactulose 10 gram/15 mL (15 mL) solution 15 ml PO BID PRN (Reason: constipation) Qty: 1440 0RF peg 3350-electrolytes [Golytely] 236-22.74-6.74 -5.86 gram recon soln 240 ml PO Q10M PRN Qty: 4000 0RF Rx Instructions: until fecal effluent is clear Primary Care Provider: Shantanu Jackson Referrals: Shantanu Jackson MD [Primary Care Provider] - 3-5 Days Disposition Disposition: Home, Self Care
[2023-05-06] MEDS: 0.9% Normal Saline (1000mL) 1,000 ML 1000 ML IV (11:07)
[2023-05-06 11:25] LABS: Absolute Lymphocyte Count 1.12 X10^3/uL (0.83-4.51); Absolute Neutrophil Count 4.3 X10^3/uL (2.0-7.7); Basophil# 0.06 X10^3/uL; Eosinophil# 0.07 X10^3/uL; Eosinophils% 1.2 % (0-5); Hematocrit 44.8 % (40-54); Hemoglobin 15.5 g/dL (13.0-16.5); Lymphocyte # 1.12 X10^3/ul (0.83-4.51); Mean Corp Hgb Conc 34.6 g/dL (32-36); Mean Corpuscular Hgb 32.2 pg (27.0-32.0); Mean Corpuscular Volume 92.9 fL (80-94); Mean Platelet Vol. 9.9 fl (6.2-12.0); Monocyte# 0.35 X10^3/uL; Monocyte% 5.9 % (0-10); NRBC Flagged by Analyzer 0 % (0-5); Neutrophil # 4.29 X10^3/uL (2.7-7.7); Neutrophil % 72.6 % (47-70); Platelet Count 170 K/mm3 (150-450); RBC Distribution Width CV 13.2 % (11.6-14.6); RBC Distribution Width SD 44.7 fl (35.1-43.9); Red Blood Count 4.82 M/mm3 (4.6-6.2); White Blood Count 5.9 K/mm3 (4.4-11.0)
--- OUTSIDE RECORDS SUMMARY | 2023-05-06 11:32 | XMS RPT_ITS | CCD ---
Author Name Unknown Address [facility] [address] [place] [address] Organization [facility] Care Team Providers Care Filament Cutter Name Role Phone Charles Greene DO Primary Care Provider CHARLES GREENE Primary Care Unavailable PERCY WRIGHT Attending Unavaila ble Charles Greene DO Primary Care Provider Shantanu Jackson MD Primary Care Provider [phone] CHARLES GREENE Referring Unavailable CHARLES GREENE Primary Care Unavailable Allergies Allergy Classification Reported Allergen(s) Allergy Type Date of Onset Reaction(s) Facility (9 sources) cefdinir; Translations: [CEFDINIR] Drug Allergy 11-18-2004 [facility] Work Phone: Medications Current Medications Medication Drug Class(es) Dates Sig (Normalized) Sig (Original) perflutren lipid microspheres 1.3 mL in NaCl (PF) 0.9% 10 mL injection (DEFINITY) (3 sources) Start: 01-04-2021 End: 04-05-2022 perflutren lipid microspheres 1.3 mL in NaCl (PF) 0.9% 10 mL injection (DEFINITY) 125 ml sodium chloride 9 mg/ml prefilled syringe (3 sources) Start: 01-04-2021 End: 04-05-2022 sodium chloride 0.9 % (flush) 10 mL (BD POSIFLUSH) Completed/Discontinued Medications Medication Drug Class(es) Dates Sig (Normalized) Sig (Original) allopurinol 100 mg oral tablet (7 sources) Xanthine Oxidase Inhibitor Start: 02-15-2021 allopurinol (ZYLOPRIM) 100 mg tablet Indications: Gouty crystallopathy TAKE 1 TABLET ONE TIME DAILY FOR GOUT 90 tablet 3 02/15/2021 Active Problems Active Problems Problem Classification Problem Date Documented Da te Episodic/Chronic Conditions associated with dizziness or vertigo (8 sources) Meniere's disease; Translations: [Meniere's disease, unspecified ear] Onset: 03-07-2017 Chronic Diabetes mellitus with complications (20 sources) Type 2 diabetes mellitus; Translations: [Type 2 diabetes mellitus with diabetic polyneuropathy] Onset: 09-30-2021 Chronic Diabetes mellitus without complication (9 sources) Type 2 diabetes mellitus without complication; Translations: [Type 2 diabetes mellitus without complications] Onset: 10-04-2021 Chronic Disorders of lipid metabolism (8 sources) Hyperlipidemia; Translations: [Hyperlipidemia, unspecified] Chronic Essential hypertension (9 sources) Essential hypertension; Translations: [Essential (primary) hypertension] Onset: 03-08-2005 Chronic Fluid and electrolyte disorders (1 source) Hypo-osmolality and hyponatremia; Translations: [Hyponatremia] Onset: 12-12-2021 Episodic Gout and other crystal arthropathies (8 sources) Gouty arthropathy; 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, unspecified] Onset: 07-29-2014 Chronic Hyperplasia of prostate (8 sources) Benign prostatic hyperplasia; Translations: [Benign prostatic hyperplasia with lower urinary tract symptoms] Onset: 08-30-2012 Chronic Nutritional deficiencies (8 sources) Vitamin D deficiency; Translations: [Vitamin D deficiency, unspecified] Onset: 10-04-2021 Chronic Other nervous system disorders (7 sources) Neuropathy; Translations: [Polyneuropathy, unspecified] Onset: 09-30-2021 09-30-2021 Chronic Other nervous system disorders (1 source) Slurred speech; Translations: [Slurred speech] Onset: 12-12-2021 Episodic Other nutritional; endocrine; and metabolic disorders (2 sources) Hypercalcemia; Translations: [Hypercalcemia] Chronic Other nutritional; endocrine; and metabolic disorders (1 source) Hypercalcemia; Translations: [Hypercalcemia] Onset: 10-26-2021 Chronic Residual codes; unclassified (7 sources) Central sleep apnea syndrome; Translations: [Primary central sleep apnea] Onset: 09-16-2014 09-14-2018 Chronic Past or Other Problems Problem Classification Problem Date Documented Date Episodic/Chronic Heart valve disorders (7 sources) Heart murmur; Translations: [Cardiac murmur, unspecified] Onset: 01-04-2021 01-04-2021 Episodic Other circulatory disease (7 sources) Clearing throat - hawking; Translations: [Other specified symptoms and signs involving the circulatory and respiratory systems] Onset: 04-13-2021 04-13-2021 Episodic Other nervous system disorders (8 sources) Abnormal gait; Translations: [Unspecified abnormalities of gait and mobility] Onset: 01-04-2021 Episodic Other nutritional; endocrine; and metabolic disorders (7 sources) Body mass index 25-29 - overweight; Translations: [Overweight] Onset: 11-02-2020 11-02-2020 Episodic Other skin disorders (7 sources) Actinic keratosis; Translations: [Actinic keratosis] Onset: 01-04-2021 01-04-2021 Episodic Other upper respiratory infections (7 sources) Posterior rhinorrhea; Translations: [Postnasal drip] Onset: 04-13-2021 04-13-2021 Episodic Spondylosis; intervertebral disc disorders; other back problems (7 sources) Sciatica; Translations: [Sciatica, right side] Onset: 11-19-2020 11-19-2020 Episodic Results Test Name Value Interpretation Reference Range Facil ity Vital Signs Date Time Vital Sign Value Performing Clinician Fay ogden 10-04-2021 09:10-0400 Body temperature 97 [degF] Charles Greene DO Work Phone: [facility] 10-04-2021 09:10-0400 Body weight 92.08 kg Charles Greene DO Work Phone: [facility] 10-04-2021 09:10-0400 Diastolic blood pressure 70 mm[Hg] Charles Greene DO Work Phone: [facility] 10-04-2021 09:10-0400 Heart rate 88 /min Charles Greene DO Work Phone: [facility] 10-04-2021 09:10-0400 Respiratory rate 20 /min Charles Greene DO Work Phone: [facility] 10-04-2021 09:10-0400 Systolic blood pressure 120 mm[Hg] Chalres Greene DO Work Phone: [facility] Encounters Encounter Date Encounter Type Care Provider Facility Start: 10-05-2022 ambulatory Kalie Mcpherson [facility] Plan of Treatment Date Care Activity Detail Author Start: 09-14-2027 Urine microalbumin profile DTAP,TDAP,TD (2 - Td or Tdap) [facility] Start: 10-04-2022 3 comp foot exam completed DIABETIC FOOT EXAM [facility] Start: 10-04-2022 Hepatitis B screening URINE ALBUMIN:CREATININE RATIO [facility] Start: 10-04-2022 Hepatitis B surface antibody level LDL CHOLESTEROL [facility] Start: 07-05-2022 End: 09-04-2022 Hemoglobin A1c in Blood HGB A1C Lab Routine Type 2 diabetes mellitus without complication, without long-term current use of insulin (HCC) Expected: 07/05/2022, Expires: 09/04/2022 [facility] Work Phone: Immunizations Immunization Date Immunization Notes Care Provider Charissa link 11-04-2020 COVID-19 vaccine, fu ll dose (MODERNA) Charles Greene DO Work Phone: [facility] Work Phone: 10-07-2020 COVID-19 vaccine, fu ll dose (MODERNA) Charles Greene DO Work Phone: [facility] Work Phone: 03-07-2017 influenza, high dose seasonal, preservative-free Charles Greene DO Work Phone: [facility] 02-17-2015 pneumococcal conjuga te vaccine, 13 valent Charles Greene DO Work Phone: [facility] 01-23-2012 zoster vaccine, live Charles Greene DO Work Phone: [facility] Work Phone: 05-19-2003 pneumococcal polysaccharide vaccine, 23 valent Charles Greene DO Work Phone: [facility] Work Phone: Payers Date Payer Category Payer Medicare [id number] 2020 Private Health Insurance AETNA A ETNA MEDICARE SUPPLEMENT [id number] 2020-Present [phone] [address] [address] [place] [address] Indemnity [id number] 2020 Private Health Insurance AETNA Pietro ROSS MEDICARE SUPPLEMENT [id number] 2020-Present [phone] [address] [address] [place] [address] Indemnity [id number] 2005 Medicare MEDICARE MEDICAR E A AND B [id number] 2005-Present [phone] [place] [address] Medicare [id number] 2005 Medicare MEDICARE MEDICAR E A AND B [id number] 2005-Present [phone] [place] [address] Medicare [id number] 2005 Medicare [id number] Social History Date Type Detail Facility Start: 01-05-2011 Tobacco smoking stat [facility] Ex-smoker [facility] Work Phone: End: 02-23-2005 History of tobacco use Current smoker [facility] Work Phone: End: 02-23-2005 History of tobacco use Cigarette Smoker [facility] Work Phone: Start: 10-04-2021 Alcohol intake Current non-dr machine ii coremaker of alcohol (finding) [facility] Start: 1940 Sex Assigned At Not on file [facility] Start: 09-24-2021 End: 12-12-2021 Exposure to SARS-CoV-2 (event) Not sure [facility] Work Phone: Start: 01-05-2011 End: 07-11-2022 Cigarettes smoked current (pack per day) - Reported 2 [facility] Start: 01-05-2011 Tobacco use and exposure Smokeless tobacco non-user [facility] Work Phone: Start: 10-04-2021 Tobacco use panel [facility] Medical Equipment Procedure Code Equipment Code Equipment Origin al Text Equipment Identifier Dates Check blood suga r one time daily. Dx: E11.49, Non-Insulin dependent. Start: 02-15-2021 Clinical Notes 06-09-2015 to 10-05-2022 Kalie Marshall MA - 10/05/2022 10:17 AM EDTKalie Marshall MA - 08/25/2022 10:34 AM EDTTelephone Encounter - Charles Greene DO - 11/01/2021 12:51 PM EDT Note Date & Type Note Facility 10-05-2022 Note Patient Outreach (SMITA TNAV) WILLIAMS DE OLIVEIRA ([id number]) 1940 M Date Time Provider Department 10/05/22 KALIE MARSHALL [facility] During your visit today, we recorded the following information about you: Kalie Marshall MA 10/05/2022 1:44 PM Signed POPULATION HEALTH NAVIGATION OUTREACH Action/ Spoke to spouse. Williams has a new PCP.Dr Jackson. Updated PCP VERIFY PCP ANNUAL MEDICARE WELLNESS EXAM HBA1C due on 04/06/2022 Patient Identified by Name and : YES, via phone Outreach Outcome/Action Spoke to patient / parent / legal guardian: PCP confirmed / updated PCP field updated Did you use a PCP flex slot to schedule this appointment? N/A Reason for Outreach Care Gap or Scheduling/Wellness visits Payer: Payor: AETNA / Plan: AETNA MEDICARE SUPPLEMENT / Product Type: Indemnity / Care Gap Reviewed:: Annual Wellness visit HBA1C Reminder: Reminder note to check Health Maintenance for items below Health Maintenance items due: SHINGRIX VACCINE(2 of 3) due on 03/19/2012 PNEUMOCOCCAL: 65+(3 - PPSV23 or PCV20) due on 02/18/2016 COVID-19 VACCINE(4 - Moderna series) due on 07/02/2021 DEPRESSION ASSESSMENT Never done HBA1C due on 04/06/2022 DILATED RETINAL EXAM due on 05/05/2022 URINE ALBUMIN:CREATININE RATIO due on 10/04/2022 LDL CHOLESTEROL due on 10/04/2022 DIABETIC FOOT EXAM due on 10/04/2022 Navigation Signature: Kalie Marshall MA October 05, 2022 10:17 AM Allergies As of Date: 10/05/2022 Noted Allergy Reaction OMNICEF (CEFDINIR) 11/18/2004 Date Reviewed: 12/12/2021 Reviewed by: Mary Ann Ayers RN - Fully Assessed Reason for Visit: Population Health Navigation Outreach [3910] Cmt: ELIUD NOLEN PCSA Prescriptions as of 10/05/2022 - hydroCHLOROthiazide (HYDRODIURIL, ESIDRIX) 12.5 mg tablet Take 1 tablet by mouth once daily. - glimepiride (AMARYL) 2 mg tablet Take 1 tablet by mouth twice daily with meals. - blood sugar diagnostic (TRUE METRIX GLUCOSE TEST STRIP) test strip Check blood sugar one time daily. Dx: E11.49, Non-Insulin dependent. - tamsulosin (FLOMAX) 0.4 mg Take 1 capsule by mouth once daily. - atorvastatin (LIPITOR) 20 mg tablet TAKE 1 TABLET DAILY AT BEDTIME FOR CHOLESTEROL. - allopurinol (ZYLOPRIM) 100 mg tablet TAKE 1 TABLET ONE TIME DAILY FOR GOUT - metFORMIN (GLUCOPHAGE) 1,000 mg tablet Take 1 tablet by mouth twice daily with meals. - polyethylene glycol 3350 (MIRALAX) 17 gram/dose powder Take 17 g by mouth twice daily as needed. 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] 09/07/2005 08/17/2016 Unspecified disorder of prostate [N42.9] 03/08/2007 08/17/2016 Neuropathy in diabetes (HCC) [E11.40] 01/05/2011 09/14/2018 Benign neoplasm of colon [D12.6] 04/12/2011 09/14/2018 Benign prostatic hyperplasia with lower urinary*08/30/2012 High grade prostatic intraepithelial neoplasia *08/30/2012 06/01/2020 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] 07/29/2014 Central sleep apnea on CPAP [G47.31] 09/16/2014 Peripheral neuropathy [G62.9] 12/07/2014 09/14/2018 Closed displaced fracture of lateral malleolus *06/09/2015 08/17/2016 Meniere disease, unspecified laterality [H81.09]03/07/2017 Overweight (BMI 25.0-29.9) [E66.3] 11/02/2020 Sciatica, right side [M54.31] 11/19/2020 Actinic keratosis [L57.0] 01/04/2021 Gait disorder [R26.9] 01/04/2021 Cardiac murmur, previously undiagnosed [R01.1] 01/04/2021 Throat clearing [R09.89] 04/13/2021 PND (post-nasal drip) [R09.82] 04/13/2021 Type 2 diabetes mellitus with diabetic neuropat*09/30/2021 Neuropathy [G62.9] 09/30/2021 Type 2 diabetes mellitus with peripheral neurop*10/04/2021 Vitamin D deficiency [E55.9] 10/04/2021 Type 2 diabetes mellitus without complication, *10/04/2021 Encounter Status:Closed by KALIE MARSHALL on 10/05/22 [facility] 10-05-2022 Note HNO ID: [id number] Author: Kalie Marshall MA Service: ? Author Type: Design Engineering Intern Type: Progress Notes Filed: 10/05/2022 1:44 PM Note Text: POPULATION HEALTH NAVIGATION OUTREACH Action/FYI Spoke to spouse. Williams has a new PCP.Dr Jackson. Updated PCP VERIFY PCP ANNUAL MEDICARE WELLNESS EXAM HBA1C due on 04/06/2022 Patient Identified by Name and : YES, via phone Outreach Outcome/Action Spoke to patient / parent / legal guardian: PCP confirmed / updated PCP field updated Did you use a PCP flex slot to schedule this appointment? N/A Reason for Outreach Care Gap or Scheduling/Wellness visits Payer: Payor: AETNA / Plan: AETNA MEDICARE SUPPLEMENT / Product Type: Indemnity / Care Gap Reviewed:: Annual Wellness visit HBA1C Reminder: Reminder note to check Health Maintenance for items below Health Maintenance items due: SHINGRIX VACCINE(2 of 3) due on 03/19/2012 PNEUMOCOCCAL: 65+(3 - PPSV23 or PCV20) due on 02/18/2016 COVID-19 VACCINE(4 - Moderna series) due on 07/02/2021 DEPRESSION ASSESSMENT Never done HBA1C due on 04/06/2022 DILATED RETINAL EXAM due on 05/05/2022 URINE ALBUMIN:CREATININE RATIO due on 10/04/2022 LDL CHOLESTEROL due on 10/04/2022 DIABETIC FOOT EXAM due on 10/04/2022 Navigation Signature: Kalie Marshall MA October 05, 2022 10:17 AM [facility] 10-05-2022 History of Present illness Narrative POPULATION HEALTH NAVIGATION OUTREACH Action/FYI Spoke to spouse. Williams has a new PCP.Dr Jackson. Updated PCP VERIFY PCP ANNUAL MEDICARE WELLNESS EXAM HBA1C due on 04/06/2022 Patient Identified by Name and : YES, via phone Outreach Outcome/Action Spoke to patient / parent / legal guardian: PCP confirmed / updated PCP field updated Did you use a PCP flex slot to schedule this appointment? N/A Reason for Outreach Care Gap or Scheduling/Wellness visits Payer: Payor: AETNA / Plan: AETNA MEDICARE SUPPLEMENT / Product Type: Indemnity / Care Gap Reviewed:: Annual Wellness visit HBA1C Reminder: Reminder note to check Health Maintenance for items below Health Maintenance items due: SHINGRIX VACCINE(2 of 3) due on 03/19/2012 PNEUMOCOCCAL: 65+(3 - PPSV23 or PCV20) due on 02/18/2016 COVID-19 VACCINE(4 - Moderna series) due on 07/02/2021 DEPRESSION ASSESSMENT Never done HBA1C due on 04/06/2022 DILATED RETINAL EXAM due on 05/05/2022 URINE ALBUMIN:CREATININE RATIO due on 10/04/2022 LDL CHOLESTEROL due on 10/04/2022 DIABETIC FOOT EXAM due on 10/04/2022 Navigation Signature: Kalie Marshall MA October 05, 2022 10:17 AM documented in this encounter [facility] 08-25-2022 Note Patient Outreach (SMITA TAN) WILLIAMS DE OLIVEIRA ([id number]) 1940 M Date Time Provider Department 08/25/22 KALIE MARSHALL During your visit today, we recorded the following information about you: Kalie Marshall MA 08/25/2022 1:43 PM Addendum POPULATION HEALTH NAVIGATION OUTREACH Action/ FAST BUSY NO MYCHART LETTER MAILED ANNUAL MEDICARE WELLNESS EXAM FECAL OCCULT BLOOD due on 09/15/2019 HBA1C due on 04/06/2022 Mailed letter 08/25/2022 MM Patient Identified by Name and : NO Outreach Outcome/Action Unable to reach patient: Phone number not valid / voicemail full Letter mailed Did you use a PCP flex slot to schedule this appointment? No Reason for Outreach Care Gap or Scheduling/Wellness visits Payer: Payor: AETNA / Plan: AETNA MEDICARE SUPPLEMENT / Product Type: Indemnity / Care Gap Reviewed:: Annual Wellness visit Colorectal Cancer Screening HBA1C Reminder: Reminder note to check Health Maintenance for items below Health Maintenance items due: SHINGRIX VACCINE(2 of 3) due on 03/19/2012 PNEUMOCOCCAL: 65+(3 - PPSV23 if available, else PCV20) due on 02/18/2016 FECAL OCCULT BLOOD due on 09/15/2019 COVID-19 VACCINE(4 - Booster for Moderna series) due on 07/02/2021 DEPRESSION ASSESSMENT Never done HBA1C due on 04/06/2022 DILATED RETINAL EXAM due on 05/05/2022 Navigation Signature: Kalie Marshall MA August 25, 2022 10:34 AM Allergies As of Date: 08/25/2022 Noted Allergy Reaction OMNICEF (CEFDINIR) 11/18/2004 Date Reviewed: 12/12/2021 Reviewed by: Mary Ann Ayers RN - Fully Assessed Reason for Visit: Population Health Navigation Outreach [3910] Cmt: ACO SAEED PCSA Prescriptions as of 08/25/2022 - hydroCHLOROthiazide (HYDRODIURIL, ESIDRIX) 12.5 mg tablet Take 1 tablet by mouth once daily. - glimepiride (AMARYL) 2 mg tablet Take 1 tablet by mouth twice daily with meals. - blood sugar diagnostic (TRUE METRIX GLUCOSE TEST STRIP) test strip Check blood sugar one time daily. Dx: E11.49, Non-Insulin dependent. - tamsulosin (FLOMAX) 0.4 mg Take 1 capsule by mouth once daily. - atorvastatin (LIPITOR) 20 mg tablet TAKE 1 TABLET DAILY AT BEDTIME FOR CHOLESTEROL. - allopurinol (ZYLOPRIM) 100 mg tablet TAKE 1 TABLET ONE TIME DAILY FOR GOUT - metFORMIN (GLUCOPHAGE) 1,000 mg tablet Take 1 tablet by mouth twice daily with meals. - polyethylene glycol 3350 (MIRALAX) 17 gram/dose powder Take 17 g by mouth twice daily as needed. 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.4] 09/07/2005 08/17/2016 Unspecified disorder of prostate [N42.9] 03/08/2007 08/17/2016 Neuropathy in diabetes (HCC) [E11.40] 01/05/2011 09/14/2018 Benign neoplasm of colon [D12.6] 04/12/2011 09/14/2018 Benign prostatic hyperplasia with lower urinary*08/30/2012 High grade prostatic intraepithelial neoplasia *08/30/2012 06/01/2020 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] 07/29/2014 Central sleep apnea on CPAP [G47.31] 09/16/2014 Peripheral neuropathy [G62.9] 12/07/2014 09/14/2018 Closed displaced fracture of lateral malleolus *06/09/2015 08/17/2016 Meniere disease, unspecified laterality [H81.09]03/07/2017 Overweight (BMI 25.0-29.9) [E66.3] 11/02/2020 Sciatica, right side [M54.31] 11/19/2020 Actinic keratosis [L57.0] 01/04/2021 Gait disorder [R26.9] 01/04/2021 Cardiac murmur, previously undiagnosed [R01.1] 01/04/2021 Throat clearing [R09.89] 04/13/2021 PND (post-nasal drip) [R09.82] 04/13/2021 Type 2 diabetes mellitus with diabetic neuropat*09/30/2021 Neuropathy [G62.9] 09/30/2021 Type 2 diabetes mellitus with peripheral neurop*10/04/2021 Vitamin D deficiency [E55.9] 10/04/2021 Type 2 diabetes mellitus without complication, *10/04/2021 Letter Text Encounter Status:Closed by KALIE MARSHALL on 08/25/22 [facility] 08-25-2022 Note HNO ID: [id number] Author: Kalie Marshall MA Service: ? Author Type: Design Engineering Intern Type: Progress Notes Filed: 08/25/2022 3:46 PM Note Text: POPULATION HEALTH NAVIGATION OUTREACH Action/FYI FAST BUSY NO MYCHART LETTER MAILED ANNUAL MEDICARE WELLNESS EXAM FECAL OCCULT BLOOD due on 09/15/2019 HBA1C due on 04/06/2022 Mailed letter 08/25/2022 MM Patient Identified by Name and : NO Outreach Outcome/Action Unable to reach patient: Phone number not valid / voicemail full Letter mailed Did you use a PCP flex slot to schedule this appointment? No Reason for Outreach Care Gap or Scheduling/Wellness visits Payer: Payor: AETNA / Plan: AETNA MEDICARE SUPPLEMENT / Product Type: Indemnity / Care Gap Reviewed:: Annual Wellness visit Colorectal Cancer Screening HBA1C Reminder: Reminder note to check Health Maintenance for items below Health Maintenance items due: SHINGRIX VACCINE(2 of 3) due on 03/19/2012 PNEUMOCOCCAL: 65+(3 - PPSV23 if available, else PCV20) due on 02/18/2016 FECAL OCCULT BLOOD due on 09/15/2019 COVID-19 VACCINE(4 - Booster for Moderna series) due on 07/02/2021 DEPRESSION ASSESSMENT Never done HBA1C due on 04/06/2022 DILATED RETINAL EXAM due on 05/05/2022 Navigation Signature: Kalie Marshall MA August 25, 2022 10:34 AM [facility] 08-25-2022 History of Present illness Narrative POPULATION HEALTH NAVIGATION OUTREACH Action/I FAST BUSY NO MYCHART LETTER MAILED ANNUAL MEDICARE WELLNESS EXAM FECAL OCCULT BLOOD due on 09/15/2019 HBA1C due on 04/06/2022 Mailed letter 08/25/2022 MM Patient Identified by Name and : NO Outreach Outcome/Action Unable to reach patient: Phone number not valid / voicemail full Letter mailed Did you use a PCP flex slot to schedule this appointment? No Reason for Outreach Care Gap or Scheduling/Wellness visits Payer: Payor: AETNA / Plan: AETNA MEDICARE SUPPLEMENT / Product Type: Indemnity / Care Gap Reviewed:: Annual Wellness visit Colorectal Cancer Screening HBA1C Reminder: Reminder note to check Health Maintenance for items below Health Maintenance items due: SHINGRIX VACCINE(2 of 3) due on 03/19/2012 PNEUMOCOCCAL: 65+(3 - PPSV23 if available, else PCV20) due on 02/18/2016 FECAL OCCULT BLOOD due on 09/15/2019 COVID-19 VACCINE(4 - Booster for Moderna series) due on 07/02/2021 DEPRESSION ASSESSMENT Never done HBA1C due on 04/06/2022 DILATED RETINAL EXAM due on 05/05/2022 Navigation Signature: Kalie Marshall MA August 25, 2022 10:34 AM documented in this encounter [facility] 07-05-2022 Note Patient Outreach (IN TMMN) WILLIAMS DE OLIVEIRA ([id number]) 1940 M Date Time Provider Department 07/05/22 CHARLES GREENE During your visit today, we recorded the following information about you: Allergies As of Date: 07/05/2022 Noted Allergy Reaction OMNICEF (CEFDINIR) 11/18/2004 Date Reviewed: 12/12/2021 Reviewed by: Mary Ann Ayers RN - Fully Assessed Visit Diagnosis:Type 2 diabetes mellitus without complication, without long-term current use of insulin (HCC) [E11.9] Order(s):HGB A1C [[id number]] Order #: [id number] FUTURE Prescriptions as of 07/08/2022 - hydroCHLOROthiazide (HYDRODIURIL, ESIDRIX) 12.5 mg tablet Take 1 tablet by mouth once daily. - glimepiride (AMARYL) 2 mg tablet Take 1 tablet by mouth twice daily with meals. - blood sugar diagnostic (TRUE METRIX GLUCOSE TEST STRIP) test strip Check blood sugar one time daily. Dx: E11.49, Non-Insulin dependent. - tamsulosin (FLOMAX) 0.4 mg Take 1 capsule by mouth once daily. - atorvastatin (LIPITOR) 20 mg tablet TAKE 1 TABLET DAILY AT BEDTIME FOR CHOLESTEROL. - allopurinol (ZYLOPRIM) 100 mg tablet TAKE 1 TABLET ONE TIME DAILY FOR GOUT - metFORMIN (GLUCOPHAGE) 1,000 mg tablet Take 1 tablet by mouth twice daily with meals. - polyethylene glycol 3350 (MIRALAX) 17 gram/dose powder Take 17 g by mouth twice daily as needed. 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.4] 09/07/2005 08/17/2016 Unspecified disorder of prostate [N42.9] 03/08/2007 08/17/2016 Neuropathy in diabetes (HCC) [E11.40] 01/05/2011 09/14/2018 Benign neoplasm of colon [D12.6] 04/12/2011 09/14/2018 Benign prostatic hyperplasia with lower urinary*08/30/2012 High grade prostatic intraepithelial neoplasia *08/30/2012 06/01/2020 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] 07/29/2014 Central sleep apnea on CPAP [G47.31] 09/16/2014 Peripheral neuropathy [G62.9] 12/07/2014 09/14/2018 Closed displaced fracture of lateral malleolus *06/09/2015 08/17/2016 Meniere disease, unspecified laterality [H81.09]03/07/2017 Overweight (BMI 25.0-29.9) [E66.3] 11/02/2020 Sciatica, right side [M54.31] 11/19/2020 Actinic keratosis [L57.0] 01/04/2021 Gait disorder [R26.9] 01/04/2021 Cardiac murmur, previously undiagnosed [R01.1] 01/04/2021 Throat clearing [R09.89] 04/13/2021 PND (post-nasal drip) [R09.82] 04/13/2021 Type 2 diabetes mellitus with diabetic neuropat*09/30/2021 Neuropathy [G62.9] 09/30/2021 Type 2 diabetes mellitus with peripheral neurop*10/04/2021 Vitamin D deficiency [E55.9] 10/04/2021 Type 2 diabetes mellitus without complication, *10/04/2021 Encounter Status:Closed by OLYA MOORE on 07/08/22 [facility] 11-01-2021 Miscellaneous Notes The following approved medication requests have been transmitted electronically. Signed Prescriptions Disp Refills hydroCHLOROthiazide (HYDRODIURIL, ESIDRIX) 12.5 mg tablet 90 tablet 3 Sig: Take 1 tablet by mouth once daily. GERI: No Authorizing Provider: CHARLES GREENE DO Patient's is calling on behalf of Williams. Patient's hydrochlorothiazide needs refilled, but was initially discontinued There is a message from Dr. Greene on a October 06 encounter that she is ok to continue the HCTZ. Patient would like it sent to the [facility] . He only has 1 day of pills left. documented in this encounter [facility] 10-28-2021 Miscellaneous Notes Pt called back and said he does not wish to do these tests at this time. Sophia Marie Spoke with pt gave information provided. Pt voices understanding. Please assist in scheduling bone scan. Please inform patient that his calcium levels are still elevated but parathyroid function is normal. Would recommend a bone scan and would recommend an SPEP lab test to check for other bone related causes as ordered Charles Greene DO documented in this encounter [facility] 10-25-2021 Miscellaneous Notes Patient notified of results, verbalizes understanding of instructions. Elda Arnett MA Noted, okay to continue the HCTZ medication then for now. Needs to recheck these labs ordered when able. Charles Greene DO Save for Dr. Greene. Doris Ibrahim APRN.ZACK Phoned patient and given provider's message below with verbalized understanding. Reports he cannot hold the hctz, because he has done it before and lost his hearing. States pcp knows this. Asking pcp to please advise patient. States he will not go to lab until after he hears back from pcp. Please inform patient that there are a few abnormal labs to review. His serum calcium is a little high. I would like him to hold his HCTZ 12.5 mg a day medication and recheck labs in 1 week. Would like to also check parathyroid hormone levels as ordered. His vitamin D levels are low. He needs to be taking 2000 international unit(s) A day of vitamin D3 with a meal. His vitamin B12 is low normal. He needs to be taking 6752-7620 mcg a day of vitamin B12 in the AM. Charles Greene DO documented in this encounter [facility] 10-04-2021 History of Present illness Narrative Patient presents with: 6 Month Exam HPI: Williams De Oliveira is a 81 year old male who presents to the office today for review of health conditions. Concerns today: just had labs drawn today Hearing loss, meniere's disease, sees ENT, taking HCTZ, admits he is trying to get enough electrolytes in his diet as well Neuropathy feet, not taking any supplements at this time but is interested in this. Mr. De Oliveira has past history of diabetes. Since our last visit he denies excessive thirst or increased frequency of urination, chest pain or dyspnea , new or unusual visual symptoms and low sugar/hypoglycemic reactions. Follows a diabetic diet some of the time. He is compliant with medication(s) and is tolerating med(s) without any side effects. He reports checking his glucose on a once a day schedule with sugars in the <200 range. Patient's last HgA1C was Hemoglobin A1C (%) Date Value 04/02/2021 7.8 10/29/2020 7.2 ) Last Ophthalmology exam was within the past 12 months Mr. De Oliveira reports history of hyperlipidemia. Current therapy includes atorvastatin (Lipitor) 20 mg. Denies side effects of muscle weakness or achiness. His most recent lipid panels are reviewed. Cholesterol, Total (mg/dL) Date Value 04/02/2021 133 HDL Cholesterol (mg/dL) Date Value 04/02/2021 45 LDL Cholesterol (mg/dL) Date Value 04/02/2021 68 Triglyceride (mg/dL) Date Value 04/02/2021 102 Mr. De Oliveira indicates a history of hypertension and states that he is feeling well and denies any symptoms referable to elevated blood pressure. Specifically denies headache, chest pain, palpitations, dyspnea and peripheral edema. Patient denies any side effects of his medication(s) and is compliant with their regimen. Last 3 Encounter BP Readings: Date: BP: 10/04/2021 120/70 04/13/2021 130/80 01/04/2021 138/84 He watches his diet for sodium, low fat and low cholesterol some of the time. He does not check BP's generally. Williams gets minimal exercise. 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 HYPERTENSION NOS 03/08/2005 Internal hemorrhoids without mention of complication Meniere disease, unspecified laterality 03/07/2017 Neuropathy in diabetes (HCC) 01/05/2011 Obesity, unspecified Other and unspecified hyperlipidemia PROSTATIC DISORDER NOS 03/08/2007 Stenosis of rectum and anus Type II or unspecified type diabetes mellitus without mention of complication, not stated as uncontrolled PAST SURGICAL HISTORY Procedure Laterality Date CHOLECYSTECTOMY 1960 COLONOSCOPY 02/10/2011 COLONOSCOPY - DIAGNOSTIC 10/16/2001 TONSILLECTOMY & ADENOIDECTOMY AGE 12/> 1950 XCAPSL CTRC RMVL INSJ IO LENS PROSTH W/O ECP 2010 Cataract Removal left Social History Tobacco Use Smoking status: Former Smoker Packs/day: 2.00 Years: 50.00 Pack years: 100.00 Types: Cigarettes Quit date: 02/23/2005 Years since quittin.6 Smokeless tobacco: Never Used Substance Use Topics Alcohol use: No Drug use: No FAMILY HISTORY Problem Relation Age of Onset other (Diverticulosis [Other]) Sister Heart Father age 88 Hypertension Father Prostate Cancer Father Diabetes Father Blood Disease Mother age 90 Allergies: ALLERGIES Allergen Reactions Omnicef [Cefdinir] Current Meds: glimepiride (AMARYL) 2 mg tablet Take 1 tablet by mouth twice daily with meals. blood sugar diagnostic (TRUE METRIX GLUCOSE TEST STRIP) test strip Check blood sugar one time daily. Dx: E11.49, Non-Insulin dependent. hydroCHLOROthiazide (HYDRODIURIL, ESIDRIX) 12.5 mg tablet Take 1 tablet by mouth once daily. tamsulosin (FLOMAX) 0.4 mg Take 1 capsule by mouth once daily. atorvastatin (LIPITOR) 20 mg tablet TAKE 1 TABLET DAILY AT BEDTIME FOR CHOLESTEROL. allopurinol (ZYLOPRIM) 100 mg tablet TAKE 1 TABLET ONE TIME DAILY FOR GOUT metFORMIN (GLUCOPHAGE) 1,000 mg tablet Take 1 tablet by mouth twice daily with meals. polyethylene glycol 3350 (MIRALAX) 17 gram/dose powder Take 17 g by mouth twice daily as needed. Review of Systems: The remainder of the review of systems is negative. PE: 10/04/21 0910 BP: 120/70 Pulse: 88 Resp: 20 Temp: 36.1 C (97 F) TempSrc: Left Tympanic Weight: 92.1 kg (203 lb) Gen: A&O, NAD, non-toxic appearing, Pleasant, cooperative HEENT: NT/AC, PERRLA, EOMs intact b/l, nares clear and patent b/l, pharynx without erythema, exudate or lesions. Uvula midline. EACs without erythema or debris. TMs pearly orozco with intact landmarks b/l. Hard of hearing, dentures upper mouth Neck: supple, No cervical LAD, no thyromegaly, no carotid bruits CV: RRR, normal S1 and S2, no murmurs, no gallops, no rubs, Pulses 2+ and symmetric in UE and LE b/l Lungs: normal respiratory effort, CTA b/l, no wheezing or rhonchi or rales Abd: soft, NT, ND, +BS, no hepatosplenomegaly MS: antalgic slowed gait Neuro: CN II-XII intact b/l, weakness of leg strength Skin: warm, dry, intact, No rashes or lesions on exposed skin. Foot exam: Monofilament abnormal on right and left feet. ASSESSMENT/PLAN: 1. Type 2 diabetes mellitus without complication, without long-term current use of insulin (HCC) - ICD9: 250.00, ICD10: E11.9 (primary diagnosis) uncontrolled - Continue current medications - Check HgA1C, fasting glucose, fasting lipid panel, CMP and CBC - Blood glucose monitoring on a twice a day schedule 2. Essential hypertension - ICD9: 401.9, ICD10: I10 - good control - Continue current medication(s) - Encouraged dietary sodium restriction/DASH diet - Recommended regular aerobic exercise. - Recommend home blood pressure monitoring, to bring results in on next visit - Goal of BP <130/80 3. Hyperlipidemia, unspecified hyperlipidemia type - ICD9: 272.4, ICD10: E78.5 - to be determined upon return of lab results - Continue current medication. - Encouraged following a low fat, low cholesterol diet. - Discussed the benefits of regular aerobic exercise and weight loss. 4. Benign prostatic hyperplasia with lower urinary tract symptoms, symptom details unspecified - ICD9: 600.01, ICD10: N40.1 - stable 5. 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 6. 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 Meniere disease, unspecified laterality - ICD9: 386.00, ICD10: H81.09 - stable 9. Type 2 diabetes mellitus with peripheral neuropathy (HCC) - ICD9: 250.60, 357.2, ICD10: E11.42 uncontrolled - Continue current medications - Check HgA1C, fasting glucose and fasting lipid panel - Blood glucose monitoring on a twice a day schedule Charles Greene, DO To ER if develops chest pain, shortness of breath, or severe worsening of symptoms. Discussed risks, benefits, alternatives, and potential side effects of medications. Patient expressed understanding and agreed with the plan. Charles Greene DO [address] [place] [address] documented in this encounter [facility] documented as of this encounter (statuses as of 10/04/2021) [facility] History of Past illness Narrative* Problem Noted Date Resolved Date Closed displaced fracture of lateral malleolus of right fibula 06/09/2015 08/17/2016 Peripheral neuropathy 12/07/2014 09/14/2018 High grade prostatic intraepithelial neoplasia 0 08/30/2012 06/01/2020 Benign neoplasm of colon 04/12/2011 019 Neuropathy in diabetes 01/05/2011 9 Unspecified disorder of prostate 03/08/2007 08/17/2016 Stenosis of rectum and anus 09/07/200507/26 Last Assessment & Plan: Reviewed need for WOB or repeat colonscopy- pt declines. Also declines offer to see colorectal surgeon at this time. Diverticulosis of colon (without mention of hemo rrhage) 08/17/2016 Internal hemorrhoids without mention of complica tion 08/17/2016 OVERWEIGHT 11/02/2020 Elevated prostate specific antigen (PSA) 06/01/2020 documented as of this encounter (statuses as of 10/25/2021) [facility] History of Past illness Narrative* Problem Noted Date Resolved Date Closed displaced fracture of lateral malleolus of right fibula 06/09/2015 08/17/2016 Peripheral neuropathy 12/07/2014 09/14/2018 High grade prostatic intraepithelial neoplasia 0 08/30/2012 06/01/2020 Benign neoplasm of colon 04/12/2011 019 Neuropathy in diabetes 01/05/2011 9 Unspecified disorder of prostate 03/08/2007 08/17/2016 Stenosis of rectum and anus 09/07/200507/26 Last Assessment & Plan: Reviewed need for WOB or repeat colonscopy- pt declines. Also declines offer to see colorectal surgeon at this time. Diverticulosis of colon (without mention of hemo rrhage) 08/17/2016 Internal hemorrhoids without mention of complica tion 08/17/2016 OVERWEIGHT 11/02/2020 Elevated prostate specific antigen (PSA) 06/01/2020 documented as of this encounter (statuses as of 11/01/2021) [facility] History of Past illness Narrative* Problem Noted Date Resolved Date Closed displaced fracture of lateral malleolus of right fibula 06/09/2015 08/17/2016 Peripheral neuropathy 12/07/2014 09/14/2018 High grade prostatic intraepithelial neoplasia 0 08/30/2012 06/01/2020 Benign neoplasm of colon 04/12/2011 019 Neuropathy in diabetes 01/05/2011 9 Unspecified disorder of prostate 03/08/2007 08/17/2016 Stenosis of rectum and anus 09/07/200507/26 Last Assessment & Plan: Reviewed need for WOB or repeat colonscopy- pt declines. Also declines offer to see colorectal surgeon at this time. Diverticulosis of colon (without mention of hemo rrhage) 08/17/2016 Internal hemorrhoids without mention of complica tion 08/17/2016 OVERWEIGHT 11/02/2020 Elevated prostate specific antigen (PSA) 06/01/2020 documented as of this encounter (statuses as of 07/08/2022) [facility] History of Past illness Narrative* Problem Noted Date Resolved Date Closed displaced fracture of lateral malleolus of right fibula 06/09/2015 08/17/2016 Peripheral neuropathy 12/07/2014 09/14/2018 High grade prostatic intraepithelial neoplasia 0 08/30/2012 06/01/2020 Benign neoplasm of colon 04/12/2011 019 Neuropathy in diabetes 01/05/2011 9 Unspecified disorder of prostate 03/08/2007 08/17/2016 Stenosis of rectum and anus 09/07/200507/26 Last Assessment & Plan: Reviewed need for WOB or repeat colonscopy- pt declines. Also declines offer to see colorectal surgeon at this time. Diverticulosis of colon (without mention of hemo rrhage) 08/17/2016 Internal hemorrhoids without mention of complica tion 08/17/2016 OVERWEIGHT 11/02/2020 Elevated prostate specific antigen (PSA) 06/01/2020 documented as of this encounter (statuses as of 08/25/2022) [facility] History of Past illness Narrative* Problem Noted Date Resolved Date Closed displaced fracture of lateral malleolus of right fibula 06/09/2015 08/17/2016 Peripheral neuropathy 12/07/2014 09/14/2018 High grade prostatic intraepithelial neoplasia 0 08/30/2012 06/01/2020 Benign neoplasm of colon 04/12/2011 019 Neuropathy in diabetes 01/05/2011 9 Unspecified disorder of prostate 03/08/2007 08/17/2016 Stenosis of rectum and anus 09/07/200507/26 Last Assessment & Plan: Reviewed need for WOB or repeat colonscopy- pt declines. Also declines offer to see colorectal surgeon at this time. Diverticulosis of colon (without mention of hemo rrhage) 08/17/2016 Internal hemorrhoids without mention of complica tion 08/17/2016 OVERWEIGHT 11/02/2020 Elevated prostate specific antigen (PSA) 06/01/2020 documented as of this encounter (statuses as of 09/23/2022) [facility] History of Past illness Narrative* Problem Noted Date Diagnosed Date Resolved Date Closed displaced fracture of lateral malleolus of right fibula 06/09/2015 08/17/2016 Peripheral neuropathy 12/07/20142018 High grade prostatic intraep ithelial neoplasia 08/30/2012 06/01/2020 Benign neoplasm of colon 04/12/2011 Neuropathy in diabetes 01/05/201109/14 Unspecified disorder of prostate 03/08/2007 08/17/2016 Stenosis of rectum and anus 09/07/2005 08/17/2016 Last Assessment & Plan: Reviewed need for WOB or repeat colonscopy- pt declines. Also declines offer to see colorectal surgeon at this time. Diverticulosis of colon (wit hout mention of hemorrhage) 08/17/2016 Internal hemorrhoids without mention of complication 08/17/2016 OVERWEIGHT 11/02/2020 Elevated prostate specific antigen (PSA) 06/01/2020 documented as of this encounter (statuses as of 10/06/2022) [facility] note* Diagnosis Type 2 diabetes mellitus without complication, without long-term current use of insulin (HCC)- Primary Essential hypertension Unspecified essential hypertension Hyperlipidemia, unspecified hyperlipidemia type Benign prostatic hyperplasia with lower urinary tract symptoms, symptom details unspecified Gait disorder Abnormality of gait Vitamin D deficiency Unspecified vitamin D deficiency Gouty crystallopathy Gouty arthropathy, unspecified Meniere disease, unspecified laterality Type 2 diabetes mellitus with peripheral neuropathy (HCC) documented in this encounter [facility] note* Diagnosis Hypercalcemia- Primary documented in this encounter [facility] note* Diagnosis Essential hypertension Unspecified essential hypertension documented in this encounter [facility] note* Diagnosis Type 2 diabetes mellitus without complication, without long-term current use of insulin (HCC) documented in this encounter [facility] note* Diagnosis Hypercalcemia- Primary documented in this encounter [facility] for referral (narrative)* Diagnostic Procedure Only (Routine) - Pending Review Specialty Diagnoses / Procedures Referred By Mónica anderson Referred To Contact MOLECULAR & FUNCTIONAL IMAGING Diagnoses Hypercalcemia Procedures NM BONE WHOLE BODY BONE &/JOINT IMAGING WHOLE BODY Charles Greene DO [address] [place] [address] Molecular & Functional Imaging [address] [place] [address] Referral ID Status Reason Start Date Expiration Date Visits Requested Visits Authorized [id number] Pending Review Auto-Generat ed Referral 10/27/2021 11/26/2022 1 1 [facility] Advance Directives No Advanced Directives Records FoundDocuments on File Type Date 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 Advance Directive(s) Summary Purpose Family History No Family History Records FoundNo Family History Records Found Health Concerns Infection Onset Date Last Indicated Resolved Time COVID-19 Rule-Out 12/12/2021 12/12/2021 12/12/2021 3:56 PM EDT Additional Source Comments Source Comments (unrecognize d section and content) In the event this informatio n is protected by the Federal Confidentiality of Alcohol and Drug Abuse Patient Records regulations: The Federal rules restrict any use of the information to criminally investigate or prosecute any alcohol or drug abuse patient.[facility] the event this information is protected by the Federal Confidentiality of Alcohol and Drug Abuse Patient Records regulations: The Federal rules restrict any use of the information to criminally investigate or prosecute any alcohol or drug abuse patient.[facility] the event this information is protected by the Federal Confidentiality of Alcohol and Drug Abuse Patient Records regulations: The Federal rules restrict any use of the information to criminally investigate or prosecute any alcohol or drug abuse patient.[facility] the event this information is protected by the Federal Confidentiality of Alcohol and Drug Abuse Patient Records regulations: The Federal rules restrict any use of the information to criminally investigate or prosecute any alcohol or drug abuse patient.[facility] the event this information is protected by the Federal Confidentiality of Alcohol and Drug Abuse Patient Records regulations: The Federal rules restrict any use of the information to criminally investigate or prosecute any alcohol or drug abuse patient.[facility] the event this information is protected by the Federal Confidentiality of Alcohol and Drug Abuse Patient Records regulations: The Federal rules restrict any use of the information to criminally investigate or prosecute any alcohol or drug abuse patient.[facility] the event this information is protected by the Federal Confidentiality of Alcohol and Drug Abuse Patient Records regulations: The Federal rules restrict any use of the information to criminally investigate or prosecute any alcohol or drug abuse patient.[facility] Reason for Visit (unrecogniz ed section and content) Reason Comments Results Reason Onset Date Comments Refill Request 11/01/2021 Reason Onset Date Comments Population Health Navigation Outreach 08/25/2022 [facility] Reason Comments Patient Update Reason Onset Date Comments Population Health Navigation Outreach 10/05/2022 [facility] Care Teams (unrecognized sec tion and content) Filament Cutter Relationship Specialty Start Date End Date Charles Greene, DO [address] [place] [address] PCP - General Family Practice 01/04/21 Filament Cutter Relationship Specialty Start Date End Date Charles Greene, DO [address] [place] [address] PCP - General Family Practice 01/04/21 Filament Cutter Relationship Specialty Start Date End Date Charles Greene DO [address] [place] [address] PCP - General Family Medicine 01/04/21 Filament Cutter Relationship Specialty Start Date End Date Charles Greene DO [address] [place] [address] PCP - General Family Medicine 01/04/21 Filament Cutter Relationship Specialty Start Date End Date Charles Greene DO [address] [place] [address] PCP - General Family Medicine 01/04/21 Filament Cutter Relationship Specialty Start Date End Date Shantanu Jackson MD [address] [place] [address] [address] [place] [address] PCP - General Family Medicine 10/05/22 (unrecognized sect ion and content) No Status Records FoundNo Status Records Found INFORMATION SOURCE (unrecogn ized section and content) DATE CREATED AUTHOR AUTHOR'S ORGANIZ ATION 10/06/2022 [facility] FOR RECORDS PERTAINING TO PATIENTS WHO ARE OR HAVE BEEN ENROLLED IN A CHEMICAL DEPENDENCY/SUBSTANCEABUSE PROGRAM, SOME INFORMATION MAY BE OMITTED. This clinical summary was aggregated from multiple sources. Caution should be exercised in using it in the provision of clinical care. This summary normalizes information from multiple sources, and as a consequence, information in this document may materially change the coding, format and clinical context of patient data. In addition, data may be omitted in some cases. CLINICAL DECISIONS SHOULD BE BASED ON THE PRIMARY CLINICAL RECORDS. [employer] [facility]. provides no warranty or guarantee of the accuracy or completeness of information in this document.
[2023-05-06 11:41] LABS: ALB/GLOB Ratio 1.1 RATIO (0.9-2.4); AST(SGOT) 13 U/L (15-37); Alanine Aminotransfer ALT/SGPT 24 U/L (16-61); Albumin, Serum 3.9 g/dL (3.2-5.0); Alkaline Phosphatase 108 U/L (45-117); Anion Gap 5 (5-15); BUN 14 mg/dL (7-18); BUN/Creat Ratio 12.8 RATIO (10-20); Calcium,Total 9.9 mg/dL (8.5-10.1); Chloride 100 mmol/L (98-107); Creatinine, Serum 1.09 mg/dL (0.70-1.30); EST Glomerular Filtration Rate 69 mL/min (>60); Est Glom Filt Rate - Afr Amer 83 mL/min (>60); Estimated Creatinine Clearance 56.36 ml/min; Globulin 3.4 g/dL (2.2-4.2); Glucose 184 mg/dL (74-106); Potassium 4.1 mmol/L (3.5-5.1); Protein, Total 7.3 g/dL (6.4-8.2); Sodium Level 138 mmol/L (136-145)
--- NOTE | 2023-05-06 12:26 | CT_ITS ---
STUDY: CT ABDOMEN AND PELVIS WITH CONTRAST REASON FOR EXAM: Male, 83 years old. Ileus RADIATION DOSAGE (If Supplied By Facility): CTDIvol = ( 16.65 ) mGy, DLP = ( 1129.10 ) mGycm TECHNIQUE: IV 100mL Isovue-370 was administered. Transaxial images were obtained from the dome of the diaphragm to the symphysis pubis in the arterial, nephrographic and excretory phases. Multiplanar coronal and sagittal images were reformatted. Individualized Dose Optimization Techniques Were Used For This CT. COMPARISON: Prior studies dated: 03/24/2022 and 12/10/2019. FINDINGS: The visualized lung bases are essentially unremarkable. The visualized portions of the heart are within normal limits. Coronary calcifications. Normal liver. There is non-visualization of the gallbladder, which may be secondary to either contraction or a prior cholecystectomy. Normal spleen. Stable 1 cm cyst in the tail of the pancreas. Normal bilateral adrenal glands. Stable 1.7 cm right renal cortical cyst for which no further follow-up exam is needed. Adjacent smaller cysts. No evidence of hydronephrosis. Normal visualized stomach. Nonspecific fluid-filled and mildly thickened small bowel loops without evidence of bowel obstruction. No evidence of acute diverticulitis. The appendix is visualized and appears normal. There is diffuse atherosclerotic calcification of the abdominal aorta, without a demonstrated aneurysm. No retroperitoneal adenopathy. Normal urinary bladder. Enlarged prostate. Correlation with PSA level is recommended. Normal abdominal wall. There are diffuse degenerative changes of the visualized lumbar spine. CT/Abdomen/Pelvis W IV Cont ONLY IMPRESSION: 1. Nonspecific fluid-filled and mildly thickened small bowel loops and fluid-filled ascending colon could reflect enterocolitis. 2. Otherwise no focal acute inflammatory process. 3. Enlarged prostate. Correlation with PSA level is recommended. Electronically Signed: Roberto Dinero MD at 14:50 EST ,
[2023-05-06] MEDS: Magnesium Citrate 300 ML 150 ML PO (15:37)
[2023-05-06 15:43] VITALS: BP 134/77; PULSE 67; RESP 18; O2SAT 99
== END 2023-05-06 15:44 | disposition home or self-care (01) ==
PROVIDERS: Emergency Provider Emergency Medicine; PCP Family Medicine; Visit Provider Emergency Medicine
DX: K59.00 Constipation, unspecified (principal); E11.9 Type 2 diabetes mellitus without complications; Z87.891 Personal history of nicotine dependence; Z90.49 Acquired absence of other specified parts of digestive tract; I10 Essential (primary) hypertension; Z79.899 Other long term (current) drug therapy; Z79.84 Long term (current) use of oral hypoglycemic drugs; Z79.82 Long term (current) use of aspirin; K52.9 Noninfective gastroenteritis and colitis, unspecified
CPT/HCPCS: 74022; 74177; 80053; 85025; 96360; 96361; 99283; J7030; Q9967; A4216

== ENCOUNTER → 2023-05-10 | Outpatient (CLI) | payer MEDICARE, OTHER, SELFPAY ==
--- OUTSIDE RECORDS SUMMARY | 2023-05-10 19:17 | XMS RPT_ITS | CCD ---
Author Name Unknown Address [facility] [address] [place] [address] Organization [facility] Care Team Providers Care Art Specialist Name Role Phone Charles Greene DO Primary Care Provider [phone] CHARLES GREENE Primary Care Unavailable PERCY WRIGHT Attending Unavaila ble Charles Greene DO Primary Care Provider Shantanu Jackson MD Primary Care Provider CHARLES GREENE Referring Unavailable CHARLES GREENE Primary Care Unavailable Allergies Allergy Classification Reported Allergen(s) Allergy Type Date of Onset Reaction(s) Facility (9 sources) cefdinir; Translations: [CEFDINIR] Drug Allergy 11-18-2004 [facility] Work Phone: Medications Current Medications Medication Drug [...] 97 [degF] Charles Greene DO Work Phone: [facility] 10-04-2021 09:10-0400 Body weight 92.08 kg Charles Greene DO Work Phone: [facility] 10-04-2021 09:10-0400 Diastolic blood pressure 70 mm[Hg] Charles Greene DO Work Phone: [facility] 10-04-2021 09:10-0400 Heart rate 88 /min Charles Greene DO Work Phone: [facility] 10-04-2021 09:10-0400 Respiratory rate 20 /min Charles Greene DO Work Phone: [facility] 10-04-2021 09:10-0400 Systolic blood pressure 120 mm[Hg] Charles Greene DO Work Phone: [facility] Encounters Encounter Date Encounter Type Care Provider Facility Start: 10-05-2022 ambulatory Kalie Mcpherson [facility] Plan of Treatment Date Care Activity Detail Author Start: 09-14-2027 Urine microalbumin profile DTAP,TDAP,TD (2 - Td or Tdap) [facility] Start: 10-04-2022 3 comp foot exam completed DIABETIC FOOT EXAM [facility] Start: 10-04-2022 Hepatitis B screening URINE ALBUMIN:CREATININE RATIO [facility] Start: 10-04-2022 Hepatitis B surface antibody level LDL CHOLESTEROL [facility] Start: 07-05-2022 End: 09-04-2022 Hemoglobin A1c in Blood HGB A1C Lab Routine Type 2 diabetes mellitus without complication, without long-term current use of insulin (HCC) Expected: 07/05/2022, Expires: 09/04/2022 [facility] Work Phone: Immunizations Immunization Date Immunization Notes Care Provider Charissa link 11-04-2020 COVID-19 vaccine, fu ll dose (MODERNA) Charles Greene DO Work Phone: [facility] Work Phone: 10-07-2020 COVID-19 vaccine, fu ll dose (MODERNA) Charles Greene DO Work Phone: [facility] Work Phone: 03-07-2017 influenza, high dose seasonal, preservative-free Charles Greene DO Work Phone: [facility] 02-17-2015 pneumococcal conjuga te vaccine, 13 valent Charles Greene DO Work Phone: [facility] 01-23-2012 zoster vaccine, live Charles Greene DO Work Phone: [facility] Work Phone: 05-19-2003 pneumococcal polysaccharide vaccine, 23 valent Charles Greene DO Work Phone: [facility] Work Phone: Payers Date Payer Category Payer Medicare [id number] 2020 Private Health Insurance [employer] A ETNA MEDICARE SUPPLEMENT [id number] 2020-Present [phone] [address] [address] [place] [address] Indemnity [id number] 2020 Private Health Insurance [employer] Pietro ROSS MEDICARE SUPPLEMENT [id number] 2020-Present [phone] [address] [address] [place] [address] Indemnity [id number] 2005 Medicare MEDICARE MEDICAR E A AND B [id number] 2005-Present [phone] [place] [address] Medicare [id number] 2005 Medicare MEDICARE MEDICAR E A AND B [id number] 2005-Present [phone] [place] [address] Medicare [id number] 2005 Medicare [id number] Social History Date Type Detail Facility Start: 01-05-2011 Tobacco smoking stat [facility] Ex-smoker [facility] Work Phone: End: 02-23-2005 History of tobacco use Current smoker [facility] Work Phone: End: 02-23-2005 History of tobacco use Cigarette Smoker [facility] Work Phone: Start: 10-04-2021 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 Start: 09-24-2021 End: 12-12-2021 Exposure to SARS-CoV-2 (event) Not sure [facility] Work Phone: Start: 01-05-2011 End: 07-11-2022 Cigarettes smoked current (pack per day) - Reported 2 [facility] Start: 01-05-2011 Tobacco use and exposure Smokeless tobacco non-user [facility] Work Phone: Start: 10-04-2021 Tobacco use panel [facility] Medical Equipment Procedure Code Equipment Code Equipment [...] Patient Outreach (SMITA TNAV) WILLIAMS DE OLIVEIRA ([id number]) 1940 M Date Time Provider Department 10/05/22 [...] Encounter Status:Closed by KALIE MARSHALL on 10/05/22 [facility] 10-05-2022 Note HNO ID: [id number] Author: Kalie Marshall MA Service: ? Author Type: Continuous Improvement Director Type: Progress Notes Filed: 10/05/2022 1:44 PM [...] Marshall MA October 05, 2022 10:17 AM [facility] 10-05-2022 History of Present illness Narrative POPULATION [...] 2022 10:17 AM documented in this encounter [facility] 08-25-2022 Note Patient Outreach (SMITA TAN) WILLIAMS DE OLIVEIRA ([id number]) 1940 M Date Time Provider Department 08/25/22 [...] Encounter Status:Closed by KALIE MARSHALL on 08/25/22 [facility] 08-25-2022 Note HNO ID: [id number] Author: Kalie Marshall MA Service: ? Author Type: Continuous Improvement Director Type: Progress Notes Filed: 08/25/2022 3:46 PM [...] Marshall MA August 25, 2022 10:34 AM [facility] 08-25-2022 History of Present illness Narrative POPULATION [...] 2022 10:34 AM documented in this encounter [facility] 07-05-2022 Note Patient Outreach (IN TMMN) WILLIAMS DE OLIVEIRA ([id number]) 1940 M Date Time Provider Department 07/05/22 CHARLES GREENE During your visit today, we recorded the following information about you: Allergies As of Date: 07/05/2022 Noted Allergy Reaction OMNICEF (CEFDINIR) 11/18/2004 Date Reviewed: 12/12/2021 Reviewed by: Mary Ann Ayers RN - Fully Assessed Visit Diagnosis:Type 2 diabetes mellitus without complication, without long-term current use of insulin (HCC) [E11.9] Order(s):HGB A1C [[id number]] Order #: [id number] FUTURE Prescriptions as of 07/08/2022 - hydroCHLOROthiazide [...] Encounter Status:Closed by OLYA MOORE on 07/08/22 [facility] 11-01-2021 Miscellaneous Notes The following approved medication [...] Patient would like it sent to the [facility] . He only has 1 day of pills left. documented in this encounter [facility] 10-28-2021 Miscellaneous Notes Pt called back and [...] Charles Greene DO documented in this encounter [facility] 10-25-2021 Miscellaneous Notes Patient notified of results, [...] low normal. He needs to be taking 1840-7125 mcg a day of vitamin B12 in the AM. Charles Greene DO documented in this encounter [facility] 10-04-2021 History of Present illness Narrative Patient [...] agreed with the plan. Charles Greene DO [address] [place] [address] documented in this encounter [facility] documented as of this encounter (statuses as of 10/04/2021) [facility]03-[facility]2016 History of Past illness Narrative* Problem Noted [...] of this encounter (statuses as of 10/25/2021) [facility]2016 History of Past illness Narrative* Problem Noted [...] of this encounter (statuses as of 11/01/2021) [facility] History of Past illness Narrative* Problem Noted [...] of this encounter (statuses as of 07/08/2022) [facility] History of Past illness Narrative* Problem Noted [...] of this encounter (statuses as of 08/25/2022) [facility]2016 History of Past illness Narrative* Problem Noted [...] of this encounter (statuses as of 09/23/2022) [facility] History of Past illness Narrative* Problem Noted [...] of this encounter (statuses as of 10/06/2022) [facility] note* Diagnosis Type 2 diabetes mellitus without [...] peripheral neuropathy (HCC) documented in this encounter [facility] note* Diagnosis Hypercalcemia- Primary documented in this encounter [facility] note* Diagnosis Essential hypertension Unspecified essential hypertension documented in this encounter [facility] note* Diagnosis Type 2 diabetes mellitus without complication, without long-term current use of insulin (HCC) documented in this encounter [facility] note* Diagnosis Hypercalcemia- Primary documented in this encounter [facility] for referral (narrative)* Diagnostic Procedure Only (Routine) - Pending Review Specialty Diagnoses / Procedures Referred By Mónica anderson Referred To Contact MOLECULAR & FUNCTIONAL IMAGING Diagnoses Hypercalcemia Procedures NM BONE WHOLE BODY BONE &/JOINT IMAGING WHOLE BODY Charles Greene DO [address] [place] [address] Molecular & Functional Imaging [address] [place] [address] Referral ID Status Reason Start Date Expiration Date Visits Requested Visits Authorized [id number] Pending Review Auto-Generat ed Referral 10/27/2021 11/26/2022 1 1 [facility] Advance Directives No Advanced Directives Records FoundDocuments on File Type Date 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 Advance Directive(s) Summary Purpose Family [...] or prosecute any alcohol or drug abuse patient.[facility] the event this information is protected by the Federal Confidentiality of Alcohol and Drug Abuse Patient Records regulations: The Federal rules restrict any use of the information to criminally investigate or prosecute any alcohol or drug abuse patient.[facility] the event this information is protected by the Federal Confidentiality of Alcohol and Drug Abuse Patient Records regulations: The Federal rules restrict any use of the information to criminally investigate or prosecute any alcohol or drug abuse patient.[facility] the event this information is protected by the Federal Confidentiality of Alcohol and Drug Abuse Patient Records regulations: The Federal rules restrict any use of the information to criminally investigate or prosecute any alcohol or drug abuse patient.[facility] the event this information is protected by the Federal Confidentiality of Alcohol and Drug Abuse Patient Records regulations: The Federal rules restrict any use of the information to criminally investigate or prosecute any alcohol or drug abuse patient.[facility] the event this information is protected by the Federal Confidentiality of Alcohol and Drug Abuse Patient Records regulations: The Federal rules restrict any use of the information to criminally investigate or prosecute any alcohol or drug abuse patient.[facility] the event this information is protected by the Federal Confidentiality of Alcohol and Drug Abuse Patient Records regulations: The Federal rules restrict any use of the information to criminally investigate or prosecute any alcohol or drug abuse patient.[facility] Reason for Visit (unrecogniz ed section and content) Reason Comments Results Reason Onset Date Comments Refill Request 11/01/2021 Reason Onset Date Comments Population Health Navigation Outreach 08/25/2022 [facility] Reason Comments Patient Update Reason Onset Date Comments Population Health Navigation Outreach 10/05/2022 [facility] Care Teams (unrecognized sec tion and content) Art Specialist Relationship Specialty Start Date End Date Charles Greene, DO [address] [place] [address] PCP - General Family Practice 01/04/21 Art Specialist Relationship Specialty Start Date End Date Charles Greene, DO [address] [facility] [address] PCP - General Family Practice 01/04/21 Art Specialist Relationship Specialty Start Date End Date Charles Greene DO [address] [place] [address] PCP - General Family Medicine 01/04/21 Art Specialist Relationship Specialty Start Date End Date Charles Greene DO [address] [place] [address] PCP - General Family Medicine 01/04/21 Art Specialist Relationship Specialty Start Date End Date Charles Greene DO [address] [place] [address] PCP - General Family Medicine 01/04/21 Art Specialist Relationship Specialty Start Date End Date Shantanu Jackson MD [address] [place] [address] [address] [place] [address] PCP - General Family Medicine 10/05/22 (unrecognized sect ion and content) No Status Records FoundNo Status Records Found INFORMATION SOURCE (unrecogn ized section and content) DATE CREATED AUTHOR AUTHOR'S ORGANIZ ATION 10/06/2022 [facility] FOR RECORDS PERTAINING TO PATIENTS WHO ARE [...] BE BASED ON THE PRIMARY CLINICAL RECORDS. [employer] [facility]. provides no warranty or guarantee of the accuracy or completeness of information in this document.
== END | disposition home or self-care (01) ==
LOC: MFPLAB 16:04
PROVIDERS: PCP Family Medicine; Visit Provider Family Medicine
DX: Z00.00 Encounter for general adult medical examination without abnormal findings (principal)

== ENCOUNTER → 2023-05-23 | Outpatient (CLI) | payer MEDICARE, OTHER, SELFPAY ==
[2023-05-23 18:10] LABS: Mean Corp Hgb Conc 34.9 g/dL (32-36); Mean Corpuscular Hgb 31.4 pg (27.0-32.0); Mean Corpuscular Volume 90.1 fL (80-94); Mean Platelet Vol. 9.9 fl (6.2-12.0); Platelet Count 200 K/mm3 (150-450); RBC Distribution Width CV 12.9 % (11.6-14.6); RBC Distribution Width SD 42.5 fl (35.1-43.9); Red Blood Count 4.77 M/mm3 (4.6-6.2); White Blood Count 8.5 K/mm3 (4.4-11.0)
[2023-05-23 18:45] LABS: T4 Total, Thyroxin 8.3 ug/dL (4.5-12.1); Thyroid Stim Hormone (TSH) 5.45 uIU/mL (0.358-3.74)
--- OUTSIDE RECORDS SUMMARY | 2023-05-24 00:27 | XMS RPT_ITS | CCD ---
Author Name Unknown Address [facility] [address] [place] [address] Organization [facility] Care Team Providers Care Hand Spray Operator Name Role Phone Charles Greene DO Primary Care Provider CHARLES GREENE Primary Care Unavailable PERCY WRIGHT Attending Unavaila ble Charles Greene DO Primary Care Provider Shantanu Jackson MD Primary Care Provider [phone] CHARLES GREENE Referring Unavailable CHARLES GREENE Primary Care Unavailable Allergies Allergy Classification Reported Allergen(s) Allergy Type Date of Onset Reaction(s) Facility (9 sources) cefdinir; Translations: [CEFDINIR] Drug Allergy 11-18-2004 [facility] Work Phone: Medications Current Medications Medication Drug [...] 97 [degF] Charles Greene DO Work Phone: [facility] 10-04-2021 09:10-0400 Body weight 92.08 kg Charles Greene DO Work Phone: [facility] 10-04-2021 09:10-0400 Diastolic blood pressure 70 mm[Hg] Charles Greene DO Work Phone: [facility] 10-04-2021 09:10-0400 Heart rate 88 /min Charles Greene DO Work Phone: [facility] 10-04-2021 09:10-0400 Respiratory rate 20 /min Charles Greene DO Work Phone: [facility] 10-04-2021 09:10-0400 Systolic blood pressure 120 mm[Hg] Charles Greene DO Work Phone: [facility] Encounters Encounter Date Encounter Type Care Provider Facility Start: 10-05-2022 ambulatory Kalie Mcpherson [facility] Plan of Treatment Date Care Activity Detail Author Start: 09-14-2027 Urine microalbumin profile DTAP,TDAP,TD (2 - Td or Tdap) [facility] Start: 10-04-2022 3 comp foot exam completed DIABETIC FOOT EXAM [facility] Start: 10-04-2022 Hepatitis B screening URINE ALBUMIN:CREATININE RATIO [facility] Start: 10-04-2022 Hepatitis B surface antibody level LDL CHOLESTEROL [facility] Start: 07-05-2022 End: 09-04-2022 Hemoglobin A1c in Blood HGB A1C Lab Routine Type 2 diabetes mellitus without complication, without long-term current use of insulin (HCC) Expected: 07/05/2022, Expires: 09/04/2022 [facility] Work Phone: Immunizations Immunization Date Immunization Notes Care Provider Charissa link 11-04-2020 COVID-19 vaccine, fu ll dose (MODERNA) Charles Greene DO Work Phone: [facility] Work Phone: 10-07-2020 COVID-19 vaccine, fu ll dose (MODERNA) Charles Greene DO Work Phone: [facility] Work Phone: 03-07-2017 influenza, high dose seasonal, preservative-free Charles Greene DO Work Phone: [facility] 02-17-2015 pneumococcal conjuga te vaccine, 13 valent Charles Greene DO Work Phone: [facility] 01-23-2012 zoster vaccine, live Charles Greene DO Work Phone: [facility] Work Phone: 05-19-2003 pneumococcal polysaccharide vaccine, 23 valent Charles Greene DO Work Phone: [facility] Work Phone: Payers Date Payer Category Payer Medicare [id number] 2020 Private Health Insurance [employer]ET[employer] A ETNA MEDICARE SUPPLEMENT [id number] 2020-Present [phone] [address] [address] [place] [address] Indemnity [id number] 2020 Private Health Insurance [employer] Pietro ROSS MEDICARE SUPPLEMENT [id number] 2020-Present [phone] [address] [address] [place] [address] Indemnity [id number] 2005 Medicare MEDICARE MEDICAR E A AND B [id number] 2005-Present [phone] [place] [address] Medicare [id number] 2005 Medicare MEDICARE MEDICAR E A AND B [id number] 2005-Present [phone] [place] [address] Medicare [id number] 2005 Medicare [id number] Social History Date Type Detail Facility Start: 01-05-2011 Tobacco smoking stat [facility] Ex-smoker [facility] Work Phone: End: 02-23-2005 History of tobacco use Current smoker [facility] Work Phone: End: 02-23-2005 History of tobacco use Cigarette Smoker [facility] Work Phone: Start: 10-04-2021 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) [facility] Start: 1940 Sex Assigned At Not on file [facility] Start: 09-24-2021 End: 12-12-2021 Exposure to SARS-CoV-2 (event) Not sure [facility] Work Phone: Start: 01-05-2011 End: 07-11-2022 Cigarettes smoked current (pack per day) - Reported 2 [facility] Start: 01-05-2011 Tobacco use and exposure Smokeless tobacco non-user [facility] Work Phone: Start: 10-04-2021 Tobacco use panel [facility] Medical Equipment Procedure Code Equipment Code [...] Patient Outreach (SMITA TNAV) WILLIAMS DE OLIVEIRA ([id number]) 1940 M Date Time Provider Department 10/05/22 [...] Encounter Status:Closed by KALIE MARSHALL on 10/05/22 [facility] 10-05-2022 Note HNO ID: [id number] Author: Kalie Marshall MA Service: ? Author Type: Patternmaker All Around Type: Progress Notes Filed: 10/05/2022 1:44 PM [...] Marshall MA October 05, 2022 10:17 AM [facility] 10-05-2022 History of Present illness Narrative POPULATION [...] FOOT EXAM due on 10/04/2022 Navigation Signature: Klaie Marshall MA October 05, 2022 10:17 AM documented in this encounter [facility] 08-25-2022 Note Patient Outreach (SMITA TAN) WILLIAMS DE OLIVEIRA ([id number]) 1940 M Date Time Provider Department 08/25/22 [...] Encounter Status:Closed by KALIE MARSHALL on 08/25/22 [facility] 08-25-2022 Note HNO ID: [id number] Author: Kalie Marshall MA Service: ? Author Type: Patternmaker All Around Type: Progress Notes Filed: 08/25/2022 3:46 PM [...] Marshall MA August 25, 2022 10:34 AM [facility] 08-25-2022 History of Present illness Narrative POPULATION [...] 2022 10:34 AM documented in this encounter [facility] 07-05-2022 Note Patient Outreach (IN TMMN) WILLIAMS DE OLIVEIRA ([id number]) 1940 M Date Time Provider Department 07/05/22 CHARLES GERENE During your visit today, we recorded the following information about you: Allergies As of Date: 07/05/2022 Noted Allergy Reaction OMNICEF (CEFDINIR) 11/18/2004 Date Reviewed: 12/12/2021 Reviewed by: Mary Ann Ayers RN - Fully Assessed Visit Diagnosis:Type 2 diabetes mellitus without complication, without long-term current use of insulin (HCC) [E11.9] Order(s):HGB A1C [[id number]] Order #: [id number] FUTURE Prescriptions as of 07/08/2022 - hydroCHLOROthiazide [...] Encounter Status:Closed by OLYA MOORE on 07/08/22 [facility] 11-01-2021 Miscellaneous Notes The following approved medication [...] Patient would like it sent to the [facility] . He only has 1 day of pills left. documented in this encounter [facility] 10-28-2021 Miscellaneous Notes Pt called back and [...] Charles Greene DO documented in this encounter [facility] 10-25-2021 Miscellaneous Notes Patient notified of results, [...] low normal. He needs to be taking 4244-1973 mcg a day of vitamin B12 in the AM. Charles Greene DO documented in this encounter [facility] 10-04-2021 History of Present illness Narrative Patient [...] agreed with the plan. Charles Greene DO [address] [place] [address] documented in this encounter [facility] documented as of this encounter (statuses as of 10/04/2021) [facility]2016 History of Past illness Narrative* Problem Noted [...] of this encounter (statuses as of 10/25/2021) [facility] History of Past illness Narrative* Problem Noted [...] of this encounter (statuses as of 11/01/2021) [facility] History of Past illness Narrative* Problem Noted [...] of this encounter (statuses as of 07/08/2022) [facility] History of Past illness Narrative* Problem Noted [...] of this encounter (statuses as of 08/25/2022) [facility] History of Past illness Narrative* Problem Noted [...] of this encounter (statuses as of 09/23/2022) [facility] History of Past illness Narrative* Problem Noted [...] of this encounter (statuses as of 10/06/2022) [facility] note* Diagnosis Type 2 diabetes mellitus [...] peripheral neuropathy (HCC) documented in this encounter [facility] note* Diagnosis Hypercalcemia- Primary documented in this encounter [facility] note* Diagnosis Essential hypertension Unspecified essential hypertension documented in this encounter [facility] note* Diagnosis Type 2 diabetes mellitus without complication, without long-term current use of insulin (HCC) documented in this encounter [facility] note* Diagnosis Hypercalcemia- Primary documented in this encounter [facility] for referral (narrative)* Diagnostic Procedure Only (Routine) - Pending Review Specialty Diagnoses / Procedures Referred By Mónica anderson Referred To Contact MOLECULAR & FUNCTIONAL IMAGING Diagnoses Hypercalcemia Procedures NM BONE WHOLE BODY BONE &/JOINT IMAGING WHOLE BODY Charles Greene DO [address] [place] [address] Molecular & Functional Imaging [address] [place] [address] Referral ID Status Reason Start Date Expiration Date Visits Requested Visits Authorized [id number] Pending Review Auto-Generat ed Referral 10/27/2021 11/26/2022 1 1 [facility] Advance Directives No Advanced Directives Records FoundDocuments on File Type Date Recorded 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 Advance Directive(s) Summary Purpose Family [...] or prosecute any alcohol or drug abuse patient.[facility] the event this information is protected by the Federal Confidentiality of Alcohol and Drug Abuse Patient Records regulations: The Federal rules restrict any use of the information to criminally investigate or prosecute any alcohol or drug abuse patient.[facility] the event this information is protected by the Federal Confidentiality of Alcohol and Drug Abuse Patient Records regulations: The Federal rules restrict any use of the information to criminally investigate or prosecute any alcohol or drug abuse patient.[facility] the event this information is protected by the Federal Confidentiality of Alcohol and Drug Abuse Patient Records regulations: The Federal rules restrict any use of the information to criminally investigate or prosecute any alcohol or drug abuse patient.[facility] the event this information is protected by the Federal Confidentiality of Alcohol and Drug Abuse Patient Records regulations: The Federal rules restrict any use of the information to criminally investigate or prosecute any alcohol or drug abuse patient.[facility] the event this information is protected by the Federal Confidentiality of Alcohol and Drug Abuse Patient Records regulations: The Federal rules restrict any use of the information to criminally investigate or prosecute any alcohol or drug abuse patient.[facility] the event this information is protected by the Federal Confidentiality of Alcohol and Drug Abuse Patient Records regulations: The Federal rules restrict any use of the information to criminally investigate or prosecute any alcohol or drug abuse patient.[facility] Reason for Visit (unrecogniz ed section and content) Reason Comments Results Reason Onset Date Comments Refill Request 11/01/2021 Reason Onset Date Comments Population Health Navigation Outreach 08/25/2022 [facility] Reason Comments Patient Update Reason Onset Date Comments Population Health Navigation Outreach 10/05/2022 [facility] Care Teams (unrecognized sec tion and content) Hand Spray Operator Relationship Specialty Start Date End Date Charles Greene, DO [address] [place] [address] PCP - General Family Practice 01/04/21 Hand Spray Operator Relationship Specialty Start Date End Date Charles Greene, DO [address] [place] [address] PCP - General Family Practice 01/04/21 Hand Spray Operator Relationship Specialty Start Date End Date Charles Greene DO [address] [place] [address] PCP - General Family Medicine 01/04/21 Hand Spray Operator Relationship Specialty Start Date End Date Charles Greene DO [address] [place] [address] PCP - General Family Medicine 01/04/21 Hand Spray Operator Relationship Specialty Start Date End Date Charles Greene DO [address] [place] [address] PCP - General Family Medicine 01/04/21 Hand Spray Operator Relationship Specialty Start Date End Date Shantanu Jackson MD [address] [place] [address] [address] [place] [address] PCP - General Family Medicine 10/05/22 (unrecognized sect ion and content) No Status Records FoundNo Status Records Found INFORMATION SOURCE (unrecogn ized section and content) DATE CREATED AUTHOR AUTHOR'S ORGANIZ ATION 10/06/2022 [facility] FOR RECORDS PERTAINING TO PATIENTS WHO ARE [...] BE BASED ON THE PRIMARY CLINICAL RECORDS. [employer] [facility]. provides no warranty or guarantee of the accuracy or completeness of information in this document.
== END | disposition home or self-care (01) ==
LOC: MTLAB 16:45
PROVIDERS: PCP Family Medicine; Referring Provider Internal Medicine Gastroenterology; Visit Provider Internal Medicine Gastroenterology
DX: K59.00 Constipation, unspecified (principal); R10.9 Unspecified abdominal pain
CPT/HCPCS: 36415; 84436; 84443; 85027

== ENCOUNTER 2023-06-06 17:36 | Inpatient (IN) | payer MEDICARE, OTHER, SELFPAY ==
[2023-06-06 17:36] VITALS: BP 104/74; PULSE 41; PULSE 68; RESP 15; RESP 16; TEMP 36.2; O2SAT 96; BMI 25.1
--- NOTE | 2023-06-06 19:02 | EKG12_ITS ---
Test Reason : PRE OP Blood Pressure : / mmHG Vent. Rate : 059 BPM Atrial Rate : 059 BPM P-R Int : 254 ms QRS Dur : 092 ms QT Int : 442 ms P-R-T Axes : 021 -24 011 degrees QTc Int : 437 ms Sinus bradycardia with 1st degree A-V block Otherwise normal ECG Confirmed by CHEY SOTO, YOLANDA ([id number]), manuscript editor GRAY DENNIS ([id number]) on 06/08/2023 6:19:45 AM Referred By: Confirmed By:YOLANDA GUERRIER MD
--- NOTE | 2023-06-06 19:02 | CT_ITS ---
STUDY: CT ABDOMEN AND PELVIS WITH CONTRAST REASON FOR EXAM: Male, 83 years old. abd pain RADIATION DOSAGE (If Supplied By Facility): CTDIvol = ( 19.22 ) mGy, DLP = ( 1067.56 ) mGycm TECHNIQUE: Transaxial images were obtained from the dome of the diaphragm to the symphysis pubis without oral contrast. IV 100mL Isovue-370 was administered. Sagittal and coronal images were reconstructed. Individualized dose optimization techniques were used for this CT. COMPARISON: 05/06/2023 FINDINGS: The visualized lung bases are unremarkable. The visualized portions of the heart are within normal limits. Subtle 2.5 cm round peripherally enhancing mass within the inferior aspect of the posterior segment right lobe of the liver and correlation with liver mass protocol CT or MRI is recommended. There is non-visualization of the gallbladder, which may be secondary to either contraction or a prior cholecystectomy. Normal spleen. No change in multiple subcentimeter cysts within the pancreas. Normal bilateral adrenal glands. Normal right kidney. Normal left kidney. No change in small exophytic cyst left kidney. Fluid and air-filled colon suggestive of diarrhea. Normal small intestine. Normal colon. The appendix is visualized and appears normal. There is diffuse atherosclerotic calcification of the abdominal aorta, without a demonstrated aneurysm. Normal inferior vena cava. Normal retroperitoneum. Normal urinary bladder. There is enlargement of the prostate gland. Normal abdominal wall. There are diffuse degenerative changes of the visualized lumbar spine. CT/Abdomen/Pelvis W IV Cont ONLY IMPRESSION: 1. Suspect diarrhea. 2. Small hepatic mass and correlation with liver mass protocol CT or MRI is recommended. Electronically Signed: Alexander Isaac MD at 22:21 EDT ,
--- NOTE | 2023-06-06 19:04 | EX.ED.DYSGE1 ---
HPI History of Present Illness Chief Complaint: Dizziness Informant: patient and family Narrative Narrative: Patient is an 83-year-old male with history of prior open cholecystectomy, type 2 diabetes mellitus, hypertension, hyperlipidemia and ongoing issues with constipation presenting for dizziness and constipation. Patient states last bowel movement was 2 weeks ago but then specifies as last time he had a solid bowel movement. He notes has been having watery mucus more recently and his last mucus bowel movement was 4 hours ago. Denies any black or blood in his stool. Denies any associated nausea. States he is having increased discomfort in his upper abdomen and feels like all the stool is stuck up there. Denies any vomiting. Notes that when this happens he will start to get dizzy. States that he was trying to have a bowel movement today but was not straining and then felt like he was going to pass out. Notes that also he has to make sure he drinks enough fluid and eats enough to keep his blood pressure because otherwise he will get lightheaded. Patient has been seen multiple times for this complaint in the ER over the last few years. In addition, he follows with NIKIA Louise. He was recently started on Linzess and notes initially he had good effect after being on it for about a week however he then ran out of the samples and took the lower dose samples which did not help. He has filled his prescription for the higher dose and is continue to still not have bowel movements. No other complaints at this time including fever or chills. Denies any chest pain or difficulty breathing. Family notes he is a little unsteady. Patient denies any focal weakness or tingling/numbness. Denies any acute vision changes. States he has tried MiraLAX as well as magnesium citrate with no relief of his symptoms as well. Has previously been prescribed lactulose as well. [facility] Medical History Diabetes Diverticulosis Hypertension Leg swelling Skin tear of left lower leg without complication Venous stasis dermatitis Venous ulcer of right leg Home Medications Metformin [Metformin Hcl] 1,000 mg PO BID diabetes 07/24/14 [History Last Taken 12/12/21] hydrochlorothiazide 25 mg tablet 12.5 mg PO DAILY diuretic 07/24/14 [History Last Taken 12/11/21] tamsulosin 0.4 mg capsule 0.4 mg PO DAILY prostate 07/24/14 [History Last Taken 12/12/21] allopurinol 100 mg tablet 100 mg PO DAILY gout 12/09/16 [History Last Taken 1 Month Ago ~11/11/21] atorvastatin 20 mg tablet 20 mg PO DAILY cholesterol 12/09/16 [History Last Taken 12/11/21] aspirin 81 mg chewable tablet 81 mg PO DAILY@0800 #90 tabs 12/13/21 [Rx Last Taken Unknown] lactulose 10 gram/15 mL (15 mL) oral solution 15 ml PO BID PRN constipation #1,440 mL 03/24/22 [Rx Last Taken Unknown] peg 3350-electrolytes 236 gram-22.74 gram-6.74 gram-5.86 gram solution (Golytely) 240 ml PO Q10M PRN constipation #4,000 mL 03/29/22 [Rx Last Taken Unknown] polyethylene glycol 3350 17 gram/dose oral powder (ClearLax) 17 g PO BID constipation 06/07/23 [History Last Taken Unknown] Allergy/AdvReac Type Severity Reaction Status Date / Time cefdinir [From Omnicef] AdvReac Other Verified 06/06/23 17:39 Family History (Updated 06/07/23 @ 00:33 by Natty Rios) Sister Cancer Brother CVA (cerebral vascular accident) Diabetes Father Diabetes Surgical History Hx of cholecystectomy Social History (Updated 06/07/23 @ 00:33 by Natty Rios) household members: spouse housing: house number of children: 2 service: No current occupational status: retired Smoking Status: Former smoker ROS ROS ED Constitutional Constitutional ED: Reports other Details: Lightheaded, dizzy ; Denies chills or fever(s) Eyes Eyes: Denies blurry vision or change in vision ENT ENT ED: Denies sore throat Cardiovascular Cardiovascular: Denies chest pain Respiratory/Chest Respiratory/Chest: Denies cough Gastrointestinal Gastrointestinal: Reports abdominal pain and constipation; Denies nausea or vomiting Musculoskeletal Musculoskeletal: Denies arthralgias or myalgias Integumentary Denies rash Neurologic Neurologic: Denies headache(s) or weakness Psychiatric Psychiatric: Denies anxiety EXAM Physical Exam Const Vital Signs: 06/06/23 17:36 06/06/23 17:36 06/06/23 17:59 Temperature 97.2 F L Temperature Source Temporal Pulse Rate 41 L 68 Respiratory Rate 16 15 Respiratory Effort Normal Non-Labored Respiratory Pattern Normal Blood Pressure 104/74 104/74 Blood Pressure Mean 84 84 Pulse Ox 96 96 Oxygen Delivery Method Room Air 06/06/23 20:16 06/06/23 22:25 06/06/23 23:02 Temperature 98.6 F Temperature Source Pulse Rate 63 71 68 Respiratory Rate 13 16 12 Respiratory Effort Respiratory Pattern Blood Pressure 141/80 H 121/71 H 143/97 H Blood Pressure Mean 100 87 112 Pulse Ox 96 96 96 Oxygen Delivery Method Room Air Room Air Positive well nourished and well developed General Appearance ED: well developed and NAD HEENT Reports moist mucous membranes Eyes EOMs intact bilaterally Eyes Narrative: Left pupils mildly enlarged and less reactive, prior history cataract surgery Neck supple Chest Wall inspection of chest normal and palpation of chest normal Chest Narrative: No chest wall crepitus appreciated or tenderness. Resp normal respiratory effort and clear to auscultation bilaterally Cardio regular rate and regular rhythm GI no masses GI Narrative: Mild tenderness to palpation epigastric and left upper quadrant. Hyperactive bowel sounds appreciated in the left upper quadrant. Inspection: Negative for abdominal distention Palpation: soft; Negative for guarding Extremity normal to inspection General Extremety ED: Negative for edema General Extremity: Negative for edema Neuro oriented x3 Neuro Narrative: Normal finger-nose, no truncal ataxia appreciated. No focal neurologic deficits appreciated. Sensorium / Orientation: alert Motor Exam: Negative for general weakness Psych mental status grossly normal Skin no rashes or lesions noted and no wounds MDM MDM MDM Narrative Medical decision making narrative: Patient evaluated for dizziness which sounds like near syncope and increased abdominal discomfort. Patient is very hyperactive bowel sounds on exam but overall is well-appearing. Initial vital signs significant for bradycardia with a pulse of 41. Workup looking for signs of obstruction versus ileus as well and has elected abnormalities, infection or cardiac abnormalities that could be causing his dizziness are obtained. No report of any head injury or fall do not think he requires a head CT. Has normal coordination with normal [id number] on exam. Patient is a very mild leukocytosis of 11.1 on his CBC which is pretty nonspecific. His CMP is remarkable for pretty profound hyponatremia with a sodium of 112 and hypochloremia with chloride of 75. Kidney function is normal. Liver function is normal as well as lipase. Urinalysis shows rare bacteria but 10-25 white blood cells as well as cast. Patient initially been ordered fluids at 125 cc an hour but this is open up to a bolus especially as patient tried to walk to the bathroom and had another near syncopal event. Patient apparently has been drinking large amounts of free water and is on hydrochlorothiazide in addition to taking laxatives which also be contributing to his hyponatremia. He also could have a component of volume depletion with his diarrhea. Is informed of these findings. CT of the abdomen pelvis does not show an acute obstruction but does show a lot of fluid in the GI tract with some air levels which is more consistent with diarrhea as well as a hepatic mass which patient and family are informed of. I question if patient is having a sensation of constipation or gas pressure and then abusing laxatives/Linzess which is causing the diarrhea. Patient be admitted to the stepdown unit for his hyponatremia. Case is of his have a physician, Dr. Bains. Lab Data Attestation: I reviewed the patient's lab results. Labs: Laboratory Results - last 24 hr 06/06/23 06/06/23 19:50 20:00 WBC 11.1 H RBC 4.58 L Hgb 13.5 Hct 38.4 L MCV 83.8 MCH 29.5 MCHC 35.2 RDW Std Deviation 39.2 RDW Coeff of [place] 12.9 Plt Count 174 MPV 8.9 Immature Gran % (Auto) 0.500 Neut % (Auto) 84.9 H Lymph % (Auto) 8.4 L [place] % (Auto) 5.5 Eos % (Auto) 0.4 Baso % (Auto) 0.3 Absolute Neuts (auto) 9.5 H Absolute Lymphs (auto) 0.94 Nucleated RBC % 0 Sodium 112 L* Potassium 3.5 Chloride 75 L Carbon Dioxide 28.0 Anion Gap 9 BUN 18 Creatinine 1.06 Estim Creat Clear Calc 61.39 Est GFR (MDRD) Af Amer 86 Est GFR (MDRD) Non-Af 71 BUN/Creatinine Ratio 17.0 Glucose 149 H Calcium 9.3 Total Bilirubin 1.30 H AST 27 ALT 27 Alkaline Phosphatase 103 Troponin I High Sens 7 Total Protein 6.6 Albumin 3.6 Globulin 3.0 Albumin/Globulin Ratio 1.2 Lipase 70 Urine Color Yellow Urine Clarity Clear Urine pH 7.0 Ur Specific [place] 1.010 Urine Protein 30 H Urine Glucose (UA) 50 H Urine Ketones Negative Urine Occult Blood 10 H Urine Nitrite Negative Urine Bilirubin Negative Urine Urobilinogen Normal Ur Leukocyte Esterase 100 H Urine RBC 0 SEEN Urine WBC 10-25 SEEN Ur Squamous Epith Cells 0 SEEN Urine Bacteria RARE Hyaline Casts 10-25 SEEN Urine Mucus 0 SEEN Radiography Diagnostic Testing: Clinical Impression(s) from Imaging Studies Abdomen/Pelvis CT 06/06/23 19:02 IMPRESSION: 1. Suspect diarrhea. 2. Small hepatic mass and correlation with liver mass protocol CT or MRI is recommended. Electronically Signed: Alexander Isaac MD at 22:21 EDT , Rhythm Strip Rhythm Strip: Sinus Rhythm Rate: 65 Ectopy: None EKG Initial EKG: Attestation: I personally reviewed and interpreted this EKG as follows: Interpretation: Sinus Rhythm Comments: Normal sinus rhythm at a rate of 65 bpm First-degree block with parable of 264 Left axis deviation Normal ST segments Compared to prior EKG on 12/10/2019 patient has a first-degree AV block and change in axis with no other acute changes Prior EKG tracings: available for review Management Discussion w/another healthcare provider: Hospitalist Discharge Plan Dx/Rx/DC Orders Clinical Impression: Liver mass, Near syncope, Acute hyponatremia Disposition Disposition: [facility] Discharge Date/Time: 06/07/23 00:06
[2023-06-06 20:04] LABS: Absolute Lymphocyte Count 0.94 X10^3/uL (0.83-4.51); Absolute Neutrophil Count 9.5 X10^3/uL (2.0-7.7); Basophil# 0.03 X10^3/uL; Basophil% 0.3 % (0-1); Eosinophil# 0.04 X10^3/uL; Eosinophils% 0.4 % (0-5); Hematocrit 38.4 % (40-54); Lymphocyte # 0.94 X10^3/ul (0.83-4.51); Lymphocyte % 8.4 % (19-41); Mean Corpuscular Volume 83.8 fL (80-94); Mean Platelet Vol. 8.9 fl (6.2-12.0); Monocyte# 0.61 X10^3/uL; Monocyte% 5.5 % (0-10); NRBC Flagged by Analyzer 0 % (0-5); Neutrophil # 9.46 X10^3/uL (2.7-7.7); Neutrophil % 84.9 % (47-70); POSITIVE COUNT YES; Platelet Count 174 K/mm3 (150-450); RBC Distribution Width CV 12.9 % (11.6-14.6); RBC Distribution Width SD 39.2 fl (35.1-43.9); Red Blood Count 4.58 M/mm3 (4.6-6.2); White Blood Count 11.1 K/mm3 (4.4-11.0)
[2023-06-06 20:09] LABS: Mucous, Urine 0 SEEN /hpf (<or=2+); Red Blood Cells-Urine 0 SEEN /hpf (0-5); Squamous Epithelial Cells - UA 0 SEEN /hpf (0-5)
[2023-06-06] MEDS: 0.9% Normal Saline (1000mL) 1,000 ML 125 ML IV (20:09)
[2023-06-06 20:11] LABS: Color, Urine Yellow (Yellow); Glucose, Dipstick 50 mg/dl (Normal); Ketone-Dipstick Negative (Negative); Leukocyte Esterase-Dipstick 100 /ul (Negative); Nitrite-Dipstick Negative (Negative); Occult Blood-Urine 10 /ul (Negative); Protein-Dipstick 30 mg/dl (Negative); Urine Bilirubin Dipstick Negative (Negative); Urine Clarity Clear (Clear); Urine Urobilinogen Normal (Normal)
--- NOTE | 2023-06-06 20:14 | ED.RN ---
Patient attempted to walk back to room from restroom. Patient became very dizzy and unsteady on his feet. He was helped to a chair and wheeled back to his room.
[2023-06-06 20:16] VITALS: BP 141/80; PULSE 63; RESP 13; O2SAT 96
[2023-06-06 20:16] LABS: White Blood Cells 10-25 SEEN /hpf (0-5)
[2023-06-06 20:17] LABS: Bacteria RARE /hpf (None Seen); Hyaline Cast 10-25 SEEN /lpf (0-5)
[2023-06-06 20:41] LABS: ALB/GLOB Ratio 1.2 RATIO (0.9-2.4); AST(SGOT) 27 U/L (15-37); Alanine Aminotransfer ALT/SGPT 27 U/L (16-61); Albumin, Serum 3.6 g/dL (3.2-5.0); Alkaline Phosphatase 103 U/L (45-117); Anion Gap 9 (5-15); BUN 18 mg/dL (7-18); Calcium,Total 9.3 mg/dL (8.5-10.1); Chloride 75 mmol/L (98-107); Creatinine, Serum 1.06 mg/dL (0.70-1.30); EST Glomerular Filtration Rate 71 mL/min (>60); Est Glom Filt Rate - Afr Amer 86 mL/min (>60); Estimated Creatinine Clearance 61.39 ml/min; Glucose 149 mg/dL (74-106); Lipase 70 U/L (13-75); Potassium 3.5 mmol/L (3.5-5.1); Protein, Total 6.6 g/dL (6.4-8.2); Sodium Level 112 mmol/L (136-145); Troponin-I HS 7 pg/mL (3.0-78.0)
[2023-06-06 21:17] LABS: Hemoglobin 13.5 g/dL (13.0-16.5); Mean Corp Hgb Conc 35.2 g/dL (32-36); Mean Corpuscular Hgb 29.5 pg (27.0-32.0)
[2023-06-06 22:25] VITALS: BP 121/71; PULSE 71; RESP 16; O2SAT 96
--- NOTE | 2023-06-06 22:44 | HP.PCM.HOS_ITS ---
[facility] - General General Date of Admission: 06/06/23 Date of Service: 06/06/23 Chief Complaint: Dizziness, Near Syncope and Constipation. HPI Narrative BRISEIDA DE OLIVEIRA, is a 83 M with a past medical history of essential hypertension; on HCTZ, hyperlipidemia, DM-2; of unknown control, history of tobacco abuse, history of colonic diverticulosis, history of cholecystectomy, chronic LE swelling with venous stasis dermatitis, history of venous ulcer of the Right LE, gout, BPH, OA and chronic constipation with IBS; on Linzess with associated bow el obsession followed by Dr. Zamarripa of gastroenterology who presents to [facility] ER complaining of dizziness and constipation. Mr. De Oliveira reports his symptoms began approximately two weeks prior to admission which he states was the last time he had a solid BM. He has noted watery stools with mucous with his last BM ~4 hours ago. He also admits to increasing pain in his upper abdomen which he attributed to feeling like his stools were stuck in that area so then earlier today when he tried to have a BM he almost passed out event though he affirms he was not straining. He was recently given samples of Linzess with good effect until he ran out of the samples after a week. He states he also tried MiraLAX, magnesium citrate and he has also sharply increased his free water intake without relief of his symptoms so he finally decided to come in for further evaluation and treatment. He denies blood in stools or black stools, nausea, vomiting, fever, chills, vision changes, chest pain, SOB, confusion or focal neurologic weakness. In the ER he was noted to have Severe Hyponatremia of 112 mmol/L present on admission suspected to be due to combination of an Adverse Drug Reaction to HCTZ plus Acute Water Intoxication complicated by Near Syncope compounded by CT evidence of a newly diagnosed Liver Mass in the setting of a chronic bowel obsession with suspected laxative abuse and he was then admitted to the PCU for ongoing care for a stay that is expected to be greater than 48 hours. [facility] Medical History Diabetes Diverticulosis Hypertension Leg swelling Skin tear of left lower leg without complication Venous stasis dermatitis Venous ulcer of right leg Home Medications Metformin [Metformin Hcl] 1,000 mg PO BID diabetes 07/24/14 [History Last Taken 12/12/21] hydrochlorothiazide 25 mg tablet 12.5 mg PO DAILY diuretic 07/24/14 [History Last Taken 12/11/21] tamsulosin 0.4 mg capsule 0.4 mg PO DAILY prostate 07/24/14 [History Last Taken 12/12/21] allopurinol 100 mg tablet 100 mg PO DAILY gout 12/09/16 [History Last Taken 1 Month Ago ~11/11/21] atorvastatin 20 mg tablet 20 mg PO DAILY cholesterol 12/09/16 [History Last Taken 12/11/21] aspirin 81 mg chewable tablet 81 mg PO DAILY@0800 #90 tabs 12/13/21 [Rx Last Taken Unknown] lactulose 10 gram/15 mL (15 mL) oral solution 15 ml PO BID PRN constipation #1,440 mL 03/24/22 [Rx Last Taken Unknown] peg 3350-electrolytes 236 gram-22.74 gram-6.74 gram-5.86 gram solution (Golytely) 240 ml PO Q10M PRN constipation #4,000 mL 03/29/22 [Rx Last Taken Unknown] polyethylene glycol 3350 17 gram/dose oral powder (ClearLax) 17 g PO BID constipation 06/07/23 [History Last Taken Unknown] Allergy/AdvReac Type Severity Reaction Status Date / Time cefdinir [From Omnicef] AdvReac Other Verified 06/06/23 17:39 Family History Sister Cancer Brother CVA (cerebral vascular accident) Diabetes Father Diabetes Surgical History Hx of cholecystectomy Social History household members: spouse housing: house number of children: 2 service: No current occupational status: retired Smoking Status: Former smoker ROS ROS Narrative Review of systems: General: Patient admits to dizziness and near syncope made worse by BM. He denies fever or chills. HENT: Denies headache, denies stuffy nose, denies sore throat EYES: Denies changes in vision or discharge from eyes. Resp: Denies cough, denies shortness of breath Cardiac: Denies chest pain or palpitations. GI: Denies abdominal pain, denies changes in bowel, had some nausea : Denies changes in urination Extremity: Denies swelling Musculoskeletal: Feels somewhat generally weak and unwell but he denies arthralg ias or myalgias. Neuro: Denies any numbness/tingling Heme: Denies any bleeding or bruising Skin: Denies rashes Psychiatric: No complaints voiced related to uncontrolled depression or anxiety. Endocrine: No polyuria, polydipsia or polyphagia. The rest of the 14 point ROS was negative except for positives in HPI. Vital Signs Vital Signs Vital Signs: 06/06/23 17:36 06/06/23 17:36 06/06/23 17:59 Temperature 97.2 F L Temperature Source Temporal Pulse Rate 41 L 68 Respiratory Rate 16 15 Respiratory Effort Normal Non-Labored Respiratory Pattern Normal Blood Pressure 104/74 104/74 Blood Pressure Mean 84 84 Pulse Ox 96 96 Oxygen Delivery Method Room Air 06/06/23 20:16 Temperature Temperature Source Pulse Rate 63 Respiratory Rate 13 Respiratory Effort Respiratory Pattern Blood Pressure 141/80 H Blood Pressure Mean 100 Pulse Ox 96 Oxygen Delivery Method Room Air Weight Weight: 196 lb Body Mass Index (BMI) 25.1 Physical Exam Const alert, oriented x3, no apparent distress and average body habitus General Appearance: cooperative HEENT normocephalic, head/scalp atraumatic and hearing grossly normal bilaterally Eyes PERRL and EOMs intact bilaterally Neck no lymphadenopathy and supple Resp normal respiratory effort, no retractions, no use of accessory muscles and clear to auscultation bilaterally Cardio regular rate and regular rhythm GI soft to palpation and non-distended GI Narrative: Patient has tenderness to palpation in the epigastrium and both upper quadrants. Extremity normal to inspection and full ROM Skin Skin Narrative: Patient has no evidence of rash at this time. Neuro oriented x3, CN's II-XII intact bilaterally, moves all extremities and no focal motor deficits Sensorium / Orientation: awake, alert, oriented to person, oriented to place and oriented to time Speech: speech normal Motor Exam: strength 5/5 throughout Psych affect normal Results Medical Records Data Attestation: I reviewed the patient's medical records Lab / Micro Data Attestation: I reviewed the patient's lab results. 06/06/23 19:50 06/07/23 00:57 Labs: Laboratory Results - last 24 hr 06/06/23 19:50: WBC 11.1 H, RBC 4.58 L, Hgb 13.5, Hct 38.4 L, MCV 83.8, MCH 29.5, MCHC 35.2, RDW Std Deviation 39.2, RDW Coeff of [place] 12.9, Plt Count 174, MPV 8.9, Immature Gran % (Auto) 0.500, Neut % (Auto) 84.9 H, Lymph % (Auto) 8.4 L, [place] % (Auto) 5.5, Eos % (Auto) 0.4, Baso % (Auto) 0.3, Absolute Neuts (auto) 9.5 H, Absolute Lymphs (auto) 0.94, Nucleated RBC % 0, Sodium 112 L*, Potassium 3.5, Chloride 75 L, Carbon Dioxide 28.0, Anion Gap 9, BUN 18, Creatinine 1.06, Estim Creat Clear Calc 61.39, Est GFR (MDRD) Af Amer 86, Est GFR (MDRD) Non-Af 71, BUN/Creatinine Ratio 17.0, Glucose 149 H, Calcium 9.3, Total Bilirubin 1.30 H, AST 27, ALT 27, Alkaline Phosphatase 103, Troponin I High Sens 7, Total Protein 6.6, Albumin 3.6, Globulin 3.0, Albumin/Globulin Ratio 1.2, Lipase 70 06/06/23 20:00: Urine Color Yellow, Urine Clarity Clear, Urine pH 7.0, Ur Specific [place] 1.010, Urine Protein 30 H, Urine Glucose (UA) 50 H, Urine Ketones Negative, Urine Occult Blood 10 H, Urine Nitrite Negative, Urine Bilirubin Negative, Urine Urobilinogen Normal, Ur Leukocyte Esterase 100 H, Urine RBC 0 SEEN, Urine WBC 10-25 SEEN, Ur Squamous Epith Cells 0 SEEN, Urine Bacteria RARE, Hyaline Casts 10-25 SEEN, Urine Mucus 0 SEEN Imaging Radiology Impression Abdomen/Pelvis CT 06/06/23 19:02 IMPRESSION: 1. Suspect diarrhea. 2. Small hepatic mass and correlation with liver mass protocol CT or MRI is recommended. Electronically Signed: Alexander Isaac MD at 22:21 EDT , Assessment & Plan Assessment/Plan (1) Acute hyponatremia: (2) Adverse drug reaction: QUALIFIERS: Encounter type: initial encounter Qualified Code(s): T50.905A - Adverse effect of unspecified drugs, medicaments and biological substances, initial encounter (3) Near syncope: (4) Liver mass: PLAN: Plan 1. Severe Acute Hyponatremia of 112 mmol/L present on admission - Admit to PCU. Continue IVF with NS and recheck BMP q. ~6 hours to ensure a gradual increase of 8-10 mmol/L per 24 hour period. Check serum osmolality and urine osmolality. 2. Adverse Drug Reaction to HCTZ plus Acute Water Intoxication likely causing #1 - HCTZ was added to his list of allergies and this agent should not be restarted. Patient will also be started on a free water restriction to prevent worsening of his already low serum sodium levels. Finally, patient was warned about the potential dangers of water intoxication in an effort to prevent serial readmission. 3. Near Syncope in the setting of a chronic bowel obsession with suspected laxative abuse to treat IBS complicating #1 & #2 - Continue supportive care and monitor for improvement. Check echocardiogram to evaluate LVEF. PT/OT and Case Management to consult and treat in the AM on-rounds with help appreciated in advance. 4. CT evidence of a newly diagnosed Liver Mass - Check CT liver scan as per radiologist's recommendations. Finally, we will consult gastroenterology to see this patient on-rounds in the AM for further recommendations with help appreciated in advance. 5. Essential hypertension - Stop HCTZ and give prn IV Hydralazine for systolic blood pressure > 160 mm Hg. 6. Hyperlipidemia - Continue statin. 7. DM-2; of unknown control - Keep NPO except medications for now with possible pending liver biopsy. 8. History of tobacco abuse - Tobacco cessation will be strongly encouraged. 9. History of colonic diverticulosis - Noted. 10. History of cholecystectomy - Noted. 11. Chronic LE swelling with venous stasis dermatitis and history of venous ulcer of the Right LE - Stable. 12. Gout - Stable with no evidence of acute flare. 13. BPH - Resume Flomax. 14. OA - Stable. 15. DVT prophylaxis - Avoid blood thinners with impending liver biopsy. SCD's only. Total time: Approximately 75 minutes. Update: Patient's second BMP revealed an increase in sodium of 117 mmol/L. Charges/Coding Visit Charges Inpatient E&M: 87069 Init Hosp L3
[2023-06-06 23:02] VITALS: BP 143/97; PULSE 68; RESP 12; TEMP 37; O2SAT 96
--- NOTE | 2023-06-06 23:33 | ECHOD_ITS ---
Reason For Study: SYNCOPE Procedure This was a 2D Doppler, Color Flow transthoracic echocardiogram. Exam performed portable in patient room. Left Ventricle Normal LV size. The estimated ejection fraction is 55 %. No regional wall motion abnormalities noted. Right Ventricle Normal RV size. Normal systolic function. Atria Normal left atrium. Normal right atrium. Mitral Valve There is mild mitral annular calcification. Mild (1+) eccentric mitral valve insufficiency. Tricuspid Valve Normal tricuspid valve. Aortic Valve Trisinus/trileaflet aortic valve. Mild focal aortic valve calcification. Pulmonic Valve Normal pulmonic valve. Great Vessels Calcified aortic root. Mildly dilated aortic root. The pulmonary artery is normal size. Normal inferior vena cava. Pericardium/Pleural No pericardial effusion. MMode/2D Measurements & Calculations LVIDd: 4.5 cm IVSd: 1.1 cm LVOT diam: 2.1 cm LVIDs: 2.7 cm LVPWd: 0.97 cm LVOT area: 3.4 cm2 RVDd: 3.4 cm FS: 39.9 % Ao root diam: 4.0 cm LAV(MOD-bp): 52.3 ml LVAd ap4: 33.0 cm2 LAV(MOD-bp) Indexed: 24.3 ml/m2 LVLd ap4: 8.5 cm LAV(MOD-sp2): 59.6 ml EDV(MOD-sp4): 106.1 ml LAV(MOD-sp4): 47.0 ml EDV(sp4-el): 108.7 ml LVAs ap4: 20.2 cm2 LVLs ap4: 6.7 cm ESV(MOD-sp4): 49.5 ml ESV(sp4-el): 51.2 ml EF(MOD-sp4): 53.3 % EF(sp4-el): 52.9 % LVAd ap2: 32.9 cm2 SV(MOD-sp4): 56.5 ml SV(MOD-sp2): 63.9 ml LVLd ap2: 8.5 cm EDV(MOD-sp2): 101.8 ml EDV(sp2-el): 107.9 ml LVAs ap2: 17.6 cm2 LVLs ap2: 7.0 cm ESV(MOD-sp2): 37.9 ml ESV(sp2-el): 37.8 ml EF(MOD-sp2): 62.8 % SV(sp4-el): 57.5 ml LA dimension(2D): 4.2 cm LA A4 area: 17.1 cm2 TAPSE: 1.7 cm Time Measurements MV dec time: 0.31 sec Doppler Measurements & Calculations MV E max lonnie: 46.0 cm/sec Lat Peak E' Lonnie: 6.7 cm/sec Med Peak E' Lonnie: 7.4 cm/sec MV A max lonnie: 84.1 cm/sec E/E' lat: 6.9 E/E' med: 6.2 MV E/A: 0.55 MV dec slope: 149.9 cm/sec2 Ao V2 max: 84.7 cm/sec LV V1 max: 64.7 cm/sec Ao max P.9 mmHg LV V1 max P.7 mmHg Ao V2 mean: 55.8 cm/sec LV V1 mean P.88 mmHg Ao mean P.4 mmHg LV V1 mean: 43.8 cm/sec Ao V2 VTI: 20.1 cm LV V1 VTI: 13.3 cm AV (velocity ratio): 0.66 SINGH(I,D): 2.3 cm2 SINGH(V,D): 2.6 cm2 SV(LVOT): 45.4 ml PA V2 max: 78.0 cm/sec PI end-d lonnie: 114.7 cm/sec PA max PG (full): 1.3 mmHg ECHO/Echo Complete Interpretation Summary Normal LV size. The estimated ejection fraction is 55 %. Mild focal aortic valve calcification. Mildly dilated aortic root. Ordering Physician: Prabhu Leal Performed By: Chastity Banks RDCS
[2023-06-06 23:39] VITALS: BP 124/81; PULSE 72; RESP 13; O2SAT 93
[2023-06-07] VITALS (7 sets, daily range): BP systolic 106–153; BP diastolic 63–75; PULSE 59–74; RESP 16–18; TEMP 36.3–36.6; O2SAT 94–96; BMI 23.6
[2023-06-07] MEDS: 0.9% Normal Saline (1000mL) 1,000 ML 75 ML IV (00:20)
[2023-06-07 00:54] LABS: Bedside Glucose 161 mg/dL (74-106)
[2023-06-07 01:43] LABS: Anion Gap 7 (5-15); BUN 17 mg/dL (7-18); BUN/Creat Ratio 16.2 RATIO (10-20); Calcium,Total 8.9 mg/dL (8.5-10.1); Chloride 79 mmol/L (98-107); Creatinine, Serum 1.05 mg/dL (0.70-1.30); EST Glomerular Filtration Rate 72 mL/min (>60); Est Glom Filt Rate - Afr Amer 87 mL/min (>60); Estimated Creatinine Clearance 61.98 ml/min; Glucose 157 mg/dL (74-106); Potassium 3.5 mmol/L (3.5-5.1); Sodium Level 117 mmol/L (136-145)
[2023-06-07 02:00] LABS: Osmolality, Serum 250 mOsm/KG (280-301)
[2023-06-07 02:00] LABS: Osmolality, Urine 278 mOsm/KG
[2023-06-07 06:24] LABS: Prothrombin Time (Protime)PT. 13.2 SECONDS (11.7-14.9)
[2023-06-07 06:58] LABS: Absolute Lymphocyte Count 1.03 X10^3/uL (0.83-4.51); Absolute Neutrophil Count 6.7 X10^3/uL (2.0-7.7); Basophil# 0.04 X10^3/uL; Basophil% 0.5 % (0-1); Eosinophil# 0.09 X10^3/uL; Eosinophils% 1.1 % (0-5); Hematocrit 36.9 % (40-54); Hemoglobin 13.8 g/dL (13.0-16.5); Lymphocyte # 1.03 X10^3/ul (0.83-4.51); Mean Corp Hgb Conc 37.4 g/dL (32-36); Mean Corpuscular Hgb 31.9 pg (27.0-32.0); Mean Corpuscular Volume 85.2 fL (80-94); Mean Platelet Vol. 9.1 fl (6.2-12.0); Monocyte# 0.68 X10^3/uL; NRBC Flagged by Analyzer 0 % (0-5); Neutrophil # 6.65 X10^3/uL (2.7-7.7); Neutrophil % 77.7 % (47-70); Platelet Count 159 K/mm3 (150-450); RBC Distribution Width CV 12.8 % (11.6-14.6); Red Blood Count 4.33 M/mm3 (4.6-6.2); White Blood Count 8.6 K/mm3 (4.4-11.0)
[2023-06-07 07:06] LABS: AST(SGOT) 24 U/L (15-37); Alanine Aminotransfer ALT/SGPT 27 U/L (16-61); Albumin, Serum 3.5 g/dL (3.2-5.0); Alkaline Phosphatase 100 U/L (45-117); Globulin 2.5 g/dL (2.2-4.2); Magnesium 2.7 mg/dL (1.6-2.6); Phosphorus 2.5 mg/dL (2.5-4.9)
[2023-06-07 07:15] LABS: Anion Gap 12 (5-15); BUN 17 mg/dL (7-18); BUN/Creat Ratio 15.5 RATIO (10-20); Calcium,Total 8.9 mg/dL (8.5-10.1); Chloride 81 mmol/L (98-107); EST Glomerular Filtration Rate 68 mL/min (>60); Est Glom Filt Rate - Afr Amer 82 mL/min (>60); Estimated Creatinine Clearance 59.16 ml/min; Glucose 127 mg/dL (74-106); Potassium 3.3 mmol/L (3.5-5.1); Sodium Level 122 mmol/L (136-145)
--- NOTE | 2023-06-07 07:22 | PN.HOSP_ITS ---
Reason for Visit Reason for Visit: Diagnoses Hypo-osmolality and hyponatremia (06/06/23) Hepatomegaly, not elsewhere classified (06/06/23) Syncope and collapse (06/06/23) Adverse effect of unspecified drugs, medicaments and biological substances, initial encounter (06/06/23) Objective Data Objective Data Vital Signs: Vital Signs Temp Pulse Resp BP Pulse Ox O2 Del Method 97.9 F 59 L 16 121/70 H 96 Room Air 06/07/23 04:35 06/07/23 04:35 06/07/23 04:35 06/07/23 04:35 06/07/23 04:35 06/07/23 04:35 Oxygen Delivery Method Room Air Weight: 184 lb 4.903 oz Body Mass Index (BMI) 23.6 Intake & Output: Intake and Output for Last 24 Hours 06/05/23 06/06/23 06/07/23 23:59 23:59 23:59 Intake Total 522.92 / 522.92 Output Total 600 / 600 Balance -77.08 / -77.08 Lab / Micro Data 06/07/23 06:00 06/07/23 14:33 Labs: Laboratory Results - last 24 hr 06/06/23 19:50: WBC 11.1 H, RBC 4.58 L, Hgb 13.5, Hct 38.4 L, MCV 83.8, MCH 29.5, MCHC 35.2, RDW Std Deviation 39.2, RDW Coeff of [place] 12.9, Plt Count 174, MPV 8.9, Immature Gran % (Auto) 0.500, Neut % (Auto) 84.9 H, Lymph % (Auto) 8.4 L, [place] % (Auto) 5.5, Eos % (Auto) 0.4, Baso % (Auto) 0.3, Absolute Neuts (auto) 9.5 H, Absolute Lymphs (auto) 0.94, Nucleated RBC % 0, Sodium 112 L*, Potassium 3.5, Chloride 75 L, Carbon Dioxide 28.0, Anion Gap 9, BUN 18, Creatinine 1.06, Estim Creat Clear Calc 61.39, Est GFR (MDRD) Af Amer 86, Est GFR (MDRD) Non-Af 71, BUN/Creatinine Ratio 17.0, Glucose 149 H, Calcium 9.3, Total Bilirubin 1.30 H, AST 27, ALT 27, Alkaline Phosphatase 103, Troponin I High Sens 7, Total Protein 6.6, Albumin 3.6, Globulin 3.0, Albumin/Globulin Ratio 1.2, Lipase 70 06/06/23 20:00: Urine Color Yellow, Urine Clarity Clear, Urine pH 7.0, Ur Specific [place] 1.010, Urine Protein 30 H, Urine Glucose (UA) 50 H, Urine Ketones Negative, Urine Occult Blood 10 H, Urine Nitrite Negative, Urine Bilirubin Negative, Urine Urobilinogen Normal, Ur Leukocyte Esterase 100 H, Urine RBC 0 SEEN, Urine WBC 10-25 SEEN, Ur Squamous Epith Cells 0 SEEN, Urine Bacteria RARE, Hyaline Casts 10-25 SEEN, Urine Mucus 0 SEEN, Urine Osmolality 278 06/07/23 00:36: POC Glucose 161 H 06/07/23 00:57: Sodium 117 L*, Potassium 3.5, Chloride 79 L, Carbon Dioxide 31.0, Anion Gap 7, BUN 17, Creatinine 1.05, Estim Creat Clear Calc 61.98, Est GFR (MDRD) Af Amer 87, Est GFR (MDRD) Non-Af 72, BUN/Creatinine Ratio 16.2, Glucose 157 H, Serum Osmolality 250 L, Calcium 8.9 06/07/23 06:00: WBC 8.6, RBC 4.33 L, Hgb 13.8, Hct 36.9 L, MCV 85.2, MCH 31.9, MCHC 37.4 H D, RDW Std Deviation 40.0, RDW Coeff of [place] 12.8, Plt Count 159, MPV 9.1, Immature Gran % (Auto) 0.700, Neut % (Auto) 77.7 H, Lymph % (Auto) 12.0 L, [place] % (Auto) 8.0, Eos % (Auto) 1.1, Baso % (Auto) 0.5, Absolute Neuts (auto) 6.7, Absolute Lymphs (auto) 1.03, Nucleated RBC % 0, PT 13.2, INR 1.0, Sodium 122 L, Potassium 3.3 L, Chloride 81 L, Carbon Dioxide 29.0, Anion Gap 12, BUN 17, Creatinine 1.10, Estim Creat Clear Calc 59.16, Est GFR (MDRD) Af Amer 82, Est GFR (MDRD) Non-Af 68, BUN/Creatinine Ratio 15.5, Glucose 127 H, Calcium 8.9, Phosphorus 2.5, Magnesium 2.7 H, Total Bilirubin 1.40 H, Direct Bilirubin 0.40 H , AST 24, ALT 27, Alkaline Phosphatase 100, Total Protein 6.0 L, Albumin 3.5, Globulin 2.5, TSH 1.50 Radiography Diagnostic Testing: Radiology Impression Abdomen/Pelvis CT 06/06/23 19:02 IMPRESSION: 1. Suspect diarrhea. 2. Small hepatic mass and correlation with liver mass protocol CT or MRI is recommended. Electronically Signed: Alexander Isaac MD at 22:21 EDT , Rhythm Strip Rhythm Strip: Sinus Rhythm Rate: 65 Ectopy: None Assessment & Plan Assessment/Plan (1) Acute hyponatremia: (2) Adverse drug reaction: QUALIFIERS: Encounter type: initial encounter Qualified Code(s): T50.905A - Adverse effect of unspecified drugs, medicaments and biological substances, initial encounter (3) Near syncope: (4) Liver mass: PLAN: Plan 83-year-old gentleman came to ED with dizziness and ongoing chronic constipation. Last solid bowel movement was 2 weeks ago and after that having watery and mucous bowel movement last 24 hours ago. No black or blood in the stool but increased discomfort in upper abdomen and felt like stool is stuck. He was trying to have a BM but he felt dizziness and felt like going to pass out. Patient was recently started on Linzess by Dr. Zamarripa and he had good results for about 2-week and then ran out of the sample. No fever or chills. 1. Hypotonic isovolemic severe hyponatremia of 112 mmol/L present on admission most likely polydipsia and diarrhea admit to PCU. Serum sodium was normal in April 2023. The patient was started on IV fluid normal saline and sodium increased to 10 meq in the morning less than 12 hours therefore normal saline was stopped and D5W 1 L bolus was ordered. Youth Services Librarian was consulted and discussed with him. Patient also drinks half a gallon of liquid per day. Patient on also HCTZ 12.5 mg daily for several years which is on hold. Serum osmolarity 250, urine osmolarity 278 possible SIADH/diuretic. TSH and cortisol level tomorrow AM. 2. Other electrolyte abnormality hypokalemia: Potassium 3.2, bicarb 30 anion gap normal. Potassium replacement ordered. Serum magnesium and phosphorus ordered. 3. Near Syncope in the setting of a chronic IBS on laxatives: Home medication is used patient on MiraLAX, lactulose. 4. CT evidence of a subtle 2.5 cm in the inferior aspect of right lobe of liver: Images reviewed and liver mass found on section 52 on axial imaging. Discussed with Dr. Garcia as second opinion. Currently patient has severe electrolyte abnormality hyponatremia hypokalemia therefore recommended well- hydrated and hemodynamically stable. Once patient is hydrated and electrolyte abnormality corrected can have triple phase CT/MRI to further classify the liver tumor. For now, hold until patient electrolyte abnormality corrected and on baseline. Biopsy discontinued as triple phase CT scan or MRI is the first-line imaging technique for liver mass and if in doubt then liver biopsy for solid tumor. Liver biopsy contraindicated in hemangioma. 5. Essential hypertension - Stop HCTZ and give prn IV Hydralazine for systolic blood pressure > 160 mm Hg. 6. Hyperlipidemia - Continue statin. 7. DM-2; of unknown control - Keep NPO except medications for now with possible pending liver biopsy. 8. History of tobacco abuse - Tobacco cessation will be strongly encouraged. 9. History of colonic diverticulosis - Noted. 10. History of cholecystectomy - Noted. 11. Chronic LE swelling with venous stasis dermatitis and history of venous ulcer of the Right LE - Stable. 12. Gout - Stable with no evidence of acute flare. 13. BPH - Resume Flomax. 14. OA - Stable. 15. DVT prophylaxis - Avoid blood thinners with impending liver biopsy. SCD's only. Total time of the visit including total time spent in counseling or coordination of care, (more than 50% of the total time, spent in obtaining medical information from nurses and other ancillary care providers,explaining to the patient about labs, imaging, diagnosis and management of active complex medical conditions), discussion with radiologist, railway shunter, review of labs and imaging is 40 minutes. Charges/Coding Visit Charges Inpatient E&M: 03514 Subs Hosp L2
[2023-06-07] MEDS: Dextrose 5%-Water (1000mL Bag) 1,000 ML 1000 ML IV (07:35)
--- NOTE | 2023-06-07 10:05 | CASEMGMT ---
DINO CERNA Face to Face with patient for initial transition planning/care coordination assessment. RN CM introduced self and role at [facility]. Patient lying in bed, alert and oriented. Patient willing to participate in assessment and is able to answer all questions appropriately. Care providers, pharmacy, and demographics verified. PCP: Renetta Specialists: Zach still cleaner Preferred Pharmacy: [facility] Insurance: MCR, [employer] Prescription Benefit: yes Living Will/HPOA: yes, Bess De Oliveira LNOK: Living Arrangements: Patient lives with in a single story home with 2 steps and railing to enter the home. Transportation: self, step daughter DME/HHC: Patient has shower chair, raised toilet, cane, walker, grab bars at home. No previous HHC or SNF. Patient wishes to discharge home. Patient is requiring x2 assist with nursing. DINO CERNA discussed possible SNF at discharge, patient open to SNF at discharge if necessary. Will monitor progress with therapy. Patient states he has no further needs or concerns at this time. CM to follow for discharge planning needs that may arise. Disposition Plan: TBD, anticipate SNF vs HHC pending course of treatment and progress with therapy. Shauna DELANEY, RN, CM
--- NOTE | 2023-06-07 10:49 | CASEMGMT ---
Discharge Planning A list of HH & SNF providers including quality and resource use data and consistent with the patient's preferred geographic region, medical needs, and insurance network was created in [employer] Guide.? This list was provided to the RN ERYN. Kaela Early, Discharge Planning Asst.
--- NOTE | 2023-06-07 11:01 | PCM.CONS.R ---
Assessment & Plan Assessment/Plan (1) Acute hyponatremia: PLAN: Serum sodium was normal in April 2023. Prior to that he had borderline sodium value status 1 33-1 34. This admission he came with a sodium of 112. He was on hydrochlorothiazide but he says he has been on it for several years now. Only new medication within the last 1 month is incorrect. Multiple GI issues recently with constipation, started antibiotic. Also took multiple laxatives. He says he has been drinking more liquids to Help with bowel movements. Most likely polydipsia related hyponatremia. I would still hold hydrochlorothiazide for now. Sodium has come up by more than 10 points. Give a liter of D5 water, repeat sodium. Will try to keep the sodium under 120 for now. Slowly corrected after. Newly discovered liver mass. Workup as per primary. Discussed with hospitalist HPI Consult Data Date of Consult: 06/07/23 HPI Narrative Reason for Consultation: Hyponatremia HPI Narrative: BRISEIDA BOWSER, is a 83 M who presents to the hospital with weakness, dizziness. Nephrology on consultation in view of hyponatremia. Admission sodium was 112. Increased to 122 this morning. Apparently he has been having GI issues. Saw gastroenterology, was recently started on Entereg. Has also used multiple laxatives. Does not think his water intake has changed quite a bit. It takes about a half a gallon of liquids a day. He quit coffee since starting antibiotic. No urinary complaints. [facility] Medical History Diabetes Diverticulosis Hypertension Leg swelling Skin tear of left lower leg without complication Venous stasis dermatitis Venous ulcer of right leg Home Medications Metformin [Metformin Hcl] 1,000 mg PO BID diabetes 07/24/14 [History Last Taken 12/12/21] hydrochlorothiazide 25 mg tablet 12.5 mg PO DAILY diuretic 07/24/14 [History Last Taken 12/11/21] tamsulosin 0.4 mg capsule 0.4 mg PO DAILY prostate 07/24/14 [History Last Taken 12/12/21] allopurinol 100 mg tablet 100 mg PO DAILY gout 12/09/16 [History Last Taken 1 Month Ago ~11/11/21] atorvastatin 20 mg tablet 20 mg PO DAILY cholesterol 12/09/16 [History Last Taken 12/11/21] aspirin 81 mg chewable tablet 81 mg PO DAILY@0800 #90 tabs 12/13/21 [Rx Last Taken Unknown] lactulose 10 gram/15 mL (15 mL) oral solution 15 ml PO BID PRN constipation #1,440 mL 03/24/22 [Rx Last Taken Unknown] peg 3350-electrolytes 236 gram-22.74 gram-6.74 gram-5.86 gram solution (Golytely) 240 ml PO Q10M PRN constipation #4,000 mL 03/29/22 [Rx Last Taken Unknown] polyethylene glycol 3350 17 gram/dose oral powder (ClearLax) 17 g PO BID constipation 06/07/23 [History Last Taken Unknown] Allergy/AdvReac Type Severity Reaction Status Date / Time cefdinir [From Omnicef] AdvReac Other Verified 06/06/23 17:39 Family History Sister Cancer Brother CVA (cerebral vascular accident) Diabetes Father Diabetes Surgical History Hx of cholecystectomy Social History household members: spouse housing: house number of children: 2 service: No current occupational status: retired Smoking Status: Former smoker ROS ROS Narrative No new complaints otherwise Physical Exam Narrative Alert awake oriented x 3 no obvious distress no pallor no icterus no JVD s1s2 no murmurs lungs clear abdomen soft no organomegaly no edema no cyanosis Lab / Micro Data 06/07/23 06:00 06/07/23 06:00 Labs: Laboratory Results - last 24 hr 06/06/23 19:50: WBC 11.1 H, RBC 4.58 L, Hgb 13.5, Hct 38.4 L, MCV 83.8, MCH 29.5, MCHC 35.2, RDW Std Deviation 39.2, RDW Coeff of [place] 12.9, Plt Count 174, MPV 8.9, Immature Gran % (Auto) 0.500, Neut % (Auto) 84.9 H, Lymph % (Auto) 8.4 L, [place] % (Auto) 5.5, Eos % (Auto) 0.4, Baso % (Auto) 0.3, Absolute Neuts (auto) 9.5 H, Absolute Lymphs (auto) 0.94, Nucleated RBC % 0, Sodium 112 L*, Potassium 3.5, Chloride 75 L, Carbon Dioxide 28.0, Anion Gap 9, BUN 18, Creatinine 1.06, Estim Creat Clear Calc 61.39, Est GFR (MDRD) Af Amer 86, Est GFR (MDRD) Non-Af 71, BUN/Creatinine Ratio 17.0, Glucose 149 H, Calcium 9.3, Total Bilirubin 1.30 H, AST 27, ALT 27, Alkaline Phosphatase 103, Troponin I High Sens 7, Total Protein 6.6, Albumin 3.6, Globulin 3.0, Albumin/Globulin Ratio 1.2, Lipase 70 06/06/23 20:00: Urine Color Yellow, Urine Clarity Clear, Urine pH 7.0, Ur Specific [place] 1.010, Urine Protein 30 H, Urine Glucose (UA) 50 H, Urine Ketones Negative, Urine Occult Blood 10 H, Urine Nitrite Negative, Urine Bilirubin Negative, Urine Urobilinogen Normal, Ur Leukocyte Esterase 100 H, Urine RBC 0 SEEN, Urine WBC 10-25 SEEN, Ur Squamous Epith Cells 0 SEEN, Urine Bacteria RARE, Hyaline Casts 10-25 SEEN, Urine Mucus 0 SEEN, Urine Osmolality 278 06/07/23 00:36: POC Glucose 161 H 06/07/23 00:57: Sodium 117 L*, Potassium 3.5, Chloride 79 L, Carbon Dioxide 31.0, Anion Gap 7, BUN 17, Creatinine 1.05, Estim Creat Clear Calc 61.98, Est GFR (MDRD) Af Amer 87, Est GFR (MDRD) Non-Af 72, BUN/Creatinine Ratio 16.2, Glucose 157 H, Serum Osmolality 250 L, Calcium 8.9 06/07/23 06:00: WBC 8.6, RBC 4.33 L, Hgb 13.8, Hct 36.9 L, MCV 85.2, MCH 31.9, MCHC 37.4 H D, RDW Std Deviation 40.0, RDW Coeff of [place] 12.8, Plt Count 159, MPV 9.1, Immature Gran % (Auto) 0.700, Neut % (Auto) 77.7 H, Lymph % (Auto) 12.0 L, [place] % (Auto) 8.0, Eos % (Auto) 1.1, Baso % (Auto) 0.5, Absolute Neuts (auto) 6.7, Absolute Lymphs (auto) 1.03, Nucleated RBC % 0, PT 13.2, INR 1.0, Sodium 122 L, Potassium 3.3 L, Chloride 81 L, Carbon Dioxide 29.0, Anion Gap 12, BUN 17, Creatinine 1.10, Estim Creat Clear Calc 59.16, Est GFR (MDRD) Af Amer 82, Est GFR (MDRD) Non-Af 68, BUN/Creatinine Ratio 15.5, Glucose 127 H, Calcium 8.9, Phosphorus 2.5, Magnesium 2.7 H, Total Bilirubin 1.40 H, Direct Bilirubin 0.40 H, AST 24, ALT 27, Alkaline Phosphatase 100, Total Protein 6.0 L, Albumin 3.5, Globulin 2.5, TSH 1.50 Rhythm Strip Rhythm Strip: Sinus Rhythm Rate: 65 Ectopy: None Imaging Radiology Impression Abdomen/Pelvis CT 06/06/23 19:02 IMPRESSION: 1. Suspect diarrhea. 2. Small hepatic mass and correlation with liver mass protocol CT or MRI is recommended. Electronically Signed: Alexander Isaac MD at 22:21 EDT ,
[2023-06-07 11:34] LABS: Anion Gap 7 (5-15); BUN 14 mg/dL (7-18); BUN/Creat Ratio 13.2 RATIO (10-20); Calcium,Total 8.7 mg/dL (8.5-10.1); Chloride 85 mmol/L (98-107); Creatinine, Serum 1.06 mg/dL (0.70-1.30); EST Glomerular Filtration Rate 71 mL/min (>60); Est Glom Filt Rate - Afr Amer 86 mL/min (>60); Estimated Creatinine Clearance 61.39 ml/min; Glucose 167 mg/dL (74-106); Potassium 3.2 mmol/L (3.5-5.1); Sodium Level 121 mmol/L (136-145)
--- NOTE | 2023-06-07 12:01 | CASEMGMT ---
Addendum entered by Stephanie Palomo 06/07/23 14:09: SW was misinformed and therapy is not recommending SNF. SW went to patient's room. SW apologized to patient regarding conversation earlier. SW told patient SW had wrong information and therapy is not recommending rehab for him. SW did leave a list of home health agencies in patient's room should he be interested in home health. SW apologized again. Stephanie HARRIS Original Note: Per RN CM therapy is recommending patient go somewhere for rehab. SW met with patient. Introduced self and role at [facility]. SW explained therapy is recommending he go somewhere for rehab. SW explained what this means and Medicare coverage. SW suggested patient talk with his . SW provided patient with a list of [facility] facility providers including quality and resource use data and consistent with patient?s preferred geographic region, medical needs, and insurance network were provided from the [employer]Port Guide. SW told patient to talk about it with his and SW can check back. Stephanie HARRIS??
[2023-06-07] MEDS: Allopurinol 100 MG Tablet PO (12:08)
[2023-06-07] MEDS: Tamsulosin HCl 0.4 MG Capsule 0.400000000000000022 MG PO (12:08)
[2023-06-07 12:14] LABS: Bedside Glucose 150 mg/dL (74-106)
[2023-06-07 15:03] LABS: Anion Gap 8 (5-15); BUN 14 mg/dL (7-18); BUN/Creat Ratio 11.9 RATIO (10-20); Calcium,Total 8.9 mg/dL (8.5-10.1); Chloride 84 mmol/L (98-107); Creatinine, Serum 1.18 mg/dL (0.70-1.30); EST Glomerular Filtration Rate 63 mL/min (>60); Est Glom Filt Rate - Afr Amer 76 mL/min (>60); Estimated Creatinine Clearance 55.15 ml/min; Glucose 182 mg/dL (74-106); Potassium 3.2 mmol/L (3.5-5.1); Sodium Level 122 mmol/L (136-145)
[2023-06-07 16:09] LABS: Magnesium 2.6 mg/dL (1.6-2.6); Phosphorus 2.5 mg/dL (2.5-4.9)
[2023-06-07] MEDS: Potassium Chloride Oral Tablet 20 MEQ 40 MEQ PO ×2 (16:20→18:50)
[2023-06-07 18:08] LABS: Bedside Glucose 235 mg/dL (74-106)
[2023-06-07 18:43] LABS: Anion Gap 8 (5-15); BUN 16 mg/dL (7-18); BUN/Creat Ratio 13.4 RATIO (10-20); Calcium,Total 8.7 mg/dL (8.5-10.1); Chloride 85 mmol/L (98-107); Creatinine, Serum 1.19 mg/dL (0.70-1.30); EST Glomerular Filtration Rate 62 mL/min (>60); Est Glom Filt Rate - Afr Amer 75 mL/min (>60); Estimated Creatinine Clearance 54.68 ml/min; Glucose 213 mg/dL (74-106); Potassium 3.7 mmol/L (3.5-5.1); Sodium Level 122 mmol/L (136-145)
--- NOTE | 2023-06-07 19:56 | CON.PCM.GI_ITS ---
HPI Consult Data Date of Consult: 06/07/23 HPI Narrative Reason for Consultation: Liver mass HPI Narrative: BRISEIDA BOWSER, is a 83-year-old male with history of prior open cholecystectomy, type 2 diabetes mellitus, hypertension, hyperlipidemia and ongoing issues with constipation presenting for dizziness and constipation. Patient states last bowel movement was 2 weeks ago but then specifies as last time he had a solid bowel movement. He notes has been having watery mucus more recently and his last mucus bowel movement was 4 hours ago. Denies any black or blood in his stool. Denies any associated nausea. States he is having increased discomfort in his upper abdomen and feels like all the stool is stuck up there. Denies any vomiting. Notes that when this happens he will start to get dizzy. States that he was trying to have a bowel movement today but was not straining and then felt like he was going to pass out. Notes that also he has to make sure he drinks enough fluid and eats enough to keep his blood pressure because otherwise he will get lightheaded. Patient has been seen multiple times for this complaint in the ER over the last few years. In addition, he follows with NIKIA Louise. He was recently started on Linzess and notes initially he had good effect after being on it for about a week however he then ran out of the samples and took the lower dose samples which did not help. He has filled his prescription for the higher dose and is continue to still not have bowel movements. No other complaints at this time including fever or chills. Denies any chest pain or difficulty breathing. Family notes he is a little unsteady. Patient denies any focal weakness or tingling/numbness. Denies any acute vision changes. States he has tried MiraLAX as well as magnesium citrate with no relief of his symptoms as well. Has previously been prescribed lactulose as well. I was askedI was asked to see him due to a new liver lesions that was noted on the CT scan of the abdomen and pelvis CT scan of the [place] pelvis reported : Subtle 2.5 cm round peripherally enhancing mass within the inferior aspect of the posterior segment right lobe of the liver and correlation with liver mass protocol CT or MRI is recommended. There is non-visualization of the gallbladder, which may be secondary to either contraction or a prior cholecystectomy. Normal spleen. No change in multiple subcentimeter cysts within the pancreas. COUNT INCLUDES THE [facility] Medical History Diabetes Diverticulosis Hypertension Leg swelling Skin tear of left lower leg without complication Venous stasis dermatitis Venous ulcer of right leg Home Medications Metformin [Metformin Hcl] 1,000 mg PO BID diabetes 07/24/14 [History Last Taken 12/12/21] hydrochlorothiazide 25 mg tablet 12.5 mg PO DAILY diuretic 07/24/14 [History Last Taken 12/11/21] tamsulosin 0.4 mg capsule 0.4 mg PO DAILY prostate 07/24/14 [History Last Taken 12/12/21] allopurinol 100 mg tablet 100 mg PO DAILY gout 12/09/16 [History Last Taken 1 Month Ago ~11/11/21] atorvastatin 20 mg tablet 20 mg PO DAILY cholesterol 12/09/16 [History Last Taken 12/11/21] aspirin 81 mg chewable tablet 81 mg PO DAILY@0800 #90 tabs 12/13/21 [Rx Last Taken Unknown] lactulose 10 gram/15 mL (15 mL) oral solution 15 ml PO BID PRN constipation #1,440 mL 03/24/22 [Rx Last Taken Unknown] peg 3350-electrolytes 236 gram-22.74 gram-6.74 gram-5.86 gram solution (Golytely) 240 ml PO Q10M PRN constipation #4,000 mL 03/29/22 [Rx Last Taken Unknown] polyethylene glycol 3350 17 gram/dose oral powder (ClearLax) 17 g PO BID constipation 06/07/23 [History Last Taken Unknown] Allergy/AdvReac Type Severity Reaction Status Date / Time cefdinir [From Omnicef] AdvReac Other Verified 06/06/23 17:39 Family History Sister Cancer Brother CVA (cerebral vascular accident) Diabetes Father Diabetes Surgical History Hx of cholecystectomy Social History household members: spouse housing: house number of children: 2 service: No current occupational status: retired Smoking Status: Former smoker ROS ROS Narrative No new complaints otherwise Physical Exam Narrative Alert awake oriented x 3 no obvious distress no pallor no icterus no JVD s1s2 no murmurs lungs clear abdomen soft no organomegaly no edema no cyanosis Lab / Micro Data 06/07/23 06:00 06/07/23 18:04 Labs: Laboratory Results - last 24 hr 06/06/23 19:50: WBC 11.1 H, RBC 4.58 L, Hgb 13.5, Hct 38.4 L, MCV 83.8, MCH 29.5, MCHC 35.2, RDW Std Deviation 39.2, RDW Coeff of [place] 12.9, Plt Count 174, MPV 8.9, Immature Gran % (Auto) 0.500, Neut % (Auto) 84.9 H, Lymph % (Auto) 8.4 L, [place] % (Auto) 5.5, Eos % (Auto) 0.4, Baso % (Auto) 0.3, Absolute Neuts (auto) 9.5 H, Absolute Lymphs (auto) 0.94, Nucleated RBC % 0, Sodium 112 L*, Potassium 3.5, Chloride 75 L, Carbon Dioxide 28.0, Anion Gap 9, BUN 18, Creatinine 1.06, Estim Creat Clear Calc 61.39, Est GFR (MDRD) Af Amer 86, Est GFR (MDRD) Non-Af 71, BUN/Creatinine Ratio 17.0, Glucose 149 H, Calcium 9.3, Total Bilirubin 1.30 H, AST 27, ALT 27, Alkaline Phosphatase 103, Troponin I High Sens 7, Total Protein 6.6, Albumin 3.6, Globulin 3.0, Albumin/Globulin Ratio 1.2, Lipase 70 06/06/23 20:00: Urine Color Yellow, Urine Clarity Clear, Urine pH 7.0, Ur Specific Clarinda 1.010, Urine Protein 30 H, Urine Glucose (UA) 50 H, Urine Ketones Negative, Urine Occult Blood 10 H, Urine Nitrite Negative, Urine Bilirubin Negative, Urine Urobilinogen Normal, Ur Leukocyte Esterase 100 H, Urine RBC 0 SEEN, Urine WBC 10-25 SEEN, Ur Squamous Epith Cells 0 SEEN, Urine Bacteria RARE, Hyaline Casts 10-25 SEEN, Urine Mucus 0 SEEN, Urine Osmolality 278 06/07/23 00:36: POC Glucose 161 H 06/07/23 00:57: Sodium 117 L*, Potassium 3.5, Chloride 79 L, Carbon Dioxide 31.0, Anion Gap 7, BUN 17, Creatinine 1.05, Estim Creat Clear Calc 61.98, Est GFR (MDRD) Af Amer 87, Est GFR (MDRD) Non-Af 72, BUN/Creatinine Ratio 16.2, Glucose 157 H, Serum Osmolality 250 L, Calcium 8.9 06/07/23 06:00: WBC 8.6, RBC 4.33 L, Hgb 13.8, Hct 36.9 L, MCV 85.2, MCH 31.9, MCHC 37.4 H D, RDW Std Deviation 40.0, RDW Coeff of [place] 12.8, Plt Count 159, MPV 9.1, Immature Gran % (Auto) 0.700, Neut % (Auto) 77.7 H, Lymph % (Auto) 12.0 L, [place] % (Auto) 8.0, Eos % (Auto) 1.1, Baso % (Auto) 0.5, Absolute Neuts (auto) 6.7, Absolute Lymphs (auto) 1.03, Nucleated RBC % 0, PT 13.2, INR 1.0, Sodium 122 L, Potassium 3.3 L, Chloride 81 L, Carbon Dioxide 29.0, Anion Gap 12, BUN 17, Creatinine 1.10, Estim Creat Clear Calc 59.16, Est GFR (MDRD) Af Amer 82, Est GFR (MDRD) Non-Af 68, BUN/Creatinine Ratio 15.5, Glucose 127 H, Calcium 8.9, Phosphorus 2.5, Magnesium 2.7 H, Total Bilirubin 1.40 H, Direct Bilirubin 0.40 H , AST 24, ALT 27, Alkaline Phosphatase 100, Total Protein 6.0 L, Albumin 3.5, Globulin 2.5, TSH 1.50 06/07/23 10:50: Sodium 121 L, Potassium 3.2 L, Chloride 85 L, Carbon Dioxide 29.0, Anion Gap 7, BUN 14, Creatinine 1.06, Estim Creat Clear Calc 61.39, Est GFR (MDRD) Af Amer 86, Est GFR (MDRD) Non-Af 71, BUN/Creatinine Ratio 13.2, Glucose 167 H, Calcium 8.7 06/07/23 11:56: POC Glucose 150 H 06/07/23 14:33: Sodium 122 L, Potassium 3.2 L, Chloride 84 L, Carbon Dioxide 30.0, Anion Gap 8, BUN 14, Creatinine 1.18, Estim Creat Clear Calc 55.15, Est GFR (MDRD) Af Amer 76, Est GFR (MDRD) Non-Af 63, BUN/Creatinine Ratio 11.9, Glucose 182 H, Calcium 8.9, Phosphorus 2.5, Magnesium 2.6 06/07/23 17:44: POC Glucose 235 H 06/07/23 18:04: Sodium 122 L, Potassium 3.7, Chloride 85 L, Carbon Dioxide 29.0, Anion Gap 8, BUN 16, Creatinine 1.19, Estim Creat Clear Calc 54.68, Est GFR (MDRD) Af Amer 75, Est GFR (MDRD) Non-Af 62, BUN/Creatinine Ratio 13.4, Glucose 213 H, Calcium 8.7 Rhythm Strip Rhythm Strip: Sinus Rhythm Rate: 65 Ectopy: None Imaging Radiology Impression Abdomen/Pelvis CT 06/06/23 19:02 IMPRESSION: 1. Suspect diarrhea. 2. Small hepatic mass and correlation with liver mass protocol CT or MRI is recommended. Electronically Signed: Alexander Isaac MD at 22:21 EDT , Echocardiogram 06/06/23 23:33 Interpretation Summary Normal LV size. The estimated ejection fraction is 55 %. Mild focal aortic valve calcification. Mildly dilated aortic root. Ordering Physician: Prabhu Leal Performed By: Chastity Banks RDCS Assessment & Plan Assessment/Plan (1) Acute hyponatremia: (2) Adverse drug reaction: QUALIFIERS: Encounter type: initial encounter Qualified Code(s): T50.905A - Adverse effect of unspecified drugs, medicaments and biological substances, initial encounter (3) Near syncope: (4) Liver mass: PLAN: Plan Severe Acute Hyponatremia of 112 mmol/L present on admission - He's followed by nephrology.Admit to PCU. Adverse Drug Reaction to HCTZ plus Acute Water Intoxication likely causing #1 - HCTZ was added to his list of allergies and this agent should not be restarted. Patient will also be started on a free water restriction to prevent worsening of his already low serum sodium levels. CT evidence of a newly diagnosed Liver Mass - I canI can see what they're calling 11 mass in the right inferior lobe. I would recommend MRI or CT ab pelvis with triple phase. Also recommend to check AFP, CA19-9, CEA. Charges/Coding Visit Charges Inpatient E&M: 09847 Init Hosp L3
[2023-06-07] MEDS: Atorvastatin Calcium 20 MG Tablet PO (21:35)
[2023-06-07 22:32] LABS: Anion Gap 6 (5-15); BUN 16 mg/dL (7-18); BUN/Creat Ratio 14.8 RATIO (10-20); Calcium,Total 8.8 mg/dL (8.5-10.1); Chloride 87 mmol/L (98-107); Creatinine, Serum 1.08 mg/dL (0.70-1.30); EST Glomerular Filtration Rate 69 mL/min (>60); Est Glom Filt Rate - Afr Amer 84 mL/min (>60); Estimated Creatinine Clearance 60.25 ml/min; Glucose 156 mg/dL (74-106); Potassium 3.9 mmol/L (3.5-5.1); Sodium Level 122 mmol/L (136-145)
[2023-06-08] VITALS (8 sets, daily range): BP systolic 58–135; BP diastolic 44–78; PULSE 59–92; RESP 18; TEMP 36.3–36.4; O2SAT 95–97; BMI 23.2
[2023-06-08 01:33] LABS: Bedside Glucose 174 mg/dL (74-106)
[2023-06-08 05:54] LABS: Bedside Glucose 149 mg/dL (74-106)
--- NOTE | 2023-06-08 05:55 | EKG12_ITS ---
Test Reason : Blood Pressure : / mmHG Vent. Rate : 065 BPM Atrial Rate : 065 BPM P-R Int : 264 ms QRS Dur : 094 ms QT Int : 460 ms P-R-T Axes : 098 -24 -43 degrees QTc Int : 478 ms Sinus rhythm with 1st degree A-V block with Premature atrial complexes Nonspecific ST and T wave abnormality Abnormal ECG When compared with ECG of 10-DEC-2019 13:02, Premature atrial complexes are now Present Confirmed by CHEY SOTO, YOLANDA ([id number]), makeup editor MIGEL LUX ([id number]) on 06/13/2023 7:00:57 AM Referred By: Confirmed By:YOLANDA GUERRIER MD
--- NOTE | 2023-06-08 06:26 | EX.PCM.PN.GI ---
Subjective Subjective Patient is doing a lot better. He denies any chest pain or shortness of breath. He denies any weakness. He denies any headache or dizziness. Objective Data Objective Data Vital Signs: Vital Signs Temp Pulse Resp BP Pulse Ox O2 Del Method 97.5 F L 80 18 92/68 97 Room Air 06/08/23 15:18 06/08/23 15:45 06/08/23 15:18 06/08/23 15:45 06/08/23 15:18 06/08/23 15:18 Oxygen Delivery Method Room Air Weight: 180 lb 15.992 oz Body Mass Index (BMI) 23.2 Intake & Output: Intake and Output for Last 24 Hours 06/06/23 06/07/23 06/08/23 23:59 23:59 23:59 Intake Total 2591.67 / 2591.67 Output Total 1675 / 1675 375 / 375 Balance 916.67 / 916.67 -375 / -375 Lab / Micro Data 06/07/23 06:00 06/08/23 05:45 Labs: Laboratory Results - last 24 hr 06/07/23 17:44: POC Glucose 235 H 06/07/23 18:04: Sodium 122 L, Potassium 3.7, Chloride 85 L, Carbon Dioxide 29.0, Anion Gap 8, BUN 16, Creatinine 1.19, Estim Creat Clear Calc 54.68, Est GFR (MDRD) Af Amer 75, Est GFR (MDRD) Non-Af 62, BUN/Creatinine Ratio 13.4, Glucose 213 H, Calcium 8.7 06/07/23 22:05: Sodium 122 L, Potassium 3.9, Chloride 87 L, Carbon Dioxide 29.0, Anion Gap 6, BUN 16, Creatinine 1.08, Estim Creat Clear Calc 60.25, Est GFR (MDRD) Af Amer 84, Est GFR (MDRD) Non-Af 69, BUN/Creatinine Ratio 14.8, Glucose 156 H, Calcium 8.8 06/08/23 01:13: POC Glucose 174 H 06/08/23 05:33: POC Glucose 149 H 06/08/23 05:45: Sodium 126 L, Potassium 4.1, Chloride 89 L, Carbon Dioxide 29.0, Anion Gap 8, BUN 15, Creatinine 1.04, Estim Creat Clear Calc 62.50, Est GFR (MDRD) Af Amer 88, Est GFR (MDRD) Non-Af 73, BUN/Creatinine Ratio 14.4, Glucose 139 H, Calcium 9.2, TSH 3.05, Cortisol 24.80 H 06/08/23 12:13: POC Glucose 153 H Micro: Microbiology 06/06/23 20:00 Urine, Clean Catch Urine Culture - Final Culture exhibits no growth. Radiography Diagnostic Testing: Radiology Impression Abdomen/Pelvis CT 06/06/23 19:02 IMPRESSION: 1. Suspect diarrhea. 2. Small hepatic mass and correlation with liver mass protocol CT or MRI is recommended. Electronically Signed: Alexander Isaac MD at 22:21 EDT , Abdomen MRI 06/08/23 08:30 IMPRESSION: 2.4 cm hepatic segment 6 lesion which may represent atypical hemangioma. Follow-up recommended to exclude malignancy. Electronically Signed: Kameron Oglesby MD at 10:51 EDT , Rhythm Strip Rhythm Strip: Sinus Rhythm Rate: 65 Ectopy: None Physical Exam Narrative Alert awake oriented x 3 no obvious distress no pallor no icterus no JVD s1s2 no murmurs lungs clear abdomen soft no organomegaly no edema no cyanosis Assessment & Plan Assessment/Plan (1) Acute hyponatremia: (2) Adverse drug reaction: QUALIFIERS: Encounter type: initial encounter Qualified Code(s): T50.905A - Adverse effect of unspecified drugs, medicaments and biological substances, initial encounter (3) Near syncope: (4) Liver mass: PLAN: Plan Severe Acute Hyponatremia of 112 mmol/L present on admission - He's followed by nephrology.Admit to PCU. Adverse Drug Reaction to HCTZ plus Acute Water Intoxication likely causing #1 - HCTZ was added to his list of allergies and this agent should not be restarted. Patient will also be started on a free water restriction to prevent worsening of his already low serum sodium levels. CT evidence of a newly diagnosed Liver Mass - Allyn perry see what they're calling 11 mass in the right inferior lobe. I would recommend MRI or CT ab pelvis with triple phase. Also recommend to check AFP, CA19-9, CEA. Hepatic mass-MRI displayed 2.4 cm atypical hemangioma. Recommending surveillance imaging in approximately 3 months. Charges/Coding Visit Charges Inpatient E&M: 41978 Subs Hosp L3
[2023-06-08 07:21] LABS: Anion Gap 8 (5-15); BUN 15 mg/dL (7-18); BUN/Creat Ratio 14.4 RATIO (10-20); Calcium,Total 9.2 mg/dL (8.5-10.1); Chloride 89 mmol/L (98-107); Creatinine, Serum 1.04 mg/dL (0.70-1.30); EST Glomerular Filtration Rate 73 mL/min (>60); Est Glom Filt Rate - Afr Amer 88 mL/min (>60); Glucose 139 mg/dL (74-106); Potassium 4.1 mmol/L (3.5-5.1); Sodium Level 126 mmol/L (136-145); Thyroid Stim Hormone (TSH) 3.05 uIU/mL (0.358-3.74)
--- NOTE | 2023-06-08 08:25 | PN.HOSP_ITS ---
Reason for Visit Reason for Visit: Diagnoses Hypo-osmolality and hyponatremia (06/06/23) Hepatomegaly, not elsewhere classified (06/06/23) Syncope and collapse (06/06/23) Adverse effect of unspecified drugs, medicaments and biological substances, initial encounter (06/06/23) Subjective Subjective feels well Objective Data Objective Data Vital Signs: Vital Signs Temp Pulse Resp BP Pulse Ox O2 Del Method 36.4 C L 59 L 18 119/70 95 Room Air 06/08/23 06:25 06/08/23 06:25 06/08/23 06:25 06/08/23 06:25 06/08/23 07:44 06/08/23 07:44 Oxygen Delivery Method Room Air Weight: 82.1 kg Body Mass Index (BMI) 23.2 Intake & Output: Intake and Output for Last 24 Hours 06/06/23 06/07/23 06/08/23 23:59 23:59 23:59 Intake Total 2591.67 / 2591.67 Output Total 1675 / 1675 225 / 225 Balance 916.67 / 916.67 -225 / -225 Lab / Micro Data 06/07/23 06:00 06/08/23 05:45 Labs: Laboratory Results - last 24 hr 06/07/23 10:50: Sodium 121 L, Potassium 3.2 L, Chloride 85 L, Carbon Dioxide 29.0, Anion Gap 7, BUN 14, Creatinine 1.06, Estim Creat Clear Calc 61.39, Est GFR (MDRD) Af Amer 86, Est GFR (MDRD) Non-Af 71, BUN/Creatinine Ratio 13.2, Glucose 167 H, Calcium 8.7 06/07/23 11:56: POC Glucose 150 H 06/07/23 14:33: Sodium 122 L, Potassium 3.2 L, Chloride 84 L, Carbon Dioxide 30.0, Anion Gap 8, BUN 14, Creatinine 1.18, Estim Creat Clear Calc 55.15, Est GFR (MDRD) Af Amer 76, Est GFR (MDRD) Non-Af 63, BUN/Creatinine Ratio 11.9, Glucose 182 H, Calcium 8.9, Phosphorus 2.5, Magnesium 2.6 06/07/23 17:44: POC Glucose 235 H 06/07/23 18:04: Sodium 122 L, Potassium 3.7, Chloride 85 L, Carbon Dioxide 29.0, Anion Gap 8, BUN 16, Creatinine 1.19, Estim Creat Clear Calc 54.68, Est GFR (MDRD) Af Amer 75, Est GFR (MDRD) Non-Af 62, BUN/Creatinine Ratio 13.4, Glucose 213 H, Calcium 8.7 06/07/23 22:05: Sodium 122 L, Potassium 3.9, Chloride 87 L, Carbon Dioxide 29.0, Anion Gap 6, BUN 16, Creatinine 1.08, Estim Creat Clear Calc 60.25, Est GFR (MDRD) Af Amer 84, Est GFR (MDRD) Non-Af 69, BUN/Creatinine Ratio 14.8, Glucose 156 H, Calcium 8.8 06/08/23 01:13: POC Glucose 174 H 06/08/23 05:33: POC Glucose 149 H 06/08/23 05:45: Sodium 126 L, Potassium 4.1, Chloride 89 L, Carbon Dioxide 29.0, Anion Gap 8, BUN 15, Creatinine 1.04, Estim Creat Clear Calc 62.50, Est GFR (MDRD) Af Amer 88, Est GFR (MDRD) Non-Af 73, BUN/Creatinine Ratio 14.4, Glucose 139 H, Calcium 9.2, TSH 3.05, Cortisol 24.80 H Radiography Diagnostic Testing: Radiology Impression Abdomen/Pelvis CT 06/06/23 19:02 IMPRESSION: 1. Suspect diarrhea. 2. Small hepatic mass and correlation with liver mass protocol CT or MRI is recommended. Electronically Signed: Alexander Isaac MD at 22:21 EDT , Echocardiogram 06/06/23 23:33 Interpretation Summary Normal LV size. The estimated ejection fraction is 55 %. Mild focal aortic valve calcification. Mildly dilated aortic root. Ordering Physician: Prabhu Leal Performed By: Chastity Banks RDCS Rhythm Strip Rhythm Strip: Sinus Rhythm Rate: 65 Ectopy: None Physical Exam Const alert and no apparent distress HEENT head/scalp atraumatic and moist oral mucous membranes Resp normal respiratory effort Assessment & Plan Assessment/Plan (1) Acute hyponatremia: (2) Near syncope: (3) Liver mass: PLAN: Plan Hyponatremia * severe hyponatremia of 112 mmol/L present on admission most likely polydipsia and diarrhea and HCTZ. Improved to 126. * Serum sodium was normal in April 2023. The patient was started on IV fluid normal saline and sodium increased to 10 meq in the morning less than 12 hours therefore normal saline was stopped and D5W 1 L bolus was ordered. 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 In about 3 weeks ago, was started on hydrochlorothiazide. Reviewed the labs and patient's BMP with a sodium was normal before starting hydrochlorothiazide but then after weight dropped down to 112. The risks of resuming hydrochlorothiazide outweigh the benefits for his M?ni?re's disease. Would not restart. Liver mass * MRI suggesting hemangioma. Discussed with Dr. Kendall. He advises follow-up MRI in about 3 months. Chronic conditions: * Essential hypertension - Stop HCTZ and give prn IV Hydralazine for systolic blood pressure > 160 mm Hg. * Hyperlipidemia - Continue statin. * DM-2; of unknown control - Keep NPO except medications for now with possible pending liver biopsy. * History of tobacco abuse - Tobacco cessation will be strongly encouraged. * Gout - Stable with no evidence of acute flare. * BPH - Resume Flomax. * OA - Stable. DVT prophylaxis - Avoid blood thinners with impending liver biopsy. SCD's only.
--- NOTE | 2023-06-08 08:30 | MRI_ITS ---
EXAM: MR ABDOMEN WITHOUT AND WITH INTRAVENOUS CONTRAST CLINICAL INDICATION: liver mass, F/U TO CT ABD TECHNIQUE: Multiplanar and multisequence MR images of the abdomen without and with intravenous contrast. CONTRAST: IV 17cc Clariscan COMPARISON: CT abdomen and pelvis 06/06/2023, 05/06/2023, 03/24/2022 and 12/10/2019 FINDINGS: LOWER THORAX: Normal. No pleural effusion. LIVER: A 2.4 cm mass along the inferior margin of hepatic segment 6 demonstrates decreased T1 and isointense T2 signal intensity. Lesion enhances relatively uniformly with contrast without any significant washout on delayed images. Lesion may represent an atypical hemangioma. Neoplasm however is not entirely excluded. GALLBLADDER AND BILE DUCTS: Gallbladder is absent. No intra- or extrahepatic biliary ductal dilation. PANCREAS: Normal. No focal cystic or solid mass. SPLEEN: Normal. Normal size without focal cystic or solid mass. ADRENALS: Normal. No nodules. KIDNEYS AND URETERS: Normal. Normal renal size and position. No hydronephrosis. INTRAPERITONEAL SPACE: Normal. No ascites or other fluid collection. No free air. VASCULATURE: Normal. Abdominal aorta is non-dilated. LYMPH NODES: No enlarged lymph nodes. MRI/MRI Abd WITH and W/O Contrast IMPRESSION: 2.4 cm hepatic segment 6 lesion which may represent atypical hemangioma. Follow-up recommended to exclude malignancy. Electronically Signed: Kameron Oglesby MD at 10:51 EDT ,
--- NOTE | 2023-06-08 09:24 | NURSING ---
Patient left unit to MRI
--- NOTE | 2023-06-08 10:41 | NURSING ---
Patient returned to room from MRI
--- NOTE | 2023-06-08 11:10 | PN.RENAL_ITS ---
Subjective Subjective Events noted. Found to have a liver mass. MRI of the liver was done this morning. Results pending. He still complains of dizziness upon standing up. No edema. No nausea, vomiting, diarrhea. No breathing difficulties. Objective Data Objective Data Vital Signs: Vital Signs Temp Pulse Resp BP Pulse Ox O2 Del Method 97.4 F L 63 18 128/77 H 96 Room Air 06/08/23 09:03 06/08/23 09:03 06/08/23 09:03 06/08/23 09:03 06/08/23 09:03 06/08/23 09:03 Oxygen Delivery Method Room Air Weight: 82.1 kg Body Mass Index (BMI) 23.2 Intake & Output: Intake and Output for Last 24 Hours 06/06/23 06/07/23 06/08/23 23:59 23:59 23:59 Intake Total 2591.67 / 2591.67 Output Total 1675 / 1675 225 / 225 Balance 916.67 / 916.67 -225 / -225 Lab / Micro Data 06/07/23 06:00 06/08/23 05:45 Labs: Laboratory Results - last 24 hr 06/07/23 10:50: Sodium 121 L, Potassium 3.2 L, Chloride 85 L, Carbon Dioxide 29.0, Anion Gap 7, BUN 14, Creatinine 1.06, Estim Creat Clear Calc 61.39, Est GF R (MDRD) Af Amer 86, Est GFR (MDRD) Non-Af 71, BUN/Creatinine Ratio 13.2, Glucose 167 H, Calcium 8.7 06/07/23 11:56: POC Glucose 150 H 06/07/23 14:33: Sodium 122 L, Potassium 3.2 L, Chloride 84 L, Carbon Dioxide 30.0, Anion Gap 8, BUN 14, Creatinine 1.18, Estim Creat Clear Calc 55.15, Est GFR (MDRD) Af Amer 76, Est GFR (MDRD) Non-Af 63, BUN/Creatinine Ratio 11.9, Glucose 182 H, Calcium 8.9, Phosphorus 2.5, Magnesium 2.6 06/07/23 17:44: POC Glucose 235 H 06/07/23 18:04: Sodium 122 L, Potassium 3.7, Chloride 85 L, Carbon Dioxide 29.0, Anion Gap 8, BUN 16, Creatinine 1.19, Estim Creat Clear Calc 54.68, Est GFR (MDRD) Af Amer 75, Est GFR (MDRD) Non-Af 62, BUN/Creatinine Ratio 13.4, Glucose 213 H, Calcium 8.7 06/07/23 22:05: Sodium 122 L, Potassium 3.9, Chloride 87 L, Carbon Dioxide 29.0, Anion Gap 6, BUN 16, Creatinine 1.08, Estim Creat Clear Calc 60.25, Est GFR (MDRD) Af Amer 84, Est GFR (MDRD) Non-Af 69, BUN/Creatinine Ratio 14.8, Glucose 156 H, Calcium 8.8 06/08/23 01:13: POC Glucose 174 H 06/08/23 05:33: POC Glucose 149 H 06/08/23 05:45: Sodium 126 L, Potassium 4.1, Chloride 89 L, Carbon Dioxide 29.0, Anion Gap 8, BUN 15, Creatinine 1.04, Estim Creat Clear Calc 62.50, Est GFR (MDRD) Af Amer 88, Est GFR (MDRD) Non-Af 73, BUN/Creatinine Ratio 14.4, Glucose 139 H, Calcium 9.2, TSH 3.05, Cortisol 24.80 H Micro: Microbiology 06/06/23 20:00 Urine, Clean Catch Urine Culture - Final Culture exhibits no growth. Radiography Diagnostic Testing: Radiology Impression Abdomen/Pelvis CT 06/06/23 19:02 IMPRESSION: 1. Suspect diarrhea. 2. Small hepatic mass and correlation with liver mass protocol CT or MRI is recommended. Electronically Signed: Alexander Isaac MD at 22:21 EDT , Echocardiogram 06/06/23 23:33 Interpretation Summary Normal LV size. The estimated ejection fraction is 55 %. Mild focal aortic valve calcification. Mildly dilated aortic root. Ordering Physician: Prabhu Leal Performed By: Chastity Banks, CHANTELLE Abdomen MRI 06/08/23 08:30 IMPRESSION: 2.4 cm hepatic segment 6 lesion which may represent atypical hemangioma. Follow-up recommended to exclude malignancy. Electronically Signed: Kameron Oglesby MD at 10:51 EDT , Rhythm Strip Rhythm Strip: Sinus Rhythm Rate: 65 Ectopy: None Physical Exam Narrative Alert awake oriented x 3 no obvious distress no pallor no icterus no JVD s1s2 no murmurs lungs clear abdomen soft no organomegaly no edema no cyanosis Assessment & Plan Assessment/Plan (1) Acute hyponatremia: PLAN: Serum sodium was normal in April 2023. Prior to that he had borderline sodium value status 1 33-1 34. This admission he came with a sodium of 112. He was on hydrochlorothiazide but he says he has been on it for several years now. Only new medication within the last 1 month is linzess Multiple GI issues recently with constipation, started antibiotic. Also took multiple laxatives. He says he has been drinking more liquids to Help with bowel movements. Most likely polydipsia related hyponatremia. I would still hold hydrochlorothiazide for now. Sodium is up to 126. Went up by 14 points in the last 36 hours. Baseline correction. Still complains of weakness, dizziness on standing up. Likely still on the dry side. Will likely give IV fluids tomorrow once the sodium correction has been appropriately done. Newly discovered liver mass. Workup as per primary.
[2023-06-08] MEDS: Tamsulosin HCl 0.4 MG Capsule 0.400000000000000022 MG PO (12:17)
[2023-06-08] MEDS: Allopurinol 100 MG Tablet PO (12:17)
[2023-06-08 12:35] LABS: Bedside Glucose 153 mg/dL (74-106)
--- NOTE | 2023-06-08 15:15 | CASEMGMT ---
DINO CERNA NOTE: Pt being discharged. RN CM to room. Pt resting in bed. @ bedside. Introduced self and role. Pt denies having any discharge concerns/needs. He wishes to discharge home. He was provided w/HHC list yesterday by [facility], but states to this RN CM he is not interested in HHC or any OP therapy. Pt and family deny having any further questions or needs. Bryce DELANEY RN CM
--- NOTE | 2023-06-08 15:57 | PHA.DC.MR.R ---
Pharmacy [place] [facility] Reconciliation Pharmacy Service has performed discharge medication reconciliation for this patient. No new medications at time of ut medlist review. Medications reviewed are from previously reported home medications. The patient's discharge medication list was reviewed for discrepancies and discrepancies were resolved. Medications at Discharge Home Medications Metformin [Metformin Hcl] 1,000 mg PO BID diabetes 07/24/14 tamsulosin 0.4 mg capsule 0.4 mg PO DAILY prostate 07/24/14 allopurinol 100 mg tablet 100 mg PO DAILY gout 12/09/16 atorvastatin 20 mg tablet 20 mg PO DAILY cholesterol 12/09/16 aspirin 81 mg chewable tablet 81 mg PO DAILY@0800 Now In Store #90 tabs 12/13/21 lactulose 10 gram/15 mL (15 mL) oral solution 15 ml PO BID PRN constipation #1,440 mL 03/24/22 peg 3350-electrolytes 236 gram-22.74 gram-6.74 gram-5.86 gram solution (Golytely) 240 ml PO Q10M PRN constipation #4,000 mL 03/29/22 polyethylene glycol 3350 17 gram/dose oral powder (ClearLax) 17 g PO BID constipation 06/07/23
[2023-06-08] MEDS: 0.9% Normal Saline (1000mL) 1,000 ML 999 ML IV (16:19)
[2023-06-08] MEDS: Atorvastatin Calcium 20 MG Tablet PO (20:05)
[2023-06-08 22:32] LABS: Bedside Glucose 141 mg/dL (74-106)
[2023-06-09] VITALS (7 sets, daily range): BP systolic 76–176; BP diastolic 47–78; PULSE 57–84; RESP 16–18; TEMP 36.2–36.7; O2SAT 94–100; BMI 23.8
[2023-06-09 03:07] LABS: AFP, Tumor Marker 5.5 ng/mL (0.0-6.4)
[2023-06-09 06:44] LABS: Bedside Glucose 154 mg/dL (74-106)
--- NOTE | 2023-06-09 07:15 | PN.HOSP_ITS ---
Reason for Visit Reason for Visit: Diagnoses Hypo-osmolality and hyponatremia (06/06/23) Hepatomegaly, not elsewhere classified (06/06/23) Syncope and collapse (06/06/23) Adverse effect of unspecified drugs, medicaments and biological substances, initial encounter (06/06/23) Subjective Subjective Feels well. No new issues overnight. Objective Data Objective Data Vital Signs: Vital Signs Temp Pulse Resp BP Pulse Ox O2 Del Method 36.4 C L 72 18 150/78 H 94 Room Air 06/09/23 06:20 06/09/23 06:20 06/09/23 06:20 06/09/23 06:20 06/09/23 06:20 06/09/23 06:20 Oxygen Delivery Method Room Air Weight: 84 kg Body Mass Index (BMI) 23.8 Intake & Output: Intake and Output for Last 24 Hours 06/07/23 06/08/23 06/09/23 23:59 23:59 23:59 Intake Total 2591.67 / 2591.67 1000 / 1000 Output Total 1675 / 1675 950 / 950 200 / 200 Balance 916.67 / 916.67 50 / 50 -200 / -200 Lab / Micro Data 06/07/23 06:00 06/09/23 06:55 Labs: Laboratory Results - last 24 hr 06/07/23 18:04: Tumor Marker AFP 5.5 06/08/23 05:45: Sodium 126 L, Potassium 4.1, Chloride 89 L, Carbon Dioxide 29.0, Anion Gap 8, BUN 15, Creatinine 1.04, Estim Creat Clear Calc 62.50, Est GFR (MDRD) Af Amer 88, Est GFR (MDRD) Non-Af 73, BUN/Creatinine Ratio 14.4, Glucose 139 H, Calcium 9.2, TSH 3.05, Cortisol 24.80 H 06/08/23 12:13: POC Glucose 153 H 06/08/23 22:11: POC Glucose 141 H 06/09/23 06:25: POC Glucose 154 H Micro: Microbiology 06/06/23 20:00 Urine, Clean Catch Urine Culture - Final Culture exhibits no growth. Radiography Diagnostic Testing: Radiology Impression Abdomen MRI 06/08/23 08:30 IMPRESSION: 2.4 cm hepatic segment 6 lesion which may represent atypical hemangioma. Follow-up recommended to exclude malignancy. Electronically Signed: Kameron Oglesby MD at 10:51 EDT , Rhythm Strip Rhythm Strip: Sinus Rhythm Rate: 65 Ectopy: None Physical Exam Const alert and no apparent distress HEENT head/scalp atraumatic and moist oral mucous membranes Resp normal respiratory effort Neuro Sensorium / Orientation: awake Assessment & Plan Assessment/Plan (1) Acute hyponatremia: (2) Near syncope: (3) Liver mass: PLAN: Plan Hyponatremia * severe hyponatremia of 112 mmol/L present on admission most likely polydipsia and diarrhea and HCTZ. Improved to 126. * Serum sodium was normal in April 2023. The patient was started on IV fluid normal saline and sodium increased to 10 meq in the morning less than 12 hours therefore normal saline was stopped and D5W 1 L bolus was ordered. * Offset Press Operator Helper consulted' * Cortisol and TSH WNL * Patient had been seeing ENT for M?ni?re's disease. In about 3 weeks ago, was started on hydrochlorothiazide. Reviewed the labs and patient's BMP with a sodium was normal before starting hydrochlorothiazide but then after weight dropped down to 112. The risks of resuming hydrochlorothiazide outweigh the benefits for his M?ni?re's disease. Would not restart. Liver mass * MRI suggesting hemangioma. Discussed with Dr. Kendall. He advises follow-up MRI in about 3 months. Orthostatic hypotension * Noted 06/07 before he was being ready to be discharged, received 1 liter of IVF and was still orthostatic. Discharge obviously held. * Recheck orthostatic vitals today after IVF: laying 176/43 HR 57, sitting 1781/78 HR 66, standing 108/54 HR 84. Nursing reports that pt felt fine when standing. * Cortisol checked presumably for hyponatremia work up and was WNL. * Advise pt to get up slowly. Continue to hold diuretics. Chronic conditions: * Essential hypertension - Stop HCTZ and give prn IV Hydralazine for systolic blood pressure > 160 mm Hg. * Hyperlipidemia - Continue statin. * DM-2; of unknown control - Keep NPO except medications for now with possible pending liver biopsy. * History of tobacco abuse - Tobacco cessation will be strongly encouraged. * Gout - Stable with no evidence of acute flare. * BPH - Resume Flomax. * OA - Stable. * Meniere's disease: follow up with ENT per routine. No HCTZ given hyponatremia and orthostasis. DVT prophylaxis - Avoid blood thinners with impending liver biopsy. SCD's only. DC home.
[2023-06-09 08:21] LABS: Anion Gap 5 (5-15); BUN 14 mg/dL (7-18); BUN/Creat Ratio 14.4 RATIO (10-20); Calcium,Total 9.1 mg/dL (8.5-10.1); Chloride 97 mmol/L (98-107); Creatinine, Serum 0.98 mg/dL (0.70-1.30); EST Glomerular Filtration Rate 78 mL/min (>60); Est Glom Filt Rate - Afr Amer 94 mL/min (>60); Glucose 147 mg/dL (74-106); Potassium 3.9 mmol/L (3.5-5.1); Sodium Level 130 mmol/L (136-145)
[2023-06-09] MEDS: Allopurinol 100 MG Tablet PO (09:02)
[2023-06-09] MEDS: Tamsulosin HCl 0.4 MG Capsule 0.400000000000000022 MG PO (09:02)
[2023-06-09] MEDS: 0.9% Saline Lock 10 ML Syringe IV (09:02)
[2023-06-09] MEDS: 0.9% Normal Saline (1000mL) 1,000 ML 999 ML IV (09:44)
--- NOTE | 2023-06-09 12:33 | DS.PCM_ITS ---
Providers Date of Admission: 06/06/23 Primary Care Physician: Dr. Shantanu Jackson MD Consultations 06/07/23 00:13 Consult: Gastroenterology Routine Consulting Provider: [facility] Reason for Consult: Liver Mass on CT EMERGENT Consult: No Notified: Yes Date Notified: 06/07/23 Time Notified: 05:38 Method of Notification: Text 06/07/23 07:28 Consult: Nephrology Routine Consulting Provider: August Muse Reason for Consult: severe hyponatremia EMERGENT Consult: No Notified: Yes Date Notified: 06/07/23 Time Notified: 07:28 Method of Notification: Verbal Reason For Visit: SEVERE HYPONATREMIA OF 112 POA Diagnosis Discharge Diagnosis (1) Acute hyponatremia: Status: Acute Code(s): E87.1 - Hypo-osmolality and hyponatremia (2) Near syncope: Status: Acute Code(s): R55 - Syncope and collapse (3) Liver mass: Status: Acute Code(s): R16.0 - Hepatomegaly, not elsewhere classified Plan Hyponatremia * severe hyponatremia of 112 mmol/L present on admission most likely polydipsia and diarrhea and HCTZ. Improved to 126. * Serum sodium was normal in April 2023. The patient was started on IV fluid normal saline and sodium increased to 10 meq in the morning less than 12 hours therefore normal saline was stopped and D5W 1 L bolus was ordered. * Nuclear Physicist consulted' * Cortisol and TSH WNL * Patient had been seeing ENT for M?ni?re's disease. In about 3 weeks ago, was started on hydrochlorothiazide. Reviewed the labs and patient's BMP with a sodium was normal before starting hydrochlorothiazide but then after weight dropped down to 112. The risks of resuming hydrochlorothiazide outweigh the benefits for his M?ni?re's disease. Would not restart. Liver mass * MRI suggesting hemangioma. Discussed with Dr. Kendall. He advises follow-up MRI in about 3 months. Chronic conditions: * Essential hypertension - Stop HCTZ and give prn IV Hydralazine for systolic blood pressure > 160 mm Hg. * Hyperlipidemia - Continue statin. * DM-2; of unknown control - Keep NPO except medications for now with possible pending liver biopsy. * History of tobacco abuse - Tobacco cessation will be strongly encouraged. * Gout - Stable with no evidence of acute flare. * BPH - Resume Flomax. * OA - Stable. DVT prophylaxis - Avoid blood thinners with impending liver biopsy. SCD's only. Medications at Discharge Home Medications Metformin [Metformin Hcl] 1,000 mg PO BID diabetes 07/24/14 tamsulosin 0.4 mg capsule 0.4 mg PO DAILY prostate 07/24/14 allopurinol 100 mg tablet 100 mg PO DAILY gout 12/09/16 atorvastatin 20 mg tablet 20 mg PO DAILY cholesterol 12/09/16 aspirin 81 mg chewable tablet 81 mg PO DAILY@0800 #90 tabs 12/13/21 lactulose 10 gram/15 mL (15 mL) oral solution 15 ml PO BID PRN constipation #1, 440 mL 03/24/22 peg 3350-electrolytes 236 gram-22.74 gram-6.74 gram-5.86 gram solution (Golytely) 240 ml PO Q10M PRN constipation #4,000 mL 03/29/22 polyethylene glycol 3350 17 gram/dose oral powder (ClearLax) 17 g PO BID constipation 06/07/23 Hospital Course Operations None Procedures None Summary of Care Provided Minutes Spent on Discharge: 40 Weight / BMI Weight Weight: 82.1 kg Body Mass Index (BMI) 23.2 ABG / Lab / Microbiology Data 06/07/23 06:00 06/08/23 05:45 Laboratory: Laboratory Results - last 24 hr 06/07/23 14:33: Sodium 122 L, Potassium 3.2 L, Chloride 84 L, Carbon Dioxide 30.0, Anion Gap 8, BUN 14, Creatinine 1.18, Estim Creat Clear Calc 55.15, Est GFR (MDRD) Af Amer 76, Est GFR (MDRD) Non-Af 63, BUN/Creatinine Ratio 11.9, Glucose 182 H, Calcium 8.9, Phosphorus 2.5, Magnesium 2.6 06/07/23 17:44: POC Glucose 235 H 06/07/23 18:04: Sodium 122 L, Potassium 3.7, Chloride 85 L, Carbon Dioxide 29.0, Anion Gap 8, BUN 16, Creatinine 1.19, Estim Creat Clear Calc 54.68, Est GFR (MDR D) Af Amer 75, Est GFR (MDRD) Non-Af 62, BUN/Creatinine Ratio 13.4, Glucose 213 H, Calcium 8.7 06/07/23 22:05: Sodium 122 L, Potassium 3.9, Chloride 87 L, Carbon Dioxide 29.0, Anion Gap 6, BUN 16, Creatinine 1.08, Estim Creat Clear Calc 60.25, Est GFR (MDRD) Af Amer 84, Est GFR (MDRD) Non-Af 69, BUN/Creatinine Ratio 14.8, Glucose 156 H, Calcium 8.8 06/08/23 01:13: POC Glucose 174 H 06/08/23 05:33: POC Glucose 149 H 06/08/23 05:45: Sodium 126 L, Potassium 4.1, Chloride 89 L, Carbon Dioxide 29.0, Anion Gap 8, BUN 15, Creatinine 1.04, Estim Creat Clear Calc 62.50, Est GFR (MDRD) Af Amer 88, Est GFR (MDRD) Non-Af 73, BUN/Creatinine Ratio 14.4, Glucose 139 H, Calcium 9.2, TSH 3.05, Cortisol 24.80 H 06/08/23 12:13: POC Glucose 153 H Microbiology: Microbiology 06/06/23 20:00 Urine, Clean Catch Urine Culture - Final Culture exhibits no growth. Radiography Diagnostic Testing: Radiology Impression Abdomen/Pelvis CT 06/06/23 19:02 IMPRESSION: 1. Suspect diarrhea. 2. Small hepatic mass and correlation with liver mass protocol CT or MRI is recommended. Electronically Signed: Alexander Isaac MD at 22:21 EDT , Abdomen MRI 06/08/23 08:30 IMPRESSION: 2.4 cm hepatic segment 6 lesion which may represent atypical hemangioma. Follow-up recommended to exclude malignancy. Electronically Signed: Kameron Oglesby MD at 10:51 EDT , D/C Instructions Discharge Diet: No restrictions Meaningful Use Info Meaningful Use Diagnoses (Choose all that apply): None applicable Discharge Plan Admission Admit Date/Time: 06/06/23 23:18 Primary Reason for Your Visit: Hyponatremia Attending Provider: Jae Purcell Primary Care Provider: Shantanu Jackson Consulting Providers: Prabhu Leal; August Muse; Taras Mi Instructions Additional Instructions / Restrictions: Concern that you had a low sodium after reinitiating hydrochlorothiazide. Would not restart that moving forward. Do recommend he follow-up with primary care doctor to have follow-up labs in the next couple weeks. Discharge Orders/Prescriptions Prescriptions: Continued tamsulosin 0.4 MG capsule 0.4 mg PO DAILY Patient Comments: prostate/improves urine flow Metformin [Metformin Hcl] 1,000 MG tablet 1,000 mg PO BID Patient Comments: diabetes atorvastatin 20 MG tablet 20 mg PO DAILY allopurinol 100 MG tablet 100 mg PO DAILY aspirin 81 mg Tablet,Chewable 81 mg PO DAILY@0800 Qty: 90 0RF lactulose 10 gram/15 mL (15 mL) solution 15 ml PO BID PRN (Reason: constipation) Qty: 1440 0RF peg 3350-electrolytes [Golytely] 236-22.74-6.74 -5.86 gram recon soln 240 ml PO Q10M PRN Qty: 4000 0RF Rx Instructions: until fecal effluent is clear polyethylene glycol 3350 [ClearLax] 17 gram/dose powder 17 g PO BID Discontinued hydrochlorothiazide 25 MG tablet 12.5 mg PO DAILY Patient Comments: diuretic Referrals / Follow Up: [facility] [Provider Group] - Within 3 Months Shantanu Jackson MD [Primary Care Provider] - Within 2 Weeks Disposition Disposition (needs filled in before D/C Order can be placed): Home, Self Care Charges/Coding Visit Charges Inpatient E&M: 23890 Disch Hosp >30min
--- NOTE | 2023-06-09 15:15 | PCM.PN.REN ---
Subjective Subjective No new complaints Objective Data Objective Data Vital Signs: Vital Signs Temp Pulse Resp BP Pulse Ox O2 Del Method 97.6 F L 66 18 171/78 H 95 Room Air 06/09/23 06:20 06/09/23 12:00 06/09/23 06:20 06/09/23 12:00 06/09/23 08:19 06/09/23 08:19 Oxygen Delivery Method Room Air Weight: 84 kg Body Mass Index (BMI) 23.8 Intake & Output: Intake and Output for Last 24 Hours 06/07/23 06/08/23 06/09/23 23:59 23:59 23:59 Intake Total 2591.67 / 2591.67 1000 / 1000 1000 / 1000 Output Total 1675 / 1675 950 / 950 200 / 200 Balance 916.67 / 916.67 50 / 50 800 / 800 Lab / Micro Data 06/07/23 06:00 06/09/23 06:55 Labs: Laboratory Results - last 24 hr 06/07/23 18:04: Tumor Marker AFP 5.5 06/08/23 22:11: POC Glucose 141 H 06/09/23 06:25: POC Glucose 154 H 06/09/23 06:55: Sodium 130 L, Potassium 3.9, Chloride 97 L, Carbon Dioxide 28.0, Anion Gap 5, BUN 14, Creatinine 0.98, Estim Creat Clear Calc 66.40, Est GFR (MDRD) Af Amer 94, Est GFR (MDRD) Non-Af 78, BUN/Creatinine Ratio 14.4, Glucose 147 H, Calcium 9.1 Micro: Microbiology 06/06/23 20:00 Urine, Clean Catch Urine Culture - Final Culture exhibits no growth. Rhythm Strip Rhythm Strip: Sinus Rhythm Rate: 65 Ectopy: None Physical Exam Narrative Alert awake oriented x 3 no obvious distress no pallor no icterus no JVD s1s2 no murmurs lungs clear abdomen soft no organomegaly no edema no cyanosis Assessment & Plan Assessment/Plan (1) Acute hyponatremia: PLAN: Serum sodium was normal in April 2023. Prior to that he had borderline sodium value status 1 33-1 34. This admission he came with a sodium of 112. Multiple GI issues recently with constipation, started antibiotic. Also took multiple laxatives. He says he has been drinking more liquids to Help with bowel movements. Most likely polydipsia related hyponatremia. Sodium is closer to normal. Hold thiazide at the time of discharge. Newly discovered liver mass. Hemangioma
--- NOTE | 2023-06-09 15:19 | PHA.DC.MR.R ---
Pharmacy [facility] Reconciliation Pharmacy Service has performed discharge medication reconciliation for this patient. The patient's discharge medication list was reviewed for discrepancies and discrepancies were resolved. Medications at Discharge Home Medications Metformin [Metformin Hcl] 1,000 mg PO BID diabetes 07/24/14 tamsulosin 0.4 mg capsule 0.4 mg PO DAILY prostate 07/24/14 allopurinol 100 mg tablet 100 mg PO DAILY gout 12/09/16 atorvastatin 20 mg tablet 20 mg PO DAILY cholesterol 12/09/16 aspirin 81 mg chewable tablet 81 mg PO DAILY@0800 [employer] #90 tabs 12/13/21 lactulose 10 gram/15 mL (15 mL) oral solution 15 ml PO BID PRN constipation #1,440 mL 03/24/22 peg 3350-electrolytes 236 gram-22.74 gram-6.74 gram-5.86 gram solution (Golytely) 240 ml PO Q10M PRN constipation #4,000 mL 03/29/22 polyethylene glycol 3350 17 gram/dose oral powder (ClearLax) 17 g PO BID constipation 06/07/23
--- NOTE | 2023-06-09 16:45 | CASEMGMT ---
DINO CERNA NOTE: Discharge order is in. RN CM to room. Pt resting in bed. @ bedside. Pt initially was concerned about discharging, stating he had not been up ambulating today and not sure if his dizziness has resolved. RNBrisa, made aware and states ortho's were done and were negative and pt had no dizziness. director regulatory agencySara, made aware and has ambulated pt and states pt did well w/no further dizziness. DINO CERNA back to room. Pt verifies he did well ambulating and denies any difficulty or dizziness. Pt and both state they are comfortable w/pt discharging home now. Discussed HHC and OP therapy and pt declines both, stating he wants to talk things over w/his granddaughter first and if she wants him to have any therapy he will f/u with his PCP. They deny having any further discharge needs/concerns. Bryce DELANEY RN CM
== END 2023-06-09 17:23 | disposition home or self-care (01) | DRG 641 ==
LOC: ED 18:32 → PCU 23:49
PROVIDERS: Internal Medicine; Admitting Provider Internal Medicine; Emergency Provider Emergency Medicine; PCP Family Medicine
DX: E87.1 Hypo-osmolality and hyponatremia (principal); R16.0 Hepatomegaly, not elsewhere classified; E11.9 Type 2 diabetes mellitus without complications; I10 Essential (primary) hypertension; K58.9 Irritable bowel syndrome, unspecified; E87.8 Other disorders of electrolyte and fluid balance, not elsewhere classified; M19.90 Unspecified osteoarthritis, unspecified site; F55.2 Abuse of laxatives; E78.5 Hyperlipidemia, unspecified; I87.2 Venous insufficiency (chronic) (peripheral); M10.9 Gout, unspecified; E87.79 Other fluid overload; I95.1 Orthostatic hypotension; D18.03 Hemangioma of intra-abdominal structures; Z82.3 Family history of stroke; Z79.82 Long term (current) use of aspirin; Z87.891 Personal history of nicotine dependence; H81.09 Meniere's disease, unspecified ear; N40.0 Benign prostatic hyperplasia without lower urinary tract symptoms
CPT/HCPCS: 36415; 74177; 74183; 80048; 80053; 80076; 81001; 82105; 82533; 82962; 83690; 83735; 83930; 83935; 84100; 84443; 84484; 85025; 85610; 87086; 93005; 93306; 97162; 97166; 99284; A9575; J7030; Q9967; A4216

== ENCOUNTER → 2023-06-15 | Outpatient (CLI) | payer MEDICARE, OTHER, SELFPAY ==
[2023-06-15 15:26] LABS: Anion Gap 7 (5-15); BUN 15 mg/dL (7-18); BUN/Creat Ratio 12.2 RATIO (10-20); Calcium,Total 9.7 mg/dL (8.5-10.1); Chloride 97 mmol/L (98-107); Creatinine, Serum 1.23 mg/dL (0.70-1.30); EST Glomerular Filtration Rate 60 mL/min (>60); Est Glom Filt Rate - Afr Amer 72 mL/min (>60); Glucose 137 mg/dL (74-106); Potassium 4.6 mmol/L (3.5-5.1); Sodium Level 131 mmol/L (136-145)
== END | disposition home or self-care (01) ==
LOC: MFPLAB 11:35
PROVIDERS: PCP Family Medicine; Visit Provider Family Medicine
DX: E87.1 Hypo-osmolality and hyponatremia (principal)
CPT/HCPCS: 36415; 80048

== ENCOUNTER → 2023-07-05 | Outpatient (CLI) | payer MEDICARE, OTHER, SELFPAY ==
[2023-07-05 13:02] LABS: ALB/GLOB Ratio 1.2 RATIO (0.9-2.4); AST(SGOT) 19 U/L (15-37); Alanine Aminotransfer ALT/SGPT 20 U/L (16-61); Albumin, Serum 3.6 g/dL (3.2-5.0); Alkaline Phosphatase 106 U/L (45-117); Anion Gap 3 (5-15); BUN 12 mg/dL (7-18); BUN/Creat Ratio 11.7 RATIO (10-20); Calcium,Total 9.1 mg/dL (8.5-10.1); Chloride 104 mmol/L (98-107); Cholesterol 135 mg/dL (200); Creatinine, Serum 1.03 mg/dL (0.70-1.30); EST Glomerular Filtration Rate 73 mL/min (>60); Est Glom Filt Rate - Afr Amer 89 mL/min (>60); Globulin 3.1 g/dL (2.2-4.2); Glucose 217 mg/dL (74-106); High Density Lipoprotein 59 mg/dL; Potassium 4.7 mmol/L (3.5-5.1); Protein, Total 6.7 g/dL (6.4-8.2); Sodium Level 134 mmol/L (136-145); Triglycerides 83 mg/dL; Very Low Density Lipoprotein 17 mg/dL (5-40)
== END | disposition home or self-care (01) ==
LOC: MFPLAB 09:44
PROVIDERS: PCP Family Medicine; Visit Provider Family Medicine
DX: I10 Essential (primary) hypertension (principal)
CPT/HCPCS: 36415; 80053; 80061

== ENCOUNTER → 2023-10-05 | Outpatient (CLI) | payer MEDICARE, OTHER, SELFPAY ==
--- NOTE | 2023-10-05 08:50 | US_ITS ---
STUDY: ABDOMINAL ULTRASOUND - RIGHT UPPER QUADRANT; ELASTOGRAPHY REASON FOR VISIT: Male, 83 years old. DASILVA TECHNIQUE: Ultrasound evaluation of the right upper quadrant was performed with real-time and static puga-scale imaging. Point quantification shear wave elastography was performed ([employer]). TECHNICAL QUALITY: Limited. Examination limited by bowel gas. COMPARISON: None. FINDINGS: Liver: The liver measures 15.5 cm. There is normal echogenicity of the liver. The bile ducts are within normal limits. There is hepatic color flow. The direction of portal flow is hepatopetal. There is no demonstrated mass lesion. Median liver stiffness measured 6.1 kPa. Gallbladder: The patient is status post cholecystectomy. Common Bile Duct (C.B.D.): The common bile duct measures 8 mm. Pancreas: The pancreas was not visualized due to overlying bowel gas. Right Kidney: Normal size of the right kidney. The right kidney measures 11.9 cm x 5.9 cm x 6.9 cm. Normal renal cortex. The right cortex measures 1.8 cm. There is no demonstrated renal mass or cyst. There is no right hydronephrosis. US/ABD Limited w/ Elastography IMPRESSION: 1. Liver stiffness measures 6.1 kPa compatible with F2-F3 (Mild to moderate liver fibrosis) Metavir score. Electronically Signed: Rolando Lainez MD at 12:54 EDT ,
== END | disposition home or self-care (01) ==
LOC: US 08:46
PROVIDERS: PCP Family Medicine; Referring Provider Internal Medicine Gastroenterology; Visit Provider Internal Medicine Gastroenterology
DX: R16.0 Hepatomegaly, not elsewhere classified (principal)
CPT/HCPCS: 76705; 76981

== ENCOUNTER → 2024-01-02 | Outpatient (CLI) | payer MEDICARE, OTHER, SELFPAY ==
--- NOTE | 2024-01-02 07:32 | MRI_ITS ---
EXAM: MR ABDOMEN WITHOUT AND WITH INTRAVENOUS CONTRAST CLINICAL INDICATION: liver mass TECHNIQUE: Multiplanar and multisequence MR images of the abdomen without and with intravenous contrast. CONTRAST: IV 19ml Clariscan COMPARISON: No relevant prior studies available. FINDINGS: LOWER THORAX: Normal. No pleural effusion. LIVER: Previously noted 2.6 cm mass within the inferior aspect of hepatic segment 6 now measures 4.8 cm in maximum diameter. Lesion demonstrates diffuse heterogeneous contrast enhancement. Percutaneous biopsy of the lesion is recommended. Remainder of the liver parenchyma has normal signal intensity. GALLBLADDER AND BILE DUCTS: The patient is status post cholecystectomy. No intra- or extrahepatic biliary ductal dilation. PANCREAS: Stable pancreatic cysts. SPLEEN: Normal. Normal size without focal cystic or solid mass. ADRENALS: Normal. No nodules. KIDNEYS AND URETERS: Stable small left renal cysts. Normal renal size and position. No hydronephrosis. INTRAPERITONEAL SPACE: Normal. No ascites or other fluid collection. No free air. VASCULATURE: Normal. Abdominal aorta is non-dilated. LYMPH NODES: No enlarged lymph nodes. MRI/MRI Abd WITH and W/O Contrast IMPRESSION: Enlarging mass lesion of hepatic segment 6. Biopsy recommended. Electronically Signed: Kameron Oglesby MD at 15:03 EDT ,
[2024-01-02 07:59] LABS: CREATININE FINGERSTICK < 1.0 mg/dL (0.70-1.30); EGFR FINGERSTICK > 60.0000 mL/min (>60)
== END | disposition home or self-care (01) ==
LOC: MRI 07:16
PROVIDERS: PCP Family Medicine; Referring Provider Student in an Organized Health Care Education/Training Program; Visit Provider Student in an Organized Health Care Education/Training Program
DX: Z01.812 Encounter for preprocedural laboratory examination (principal); R16.0 Hepatomegaly, not elsewhere classified
CPT/HCPCS: 74183; A9575; A4216

== ENCOUNTER → 2024-01-04 | Outpatient (CLI) | payer MEDICARE, OTHER, SELFPAY ==
[2024-01-04 15:54] LABS: Anion Gap 7 (5-15); BUN 14 mg/dL (7-18); BUN/Creat Ratio 15.4 RATIO (10-20); Calcium,Total 10.1 mg/dL (8.5-10.1); Chloride 104 mmol/L (98-107); Cholesterol 130 mg/dL (200); Creatinine, Serum 0.91 mg/dL (0.70-1.30); EST Glomerular Filtration Rate 85 mL/min (>60); Est Glom Filt Rate - Afr Amer 103 mL/min (>60); Glucose 177 mg/dL (74-106); High Density Lipoprotein 63 mg/dL; Potassium 4.5 mmol/L (3.5-5.1); Sodium Level 137 mmol/L (136-145); Triglycerides 72 mg/dL; Very Low Density Lipoprotein 14 mg/dL (5-40)
== END | disposition home or self-care (01) ==
LOC: MFPLAB 11:12
PROVIDERS: PCP Family Medicine; Visit Provider Family Medicine
DX: E11.9 Type 2 diabetes mellitus without complications (principal)
CPT/HCPCS: 36415; 80048; 80061

== ENCOUNTER 2024-01-29 08:53 | Outpatient (CLI) | payer MEDICARE, OTHER, SELFPAY ==
[2024-01-29] VITALS (13 sets, daily range): BP systolic 133–184; BP diastolic 60–102; PULSE 59–70; RESP 10–20; TEMP 36.2; O2SAT 91–99; BMI 25.7
--- NOTE | 2024-01-29 | IMM_PTH ---
PATIENT: BRISEIDA BOWSER Jr. LOC: CT U#:[id number] AGE/SX: 83/M ROOM: RE01/29/[address]: Dr. Bucky Kendall DO : 1940 BED: DIS: 01/29/2024 SPEC #: [id number] RECD: 01/29/24 11:43 STATUS: JASMINA REQ #: [id number] SAMIR: 01/29/24 00:[address]: Bucky Kendall DEPT: IMMUNOHISTOCHEMISTRY RECD BY: Viral Redd ENTERED: 01/29/24 11:45 SP TYPE: IMMUNO OTHR DR: Dr. Shantanu Jackson MD Tissues: Liver, NOS Procedures: RCC (add) NAPSIN A (add) CK20 (add) CK5-6 (add) CK7 (add) CK8 (add) HEP PAR (add) KI-67 (add) P53 (add) TTF1 (add) Pankeratin (initial) P40 (add) PSAP (add) PHYSICIAN & [address] [address] SPECIMEN INFORMATION: Tissue Source: Liver biopsy Clinical Info: Liver mass Specimen Number: [id number] CPT code: 27561,70530v89 METHODOLOGY: Deparaffinized sections of prefer/formalin-fixed tissue or PAP/DQ stained slides are incubated with monoclonal/polyclonal antibodies/oligonucleotide probes. Localization is made via biotin free immunoperoxidase method. Appropriate controls are performed and reacted as expected. Results on target cell population are indicated in the following table: RESULTS: ANTIBODY / CLONE RESULT AE1-3 (AE1/AE3/PCK26) negative CK7 (OV-TL12/30) negative CK8 (78bechI83) positive, weak CK20 (KS20.8) negative TTF-1 (8G7G3/1) negative Napsin A (Rabbit Polyclonal) negative HepPar (OCh1E5) positive, strong RCC (PN-15) negative PSAP (PASE/4LJ) negative CK5-6 (D5 & 1684) negative P40 (BC28) negative P53 (DO-7) positive, focal (wild type pattern) Ki-67 (30-9) positive, low These tests were developed and their performance characteristics determined by [facility]. They may not have been cleared or approved by the U.S. Food and Drug Administration. The FDA has determined that such clearance or approval is not necessary. The above immunohistochemical/dualISH markers are ordered and reviewed by the Pathologist. INTERPRETATION: Liver, CT guided core biopsy: Moderately differentiated hepatocellular carcinoma. See comment. COMMENT: This case has been reviewed in consultation with Dr. Dai who concurs with the above diagnosis. IDC:[email or web address] [email or web address]/ 01/30/2024
--- NOTE | 2024-01-29 | ASPIGT_PTH ---
PATIENT: BRISEIDA BOWSER Jr. LOC: OR U#:[id number] AGE/SX: 83/M ROOM: RE01/29/[address]: Dr. Bucky Kendall DO : 1940 BED: DIS: 01/29/2024 SPEC #: [id number] RECD: 01/29/24 13:15 STATUS: JASMINA REBernardo #: [id number] SAMIR: 01/29/24 00:[address]: Bucky Kendall DEPT: SURGICAL PATHOLOGY RECD BY: Devendra Nick ENTERED: 01/29/24 13:15 SP TYPE: ASP RAD OTHR DR: Dr. Shantanu Jackson MD Tissues: Liver, NOS Procedures: FNA Specimen Adequacy Special Stain Group II Surgery Specimen Level IV Surgery Specimen Level V Imprint (control) HEADER OPERATION: Ct guided liver biopsy PRE-OP DIAGNOSIS: Liver mass TISSUE SUBMITTED: 18 x 4 cores MICROSCOPIC DIAGNOSIS Liver mass, CT guided core biopsy: Moderately differentiated hepatocellular carcinoma. See comment. 01/30/2024 COMMENT The specimen is evaluated at the time of biopsy by Dr. Grullon. Immediate Evaluation = Atypical cells noted, suspicious for malignancy. Reported to Dr. Lainez at 10:59am. Immunohistochemistry ([id number]) supports the above diagnosis. Immunohistochemistry for MSI (mismatch repair protein) and molecular study of the tumor can be performed, if clinically indicated. Please notify the laboratory if it is needed. This case has been reviewed in consultation with Dr. Dai who concurs with the above diagnosis. IDC:[email or web address] MICROSCOPIC DESCRIPTION Slides are reviewed. GROSS DESCRIPTION Received in fixative is one container labeled with the patient's name and designated Liver biopsy. The specimen consists of multiple elongated fragments of hagan soft tissue that in aggregate measure 1.7 x 0.3 x 0.1 cm. The specimen is totally submitted in one cassette. Two touch imprints are prepared at the time of core biopsy. 01/29/2024 TC:0 CPT:38435,69047 ADDENDUM ADDENDUM ADDENDUM ADDENDUM ADDENDUM ADDENDUM ADDENDUM ADDENDUM ADDENDUM ADDENDUM ADDENDUM ADDENDUM ADDENDUM ADDENDUM ADDENDUM ADDENDUM ADDENDUM ADDENDUM ADDENDUM 02/28/2024 14:47 ADDENDUM 02/28/2024 14:47 ADDENDUM 02/28/2024 14:47 ADDENDUM 02/28/2024 14:47 ADDENDUM 02/28/2024 14:47 This addendum is added to incorporate an outside pathology consultation report. The case was examined at [facility] (#[id number]) and the following diagnosis was rendered. Liver mass, CT guided core biopsy: Hepatocellular carcinoma, moderately differentiated. Immunohistochemistry stain performed at outside hospital. The tumor cells positive for hepatocyte and CK*. The tumor cells are negative for P40, CK5/6, RCC, PSAP, CK20, CK7, pancytokeratin, Napsin, and TTF 1. P53- wild type. KI-67 increased See comment. COMMENT: The diagnosis reflects the consensus of GI pathology group. Please see complete above mentioned consultation report in EMR
--- NOTE | 2024-01-29 09:10 | CT_ITS ---
PROCEDURE: CT DIRECTED CORE LIVER BIOPSY INDICATION: Male, 83 years old. Liver lesion. PHYSICIAN: Dr. Migel Carvalho CONSENT: Written informed consent was obtained having explained the risks, benefits and alternatives in detail with the patient who accepted the risks and agreed to proceed. Laboratory review and clinical assessment was performed. CONSCIOUS SEDATION PROTOCOL: The Drugs used were: 1 mg Versed, IV., and 25 mcg Fentanyl, IV. The sedation time was: 19 minutes. Conscious sedation was started at 10:33 AM and terminated at 10:52 AM. The conscious sedation protocol was independently monitored. RADIATION DOSAGE (If Supplied By Facility): CTDIvol = ( 19.5 ) mGy, DLP = ( 389.29 ) mGycm Individualized dose optimization techniques were used for this CT. TECHNIQUE: Using CT image guidance with image documentation, a suitable location in the inferior aspect of the right lobe of the liver was identified. Using an anterior approach, puncture of the liver was uneventful with an 18-gauge core needle system. 4, 18-gauge core samples were obtained, and submitted in formalin to the pathologist for further assessment. Followup CT scan revealed no distinct sequelae. CT/Biopsy/Inj or Needle Placement IMPRESSION: 1. CT directed core needle biopsy of the liver, using CT image guidance with image documentation as described. 2. Conscious Sedation protocol utilized with independent monitoring. Electronically Signed: Rolando Lainez MD at 11:07 EST ,
[2024-01-29 09:20] LABS: Platelet Count 179 K/mm3 (150-450)
[2024-01-29 09:32] LABS: Partial Thromboplast Time 27.3 Seconds (24.1-36.2)
[2024-01-29] MEDS: Midazolam 2 MG/2 ML Syringe IV (10:33)
[2024-01-29] MEDS: 0.9% Saline Lock 10 ML Syringe IV (10:35)
[2024-01-29] MEDS: fentaNYL 100 MCG/2 ML Ampul IV (10:35)
[2024-01-29] MEDS: Lidocaine 2% (20 ml mdv) 20 ML Vial INFILT (10:45)
[2024-01-30 10:10] LABS: Carbohydrate Ag 19-9 2261 25 U/mL (0-35); Carcinoembryonic Antigen 4.8 ng/mL (0.0-4.7)
== END 2024-01-29 23:59 | disposition home or self-care (01) ==
PROVIDERS: PCP Family Medicine; Referring Provider Internal Medicine Gastroenterology; Visit Provider Internal Medicine Gastroenterology
DX: R16.0 Hepatomegaly, not elsewhere classified (principal); C22.0 Liver cell carcinoma; E11.9 Type 2 diabetes mellitus without complications; I10 Essential (primary) hypertension; D37.6 Neoplasm of uncertain behavior of liver, gallbladder and bile ducts
CPT/HCPCS: 47000; 36415; 77012; 82105; 82378; 85049; 85610; 85730; 86301; 88172; 88305; 88307; 88313; 88341; 88342; 99156; A4216

== ENCOUNTER → 2024-02-08 | Outpatient (CLI) | payer MEDICARE, OTHER, SELFPAY ==
--- NOTE | 2024-02-08 10:24 | CT_ITS ---
INDICATION: HEPATOMA EXAMINATION: CT CHEST WITH CONTRAST - CT Chest W/ Contrast Injection TECHNIQUE: Helically acquired images were obtained of the chest following IV contrast. The protocol utilizes one or more of the following dose reduction techniques: automated exposure control, adjustment of mA and/or kV according to patient size,and/or use of iterative reconstruction technique. IV Contrast dosage and agent: 100 cc of [id number] RADIATION DOSAGE (If Supplied By Facility): CTDIvol = ( 15.05 ) mGy, DLP = ( 516.93 ) mGycm COMPARISON: CT of the abdomen and pelvis dated March 24, 2022 and June 06, 2023 and MRI dated January 02, 2024 FINDINGS: LUNGS, PLEURA AND LARGE AIRWAYS: There is stable minimal bibasilar atelectasis and/or scarring. There is a stable left lower lobe subpleural 4 mm nodule (image 82 series 4) there is an additional stable 4 mm right lower lobe nodule (image 81 series 4). No pleural effusion or thickening. No pneumothorax. THYROID: No thyroid lesions. HEART AND PERICARDIUM: Heart size is normal. No pericardial effusion. There are coronary artery calcifications. VESSELS: Thoracic aorta is not dilated. No aortic dissection. No obvious central pulmonary embolism although this study was not performed with the pulmonary embolism protocol. MEDIASTINUM AND FIDELINA: No mediastinal or hilar adenopathy. Esophagus is unremarkable. No hiatal hernia. UPPER ABDOMEN: The limited images of the upper abdomen demonstrate partial visualization of an ill-defined enhancing mass within the right hepatic lobe measuring up to 3.9 x 4.0 cm. BONES: The bones are diffusely demineralized. There are degenerative changes of the lumbar spine. CT/Chest WITH Contrast IMPRESSION: Stable 4 mm lower lobe pulmonary nodule since February 2022 suggesting a benign process, recommend follow-up chest CT in 12-18 months. Atherosclerosis. Partial visualization of an enhancing right lower lobe mass. Electronically Signed: Moira Sy MD at 10:50 EST ,
== END | disposition home or self-care (01) ==
PROVIDERS: PCP Family Medicine; Referring Provider Internal Medicine Medical Oncology; Visit Provider Internal Medicine Medical Oncology
DX: C22.0 Liver cell carcinoma (principal)
CPT/HCPCS: 71260; Q9967

== ENCOUNTER → 2024-06-10 | Outpatient (CLI) | payer MEDICARE, OTHER, SELFPAY ==
[2024-06-10 18:30] LABS: ALB/GLOB Ratio 1.6 RATIO (0.9-2.4); AST(SGOT) 18 U/L (<=37); Alanine Aminotransfer ALT/SGPT 12 U/L (<=46); Albumin, Serum 4.3 g/dL (3.4-4.8); Alkaline Phosphatase 106 U/L (40-129); Anion Gap 13 (5-15); BUN 17 mg/dL (4-19); Calcium,Total 9.7 mg/dL (7.6-11.0); Carbon Dioxide 22.5 mmol/L (21.0-32.0); Chloride 102 mmol/L (98-108); Cholesterol 131 mg/dL (<=200); Creatinine, Serum 0.89 mg/dL (0.70-1.20); EST Glomerular Filtration Rate 84 (>60); Globulin 2.7 g/dL (2.2-4.2); Glucose 148 mg/dL (70-99); High Density Lipoprotein 56 mg/dL; Low Density Lipoprotein Calc. 54 mg/dL; Potassium 4.2 mmol/L (3.3-5.1); Sodium Level 137 mmol/L (133-145); Total Bilirubin 0.61 mg/dL (0.00-1.30); Triglycerides 109 mg/dL; Very Low Density Lipoprotein 22 mg/dL (5-40); cholesterol:hdl ratio screen 2.36
[2024-06-10 19:46] LABS: Microalbumin:Creatinine Ratio 7565.4 mg/g CRE
== END | disposition home or self-care (01) ==
LOC: MFPLAB 15:28
PROVIDERS: PCP Family Medicine; Referring Provider Family Medicine; Visit Provider Family Medicine
DX: E11.9 Type 2 diabetes mellitus without complications (principal)
CPT/HCPCS: 36415; 80053; 80061; 82043; 82570

== ENCOUNTER → 2024-08-28 | Outpatient (CLI) | payer MEDICARE, OTHER, SELFPAY ==
--- NOTE | 2024-08-28 11:02 | MRI_ITS ---
PROCEDURE: MRI ABD WITH AND W/O CONTRAST, 08/28/2024 REASON FOR EXAM: LIVER MASS TECHNIQUE: Multiplanar multisequence MRI abdomen was performed with and without IV contrast. IV contrast: 19 mL Clariscan COMPARISON: 01/02/2024 FINDINGS: Variable overall mild motion limitation. Few sequences are mild/moderately motion degraded. Liver: Interval partial RIGHT hepatectomy. Spleen: Mild splenomegaly, 14.0 cm.. Gallbladder: Cholecystectomy. Mild dilatation of the CBD to 9 mm, probably increased from prior, possible post cholecystectomy effect. No definite filling defect to suggest choledocholithiasis. Pancreas: Multifocal pancreatic cystic lesions throughout, incompletely characterized in the absence of MRCP sequences. A dominant lesion along pancreatic head/neck measuring 11 x 15 mm, not well seen previously due to motion. Additional reference lesion in the pancreatic body measures 14 x 13 mm. Additional reference lesion along the pancreatic head/uncinate process measures 24 x 12 mm with internal septations. No definite solid nodular enhancing components. Main pancreatic duct at the level of the head is mildly dilated to 5 mm. No clear ductal dilatation in the body/tail although evaluation is suboptimal. Adrenals: Unremarkable. Kidneys: Bilateral cysts. 0.8 cm T2 bright and faintly T1 bright lesion on the RIGHT, previously appeared T1 dark but not definitely changed in size allowing for technical differences, incompletely characterized in the absence of subtraction sequences. Bowel: Not well evaluated by MRI. Diverticulosis. Mild gaseous dilatation of the cecum to 7.2 cm.. Lymph nodes: Unremarkable. Vasculature: Atherosclerosis. Peritoneum: Unremarkable. Body Wall: Operative changes. Bones: Lumbar spondylosis. MRI/MRI Abd WITH and W/O Contrast IMPRESSION: 1. Interval partial RIGHT hepatectomy without definite evidence of recurrent or metastatic disease within the abdomen. 2. Cholecystectomy with mild biliary dilatation which has increased slightly, p ossible post cholecystectomy effect. Correlate with serum bilirubin. 3. Numerous pancreatic cystic lesions up to 24 mm, largest with internal septat ions but without definite solid nodular enhancing components. These are difficult to compare given technical differences and mot ion on the previous exam. At least the majority if not all are favored to reflect cystic neoplasm such as IPMN. Recommend GI c onsultation for management. Note that the ACR does not provide recommendations for patients age 80 or above. Below this age, given size, either EUS with FNA or follow-up MRI abdomen with and without IV contrast and with MRCP in 6 months would be recomme nded. Mild proximal pancreatic ductal dilatation. 4. 0.8 cm RIGHT renal lesion, incompletely evaluated on nondedicated evaluation , possible hemorrhagic/proteinaceous cyst although it is difficult to exclude a solid hypoenhancing lesion. Recommend attention o n follow-up imaging. 5. Findings suggest mild colonic ileus. 6. Mild splenomegaly. 7. Additional description as above. Reading Location: [id number]
== END | disposition home or self-care (01) ==
LOC: OPMRI 11:01
PROVIDERS: PCP Family Medicine; Referring Provider Internal Medicine Medical Oncology; Visit Provider Internal Medicine Medical Oncology
DX: C22.0 Liver cell carcinoma (principal); R16.0 Hepatomegaly, not elsewhere classified
CPT/HCPCS: 74183; A9575; A4216

== ENCOUNTER → 2025-02-28 | Outpatient (CLI) | payer MEDICARE, OTHER, SELFPAY ==
[2025-02-28 15:26] LABS: Anion Gap 14 (5-15); BUN 17 mg/dL (4-19); BUN/Creat Ratio 16.0 RATIO (10-20); Calcium,Total 9.8 mg/dL (7.6-11.0); Carbon Dioxide 25.1 mmol/L (21.0-32.0); Chloride 100 mmol/L (98-108); Cholesterol 135 mg/dL (<=200); Glucose 240 mg/dL (70-99); Low Density Lipoprotein Calc. 65 mg/dL; Potassium 4.3 mmol/L (3.3-5.1); Triglycerides 150 mg/dL; Very Low Density Lipoprotein 30 mg/dL (5-40); cholesterol:hdl ratio screen 3.07
== END | disposition home or self-care (01) ==
LOC: MFPLAB 11:54
PROVIDERS: PCP Family Medicine; Visit Provider Family Medicine
DX: E11.9 Type 2 diabetes mellitus without complications (principal); E78.5 Hyperlipidemia, unspecified; I10 Essential (primary) hypertension
CPT/HCPCS: 36415; 80048; 80061; 83036